=== PATIENT | female | born 1940 | race Caucasian/White ===

== ENCOUNTER → 2016-07-11 | Outpatient (REF) | payer MEDICARE, MEDICAID | LOC: M SFHCPLAZ 11:26 | PROVIDERS: ATTEND Family Medicine | DX: D75.89 Other specified diseases of blood and blood-forming organs (principal); I10 Essential (primary) hypertension; E55.9 Vitamin D deficiency, unspecified; E03.9 Hypothyroidism, unspecified ==

== ENCOUNTER → 2016-07-31 | Outpatient (REF) | payer MEDICARE, MEDICAID ==
[2016-07-31 13:19] LABS: BASO % 0.8 % (0.0-1.0); EOS # 0.1 K/mm3 (0.0-0.50); EOS % 1.8 % (0.0-3.0); LARGE UNSTAINED CELL # 0.2 K/mm3 (0.0-0.4); LARGE UNSTAINED CELL % 2.7 % (0.0-4.0); LYMPH # 1.1 K/mm3 (1.5-4.5); LYMPH % 16.5 % (24.0-44.0); MEAN CORPUSCULAR HEMOGLOBIN 30.9 pg (27.0-33.0); MEAN CORPUSCULAR HGB CONC 31.7 g/dl (32.0-36.5); MEAN CORPUSCULAR VOLUME 97.7 fl (80.0-96.0); MONO # 0.5 K/mm3 (0.0-0.8); MONO % 8.4 % (0.0-5.0); NEUTROPHILS % 69.8 % (36.0-66.0); PLATELET COUNT, AUTOMATED 294 k/mm3 (150-450); RED CELL DISTRIBUTION WIDTH 14.5 % (11.5-14.5); WHITE BLOOD COUNT 5.7 K/mm3 (4.0-10.0)
[2016-07-31 13:45] LABS: VITAMIN B12 LEVEL 208 PG/ML (247-911)
[2016-07-31 13:48] LABS: ALBUMIN 3.6 GM/DL (3.2-5.2); ALBUMIN/GLOBULIN RATIO 1.09 (1.00-1.93); ALKALINE PHOSPHATASE 95 U/L (45-117); ALT/SGPT 11 U/L (12-78); ANION GAP 6 MEQ/L (8-16); AST/SGOT 7 U/L (15-37); BILIRUBIN,TOTAL 0.6 MG/DL (0.2-1.0); BLOOD UREA NITROGEN 23 MG/DL (7-18); CALCIUM LEVEL 9.1 MG/DL (8.8-10.2); CARBON DIOXIDE LEVEL 30 MEQ/L (21-32); CHLORIDE LEVEL 105 MEQ/L (98-107); CREATININE FOR GFR 0.78 MG/DL (0.55-1.02); FERRITIN 35 NG/ML (8-252); GLOMERULAR FILTRATION RATE > 60.0 (>39); GLUCOSE, FASTING 93 MG/DL (83-110); MAGNESIUM LEVEL 2.3 MG/DL (1.8-2.4); POTASSIUM SERUM 4.7 MEQ/L (3.5-5.1); SODIUM LEVEL 141 MEQ/L (136-145); TOTAL IRON BINDING CAPACITY 378 UG/DL (250-450); TOTAL PROTEIN 6.9 GM/DL (6.4-8.2)
== END ==
LOC: M SFHCPLAZ 09:36
PROVIDERS: ATTEND Family Medicine
DX: D75.89 Other specified diseases of blood and blood-forming organs (principal); I10 Essential (primary) hypertension; E55.9 Vitamin D deficiency, unspecified; E03.9 Hypothyroidism, unspecified

== ENCOUNTER 2017-04-08 09:19 | Inpatient (IN) | payer MEDICARE, MEDICAID ==
[2017-04-08] MEDS: methylPREDNISolone INJ 125 MG/2 ML VIAL (J2930) IV (10:05)
[2017-04-08 10:13] LABS: ABG BASE EXCESS 0.3 (-2.0-2.0); ABG HCO3 33.1 MEQ/L (22.0-26.0); ABG STANDARD HCO3 24.1 MEQ/L (22.0-26.0); ABG TOTAL CO2 36.1 MEQ/L (23.0-31.0)
[2017-04-08 10:19] LABS: ABG PARTIAL PRESSURE CO2 97.2 mmHg (35.0-45.0)
[2017-04-08 10:20] LABS: ABG PARTIAL PRESSURE O2 47.7 mmHg (75.0-100.0)
[2017-04-08] MEDS: IPRATROPIUM 0.5MG/ALBUTEROL 2.5MG INH SOL UD 3ML (DUONEB)(J7620) NEB ×2 (10:23→10:36)
[2017-04-08 10:49] LABS: BASO % 0.3 % (0.0-1.0); HEMATOCRIT 54.5 % (36.0-47.0); HEMOGLOBIN 16.4 g/dl (12.0-16.0); IMMATURE GRANULOCYTE # 0.1 10^3/uL (0-0); IMMATURE GRANULOCYTE % 0.8 % (0-0); LYMPH # 0.5 10^3/uL (1.5-4.5); LYMPH % 4.5 % (24.0-44.0); MEAN CORPUSCULAR HEMOGLOBIN 30.7 pg (27.0-33.0); MEAN CORPUSCULAR HGB CONC 30.1 g/dl (32.0-36.5); MEAN CORPUSCULAR VOLUME 102.1 fl (80.0-96.0); MONO # 1.1 10^3/uL (0.0-0.8); MONO % 9.1 % (0.0-5.0); NEUTROPHILS # 10.2 10^3/uL (1.8-7.7); NEUTROPHILS % 85.3 % (36.0-66.0); PLATELET COUNT, AUTOMATED 322 10^3/uL (150-450); RED BLOOD COUNT 5.34 10^6/uL (4.00-5.40); RED CELL DISTRIBUTION WIDTH 14.3 % (11.5-14.5); WHITE BLOOD COUNT 11.9 10^3/uL (4.0-10.0)
[2017-04-08] MEDS: CEFTRIAXONE SOD 2 GM in APPROPRIATE DILUENT 1 EA IV (10:50)
[2017-04-08 10:51] LABS: SUSPECT SAMPLE POS FLAG
[2017-04-08 10:57] LABS: ABG HCO3 34.3 MEQ/L (22.0-26.0); ABG O2 SATURATION 96.8 % (95.0-99.0); ABG PARTIAL PRESSURE O2 100.1 mmHg (75.0-100.0); ABG STANDARD HCO3 25.4 MEQ/L (22.0-26.0); ABG TOTAL CO2 37.5 MEQ/L (23.0-31.0)
[2017-04-08 11:01] LABS: ABG PARTIAL PRESSURE CO2 103.1 mmHg (35.0-45.0)
[2017-04-08] MEDS: ROCURONIUM BROMIDE 50 MG/5 ML VIAL IV (11:24)
[2017-04-08] MEDS: SUCCINYLCHOLINE INJ 200 MG/10 ML VIAL (J0330) IV (11:24)
[2017-04-08] MEDS: LIDOCAINE 2% INJ 100 MG/5 ML SYRINGE IV (11:24)
[2017-04-08 11:29] LABS: ANION GAP 10 MEQ/L (8-16); BLOOD UREA NITROGEN 40 MG/DL (7-18); CALCIUM LEVEL 8.7 MG/DL (8.8-10.2); CARBON DIOXIDE LEVEL 29 MEQ/L (21-32); CHLORIDE LEVEL 96 MEQ/L (98-107); CK-MB VALUE MASS 2.2 NG/ML (0.0-3.6); CPK CREATINE PHOSPHOKINASE 42 U/L (26-192); CREATININE FOR GFR 1.63 MG/DL (0.55-1.02); GLOMERULAR FILTRATION RATE 32.4 (>39); GLUCOSE, FASTING 136 MG/DL (83-110); MB/CK RELATIVE INDEX 5.23 (< OR =4); NT-PRO BNP 15527 PG/ML (<450); SODIUM LEVEL 135 MEQ/L (136-145); TROPONIN I 0.14 NG/ML (< 0.10)
[2017-04-08 11:33] LABS: POTASSIUM SERUM 5.4 MEQ/L (3.5-5.1)
[2017-04-08] MEDS: NS 1,000 ML IV (11:35)
[2017-04-08] MEDS ORDERED: MIDAZOLAM INJ 2 MG/2 ML VIAL (J2250) As Ordered (11:51)
[2017-04-08] MEDS: MIDAZOLAM INJ 2 MG/2 ML VIAL (J2250) IV ×8 (11:55→22:31)
[2017-04-08] MEDS: HumaLOG INSULIN (NovoLOG) PER UNIT SC ×2 (12:00→18:00)
[2017-04-08] MEDS ORDERED: GLUCAGON FOR INJ 1 MG VIAL (J1610) SC (12:00)
[2017-04-08] MEDS ORDERED: GLUCOSE 4 GM CHEW TABLET PO (12:00)
[2017-04-08] MEDS ORDERED: DEXTROSE 50% 50 ML SYRINGE IV (12:00)
[2017-04-08] MEDS: PANTOPRAZOLE 40MG INJ (PROTONIX) (C9113) IV (12:25)
[2017-04-08] MEDS: AZITHROMYCIN INJ 500 MG, VIAL MATE ADAPTER 1 EACH in D5W 250 ML IV (12:37)
[2017-04-08 13:13] LABS: ABG BASE EXCESS -2.3 (-2.0-2.0); ABG HCO3 27.1 MEQ/L (22.0-26.0); ABG O2 SATURATION 75.9 % (95.0-99.0); ABG TOTAL CO2 29.1 MEQ/L (23.0-31.0)
[2017-04-08 13:16] LABS: ABG PARTIAL PRESSURE CO2 66.7 mmHg (35.0-45.0); ABG PARTIAL PRESSURE O2 44.7 mmHg (75.0-100.0); ABG pH (ARTERIAL) 7.226 UNITS (7.350-7.450)
[2017-04-08] MEDS: NOREPINEPHRINE BITARTRATE 8 MG in D5W 492 ML IV ×2 (13:18→13:21)
[2017-04-08 13:41] LABS: LACTIC ACID SEPSIS PROTOCOL 3.4 MMOL/L (0.4-2.0)
[2017-04-08] MEDS: HEPARIN SOD (PORCINE) 5000 UNITS/ML VIAL SC ×2 (14:00→22:32)
[2017-04-08 17:05] LABS: ABG BASE EXCESS -0.8 (-2.0-2.0); ABG HCO3 26.3 MEQ/L (22.0-26.0); ABG O2 SATURATION 84.5 % (95.0-99.0); ABG PARTIAL PRESSURE CO2 52.4 mmHg (35.0-45.0); ABG PARTIAL PRESSURE O2 49.2 mmHg (75.0-100.0); ABG STANDARD HCO3 23.5 MEQ/L (22.0-26.0); ABG TOTAL CO2 27.9 MEQ/L (23.0-31.0); ABG pH (ARTERIAL) 7.319 UNITS (7.350-7.450)
[2017-04-08 17:09] LABS: MIXED BASE EXCESS 0.1; MIXED HCO3 29.4 MEQ/L; MIXED O2 SATURATION 41.8 %; MIXED PARTIAL PRESSURE O2 24.4 mmHg; MIXED PH 7.254 UNITS; MIXED STANDARD HCO3 23.1 MEQ/L; MIXED TOTAL CO2 31.5 MEQ/L
[2017-04-08] MEDS: FUROSEMIDE 100 MG/10 ML VIAL (J1940) IV (18:15)
[2017-04-08 18:31] LABS: CPK CREATINE PHOSPHOKINASE 58 U/L (26-192); TROPONIN I 0.78 NG/ML (< 0.10)
[2017-04-08 18:32] LABS: CK-MB VALUE MASS 4.3 NG/ML (0.0-3.6); MB/CK RELATIVE INDEX 7.41 (< OR =4)
[2017-04-08] MEDS: CHLORHEXIDINE ORAL RINSE 0.12%/15ML 120ML BOTTLE MT (20:17)
[2017-04-08 20:42] LABS: BEDSIDE GLUCOSE 181 MG/DL (83-110)
[2017-04-09] MEDS: MIDAZOLAM INJ 2 MG/2 ML VIAL (J2250) IV ×7 (00:34→12:50)
[2017-04-09 00:40] LABS: BEDSIDE GLUCOSE 120 MG/DL (83-110)
[2017-04-09 03:04] LABS: CPK CREATINE PHOSPHOKINASE 77 U/L (26-192); TROPONIN I 1.28 NG/ML (< 0.10)
[2017-04-09 03:05] LABS: CK-MB VALUE MASS 4.8 NG/ML (0.0-3.6); MB/CK RELATIVE INDEX 6.23 (< OR =4)
[2017-04-09 05:50] LABS: BASO % 0.1 % (0.0-1.0); HEMATOCRIT 49.2 % (36.0-47.0); HEMOGLOBIN 15.7 g/dl (12.0-16.0); IMMATURE GRANULOCYTE # 0.1 10^3/uL (0-0); IMMATURE GRANULOCYTE % 0.5 % (0-0); LYMPH # 0.4 10^3/uL (1.5-4.5); LYMPH % 2.9 % (24.0-44.0); MEAN CORPUSCULAR HEMOGLOBIN 30.7 pg (27.0-33.0); MEAN CORPUSCULAR HGB CONC 31.9 g/dl (32.0-36.5); MEAN CORPUSCULAR VOLUME 96.3 fl (80.0-96.0); MONO # 1.2 10^3/uL (0.0-0.8); MONO % 8.3 % (0.0-5.0); NEUTROPHILS # 13.2 10^3/uL (1.8-7.7); NEUTROPHILS % 88.2 % (36.0-66.0); PLATELET COUNT, AUTOMATED 262 10^3/uL (150-450); RED BLOOD COUNT 5.11 10^6/uL (4.00-5.40); RED CELL DISTRIBUTION WIDTH 14.1 % (11.5-14.5); WHITE BLOOD COUNT 14.9 10^3/uL (4.0-10.0)
[2017-04-09] MEDS: HEPARIN SOD (PORCINE) 5000 UNITS/ML VIAL SC ×3 (05:51→22:02)
[2017-04-09 05:54] LABS: MIXED BASE EXCESS 1.6; MIXED HCO3 30.5 MEQ/L; MIXED PARTIAL PRESSURE CO2 65.6 mmHg; MIXED PARTIAL PRESSURE O2 50.3 mmHg; MIXED PH 7.285 UNITS; MIXED STANDARD HCO3 25.4 MEQ/L; MIXED TOTAL CO2 32.5 MEQ/L
[2017-04-09] MEDS: HumaLOG INSULIN (NovoLOG) PER UNIT SC ×5 (06:00→23:57)
[2017-04-09 06:08] LABS: ABG BASE EXCESS 0.3 (-2.0-2.0); ABG HCO3 26.8 MEQ/L (22.0-26.0); ABG O2 SATURATION 96.2 % (95.0-99.0); ABG PARTIAL PRESSURE CO2 49.8 mmHg (35.0-45.0); ABG PARTIAL PRESSURE O2 83.3 mmHg (75.0-100.0); ABG STANDARD HCO3 24.7 MEQ/L (22.0-26.0); ABG TOTAL CO2 28.3 MEQ/L (23.0-31.0); ABG pH (ARTERIAL) 7.348 UNITS (7.350-7.450)
[2017-04-09 06:20] LABS: ALBUMIN/GLOBULIN RATIO 0.91 (1.00-1.93); ALKALINE PHOSPHATASE 78 U/L (45-117); ALT/SGPT 128 U/L (12-78); ANION GAP 8 MEQ/L (8-16); AST/SGOT 122 U/L (7-37); BILIRUBIN,TOTAL 0.4 MG/DL (0.2-1.0); BLOOD UREA NITROGEN 58 MG/DL (7-18); CALCIUM LEVEL 8.4 MG/DL (8.8-10.2); CARBON DIOXIDE LEVEL 30 MEQ/L (21-32); CHLORIDE LEVEL 100 MEQ/L (98-107); CREATININE FOR GFR 2.29 MG/DL (0.55-1.02); GLOMERULAR FILTRATION RATE 21.9 (>39); GLUCOSE, FASTING 119 MG/DL (83-110); POTASSIUM SERUM 4.9 MEQ/L (3.5-5.1); SODIUM LEVEL 138 MEQ/L (136-145); TOTAL PROTEIN 6.3 GM/DL (6.4-8.2)
[2017-04-09] MEDS: CHLORHEXIDINE ORAL RINSE 0.12%/15ML 120ML BOTTLE MT ×2 (08:10→20:56)
[2017-04-09] MEDS: PANTOPRAZOLE 40MG INJ (PROTONIX) (C9113) IV (08:11)
[2017-04-09] MEDS: CEFTRIAXONE SOD 1 GM in APPROPRIATE DILUENT 1 EA IV (10:10)
[2017-04-09] MEDS: FUROSEMIDE 40 MG/4 ML VIAL (J1940) IV (10:55)
[2017-04-09 12:05] LABS: BEDSIDE GLUCOSE 108 MG/DL (83-110)
[2017-04-09] MEDS: AZITHROMYCIN INJ 500 MG, VIAL MATE ADAPTER 1 EACH in D5W 250 ML IV (12:18)
[2017-04-09] MEDS: methylPREDNISolone INJ 125 MG/2 ML VIAL (J2930) IV ×2 (12:18→20:56)
[2017-04-09] MEDS: MORPHINE 2 MG/ML 1ML SYRINGE (J2270) IV (12:19)
[2017-04-09 12:25] LABS: ABG BASE EXCESS -1.4 (-2.0-2.0); ABG HCO3 22.9 MEQ/L (22.0-26.0); ABG PARTIAL PRESSURE CO2 37.9 mmHg (35.0-45.0); ABG PARTIAL PRESSURE O2 75.2 mmHg (75.0-100.0); ABG STANDARD HCO3 23.2 MEQ/L (22.0-26.0); ABG TOTAL CO2 24.1 MEQ/L (23.0-31.0)
[2017-04-09 12:29] LABS: TROPONIN I 1.37 NG/ML (< 0.10)
[2017-04-09] MEDS: DIGOXIN INJ 0.5 MG/2 ML AMP (J1160) IV (13:46)
[2017-04-09] MEDS: CHLOROTHIAZIDE 500 MG VIAL (J1205) IV (13:48)
[2017-04-09 17:45] LABS: BEDSIDE GLUCOSE 138 MG/DL (83-110)
[2017-04-09 18:48] LABS: ALBUMIN 2.9 GM/DL (3.2-5.2); ANION GAP 9 MEQ/L (8-16); BLOOD UREA NITROGEN 70 MG/DL (7-18); CALCIUM LEVEL 8.3 MG/DL (8.8-10.2); CARBON DIOXIDE LEVEL 32 MEQ/L (21-32); CHLORIDE LEVEL 99 MEQ/L (98-107); CREATININE FOR GFR 2.17 MG/DL (0.55-1.02); GLOMERULAR FILTRATION RATE 23.3 (>39); GLUCOSE, FASTING 172 MG/DL (83-110); PHOSPHORUS LEVEL 4.1 MG/DL (2.5-4.9); POTASSIUM SERUM 4.2 MEQ/L (3.5-5.1); SODIUM LEVEL 140 MEQ/L (136-145)
[2017-04-10 00:06] LABS: BEDSIDE GLUCOSE 139 MG/DL (83-110)
[2017-04-10] MEDS: methylPREDNISolone INJ 125 MG/2 ML VIAL (J2930) IV ×3 (04:05→20:17)
[2017-04-10] MEDS: HEPARIN SOD (PORCINE) 5000 UNITS/ML VIAL SC ×3 (05:26→22:00)
[2017-04-10 05:54] LABS: BASO % 0.1 % (0.0-1.0); HEMOGLOBIN 15.1 g/dl (12.0-16.0); IMMATURE GRANULOCYTE # 0.2 10^3/uL (0-0); IMMATURE GRANULOCYTE % 1.2 % (0-0); LYMPH % 1.5 % (24.0-44.0); MEAN CORPUSCULAR HEMOGLOBIN 30.6 pg (27.0-33.0); MEAN CORPUSCULAR HGB CONC 32.1 g/dl (32.0-36.5); MEAN CORPUSCULAR VOLUME 95.1 fl (80.0-96.0); MIXED BASE EXCESS 5.6; MIXED HCO3 32.5 MEQ/L; MIXED O2 SATURATION 84.6 %; MIXED PARTIAL PRESSURE O2 50.7 mmHg; MIXED PH 7.382 UNITS; MIXED STANDARD HCO3 29.2 MEQ/L; MIXED TOTAL CO2 34.3 MEQ/L; MONO # 0.6 10^3/uL (0.0-0.8); MONO % 4.1 % (0.0-5.0); NEUTROPHILS # 13.9 10^3/uL (1.8-7.7); NEUTROPHILS % 93.1 % (36.0-66.0); PLATELET COUNT, AUTOMATED 221 10^3/uL (150-450); RED BLOOD COUNT 4.94 10^6/uL (4.00-5.40); RED CELL DISTRIBUTION WIDTH 14.1 % (11.5-14.5); WHITE BLOOD COUNT 14.9 10^3/uL (4.0-10.0)
[2017-04-10] MEDS: LEVOTHYROXINE 125MCG TABLET (0.125MG) PO (06:00)
[2017-04-10 06:04] LABS: ABG pH (ARTERIAL) 7.409 UNITS (7.350-7.450)
[2017-04-10 06:05] LABS: ABG O2 SATURATION 96.2 % (95.0-99.0); ABG PARTIAL PRESSURE CO2 50.1 mmHg (35.0-45.0); ABG STANDARD HCO3 28.9 MEQ/L (22.0-26.0); ABG TOTAL CO2 32.5 MEQ/L (23.0-31.0)
[2017-04-10 06:16] LABS: LYMPH # 0.2 10^3/uL (1.5-4.5); POSITIVE DIFF POS FLAG
[2017-04-10 06:25] LABS: ALBUMIN 2.7 GM/DL (3.2-5.2); ALBUMIN/GLOBULIN RATIO 0.82 (1.00-1.93); ALKALINE PHOSPHATASE 84 U/L (45-117); ALT/SGPT 178 U/L (12-78); ANION GAP 7 MEQ/L (8-16); AST/SGOT 123 U/L (7-37); BILIRUBIN,TOTAL 0.4 MG/DL (0.2-1.0); BLOOD UREA NITROGEN 74 MG/DL (7-18); CALCIUM LEVEL 8.4 MG/DL (8.8-10.2); CARBON DIOXIDE LEVEL 35 MEQ/L (21-32); CHLORIDE LEVEL 100 MEQ/L (98-107); CREATININE FOR GFR 1.52 MG/DL (0.55-1.02); GLOMERULAR FILTRATION RATE 35.1 (>39); GLUCOSE, FASTING 156 MG/DL (83-110); POTASSIUM SERUM 4.1 MEQ/L (3.5-5.1); SODIUM LEVEL 142 MEQ/L (136-145); TROPONIN I 0.62 NG/ML (< 0.10)
[2017-04-10] MEDS: HumaLOG INSULIN (NovoLOG) PER UNIT SC ×4 (06:51→21:00)
[2017-04-10] MEDS: PANTOPRAZOLE 40MG INJ (PROTONIX) (C9113) IV (08:55)
[2017-04-10] MEDS: CHLORHEXIDINE ORAL RINSE 0.12%/15ML 120ML BOTTLE MT (08:55)
[2017-04-10] MEDS ORDERED: INSULIN IV RATE CHANGE DOCUMENTATION ML/HR XX (09:15)
[2017-04-10] MEDS ORDERED: INSULIN HUMAN REGULAR 100 UNITS in NS 99 ML IV (10:00)
[2017-04-10] MEDS: CEFTRIAXONE SOD 1 GM in APPROPRIATE DILUENT 1 EA IV (10:19)
[2017-04-10] MEDS ORDERED: HumaLOG INSULIN (NovoLOG) PER UNIT SC (12:00)
[2017-04-10 12:29] LABS: BEDSIDE GLUCOSE 109 MG/DL (83-110)
[2017-04-10] MEDS: AZITHROMYCIN INJ 500 MG, VIAL MATE ADAPTER 1 EACH in D5W 250 ML IV (13:26)
[2017-04-10] MEDS: CHLOROTHIAZIDE 500 MG VIAL (J1205) IV (16:22)
[2017-04-10 17:10] LABS: ABG BASE EXCESS -0.2 (-2.0-2.0); ABG HCO3 31.3 MEQ/L (22.0-26.0); ABG O2 SATURATION 82.4 % (95.0-99.0); ABG PARTIAL PRESSURE O2 55.2 mmHg (75.0-100.0); ABG STANDARD HCO3 23.9 MEQ/L (22.0-26.0)
[2017-04-10 17:11] LABS: ABG pH (ARTERIAL) 7.176 UNITS (7.350-7.450)
[2017-04-10 17:12] LABS: ABG PARTIAL PRESSURE CO2 86.6 mmHg (35.0-45.0)
[2017-04-10 18:02] LABS: BEDSIDE GLUCOSE 122 MG/DL (83-110)
[2017-04-10 19:44] LABS: ABG BASE EXCESS 5.3 (-2.0-2.0); ABG HCO3 34.9 MEQ/L (22.0-26.0); ABG PARTIAL PRESSURE O2 52.8 mmHg (75.0-100.0); ABG STANDARD HCO3 28.9 MEQ/L (22.0-26.0); ABG TOTAL CO2 37.2 MEQ/L (23.0-31.0)
[2017-04-10 20:08] LABS: ABG PARTIAL PRESSURE CO2 74.3 mmHg (35.0-45.0)
[2017-04-10 21:15] LABS: BEDSIDE GLUCOSE 103 MG/DL (83-110)
[2017-04-11] MEDS: methylPREDNISolone INJ 125 MG/2 ML VIAL (J2930) IV ×2 (04:07→11:35)
[2017-04-11 05:08] LABS: MIXED BASE EXCESS 5.2; MIXED HCO3 35.4 MEQ/L; MIXED O2 SATURATION 76.8 %; MIXED PARTIAL PRESSURE CO2 79.1 mmHg; MIXED PARTIAL PRESSURE O2 45.1 mmHg; MIXED PH 7.269 UNITS; MIXED STANDARD HCO3 28.6 MEQ/L; MIXED TOTAL CO2 37.9 MEQ/L
[2017-04-11 05:21] LABS: BASO % 0.1 % (0.0-1.0); HEMATOCRIT 49.4 % (36.0-47.0); IMMATURE GRANULOCYTE # 0.1 10^3/uL (0-0); IMMATURE GRANULOCYTE % 0.6 % (0-0); LYMPH # 0.3 10^3/uL (1.5-4.5); MEAN CORPUSCULAR HEMOGLOBIN 30.5 pg (27.0-33.0); MEAN CORPUSCULAR HGB CONC 30.4 g/dl (32.0-36.5); MEAN CORPUSCULAR VOLUME 100.6 fl (80.0-96.0); MONO # 0.6 10^3/uL (0.0-0.8); NEUTROPHILS # 13.4 10^3/uL (1.8-7.7); NEUTROPHILS % 93.3 % (36.0-66.0); PLATELET COUNT, AUTOMATED 199 10^3/uL (150-450); RED BLOOD COUNT 4.91 10^6/uL (4.00-5.40); RED CELL DISTRIBUTION WIDTH 14.3 % (11.5-14.5); WHITE BLOOD COUNT 14.3 10^3/uL (4.0-10.0)
[2017-04-11] MEDS: LEVOTHYROXINE 125MCG TABLET (0.125MG) PO (05:26)
[2017-04-11 05:47] LABS: ALBUMIN 2.7 GM/DL (3.2-5.2); ALBUMIN/GLOBULIN RATIO 0.71 (1.00-1.93); ALKALINE PHOSPHATASE 71 U/L (45-117); ALT/SGPT 247 U/L (12-78); ANION GAP 4 MEQ/L (8-16); AST/SGOT 128 U/L (7-37); BILIRUBIN,TOTAL 0.4 MG/DL (0.2-1.0); BLOOD UREA NITROGEN 83 MG/DL (7-18); CALCIUM LEVEL 8.5 MG/DL (8.8-10.2); CARBON DIOXIDE LEVEL 37 MEQ/L (21-32); CHLORIDE LEVEL 102 MEQ/L (98-107); CREATININE FOR GFR 1.17 MG/DL (0.55-1.02); GLOMERULAR FILTRATION RATE 47.5 (>39); GLUCOSE, FASTING 117 MG/DL (83-110); POTASSIUM SERUM 4.4 MEQ/L (3.5-5.1); SODIUM LEVEL 143 MEQ/L (136-145); TOTAL PROTEIN 6.5 GM/DL (6.4-8.2)
[2017-04-11] MEDS: HEPARIN SOD (PORCINE) 5000 UNITS/ML VIAL SC (05:49)
[2017-04-11 06:12] LABS: POSITIVE DIFF POS FLAG
[2017-04-11] MEDS: HumaLOG INSULIN (NovoLOG) PER UNIT SC ×3 (07:30→17:51)
[2017-04-11 08:16] LABS: BEDSIDE GLUCOSE 109 MG/DL (83-110)
[2017-04-11] MEDS ORDERED: ALBUTEROL SULFATE 2.5 MG/0.5 ML INH NEB SOLN NEB (10:30)
[2017-04-11] MEDS: CEFTRIAXONE SOD 1 GM in APPROPRIATE DILUENT 1 EA IV (10:52)
[2017-04-11] MEDS: FUROSEMIDE 40 MG/4 ML VIAL (J1940) IV ×2 (11:02→17:27)
[2017-04-11] MEDS: IPRATROPIUM 0.5MG/ALBUTEROL 2.5MG INH SOL UD 3ML (DUONEB)(J7620) NEB ×4 (11:20→23:42)
[2017-04-11 12:02] LABS: BEDSIDE GLUCOSE 115 MG/DL (83-110)
[2017-04-11 13:19] LABS: PARTIAL THROMBOPLASTIN TIME 26.3 SECONDS (26.8-37.9)
[2017-04-11] MEDS: AZITHROMYCIN INJ 500 MG, VIAL MATE ADAPTER 1 EACH in D5W 250 ML IV (13:21)
[2017-04-11] MEDS: PANTOPRAZOLE 40MG INJ (PROTONIX) (C9113) IV (14:18)
[2017-04-11] MEDS: HEPARIN SOD (PORCINE) 5000 UNITS/ML VIAL IV (14:29)
[2017-04-11] MEDS: HEPARIN DRIP 25,000 UNITS in APPROPRIATE DILUENT 1 EA IV (14:43)
[2017-04-11 15:18] LABS: ABG BASE EXCESS 4.9 (-2.0-2.0); ABG HCO3 35.1 MEQ/L (22.0-26.0); ABG O2 SATURATION 92.5 % (95.0-99.0); ABG PARTIAL PRESSURE O2 71.5 mmHg (75.0-100.0); ABG STANDARD HCO3 28.7 MEQ/L (22.0-26.0); ABG TOTAL CO2 37.6 MEQ/L (23.0-31.0); ABG pH (ARTERIAL) 7.263 UNITS (7.350-7.450)
[2017-04-11 15:20] LABS: ABG PARTIAL PRESSURE CO2 79.5 mmHg (35.0-45.0)
[2017-04-11 17:55] LABS: BEDSIDE GLUCOSE 146 MG/DL (83-110)
[2017-04-11] MEDS: DIGOXIN INJ 0.5 MG/2 ML AMP (J1160) IV (18:17)
[2017-04-11] MEDS: ASPIRIN 81 MG ENTERIC TAB PO (18:17)
[2017-04-11 19:13] LABS: PARTIAL THROMBOPLASTIN TIME 119.2 SECONDS (26.8-37.9)
[2017-04-12 00:35] LABS: BEDSIDE GLUCOSE 150 MG/DL (83-110)
[2017-04-12] MEDS: HumaLOG INSULIN (NovoLOG) PER UNIT SC ×3 (00:35→12:00)
[2017-04-12 01:15] LABS: PARTIAL THROMBOPLASTIN TIME 86.5 SECONDS (26.8-37.9)
[2017-04-12] MEDS: DIGOXIN INJ 0.5 MG/2 ML AMP (J1160) IV ×2 (02:17→09:06)
[2017-04-12] MEDS: IPRATROPIUM 0.5MG/ALBUTEROL 2.5MG INH SOL UD 3ML (DUONEB)(J7620) NEB ×7 (03:32→23:01)
[2017-04-12 04:40] LABS: BASO % 0.1 % (0.0-1.0); HEMATOCRIT 50.7 % (36.0-47.0); HEMOGLOBIN 15.1 g/dl (12.0-16.0); IMMATURE GRANULOCYTE # 0.1 10^3/uL (0-0); IMMATURE GRANULOCYTE % 0.6 % (0-0); LYMPH # 0.3 10^3/uL (1.5-4.5); LYMPH % 2.1 % (24.0-44.0); MEAN CORPUSCULAR HGB CONC 29.8 g/dl (32.0-36.5); MEAN CORPUSCULAR VOLUME 100.6 fl (80.0-96.0); MONO # 1.1 10^3/uL (0.0-0.8); MONO % 7.8 % (0.0-5.0); NEUTROPHILS # 12.2 10^3/uL (1.8-7.7); NEUTROPHILS % 89.4 % (36.0-66.0); PLATELET COUNT, AUTOMATED 189 10^3/uL (150-450); RED BLOOD COUNT 5.04 10^6/uL (4.00-5.40); RED CELL DISTRIBUTION WIDTH 14.1 % (11.5-14.5); WHITE BLOOD COUNT 13.6 10^3/uL (4.0-10.0)
[2017-04-12 04:41] LABS: MIXED BASE EXCESS 7.4; MIXED HCO3 38.5 MEQ/L; MIXED O2 SATURATION 95.2 %; MIXED PARTIAL PRESSURE CO2 90.1 mmHg; MIXED PH 7.249 UNITS; MIXED STANDARD HCO3 31.1 MEQ/L; MIXED TOTAL CO2 41.3 MEQ/L
[2017-04-12 04:53] LABS: POSITIVE DIFF POS FLAG
[2017-04-12 05:14] LABS: ALBUMIN 2.8 GM/DL (3.2-5.2); ALBUMIN/GLOBULIN RATIO 0.78 (1.00-1.93); ALKALINE PHOSPHATASE 73 U/L (45-117); ALT/SGPT 401 U/L (12-78); ANION GAP 4 MEQ/L (8-16); AST/SGOT 179 U/L (7-37); BILIRUBIN,TOTAL 0.3 MG/DL (0.2-1.0); BLOOD UREA NITROGEN 86 MG/DL (7-18); CALCIUM LEVEL 8.9 MG/DL (8.8-10.2); CARBON DIOXIDE LEVEL 38 MEQ/L (21-32); CHLORIDE LEVEL 101 MEQ/L (98-107); CREATININE FOR GFR 1.15 MG/DL (0.55-1.02); GLOMERULAR FILTRATION RATE 48.5 (>39); GLUCOSE, FASTING 128 MG/DL (83-110); POTASSIUM SERUM 4.7 MEQ/L (3.5-5.1); SODIUM LEVEL 143 MEQ/L (136-145); TOTAL PROTEIN 6.4 GM/DL (6.4-8.2)
[2017-04-12 05:54] LABS: MIXED BASE EXCESS 9.3; MIXED HCO3 40.7 MEQ/L; MIXED O2 SATURATION 89.9 %; MIXED PARTIAL PRESSURE CO2 91.6 mmHg; MIXED PARTIAL PRESSURE O2 60.7 mmHg; MIXED PH 7.266 UNITS; MIXED STANDARD HCO3 32.8 MEQ/L; MIXED TOTAL CO2 43.6 MEQ/L
[2017-04-12 06:15] LABS: BEDSIDE GLUCOSE 116 MG/DL (83-110)
[2017-04-12 07:20] LABS: PARTIAL THROMBOPLASTIN TIME 76.1 SECONDS (26.8-37.9)
[2017-04-12] MEDS: PANTOPRAZOLE 40MG INJ (PROTONIX) (C9113) IV (09:05)
[2017-04-12] MEDS: FUROSEMIDE 40 MG/4 ML VIAL (J1940) IV ×2 (09:06→16:47)
[2017-04-12] MEDS: methylPREDNISolone INJ 125 MG/2 ML VIAL (J2930) IV (09:06)
[2017-04-12] MEDS: ASPIRIN 81 MG ENTERIC TAB PO (09:07)
[2017-04-12] MEDS: CEFTRIAXONE SOD 1 GM in APPROPRIATE DILUENT 1 EA IV (11:26)
[2017-04-12 12:05] LABS: BEDSIDE GLUCOSE 116 MG/DL (83-110)
[2017-04-12] MEDS: AZITHROMYCIN INJ 500 MG, VIAL MATE ADAPTER 1 EACH in D5W 250 ML IV (12:53)
[2017-04-12] MEDS: HEPARIN DRIP 25,000 UNITS in APPROPRIATE DILUENT 1 EA IV (15:51)
[2017-04-13] MEDS: IPRATROPIUM 0.5MG/ALBUTEROL 2.5MG INH SOL UD 3ML (DUONEB)(J7620) NEB ×3 (04:00→11:48)
[2017-04-13 04:25] LABS: BASO % 0.2 % (0.0-1.0); HEMATOCRIT 52.9 % (36.0-47.0); HEMOGLOBIN 15.6 g/dl (12.0-16.0); IMMATURE GRANULOCYTE # 0.1 10^3/uL (0-0); IMMATURE GRANULOCYTE % 0.6 % (0-0); LYMPH # 0.3 10^3/uL (1.5-4.5); LYMPH % 2.5 % (24.0-44.0); MEAN CORPUSCULAR HEMOGLOBIN 30.1 pg (27.0-33.0); MEAN CORPUSCULAR HGB CONC 29.5 g/dl (32.0-36.5); MEAN CORPUSCULAR VOLUME 102.1 fl (80.0-96.0); MONO # 1.1 10^3/uL (0.0-0.8); MONO % 8.8 % (0.0-5.0); NEUTROPHILS # 11.1 10^3/uL (1.8-7.7); NEUTROPHILS % 87.9 % (36.0-66.0); PLATELET COUNT, AUTOMATED 200 10^3/uL (150-450); RED BLOOD COUNT 5.18 10^6/uL (4.00-5.40); RED CELL DISTRIBUTION WIDTH 13.8 % (11.5-14.5); WHITE BLOOD COUNT 12.6 10^3/uL (4.0-10.0)
[2017-04-13 04:40] LABS: PARTIAL THROMBOPLASTIN TIME 80.5 SECONDS (26.8-37.9)
[2017-04-13 04:42] LABS: ALBUMIN 2.9 GM/DL (3.2-5.2); ALBUMIN/GLOBULIN RATIO 0.78 (1.00-1.93); ALKALINE PHOSPHATASE 72 U/L (45-117); ALT/SGPT 440 U/L (12-78); ANION GAP 1 MEQ/L (8-16); AST/SGOT 127 U/L (7-37); BILIRUBIN,TOTAL 0.4 MG/DL (0.2-1.0); BLOOD UREA NITROGEN 73 MG/DL (7-18); CARBON DIOXIDE LEVEL 44 MEQ/L (21-32); CHLORIDE LEVEL 98 MEQ/L (98-107); CREATININE FOR GFR 0.99 MG/DL (0.55-1.02); GLOMERULAR FILTRATION RATE 57.6 (>39); GLUCOSE, FASTING 131 MG/DL (83-110); POTASSIUM SERUM 4.4 MEQ/L (3.5-5.1); SODIUM LEVEL 143 MEQ/L (136-145); TOTAL PROTEIN 6.6 GM/DL (6.4-8.2)
[2017-04-13] MEDS: FUROSEMIDE 40 MG/4 ML VIAL (J1940) IV ×2 (08:42→16:56)
[2017-04-13] MEDS: PANTOPRAZOLE 40MG INJ (PROTONIX) (C9113) IV (08:42)
[2017-04-13] MEDS: DIGOXIN INJ 0.5 MG/2 ML AMP (J1160) IV (08:43)
[2017-04-13] MEDS: methylPREDNISolone INJ 40 MG/1 ML VIAL (J2920) IV (08:43)
[2017-04-13] MEDS: ASPIRIN 81 MG ENTERIC TAB PO (08:44)
[2017-04-13] MEDS: LISINOPRIL 5 MG TAB PO (09:00)
[2017-04-13] MEDS: CEFTRIAXONE SOD 1 GM in APPROPRIATE DILUENT 1 EA IV (11:00)
[2017-04-13] MEDS: AZITHROMYCIN INJ 500 MG, VIAL MATE ADAPTER 1 EACH in D5W 250 ML IV (12:24)
[2017-04-13] MEDS: HEPARIN DRIP 25,000 UNITS in APPROPRIATE DILUENT 1 EA IV (14:55)
[2017-04-13] MEDS: BUDESONIDE 0.5 MG/2 ML INHALATION SUSPENSION INH (20:28)
[2017-04-13] MEDS: FORMOTEROL FUMARATE 20 MCG/2 ML INHALATION SOLUTION (PERFOROMIST) INH (20:28)
[2017-04-14 04:05] LABS: ABG BASE EXCESS 19.6 (-2.0-2.0); ABG HCO3 50.4 MEQ/L (22.0-26.0); ABG O2 SATURATION 98.3 % (95.0-99.0); ABG PARTIAL PRESSURE O2 101.3 mmHg (75.0-100.0); ABG STANDARD HCO3 44.2 MEQ/L (22.0-26.0); ABG TOTAL CO2 53.1 MEQ/L (23.0-31.0); ABG pH (ARTERIAL) 7.384 UNITS (7.350-7.450)
[2017-04-14 04:11] LABS: ABG PARTIAL PRESSURE CO2 86.4 mmHg (35.0-45.0)
[2017-04-14 04:33] LABS: BASO % 0.1 % (0.0-1.0); HEMATOCRIT 50.8 % (36.0-47.0); HEMOGLOBIN 15.2 g/dl (12.0-16.0); IMMATURE GRANULOCYTE # 0.1 10^3/uL (0-0); IMMATURE GRANULOCYTE % 0.7 % (0-0); LYMPH # 0.4 10^3/uL (1.5-4.5); LYMPH % 2.3 % (24.0-44.0); MEAN CORPUSCULAR HEMOGLOBIN 30.5 pg (27.0-33.0); MEAN CORPUSCULAR HGB CONC 29.9 g/dl (32.0-36.5); MONO # 1.3 10^3/uL (0.0-0.8); MONO % 8.4 % (0.0-5.0); NEUTROPHILS # 14.1 10^3/uL (1.8-7.7); NEUTROPHILS % 88.5 % (36.0-66.0); PLATELET COUNT, AUTOMATED 192 10^3/uL (150-450); RED BLOOD COUNT 4.98 10^6/uL (4.00-5.40); RED CELL DISTRIBUTION WIDTH 13.5 % (11.5-14.5); WHITE BLOOD COUNT 15.9 10^3/uL (4.0-10.0)
[2017-04-14 04:46] LABS: PARTIAL THROMBOPLASTIN TIME 75.7 SECONDS (26.8-37.9)
[2017-04-14 04:56] LABS: ALBUMIN/GLOBULIN RATIO 0.91 (1.00-1.93); ALKALINE PHOSPHATASE 71 U/L (45-117); ALT/SGPT 352 U/L (12-78); AST/SGOT 68 U/L (7-37); BILIRUBIN,TOTAL 0.7 MG/DL (0.2-1.0); BLOOD UREA NITROGEN 59 MG/DL (7-18); CALCIUM LEVEL 9.2 MG/DL (8.8-10.2); CHLORIDE LEVEL 96 MEQ/L (98-107); CREATININE FOR GFR 0.78 MG/DL (0.55-1.02); GLOMERULAR FILTRATION RATE > 60.0 (>39); GLUCOSE, FASTING 123 MG/DL (83-110); POTASSIUM SERUM 4.1 MEQ/L (3.5-5.1); SODIUM LEVEL 144 MEQ/L (136-145); TOTAL PROTEIN 6.3 GM/DL (6.4-8.2)
[2017-04-14 05:12] LABS: CARBON DIOXIDE LEVEL 50 MEQ/L (21-32)
[2017-04-14] MEDS ORDERED: HALOPERIDOL 5 MG/ML VIAL (J1630) As Ordered (08:51)
[2017-04-14] MEDS: HALOPERIDOL 5 MG/ML VIAL (J1630) IV (09:00)
[2017-04-14 09:17] LABS: ABG BASE EXCESS 16.8 (-2.0-2.0); ABG HCO3 45.7 MEQ/L (22.0-26.0); ABG O2 SATURATION 89.4 % (95.0-99.0); ABG PARTIAL PRESSURE O2 56.6 mmHg (75.0-100.0); ABG STANDARD HCO3 40.7 MEQ/L (22.0-26.0); ABG TOTAL CO2 47.9 MEQ/L (23.0-31.0); ABG pH (ARTERIAL) 7.424 UNITS (7.350-7.450)
[2017-04-14] MEDS: FUROSEMIDE 40 MG/4 ML VIAL (J1940) IV ×2 (09:17→16:07)
[2017-04-14 09:21] LABS: ABG PARTIAL PRESSURE CO2 71.4 mmHg (35.0-45.0)
[2017-04-14] MEDS: DIGOXIN 0.125 MG TAB PO (09:35)
[2017-04-14] MEDS: ASPIRIN 81 MG ENTERIC TAB PO (09:37)
[2017-04-14] MEDS: PANTOPRAZOLE 40MG TAB (PROTONIX) PO (09:38)
[2017-04-14] MEDS: LISINOPRIL 5 MG TAB PO (09:39)
[2017-04-14] MEDS: NICOTINE 21MG/24HR 1 EA TRANSDERMAL TD (09:40)
[2017-04-14] MEDS: FORMOTEROL FUMARATE 20 MCG/2 ML INHALATION SOLUTION (PERFOROMIST) INH ×2 (09:41→19:46)
[2017-04-14] MEDS: BUDESONIDE 0.5 MG/2 ML INHALATION SUSPENSION INH ×2 (09:41→19:45)
[2017-04-14] MEDS: HEPARIN DRIP 25,000 UNITS in APPROPRIATE DILUENT 1 EA IV (16:09)
[2017-04-14] MEDS ORDERED: SODIUM CHLORIDE 0.9% INJ 10 ML SYR IV (17:15)
[2017-04-14] MEDS: SODIUM CHLORIDE 0.9% INJ 10 ML SYR IV (18:11)
[2017-04-15] MEDS: SODIUM CHLORIDE 0.9% INJ 10 ML SYR IV ×2 (05:50→18:51)
[2017-04-15 06:04] LABS: WHITE BLOOD COUNT 19.3 10^3/uL (4.0-10.0)
[2017-04-15 06:05] LABS: BASO % 0.2 % (0.0-1.0); HEMATOCRIT 48.6 % (36.0-47.0); HEMOGLOBIN 14.3 g/dl (12.0-16.0); LYMPH % 1.7 % (24.0-44.0); MEAN CORPUSCULAR HEMOGLOBIN 30.4 pg (27.0-33.0); MEAN CORPUSCULAR HGB CONC 29.4 g/dl (32.0-36.5); MEAN CORPUSCULAR VOLUME 103.4 fl (80.0-96.0); MONO % 6.5 % (0.0-5.0); NEUTROPHILS % 90.7 % (36.0-66.0); PLATELET COUNT, AUTOMATED 194 10^3/uL (150-450); RED CELL DISTRIBUTION WIDTH 13.6 % (11.5-14.5)
[2017-04-15 06:06] LABS: IMMATURE GRANULOCYTE # 0.2 10^3/uL (0-0); IMMATURE GRANULOCYTE % 0.9 % (0-0); LYMPH # 0.3 10^3/uL (1.5-4.5); MONO # 1.3 10^3/uL (0.0-0.8); NEUTROPHILS # 17.6 10^3/uL (1.8-7.7)
[2017-04-15 06:16] LABS: PARTIAL THROMBOPLASTIN TIME 43.1 SECONDS (26.8-37.9)
[2017-04-15 07:20] LABS: BLOOD UREA NITROGEN 61 MG/DL (7-18); CARBON DIOXIDE LEVEL 51 MEQ/L (21-32); CHLORIDE LEVEL 93 MEQ/L (98-107); CREATININE FOR GFR 0.97 MG/DL (0.55-1.02); GLUCOSE, FASTING 255 MG/DL (83-110); POTASSIUM SERUM 3.3 MEQ/L (3.5-5.1); SODIUM LEVEL 143 MEQ/L (136-145)
[2017-04-15 07:21] LABS: ALBUMIN 2.9 GM/DL (3.2-5.2); ALBUMIN/GLOBULIN RATIO 1.04 (1.00-1.93); ALKALINE PHOSPHATASE 70 U/L (45-117); ALT/SGPT 239 U/L (12-78); AST/SGOT 40 U/L (7-37); BILIRUBIN,TOTAL 0.7 MG/DL (0.2-1.0); CALCIUM LEVEL 8.8 MG/DL (8.8-10.2); TOTAL PROTEIN 5.7 GM/DL (6.4-8.2)
[2017-04-15] MEDS: BUDESONIDE 0.5 MG/2 ML INHALATION SUSPENSION INH ×2 (07:56→19:45)
[2017-04-15] MEDS: FORMOTEROL FUMARATE 20 MCG/2 ML INHALATION SOLUTION (PERFOROMIST) INH ×2 (07:56→19:45)
[2017-04-15] MEDS: ASPIRIN 81 MG ENTERIC TAB PO (08:59)
[2017-04-15] MEDS: POTASSIUM CHLORIDE 10 MEQ SR TABLET PO (08:59)
[2017-04-15] MEDS: PANTOPRAZOLE 40MG TAB (PROTONIX) PO (08:59)
[2017-04-15] MEDS: DIGOXIN 0.125 MG TAB PO (08:59)
[2017-04-15] MEDS: LISINOPRIL 5 MG TAB PO (09:00)
[2017-04-15] MEDS: NICOTINE 21MG/24HR 1 EA TRANSDERMAL TD (09:00)
[2017-04-15] MEDS ORDERED: ISOVUE-370 76% 100ML VIAL (Q9967) As Ordered (10:09)
[2017-04-15 13:41] LABS: PARTIAL THROMBOPLASTIN TIME 75.7 SECONDS (26.8-37.9)
[2017-04-15] MEDS: SODIUM CHLORIDE HYPERTONIC 3% 15ML NEB SOL INH ×3 (14:53→19:46)
[2017-04-15] MEDS: IPRATROPIUM 0.5MG/ALBUTEROL 2.5MG INH SOL UD 3ML (DUONEB)(J7620) NEB (14:53)
[2017-04-15] MEDS: HEPARIN SOD (PORCINE) 5000 UNITS/ML VIAL IV (22:14)
[2017-04-16] MEDS: NS 500 ML IV (04:34)
[2017-04-16 05:02] LABS: HEMATOCRIT 44.4 % (36.0-47.0); HEMOGLOBIN 13.3 g/dl (12.0-16.0); MEAN CORPUSCULAR HEMOGLOBIN 30.4 pg (27.0-33.0); MEAN CORPUSCULAR VOLUME 101.4 fl (80.0-96.0); PLATELET COUNT, AUTOMATED 206 10^3/uL (150-450); RED BLOOD COUNT 4.38 10^6/uL (4.00-5.40); RED CELL DISTRIBUTION WIDTH 13.8 % (11.5-14.5); WHITE BLOOD COUNT 18.2 10^3/uL (4.0-10.0)
[2017-04-16 05:19] LABS: PARTIAL THROMBOPLASTIN TIME 42.9 SECONDS (26.8-37.9)
[2017-04-16 05:29] LABS: ALBUMIN 2.6 GM/DL (3.2-5.2); BLOOD UREA NITROGEN 63 MG/DL (7-18); CALCIUM LEVEL 8.9 MG/DL (8.8-10.2); CHLORIDE LEVEL 93 MEQ/L (98-107); CREATININE FOR GFR 0.97 MG/DL (0.55-1.02); GLUCOSE, FASTING 115 MG/DL (83-110); PHOSPHORUS LEVEL 1.5 MG/DL (2.5-4.9); POTASSIUM SERUM 4.1 MEQ/L (3.5-5.1); SODIUM LEVEL 141 MEQ/L (136-145)
[2017-04-16 05:40] LABS: ANION GAP 1 MEQ/L (8-16)
[2017-04-16 05:41] LABS: CARBON DIOXIDE LEVEL 47 MEQ/L (21-32)
[2017-04-16] MEDS: HEPARIN SOD (PORCINE) 5000 UNITS/ML VIAL IV (06:28)
[2017-04-16] MEDS: SODIUM CHLORIDE 0.9% INJ 10 ML SYR IV ×2 (06:36→17:48)
[2017-04-16] MEDS: FORMOTEROL FUMARATE 20 MCG/2 ML INHALATION SOLUTION (PERFOROMIST) INH ×2 (08:56→20:33)
[2017-04-16] MEDS: SODIUM CHLORIDE HYPERTONIC 3% 15ML NEB SOL INH ×3 (08:56→20:33)
[2017-04-16] MEDS: BUDESONIDE 0.5 MG/2 ML INHALATION SUSPENSION INH ×2 (08:56→20:33)
[2017-04-16] MEDS: LISINOPRIL 5 MG TAB PO (09:00)
[2017-04-16] MEDS: PANTOPRAZOLE 40MG TAB (PROTONIX) PO (09:53)
[2017-04-16] MEDS: POTASSIUM PHOSPHATE INJ 18 MMOL in D5W 250 ML IV (09:53)
[2017-04-16] MEDS: ASPIRIN 81 MG ENTERIC TAB PO (09:53)
[2017-04-16] MEDS: LevoFLOXacin IV 750 MG in APPROPRIATE DILUENT 1 EA IV (09:53)
[2017-04-16] MEDS: NICOTINE 21MG/24HR 1 EA TRANSDERMAL TD (09:53)
[2017-04-16 13:12] LABS: PARTIAL THROMBOPLASTIN TIME 53.5 SECONDS (26.8-37.9)
[2017-04-16] MEDS: IPRATROPIUM 0.5MG/ALBUTEROL 2.5MG INH SOL UD 3ML (DUONEB)(J7620) NEB (14:49)
[2017-04-16] MEDS: HEPARIN DRIP 25,000 UNITS in APPROPRIATE DILUENT 1 EA IV (17:46)
[2017-04-16 21:33] LABS: PARTIAL THROMBOPLASTIN TIME 138.4 SECONDS (26.8-37.9)
[2017-04-17 04:52] LABS: HEMATOCRIT 41.3 % (36.0-47.0); HEMOGLOBIN 12.7 g/dl (12.0-16.0); MEAN CORPUSCULAR HEMOGLOBIN 30.5 pg (27.0-33.0); MEAN CORPUSCULAR HGB CONC 30.8 g/dl (32.0-36.5); PLATELET COUNT, AUTOMATED 221 10^3/uL (150-450); RED BLOOD COUNT 4.17 10^6/uL (4.00-5.40); RED CELL DISTRIBUTION WIDTH 14.2 % (11.5-14.5); WHITE BLOOD COUNT 17.1 10^3/uL (4.0-10.0)
[2017-04-17 05:32] LABS: PARTIAL THROMBOPLASTIN TIME 202.9 SECONDS (26.8-37.9)
[2017-04-17] MEDS: SODIUM CHLORIDE 0.9% INJ 10 ML SYR IV ×2 (05:38→18:00)
[2017-04-17] MEDS ORDERED: LEVOTHYROXINE 125MCG TABLET (0.125MG) PO (06:00)
[2017-04-17 06:15] LABS: ALBUMIN 2.5 GM/DL (3.2-5.2); ANION GAP 5 MEQ/L (8-16); BLOOD UREA NITROGEN 61 MG/DL (7-18); CALCIUM LEVEL 8.6 MG/DL (8.8-10.2); CARBON DIOXIDE LEVEL 43 MEQ/L (21-32); CHLORIDE LEVEL 93 MEQ/L (98-107); CREATININE FOR GFR 0.99 MG/DL (0.55-1.02); GLOMERULAR FILTRATION RATE 57.6 (>39); GLUCOSE, FASTING 92 MG/DL (83-110); PHOSPHORUS LEVEL 2.7 MG/DL (2.5-4.9); SODIUM LEVEL 141 MEQ/L (136-145)
[2017-04-17] MEDS: SODIUM CHLORIDE HYPERTONIC 3% 15ML NEB SOL INH ×3 (08:01→19:57)
[2017-04-17] MEDS: FORMOTEROL FUMARATE 20 MCG/2 ML INHALATION SOLUTION (PERFOROMIST) INH ×2 (08:01→19:57)
[2017-04-17] MEDS: BUDESONIDE 0.5 MG/2 ML INHALATION SUSPENSION INH ×2 (08:01→19:57)
[2017-04-17 08:21] LABS: PARTIAL THROMBOPLASTIN TIME 85.3 SECONDS (26.8-37.9)
[2017-04-17] MEDS: LISINOPRIL 5 MG TAB PO (08:50)
[2017-04-17] MEDS: NICOTINE 21MG/24HR 1 EA TRANSDERMAL TD (09:09)
[2017-04-17] MEDS: DIGOXIN 0.125 MG TAB PO (09:10)
[2017-04-17] MEDS: PANTOPRAZOLE 40MG TAB (PROTONIX) PO (09:10)
[2017-04-17] MEDS: ASPIRIN 81 MG ENTERIC TAB PO (09:10)
[2017-04-17] MEDS: NS 500 ML IV ×2 (13:15→18:15)
[2017-04-17] MEDS: HEPARIN DRIP 25,000 UNITS in APPROPRIATE DILUENT 1 EA IV (13:24)
[2017-04-17 13:44] LABS: HEMATOCRIT 39.7 % (36.0-47.0); HEMOGLOBIN 12.2 g/dl (12.0-16.0)
[2017-04-17 13:57] LABS: PARTIAL THROMBOPLASTIN TIME 88.9 SECONDS (26.8-37.9)
[2017-04-17] MEDS: D5W/0.45% SODIUM CHLORIDE 1,000 ML IV (19:04)
[2017-04-17 19:59] LABS: PARTIAL THROMBOPLASTIN TIME 173.2 SECONDS (26.8-37.9)
[2017-04-17 20:53] LABS: PARTIAL THROMBOPLASTIN TIME 129.8 SECONDS (26.8-37.9)
[2017-04-18] MEDS: D5W/0.45% SODIUM CHLORIDE 1,000 ML IV ×3 (03:59→16:28)
[2017-04-18] MEDS: SODIUM CHLORIDE 0.9% INJ 10 ML SYR IV ×2 (05:05→18:03)
[2017-04-18] MEDS: LEVOTHYROXINE 125MCG TABLET (0.125MG) PO (05:28)
[2017-04-18 05:40] LABS: HEMATOCRIT 38.3 % (36.0-47.0); HEMOGLOBIN 11.6 g/dl (12.0-16.0); MEAN CORPUSCULAR HEMOGLOBIN 30.5 pg (27.0-33.0); MEAN CORPUSCULAR HGB CONC 30.3 g/dl (32.0-36.5); MEAN CORPUSCULAR VOLUME 100.8 fl (80.0-96.0); PLATELET COUNT, AUTOMATED 226 10^3/uL (150-450); RED CELL DISTRIBUTION WIDTH 14.2 % (11.5-14.5)
[2017-04-18 06:19] LABS: ALBUMIN 2.3 GM/DL (3.2-5.2); ANION GAP 4 MEQ/L (8-16); BLOOD UREA NITROGEN 46 MG/DL (7-18); CALCIUM LEVEL 8.3 MG/DL (8.8-10.2); CARBON DIOXIDE LEVEL 41 MEQ/L (21-32); CHLORIDE LEVEL 97 MEQ/L (98-107); CREATININE FOR GFR 0.81 MG/DL (0.55-1.02); GLOMERULAR FILTRATION RATE > 60.0 (>39); GLUCOSE, FASTING 103 MG/DL (83-110); MAGNESIUM LEVEL 2.1 MG/DL (1.8-2.4); PHOSPHORUS LEVEL 2.9 MG/DL (2.5-4.9); POTASSIUM SERUM 3.7 MEQ/L (3.5-5.1); SODIUM LEVEL 142 MEQ/L (136-145)
[2017-04-18] MEDS: FORMOTEROL FUMARATE 20 MCG/2 ML INHALATION SOLUTION (PERFOROMIST) INH ×2 (07:50→19:54)
[2017-04-18] MEDS: BUDESONIDE 0.5 MG/2 ML INHALATION SUSPENSION INH ×2 (07:50→19:54)
[2017-04-18] MEDS: SODIUM CHLORIDE HYPERTONIC 3% 15ML NEB SOL INH ×3 (07:50→19:55)
[2017-04-18] MEDS: NICOTINE 21MG/24HR 1 EA TRANSDERMAL TD (08:56)
[2017-04-18] MEDS: ASPIRIN 81 MG ENTERIC TAB PO (08:56)
[2017-04-18] MEDS: PANTOPRAZOLE 40MG TAB (PROTONIX) PO (08:56)
[2017-04-18] MEDS: LISINOPRIL 5 MG TAB PO (08:57)
[2017-04-18] MEDS: LevoFLOXacin IV 750 MG in APPROPRIATE DILUENT 1 EA IV (09:07)
[2017-04-18] MEDS: guaiFENesin ER 600 MG TAB PO ×2 (10:58→21:10)
[2017-04-18 11:13] LABS: PARTIAL THROMBOPLASTIN TIME 78.6 SECONDS (26.8-37.9)
[2017-04-18] MEDS: HEPARIN DRIP 25,000 UNITS in APPROPRIATE DILUENT 1 EA IV (14:07)
[2017-04-18] MEDS: ACETAMINOPHEN TAB 650MG DOSE (2X325MG) PO ×2 (16:38→22:42)
[2017-04-18 17:30] LABS: PARTIAL THROMBOPLASTIN TIME 76.8 SECONDS (26.8-37.9)
[2017-04-19] MEDS: D5W/0.45% SODIUM CHLORIDE 1,000 ML IV ×2 (02:15→13:19)
[2017-04-19] MEDS: ACETAMINOPHEN TAB 650MG DOSE (2X325MG) PO ×2 (05:19→23:06)
[2017-04-19] MEDS: LEVOTHYROXINE 125MCG TABLET (0.125MG) PO (05:19)
[2017-04-19] MEDS: SODIUM CHLORIDE 0.9% INJ 10 ML SYR IV ×2 (06:00→17:43)
[2017-04-19 06:39] LABS: HEMATOCRIT 37.4 % (36.0-47.0); HEMOGLOBIN 11.2 g/dl (12.0-16.0); MEAN CORPUSCULAR HEMOGLOBIN 30.7 pg (27.0-33.0); MEAN CORPUSCULAR HGB CONC 29.9 g/dl (32.0-36.5); MEAN CORPUSCULAR VOLUME 102.5 fl (80.0-96.0); PLATELET COUNT, AUTOMATED 230 10^3/uL (150-450); RED BLOOD COUNT 3.65 10^6/uL (4.00-5.40); RED CELL DISTRIBUTION WIDTH 14.1 % (11.5-14.5); WHITE BLOOD COUNT 15.4 10^3/uL (4.0-10.0)
[2017-04-19 06:45] LABS: PARTIAL THROMBOPLASTIN TIME 106.1 SECONDS (26.8-37.9)
[2017-04-19 06:50] LABS: ALBUMIN 2.1 GM/DL (3.2-5.2); ANION GAP 1 MEQ/L (8-16); BLOOD UREA NITROGEN 34 MG/DL (7-18); CALCIUM LEVEL 8.2 MG/DL (8.8-10.2); CARBON DIOXIDE LEVEL 41 MEQ/L (21-32); CHLORIDE LEVEL 96 MEQ/L (98-107); GLOMERULAR FILTRATION RATE > 60.0 (>39); GLUCOSE, FASTING 99 MG/DL (83-110); PHOSPHORUS LEVEL 2.7 MG/DL (2.5-4.9); POTASSIUM SERUM 3.7 MEQ/L (3.5-5.1); SODIUM LEVEL 138 MEQ/L (136-145)
[2017-04-19] MEDS: BUDESONIDE 0.5 MG/2 ML INHALATION SUSPENSION INH ×2 (07:16→20:16)
[2017-04-19] MEDS: SODIUM CHLORIDE HYPERTONIC 3% 15ML NEB SOL INH ×3 (07:17→20:16)
[2017-04-19] MEDS: FORMOTEROL FUMARATE 20 MCG/2 ML INHALATION SOLUTION (PERFOROMIST) INH ×2 (07:17→20:16)
[2017-04-19] MEDS: PANTOPRAZOLE 40MG TAB (PROTONIX) PO (08:41)
[2017-04-19] MEDS: LISINOPRIL 5 MG TAB PO (08:42)
[2017-04-19] MEDS: DIGOXIN 0.125 MG TAB PO (08:43)
[2017-04-19] MEDS: NICOTINE 21MG/24HR 1 EA TRANSDERMAL TD (08:44)
[2017-04-19] MEDS: ASPIRIN 81 MG ENTERIC TAB PO (08:44)
[2017-04-19] MEDS: guaiFENesin ER 600 MG TAB PO ×2 (08:44→21:13)
[2017-04-19 12:00] LABS: PARTIAL THROMBOPLASTIN TIME 41.3 SECONDS (26.8-37.9)
[2017-04-19] MEDS ORDERED: LIDOCAINE 1% MDV 20ML VIAL As Ordered (12:10)
[2017-04-19] MEDS ORDERED: MIDAZOLAM INJ 2 MG/2 ML VIAL (J2250) As Ordered (12:18)
[2017-04-19] MEDS: THROMBIN SOLN 5,000 UNITS VIAL TOP (13:00)
[2017-04-19] MEDS: LIDOCAINE 1% MDV 20ML VIAL SC (13:13)
[2017-04-19] MEDS: MIDAZOLAM INJ 2 MG/2 ML VIAL (J2250) IV (13:15)
[2017-04-19] MEDS: HEPARIN DRIP 25,000 UNITS in APPROPRIATE DILUENT 1 EA IV (18:56)
[2017-04-19 20:10] LABS: PARTIAL THROMBOPLASTIN TIME 88.6 SECONDS (26.8-37.9)
[2017-04-20 03:34] LABS: PARTIAL THROMBOPLASTIN TIME 145.8 SECONDS (26.8-37.9)
[2017-04-20] MEDS: SODIUM CHLORIDE 0.9% INJ 10 ML SYR IV ×2 (05:49→17:49)
[2017-04-20] MEDS: LEVOTHYROXINE 125MCG TABLET (0.125MG) PO (06:07)
[2017-04-20 06:25] LABS: HEMATOCRIT 40.5 % (36.0-47.0); HEMOGLOBIN 11.9 g/dl (12.0-16.0); MEAN CORPUSCULAR HEMOGLOBIN 30.3 pg (27.0-33.0); MEAN CORPUSCULAR HGB CONC 29.4 g/dl (32.0-36.5); MEAN CORPUSCULAR VOLUME 103.1 fl (80.0-96.0); PLATELET COUNT, AUTOMATED 293 10^3/uL (150-450); RED BLOOD COUNT 3.93 10^6/uL (4.00-5.40); WHITE BLOOD COUNT 17.1 10^3/uL (4.0-10.0)
[2017-04-20 07:02] LABS: ALBUMIN 2.3 GM/DL (3.2-5.2); ANION GAP 2 MEQ/L (8-16); BLOOD UREA NITROGEN 35 MG/DL (7-18); CALCIUM LEVEL 8.5 MG/DL (8.8-10.2); CARBON DIOXIDE LEVEL 39 MEQ/L (21-32); CHLORIDE LEVEL 95 MEQ/L (98-107); CREATININE FOR GFR 0.95 MG/DL (0.55-1.02); GLOMERULAR FILTRATION RATE > 60.0 (>39); GLUCOSE, FASTING 97 MG/DL (83-110); POTASSIUM SERUM 4.2 MEQ/L (3.5-5.1); SODIUM LEVEL 136 MEQ/L (136-145)
[2017-04-20] MEDS: SODIUM CHLORIDE HYPERTONIC 3% 15ML NEB SOL INH ×3 (08:17→20:00)
[2017-04-20] MEDS: BUDESONIDE 0.5 MG/2 ML INHALATION SUSPENSION INH ×2 (08:17→20:00)
[2017-04-20] MEDS: FORMOTEROL FUMARATE 20 MCG/2 ML INHALATION SOLUTION (PERFOROMIST) INH ×2 (08:17→20:00)
[2017-04-20] MEDS: LISINOPRIL 5 MG TAB PO (08:28)
[2017-04-20] MEDS: PANTOPRAZOLE 40MG TAB (PROTONIX) PO (08:30)
[2017-04-20] MEDS: guaiFENesin ER 600 MG TAB PO ×2 (08:30→21:09)
[2017-04-20] MEDS: NICOTINE 21MG/24HR 1 EA TRANSDERMAL TD (08:30)
[2017-04-20] MEDS: ASPIRIN 81 MG ENTERIC TAB PO (08:30)
[2017-04-20] MEDS ORDERED: HEPARIN DRIP 25,000 UNITS in APPROPRIATE DILUENT 1 EA IV (10:14)
[2017-04-20] MEDS: LevoFLOXacin IV 750 MG in APPROPRIATE DILUENT 1 EA IV (10:17)
[2017-04-20 10:50] LABS: PARTIAL THROMBOPLASTIN TIME 87.5 SECONDS (26.8-37.9)
[2017-04-20 17:16] LABS: PARTIAL THROMBOPLASTIN TIME 63.8 SECONDS (26.8-37.9)
[2017-04-20] MEDS: HEPARIN DRIP 25,000 UNITS in APPROPRIATE DILUENT 1 EA IV ×2 (17:41→19:19)
[2017-04-20] MEDS: ACETAMINOPHEN TAB 650MG DOSE (2X325MG) PO (21:29)
[2017-04-20 23:54] LABS: PARTIAL THROMBOPLASTIN TIME 93.6 SECONDS (26.8-37.9)
[2017-04-21] MEDS: ACETAMINOPHEN TAB 650MG DOSE (2X325MG) PO ×2 (03:50→22:00)
[2017-04-21] MEDS: SODIUM CHLORIDE 0.9% INJ 10 ML SYR IV ×2 (05:53→18:02)
[2017-04-21] MEDS: LEVOTHYROXINE 125MCG TABLET (0.125MG) PO (05:53)
[2017-04-21 06:16] LABS: HEMATOCRIT 38.1 % (36.0-47.0); MEAN CORPUSCULAR HEMOGLOBIN 29.7 pg (27.0-33.0); MEAN CORPUSCULAR HGB CONC 28.9 g/dl (32.0-36.5); PLATELET COUNT, AUTOMATED 285 10^3/uL (150-450); RED CELL DISTRIBUTION WIDTH 14.1 % (11.5-14.5); WHITE BLOOD COUNT 16.3 10^3/uL (4.0-10.0)
[2017-04-21 06:32] LABS: PARTIAL THROMBOPLASTIN TIME 63.4 SECONDS (26.8-37.9)
[2017-04-21 06:34] LABS: ALBUMIN 2.1 GM/DL (3.2-5.2); ANION GAP 2 MEQ/L (8-16); BLOOD UREA NITROGEN 38 MG/DL (7-18); CARBON DIOXIDE LEVEL 39 MEQ/L (21-32); CHLORIDE LEVEL 92 MEQ/L (98-107); CREATININE FOR GFR 1.04 MG/DL (0.55-1.02); GLOMERULAR FILTRATION RATE 54.4 (>39); GLUCOSE, FASTING 92 MG/DL (83-110); PHOSPHORUS LEVEL 4.1 MG/DL (2.5-4.9); POTASSIUM SERUM 4.6 MEQ/L (3.5-5.1); SODIUM LEVEL 133 MEQ/L (136-145)
[2017-04-21] MEDS: FORMOTEROL FUMARATE 20 MCG/2 ML INHALATION SOLUTION (PERFOROMIST) INH ×2 (07:33→19:51)
[2017-04-21] MEDS: BUDESONIDE 0.5 MG/2 ML INHALATION SUSPENSION INH ×2 (07:33→19:51)
[2017-04-21] MEDS: SODIUM CHLORIDE HYPERTONIC 3% 15ML NEB SOL INH ×3 (07:33→19:51)
[2017-04-21] MEDS: PANTOPRAZOLE 40MG TAB (PROTONIX) PO (08:18)
[2017-04-21] MEDS: ASPIRIN 81 MG ENTERIC TAB PO (08:18)
[2017-04-21] MEDS: NICOTINE 21MG/24HR 1 EA TRANSDERMAL TD (08:18)
[2017-04-21] MEDS: guaiFENesin ER 600 MG TAB PO ×2 (08:18→21:46)
[2017-04-21] MEDS: DIGOXIN 0.125 MG TAB PO (08:19)
[2017-04-21] MEDS: LISINOPRIL 5 MG TAB PO (09:00)
[2017-04-21] MEDS ORDERED: FUROSEMIDE 40 MG/4 ML VIAL (J1940) As Ordered (09:14)
[2017-04-21] MEDS: FUROSEMIDE 40 MG/4 ML VIAL (J1940) IV (09:19)
[2017-04-21 12:55] LABS: PARTIAL THROMBOPLASTIN TIME 90.7 SECONDS (26.8-37.9)
[2017-04-21] MEDS: FUROSEMIDE 100 MG/10 ML VIAL (J1940) IV ×2 (14:11→21:47)
[2017-04-21] MEDS ORDERED: FUROSEMIDE 40 MG/4 ML VIAL (J1940) IV (17:00)
[2017-04-21] MEDS: HEPARIN DRIP 25,000 UNITS in APPROPRIATE DILUENT 1 EA IV (19:10)
[2017-04-21 20:06] LABS: ANION GAP 5 MEQ/L (8-16); BLOOD UREA NITROGEN 41 MG/DL (7-18); CARBON DIOXIDE LEVEL 38 MEQ/L (21-32); CHLORIDE LEVEL 92 MEQ/L (98-107); CREATININE FOR GFR 1.04 MG/DL (0.55-1.02); GLOMERULAR FILTRATION RATE 54.4 (>39); GLUCOSE, FASTING 80 MG/DL (70-100); POTASSIUM SERUM 4.7 MEQ/L (3.5-5.1); SODIUM LEVEL 135 MEQ/L (136-145)
[2017-04-21 20:33] LABS: PARTIAL THROMBOPLASTIN TIME 87.3 SECONDS (26.8-37.9)
[2017-04-22 03:31] LABS: PARTIAL THROMBOPLASTIN TIME 69.4 SECONDS (26.8-37.9)
[2017-04-22] MEDS: FUROSEMIDE 100 MG/10 ML VIAL (J1940) IV ×3 (05:28→21:32)
[2017-04-22] MEDS: LEVOTHYROXINE 125MCG TABLET (0.125MG) PO (05:28)
[2017-04-22] MEDS: SODIUM CHLORIDE 0.9% INJ 10 ML SYR IV ×2 (05:29→17:24)
[2017-04-22 06:01] LABS: HEMOGLOBIN 10.7 g/dl (12.0-16.0); MEAN CORPUSCULAR HEMOGLOBIN 30.7 pg (27.0-33.0); MEAN CORPUSCULAR HGB CONC 31.5 g/dl (32.0-36.5); MEAN CORPUSCULAR VOLUME 97.4 fl (80.0-96.0); PLATELET COUNT, AUTOMATED 327 10^3/uL (150-450); RED BLOOD COUNT 3.49 10^6/uL (4.00-5.40); WHITE BLOOD COUNT 12.4 10^3/uL (4.0-10.0)
[2017-04-22 06:31] LABS: ALBUMIN 2.1 GM/DL (3.2-5.2); ANION GAP 6 MEQ/L (8-16); BLOOD UREA NITROGEN 39 MG/DL (7-18); CALCIUM LEVEL 8.9 MG/DL (8.8-10.2); CARBON DIOXIDE LEVEL 38 MEQ/L (21-32); CHLORIDE LEVEL 92 MEQ/L (98-107); GLOMERULAR FILTRATION RATE 56.9 (>39); GLUCOSE, FASTING 84 MG/DL (70-100); PHOSPHORUS LEVEL 2.6 MG/DL (2.5-4.9); POTASSIUM SERUM 4.2 MEQ/L (3.5-5.1); SODIUM LEVEL 136 MEQ/L (136-145)
[2017-04-22] MEDS: SODIUM CHLORIDE HYPERTONIC 3% 15ML NEB SOL INH ×3 (07:49→19:55)
[2017-04-22] MEDS: FORMOTEROL FUMARATE 20 MCG/2 ML INHALATION SOLUTION (PERFOROMIST) INH ×2 (07:49→19:55)
[2017-04-22] MEDS: BUDESONIDE 0.5 MG/2 ML INHALATION SUSPENSION INH ×2 (07:49→19:54)
[2017-04-22] MEDS: LISINOPRIL 5 MG TAB PO (09:00)
[2017-04-22] MEDS: ASPIRIN 81 MG ENTERIC TAB PO (09:01)
[2017-04-22] MEDS: PANTOPRAZOLE 40MG TAB (PROTONIX) PO (09:01)
[2017-04-22] MEDS: guaiFENesin ER 600 MG TAB PO ×2 (09:01→21:30)
[2017-04-22] MEDS: NICOTINE 21MG/24HR 1 EA TRANSDERMAL TD (09:01)
[2017-04-22] MEDS: LevoFLOXacin IV 750 MG in APPROPRIATE DILUENT 1 EA IV (09:01)
[2017-04-22] MEDS ORDERED: ISOVUE-300 61% 50ML VIAL (Q9967) As Ordered (10:03)
[2017-04-22 12:46] LABS: ABG BASE EXCESS 11.1 (-2.0-2.0); ABG HCO3 38.1 MEQ/L (22.0-26.0); ABG O2 SATURATION 83.4 % (95.0-99.0); ABG STANDARD HCO3 34.6 MEQ/L (22.0-26.0); ABG pH (ARTERIAL) 7.401 UNITS (7.350-7.450)
[2017-04-22 12:48] LABS: ABG PARTIAL PRESSURE CO2 62.8 mmHg (35.0-45.0)
[2017-04-22 12:49] LABS: ABG PARTIAL PRESSURE O2 47.2 mmHg (75.0-100.0)
[2017-04-23] MEDS: LEVOTHYROXINE 125MCG TABLET (0.125MG) PO (05:30)
[2017-04-23] MEDS: FUROSEMIDE 100 MG/10 ML VIAL (J1940) IV ×2 (05:30→17:14)
[2017-04-23] MEDS: SODIUM CHLORIDE 0.9% INJ 10 ML SYR IV ×2 (05:30→17:14)
[2017-04-23 06:17] LABS: BASO % 0.2 % (0.0-1.0); EOS # 0.1 10^3/uL (0.0-0.50); EOS % 0.6 % (0.0-3.0); HEMATOCRIT 30.5 % (36.0-47.0); HEMOGLOBIN 9.6 g/dl (12.0-16.0); IMMATURE GRANULOCYTE # 0.2 10^3/uL (0-0); IMMATURE GRANULOCYTE % 1.5 % (0-0); LYMPH # 0.6 10^3/uL (1.5-4.5); LYMPH % 5.4 % (24.0-44.0); MEAN CORPUSCULAR HEMOGLOBIN 30.7 pg (27.0-33.0); MEAN CORPUSCULAR HGB CONC 31.5 g/dl (32.0-36.5); MEAN CORPUSCULAR VOLUME 97.4 fl (80.0-96.0); MONO # 1.1 10^3/uL (0.0-0.8); MONO % 10.2 % (0.0-5.0); NEUTROPHILS # 8.8 10^3/uL (1.8-7.7); NEUTROPHILS % 82.1 % (36.0-66.0); PLATELET COUNT, AUTOMATED 292 10^3/uL (150-450); RED BLOOD COUNT 3.13 10^6/uL (4.00-5.40); RED CELL DISTRIBUTION WIDTH 14.5 % (11.5-14.5); WHITE BLOOD COUNT 10.8 10^3/uL (4.0-10.0)
[2017-04-23 06:26] LABS: ALBUMIN 2.1 GM/DL (3.2-5.2); ALBUMIN/GLOBULIN RATIO 0.72 (1.00-1.93); ALKALINE PHOSPHATASE 54 U/L (45-117); ALT/SGPT 28 U/L (12-78); ANION GAP 5 MEQ/L (8-16); AST/SGOT 18 U/L (7-37); BILIRUBIN,TOTAL 0.6 MG/DL (0.2-1.0); BLOOD UREA NITROGEN 41 MG/DL (7-18); CALCIUM LEVEL 8.5 MG/DL (8.8-10.2); CARBON DIOXIDE LEVEL 41 MEQ/L (21-32); CHLORIDE LEVEL 92 MEQ/L (98-107); CHOLESTEROL LEVEL 146 MG/DL (< 200); CPK CREATINE PHOSPHOKINASE 28 U/L (26-192); GLOMERULAR FILTRATION RATE 56.9 (>39); GLUCOSE, FASTING 89 MG/DL (70-100); LDH LACTATE DEHYDROGENASE 270 U/L (84-246); PHOSPHORUS LEVEL 2.4 MG/DL (2.5-4.9); POTASSIUM SERUM 4.1 MEQ/L (3.5-5.1); SODIUM LEVEL 138 MEQ/L (136-145); TRIGLYCERIDES LEVEL 105 MG/DL (<150)
[2017-04-23] MEDS: BUDESONIDE 0.5 MG/2 ML INHALATION SUSPENSION INH ×2 (07:38→21:01)
[2017-04-23] MEDS: SODIUM CHLORIDE HYPERTONIC 3% 15ML NEB SOL INH ×3 (07:38→21:01)
[2017-04-23] MEDS: FORMOTEROL FUMARATE 20 MCG/2 ML INHALATION SOLUTION (PERFOROMIST) INH ×2 (07:38→21:01)
[2017-04-23] MEDS: NICOTINE 21MG/24HR 1 EA TRANSDERMAL TD (08:18)
[2017-04-23] MEDS: DIGOXIN 0.125 MG TAB PO (08:19)
[2017-04-23] MEDS: VITAMIN D 50,000 UNITS CAPSULE (ERGOCALCIFEROL 1.25MG) PO (08:19)
[2017-04-23] MEDS: PANTOPRAZOLE 40MG TAB (PROTONIX) PO (08:19)
[2017-04-23] MEDS: ASPIRIN 81 MG ENTERIC TAB PO (08:19)
[2017-04-23] MEDS: LISINOPRIL 5 MG TAB PO (08:20)
[2017-04-23] MEDS: guaiFENesin ER 600 MG TAB PO ×2 (09:00→21:09)
[2017-04-24] MEDS: LEVOTHYROXINE 125MCG TABLET (0.125MG) PO (05:41)
[2017-04-24] MEDS: SODIUM CHLORIDE 0.9% INJ 10 ML SYR IV ×2 (05:41→18:02)
[2017-04-24] MEDS: FUROSEMIDE 100 MG/10 ML VIAL (J1940) IV ×2 (05:42→18:01)
[2017-04-24 05:46] LABS: BASO % 0.1 % (0.0-1.0); EOS # 0.1 10^3/uL (0.0-0.50); EOS % 0.7 % (0.0-3.0); HEMATOCRIT 29.6 % (36.0-47.0); HEMOGLOBIN 9.1 g/dl (12.0-16.0); IMMATURE GRANULOCYTE # 0.1 10^3/uL (0-0); IMMATURE GRANULOCYTE % 1.3 % (0-0); LYMPH # 0.6 10^3/uL (1.5-4.5); LYMPH % 5.6 % (24.0-44.0); MEAN CORPUSCULAR HEMOGLOBIN 30.6 pg (27.0-33.0); MEAN CORPUSCULAR HGB CONC 30.7 g/dl (32.0-36.5); MEAN CORPUSCULAR VOLUME 99.7 fl (80.0-96.0); MONO % 9.3 % (0.0-5.0); NEUTROPHILS # 8.9 10^3/uL (1.8-7.7); PLATELET COUNT, AUTOMATED 289 10^3/uL (150-450); RED BLOOD COUNT 2.97 10^6/uL (4.00-5.40); RED CELL DISTRIBUTION WIDTH 14.5 % (11.5-14.5); WHITE BLOOD COUNT 10.7 10^3/uL (4.0-10.0)
[2017-04-24 06:38] LABS: ALBUMIN 2.2 GM/DL (3.2-5.2); ALBUMIN/GLOBULIN RATIO 0.81 (1.00-1.93); ALKALINE PHOSPHATASE 57 U/L (45-117); ALT/SGPT 27 U/L (12-78); ANION GAP 3 MEQ/L (8-16); AST/SGOT 19 U/L (7-37); BILIRUBIN,TOTAL 0.5 MG/DL (0.2-1.0); BLOOD UREA NITROGEN 46 MG/DL (7-18); CALCIUM LEVEL 8.4 MG/DL (8.8-10.2); CARBON DIOXIDE LEVEL 42 MEQ/L (21-32); CHLORIDE LEVEL 94 MEQ/L (98-107); CHOLESTEROL LEVEL 146 MG/DL (< 200); CPK CREATINE PHOSPHOKINASE 31 U/L (26-192); CREATININE FOR GFR 1.18 MG/DL (0.55-1.02); GLUCOSE, FASTING 85 MG/DL (70-100); LDH LACTATE DEHYDROGENASE 282 U/L (84-246); PHOSPHORUS LEVEL 3.2 MG/DL (2.5-4.9); POTASSIUM SERUM 4.2 MEQ/L (3.5-5.1); SODIUM LEVEL 139 MEQ/L (136-145); TOTAL PROTEIN 4.9 GM/DL (6.4-8.2); TRIGLYCERIDES LEVEL 113 MG/DL (<150)
[2017-04-24] MEDS: BUDESONIDE 0.5 MG/2 ML INHALATION SUSPENSION INH ×2 (07:40→20:19)
[2017-04-24] MEDS: FORMOTEROL FUMARATE 20 MCG/2 ML INHALATION SOLUTION (PERFOROMIST) INH ×2 (07:40→20:19)
[2017-04-24] MEDS: SODIUM CHLORIDE HYPERTONIC 3% 15ML NEB SOL INH ×4 (07:40→22:25)
[2017-04-24] MEDS: guaiFENesin ER 600 MG TAB PO ×2 (08:37→21:02)
[2017-04-24] MEDS: NICOTINE 21MG/24HR 1 EA TRANSDERMAL TD (08:37)
[2017-04-24] MEDS: LISINOPRIL 5 MG TAB PO (08:38)
[2017-04-24] MEDS: ASPIRIN 81 MG ENTERIC TAB PO (08:38)
[2017-04-24] MEDS: PANTOPRAZOLE 40MG TAB (PROTONIX) PO (08:38)
[2017-04-24] MEDS: LevoFLOXacin IV 750 MG in APPROPRIATE DILUENT 1 EA IV (10:31)
[2017-04-24] MEDS: ACETAMINOPHEN TAB 650MG DOSE (2X325MG) PO (21:04)
[2017-04-25 04:09] LABS: BASO % 0.1 % (0.0-1.0); EOS # 0.1 10^3/uL (0.0-0.50); EOS % 0.4 % (0.0-3.0); HEMATOCRIT 30.5 % (36.0-47.0); HEMOGLOBIN 9.3 g/dl (12.0-16.0); IMMATURE GRANULOCYTE # 0.2 10^3/uL (0-0); IMMATURE GRANULOCYTE % 1.2 % (0-0); LYMPH # 0.7 10^3/uL (1.5-4.5); LYMPH % 4.6 % (24.0-44.0); MEAN CORPUSCULAR HEMOGLOBIN 30.7 pg (27.0-33.0); MEAN CORPUSCULAR HGB CONC 30.5 g/dl (32.0-36.5); MEAN CORPUSCULAR VOLUME 100.7 fl (80.0-96.0); MONO # 1.2 10^3/uL (0.0-0.8); MONO % 8.3 % (0.0-5.0); NEUTROPHILS # 12.2 10^3/uL (1.8-7.7); NEUTROPHILS % 85.4 % (36.0-66.0); PLATELET COUNT, AUTOMATED 264 10^3/uL (150-450); RED BLOOD COUNT 3.03 10^6/uL (4.00-5.40); RED CELL DISTRIBUTION WIDTH 14.7 % (11.5-14.5); WHITE BLOOD COUNT 14.3 10^3/uL (4.0-10.0)
[2017-04-25 04:37] LABS: ALBUMIN 2.4 GM/DL (3.2-5.2); ALBUMIN/GLOBULIN RATIO 0.89 (1.00-1.93); ALKALINE PHOSPHATASE 59 U/L (45-117); ALT/SGPT 24 U/L (12-78); ANION GAP 3 MEQ/L (8-16); AST/SGOT 23 U/L (7-37); BILIRUBIN,TOTAL 0.6 MG/DL (0.2-1.0); BLOOD UREA NITROGEN 44 MG/DL (7-18); CALCIUM LEVEL 8.5 MG/DL (8.8-10.2); CARBON DIOXIDE LEVEL 43 MEQ/L (21-32); CHLORIDE LEVEL 94 MEQ/L (98-107); CHOLESTEROL LEVEL 157 MG/DL (< 200); CPK CREATINE PHOSPHOKINASE 37 U/L (26-192); CREATININE FOR GFR 1.17 MG/DL (0.55-1.02); GLOMERULAR FILTRATION RATE 47.5 (>39); GLUCOSE, FASTING 96 MG/DL (70-100); LDH LACTATE DEHYDROGENASE 303 U/L (84-246); SODIUM LEVEL 140 MEQ/L (136-145); TOTAL PROTEIN 5.1 GM/DL (6.4-8.2); TRIGLYCERIDES LEVEL 127 MG/DL (<150)
[2017-04-25] MEDS: LEVOTHYROXINE 125MCG TABLET (0.125MG) PO (06:25)
[2017-04-25] MEDS: FUROSEMIDE 100 MG/10 ML VIAL (J1940) IV ×2 (06:26→17:59)
[2017-04-25] MEDS: SODIUM CHLORIDE 0.9% INJ 10 ML SYR IV ×2 (06:26→17:59)
[2017-04-25] MEDS: BUDESONIDE 0.5 MG/2 ML INHALATION SUSPENSION INH ×2 (08:13→20:28)
[2017-04-25] MEDS: SODIUM CHLORIDE HYPERTONIC 3% 15ML NEB SOL INH ×3 (08:13→20:28)
[2017-04-25] MEDS: FORMOTEROL FUMARATE 20 MCG/2 ML INHALATION SOLUTION (PERFOROMIST) INH ×2 (08:13→20:28)
[2017-04-25] MEDS: PANTOPRAZOLE 40MG TAB (PROTONIX) PO (08:44)
[2017-04-25] MEDS: NICOTINE 21MG/24HR 1 EA TRANSDERMAL TD (08:44)
[2017-04-25] MEDS: ASPIRIN 81 MG ENTERIC TAB PO (08:44)
[2017-04-25] MEDS: guaiFENesin ER 600 MG TAB PO ×2 (08:45→20:17)
[2017-04-25] MEDS: DIGOXIN 0.125 MG TAB PO (08:45)
[2017-04-25] MEDS: LISINOPRIL 5 MG TAB PO (08:45)
[2017-04-25] MEDS: CARBAMIDE PEROXIDE 6.5% OTIC SOLN 15ML AU ×3 (09:00→20:18)
[2017-04-25 10:44] LABS: ABG BASE EXCESS 8.2 (-2.0-2.0); ABG DEVICE HIGH FLOW O2; ABG HCO3 35.8 MEQ/L (22.0-26.0); ABG O2 LITER FLOW 6L; ABG O2 SATURATION 91.1 % (95.0-99.0); ABG PARTIAL PRESSURE O2 60.5 mmHg (75.0-100.0); ABG STANDARD HCO3 31.9 MEQ/L (22.0-26.0); ABG TOTAL CO2 37.9 MEQ/L (23.0-31.0); ABG pH (ARTERIAL) 7.336 UNITS (7.350-7.450)
[2017-04-25 10:45] LABS: ABG PARTIAL PRESSURE CO2 68.5 mmHg (35.0-45.0)
[2017-04-25 11:21] LABS: DIGOXIN LEVEL 1.4 NG/ML (0.5-2.0)
[2017-04-25] MEDS: ACETAMINOPHEN TAB 650MG DOSE (2X325MG) PO (20:18)
[2017-04-26 05:31] LABS: BASO % 0.1 % (0.0-1.0); EOS # 0.1 10^3/uL (0.0-0.50); EOS % 0.4 % (0.0-3.0); HEMATOCRIT 30.4 % (36.0-47.0); HEMOGLOBIN 8.9 g/dl (12.0-16.0); IMMATURE GRANULOCYTE # 0.1 10^3/uL (0-0); IMMATURE GRANULOCYTE % 1.2 % (0-0); LYMPH # 0.6 10^3/uL (1.5-4.5); LYMPH % 4.7 % (24.0-44.0); MEAN CORPUSCULAR HEMOGLOBIN 30.2 pg (27.0-33.0); MEAN CORPUSCULAR HGB CONC 29.3 g/dl (32.0-36.5); MEAN CORPUSCULAR VOLUME 103.1 fl (80.0-96.0); MONO # 0.8 10^3/uL (0.0-0.8); MONO % 6.5 % (0.0-5.0); NEUTROPHILS # 10.4 10^3/uL (1.8-7.7); NEUTROPHILS % 87.1 % (36.0-66.0); PLATELET COUNT, AUTOMATED 249 10^3/uL (150-450); RED BLOOD COUNT 2.95 10^6/uL (4.00-5.40); RED CELL DISTRIBUTION WIDTH 14.9 % (11.5-14.5); WHITE BLOOD COUNT 11.9 10^3/uL (4.0-10.0)
[2017-04-26 05:58] LABS: ALBUMIN 2.2 GM/DL (3.2-5.2); ALBUMIN/GLOBULIN RATIO 0.65 (1.00-1.93); ALKALINE PHOSPHATASE 56 U/L (45-117); ALT/SGPT 23 U/L (12-78); ANION GAP 2 MEQ/L (8-16); AST/SGOT 21 U/L (7-37); BILIRUBIN,TOTAL 0.5 MG/DL (0.2-1.0); BLOOD UREA NITROGEN 45 MG/DL (7-18); CALCIUM LEVEL 8.6 MG/DL (8.8-10.2); CARBON DIOXIDE LEVEL 43 MEQ/L (21-32); CHLORIDE LEVEL 94 MEQ/L (98-107); CHOLESTEROL LEVEL 148 MG/DL (< 200); CPK CREATINE PHOSPHOKINASE 30 U/L (26-192); CREATININE FOR GFR 1.13 MG/DL (0.55-1.02); GLOMERULAR FILTRATION RATE 49.4 (>39); GLUCOSE, FASTING 93 MG/DL (70-100); LDH LACTATE DEHYDROGENASE 283 U/L (84-246); PHOSPHORUS LEVEL 3.5 MG/DL (2.5-4.9); POTASSIUM SERUM 4.3 MEQ/L (3.5-5.1); SODIUM LEVEL 139 MEQ/L (136-145); TOTAL PROTEIN 5.6 GM/DL (6.4-8.2); TRIGLYCERIDES LEVEL 85 MG/DL (<150)
[2017-04-26] MEDS: FUROSEMIDE 100 MG/10 ML VIAL (J1940) IV ×2 (06:36→16:48)
[2017-04-26] MEDS: LEVOTHYROXINE 125MCG TABLET (0.125MG) PO (06:37)
[2017-04-26] MEDS: SODIUM CHLORIDE 0.9% INJ 10 ML SYR IV ×2 (06:37→16:49)
[2017-04-26] MEDS: BUDESONIDE 0.5 MG/2 ML INHALATION SUSPENSION INH ×2 (07:08→20:41)
[2017-04-26] MEDS: FORMOTEROL FUMARATE 20 MCG/2 ML INHALATION SOLUTION (PERFOROMIST) INH ×2 (07:08→20:41)
[2017-04-26] MEDS: SODIUM CHLORIDE HYPERTONIC 3% 15ML NEB SOL INH ×3 (07:08→20:41)
[2017-04-26] MEDS: NICOTINE 21MG/24HR 1 EA TRANSDERMAL TD (09:22)
[2017-04-26] MEDS: LISINOPRIL 5 MG TAB PO (09:23)
[2017-04-26] MEDS: guaiFENesin ER 600 MG TAB PO ×2 (09:23→21:29)
[2017-04-26] MEDS: CARBAMIDE PEROXIDE 6.5% OTIC SOLN 15ML AU ×2 (09:23→21:30)
[2017-04-26] MEDS: ASPIRIN 81 MG ENTERIC TAB PO (09:23)
[2017-04-26] MEDS: IPRATROPIUM 0.5MG/ALBUTEROL 2.5MG INH SOL UD 3ML (DUONEB)(J7620) NEB (13:40)
[2017-04-26] MEDS: MAALOX 30 ML SUSP *UDC PO (21:29)
[2017-04-26] MEDS: ACETAMINOPHEN TAB 650MG DOSE (2X325MG) PO (22:59)
[2017-04-27] MEDS: NS 1,000 ML IV (01:23)
[2017-04-27] MEDS: NS 500 ML IV (03:10)
[2017-04-27 05:17] LABS: BASO % 0.1 % (0.0-1.0); EOS # 0.1 10^3/uL (0.0-0.50); EOS % 0.5 % (0.0-3.0); HEMATOCRIT 26.4 % (36.0-47.0); HEMOGLOBIN 7.9 g/dl (12.0-16.0); IMMATURE GRANULOCYTE # 0.1 10^3/uL (0-0); LYMPH # 0.6 10^3/uL (1.5-4.5); LYMPH % 6.4 % (24.0-44.0); MEAN CORPUSCULAR HEMOGLOBIN 30.4 pg (27.0-33.0); MEAN CORPUSCULAR HGB CONC 29.9 g/dl (32.0-36.5); MEAN CORPUSCULAR VOLUME 101.5 fl (80.0-96.0); MONO # 0.5 10^3/uL (0.0-0.8); MONO % 5.7 % (0.0-5.0); NEUTROPHILS # 8.1 10^3/uL (1.8-7.7); NEUTROPHILS % 86.3 % (36.0-66.0); PLATELET COUNT, AUTOMATED 221 10^3/uL (150-450); RED CELL DISTRIBUTION WIDTH 15.1 % (11.5-14.5); WHITE BLOOD COUNT 9.4 10^3/uL (4.0-10.0)
[2017-04-27] MEDS: LEVOTHYROXINE 125MCG TABLET (0.125MG) PO (05:41)
[2017-04-27] MEDS: SODIUM CHLORIDE 0.9% INJ 10 ML SYR IV ×2 (05:42→17:45)
[2017-04-27 05:43] LABS: ANION GAP 4 MEQ/L (8-16); BLOOD UREA NITROGEN 47 MG/DL (7-18); CALCIUM LEVEL 8.1 MG/DL (8.8-10.2); CARBON DIOXIDE LEVEL 43 MEQ/L (21-32); CHLORIDE LEVEL 96 MEQ/L (98-107); CREATININE FOR GFR 0.97 MG/DL (0.55-1.02); GLUCOSE, FASTING 81 MG/DL (70-100); POTASSIUM SERUM 4.5 MEQ/L (3.5-5.1); SODIUM LEVEL 143 MEQ/L (136-145)
[2017-04-27] MEDS: ACETAMINOPHEN TAB 650MG DOSE (2X325MG) PO (07:40)
[2017-04-27] MEDS: NICOTINE 21MG/24HR 1 EA TRANSDERMAL TD (07:40)
[2017-04-27] MEDS: ASPIRIN 81 MG ENTERIC TAB PO (07:40)
[2017-04-27] MEDS: guaiFENesin ER 600 MG TAB PO ×2 (07:40→21:00)
[2017-04-27] MEDS: CARBAMIDE PEROXIDE 6.5% OTIC SOLN 15ML AU ×2 (07:41→21:00)
[2017-04-27] MEDS: BUDESONIDE 0.5 MG/2 ML INHALATION SUSPENSION INH ×2 (07:54→20:13)
[2017-04-27] MEDS: SODIUM CHLORIDE HYPERTONIC 3% 15ML NEB SOL INH ×3 (07:54→20:13)
[2017-04-27] MEDS: FORMOTEROL FUMARATE 20 MCG/2 ML INHALATION SOLUTION (PERFOROMIST) INH ×2 (07:54→20:13)
[2017-04-27] MEDS: PANTOPRAZOLE 40MG TAB (PROTONIX) PO ×2 (09:42→21:00)
[2017-04-27] MEDS: IPRATROPIUM 0.5MG/ALBUTEROL 2.5MG INH SOL UD 3ML (DUONEB)(J7620) NEB (13:31)
[2017-04-27 13:55] LABS: IMMEDIATE SPIN CROSSMATCH 1 2
[2017-04-28] MEDS: SODIUM CHLORIDE 0.9% INJ 10 ML SYR IV ×2 (05:51→18:04)
[2017-04-28] MEDS: LEVOTHYROXINE 125MCG TABLET (0.125MG) PO (05:51)
[2017-04-28 06:06] LABS: BASO % 0.2 % (0.0-1.0); EOS % 0.4 % (0.0-3.0); HEMATOCRIT 32.2 % (36.0-47.0); IMMATURE GRANULOCYTE # 0.1 10^3/uL (0-0); IMMATURE GRANULOCYTE % 1.1 % (0-0); LYMPH # 0.7 10^3/uL (1.5-4.5); MEAN CORPUSCULAR HGB CONC 31.1 g/dl (32.0-36.5); MEAN CORPUSCULAR VOLUME 96.7 fl (80.0-96.0); MONO # 0.7 10^3/uL (0.0-0.8); NEUTROPHILS # 8.6 10^3/uL (1.8-7.7); NEUTROPHILS % 84.3 % (36.0-66.0); PLATELET COUNT, AUTOMATED 239 10^3/uL (150-450); RED BLOOD COUNT 3.33 10^6/uL (4.00-5.40); RED CELL DISTRIBUTION WIDTH 16.4 % (11.5-14.5); WHITE BLOOD COUNT 10.2 10^3/uL (4.0-10.0)
[2017-04-28 06:30] LABS: BLOOD UREA NITROGEN 48 MG/DL (7-18); CALCIUM LEVEL 8.8 MG/DL (8.8-10.2); CARBON DIOXIDE LEVEL 44 MEQ/L (21-32); CHLORIDE LEVEL 98 MEQ/L (98-107); CREATININE FOR GFR 0.84 MG/DL (0.55-1.02); GLOMERULAR FILTRATION RATE > 60.0 (>39); GLUCOSE, FASTING 84 MG/DL (70-100); POTASSIUM SERUM 4.6 MEQ/L (3.5-5.1); SODIUM LEVEL 141 MEQ/L (136-145)
[2017-04-28] MEDS: SODIUM CHLORIDE HYPERTONIC 3% 15ML NEB SOL INH ×3 (07:30→20:12)
[2017-04-28] MEDS: BUDESONIDE 0.5 MG/2 ML INHALATION SUSPENSION INH ×2 (07:30→20:12)
[2017-04-28] MEDS: FORMOTEROL FUMARATE 20 MCG/2 ML INHALATION SOLUTION (PERFOROMIST) INH ×2 (07:30→20:12)
[2017-04-28] MEDS: guaiFENesin ER 600 MG TAB PO ×2 (08:32→20:06)
[2017-04-28] MEDS: PANTOPRAZOLE 40MG TAB (PROTONIX) PO ×2 (08:32→20:06)
[2017-04-28] MEDS: NICOTINE 21MG/24HR 1 EA TRANSDERMAL TD (08:32)
[2017-04-28] MEDS: CARBAMIDE PEROXIDE 6.5% OTIC SOLN 15ML AU (08:32)
[2017-04-28 10:01] LABS: TOTAL 25(OH) VITAMIN D 41.3 NG/ML (30.0-100.0)
[2017-04-28 10:01] LABS: VITAMIN B12 LEVEL 635 PG/ML (247-911)
[2017-04-28 10:02] LABS: FOLATE 7.9 NG/ML (>5.4)
[2017-04-28] MEDS: IPRATROPIUM 0.5MG/ALBUTEROL 2.5MG INH SOL UD 3ML (DUONEB)(J7620) NEB (13:19)
[2017-04-28] MEDS: CARBAMIDE PEROXIDE 6.5% OTIC SOLN 15ML AS (20:07)
[2017-04-28] MEDS: ACETAMINOPHEN TAB 650MG DOSE (2X325MG) PO (20:54)
[2017-04-29] MEDS: ACETAMINOPHEN TAB 650MG DOSE (2X325MG) PO ×3 (05:36→21:15)
[2017-04-29] MEDS: SODIUM CHLORIDE 0.9% INJ 10 ML SYR IV ×2 (05:37→18:00)
[2017-04-29] MEDS: LEVOTHYROXINE 125MCG TABLET (0.125MG) PO (05:37)
[2017-04-29 06:33] LABS: ANION GAP 2 MEQ/L (8-16); BLOOD UREA NITROGEN 55 MG/DL (7-18); CALCIUM LEVEL 8.9 MG/DL (8.8-10.2); CARBON DIOXIDE LEVEL 41 MEQ/L (21-32); CHLORIDE LEVEL 99 MEQ/L (98-107); CREATININE FOR GFR 0.76 MG/DL (0.55-1.30); GLOMERULAR FILTRATION RATE > 60.0 (>39); GLUCOSE, FASTING 102 MG/DL (70-100); POTASSIUM SERUM 4.3 MEQ/L (3.5-5.1); SODIUM LEVEL 142 MEQ/L (136-145)
[2017-04-29 07:30] LABS: HEMOGLOBIN 8.9 g/dl (12.0-16.0); MEAN CORPUSCULAR HEMOGLOBIN 30.5 pg (27.0-33.0); MEAN CORPUSCULAR HGB CONC 30.7 g/dl (32.0-36.5); MEAN CORPUSCULAR VOLUME 99.3 fl (80.0-96.0); PLATELET COUNT, AUTOMATED 207 10^3/uL (150-450); RED BLOOD COUNT 2.92 10^6/uL (4.00-5.40); WHITE BLOOD COUNT 10.3 10^3/uL (4.0-10.0)
[2017-04-29] MEDS: BUDESONIDE 0.5 MG/2 ML INHALATION SUSPENSION INH ×2 (09:05→20:53)
[2017-04-29] MEDS: FORMOTEROL FUMARATE 20 MCG/2 ML INHALATION SOLUTION (PERFOROMIST) INH ×2 (09:05→20:53)
[2017-04-29] MEDS: SODIUM CHLORIDE HYPERTONIC 3% 15ML NEB SOL INH ×3 (09:05→20:53)
[2017-04-29] MEDS: guaiFENesin ER 600 MG TAB PO ×2 (09:41→21:11)
[2017-04-29] MEDS: CARBAMIDE PEROXIDE 6.5% OTIC SOLN 15ML AS ×2 (09:41→21:12)
[2017-04-29] MEDS: PANTOPRAZOLE 40MG TAB (PROTONIX) PO ×2 (09:41→21:11)
[2017-04-29] MEDS: FUROSEMIDE 40 MG/4 ML VIAL (J1940) IV (09:41)
[2017-04-29] MEDS: NICOTINE 21MG/24HR 1 EA TRANSDERMAL TD (09:42)
[2017-04-29] MEDS: SPIRONOLACTONE 12.5MG PER 1/2 TABLET PO (09:43)
[2017-04-29] MEDS: MAALOX 30 ML SUSP *UDC PO (16:41)
[2017-04-30] MEDS: ACETAMINOPHEN TAB 650MG DOSE (2X325MG) PO ×3 (05:20→22:23)
[2017-04-30] MEDS: LEVOTHYROXINE 125MCG TABLET (0.125MG) PO (05:21)
[2017-04-30] MEDS: SODIUM CHLORIDE 0.9% INJ 10 ML SYR IV ×2 (05:21→18:11)
[2017-04-30 05:29] LABS: HEMOGLOBIN 8.7 g/dl (12.0-16.0); MEAN CORPUSCULAR HEMOGLOBIN 30.9 pg (27.0-33.0); MEAN CORPUSCULAR HGB CONC 31.1 g/dl (32.0-36.5); MEAN CORPUSCULAR VOLUME 99.3 fl (80.0-96.0); PLATELET COUNT, AUTOMATED 198 10^3/uL (150-450); RED BLOOD COUNT 2.82 10^6/uL (4.00-5.40); RED CELL DISTRIBUTION WIDTH 15.7 % (11.5-14.5); WHITE BLOOD COUNT 10.1 10^3/uL (4.0-10.0)
[2017-04-30 05:49] LABS: ANION GAP 1 MEQ/L (8-16); BLOOD UREA NITROGEN 48 MG/DL (7-18); CALCIUM LEVEL 8.4 MG/DL (8.8-10.2); CARBON DIOXIDE LEVEL 42 MEQ/L (21-32); CHLORIDE LEVEL 98 MEQ/L (98-107); CREATININE FOR GFR 0.83 MG/DL (0.55-1.30); GLOMERULAR FILTRATION RATE > 60.0 (>39); GLUCOSE, FASTING 84 MG/DL (70-100); POTASSIUM SERUM 4.8 MEQ/L (3.5-5.1); SODIUM LEVEL 141 MEQ/L (136-145)
[2017-04-30] MEDS: BUDESONIDE 0.5 MG/2 ML INHALATION SUSPENSION INH ×2 (07:32→19:57)
[2017-04-30] MEDS: FORMOTEROL FUMARATE 20 MCG/2 ML INHALATION SOLUTION (PERFOROMIST) INH ×2 (07:32→19:57)
[2017-04-30] MEDS: SODIUM CHLORIDE HYPERTONIC 3% 15ML NEB SOL INH ×3 (07:32→19:57)
[2017-04-30] MEDS: PANTOPRAZOLE 40MG TAB (PROTONIX) PO ×2 (08:45→21:49)
[2017-04-30] MEDS: guaiFENesin ER 600 MG TAB PO ×2 (08:45→21:48)
[2017-04-30] MEDS: FUROSEMIDE 40 MG/4 ML VIAL (J1940) IV (08:46)
[2017-04-30] MEDS: SPIRONOLACTONE 12.5MG PER 1/2 TABLET PO (08:46)
[2017-04-30] MEDS: VITAMIN D 50,000 UNITS CAPSULE (ERGOCALCIFEROL 1.25MG) PO (08:46)
[2017-04-30] MEDS: CARBAMIDE PEROXIDE 6.5% OTIC SOLN 15ML AS ×2 (08:46→21:49)
[2017-04-30] MEDS: NICOTINE 21MG/24HR 1 EA TRANSDERMAL TD (08:47)
[2017-04-30] MEDS: IPRATROPIUM 0.5MG/ALBUTEROL 2.5MG INH SOL UD 3ML (DUONEB)(J7620) NEB (22:57)
[2017-05-01 00:06] LABS: FREE KAPPA LIGHT CHAINS SERUM 29.5 mg/L (3.3-19.4); FREE LAMBDA LIGHT CHAINS SERUM 27.7 mg/L (5.7-26.3); KAPPA/LAMBDA RATIO SERUM 1.06 (0.26-1.65)
[2017-05-01] MEDS: LEVOTHYROXINE 137MCG TABLET (0.137MG) PO (04:57)
[2017-05-01] MEDS: SODIUM CHLORIDE 0.9% INJ 10 ML SYR IV ×2 (04:57→18:00)
[2017-05-01] MEDS: ACETAMINOPHEN TAB 650MG DOSE (2X325MG) PO ×2 (05:22→20:55)
[2017-05-01 05:38] LABS: HEMATOCRIT 27.5 % (36.0-47.0); HEMOGLOBIN 8.3 g/dl (12.0-16.0); MEAN CORPUSCULAR HEMOGLOBIN 30.7 pg (27.0-33.0); MEAN CORPUSCULAR HGB CONC 30.2 g/dl (32.0-36.5); MEAN CORPUSCULAR VOLUME 101.9 fl (80.0-96.0); PLATELET COUNT, AUTOMATED 198 10^3/uL (150-450); RED CELL DISTRIBUTION WIDTH 15.9 % (11.5-14.5); WHITE BLOOD COUNT 8.4 10^3/uL (4.0-10.0)
[2017-05-01 05:56] LABS: BLOOD UREA NITROGEN 41 MG/DL (7-18); CALCIUM LEVEL 8.3 MG/DL (8.8-10.2); CARBON DIOXIDE LEVEL 44 MEQ/L (21-32); CHLORIDE LEVEL 98 MEQ/L (98-107); CREATININE FOR GFR 0.71 MG/DL (0.55-1.30); GLOMERULAR FILTRATION RATE > 60.0 (>39); GLUCOSE, FASTING 81 MG/DL (70-100); POTASSIUM SERUM 4.6 MEQ/L (3.5-5.1); SODIUM LEVEL 141 MEQ/L (136-145)
[2017-05-01] MEDS: FUROSEMIDE 40 MG/4 ML VIAL (J1940) IV (09:00)
[2017-05-01] MEDS: BUDESONIDE 0.5 MG/2 ML INHALATION SUSPENSION INH ×2 (09:23→20:17)
[2017-05-01] MEDS: FORMOTEROL FUMARATE 20 MCG/2 ML INHALATION SOLUTION (PERFOROMIST) INH ×2 (09:23→20:17)
[2017-05-01] MEDS: SODIUM CHLORIDE HYPERTONIC 3% 15ML NEB SOL INH ×3 (09:23→20:17)
[2017-05-01] MEDS: PANTOPRAZOLE 40MG TAB (PROTONIX) PO ×2 (09:28→20:49)
[2017-05-01] MEDS: guaiFENesin ER 600 MG TAB PO ×2 (09:28→20:49)
[2017-05-01] MEDS: SPIRONOLACTONE 12.5MG PER 1/2 TABLET PO (09:28)
[2017-05-01] MEDS: NICOTINE 21MG/24HR 1 EA TRANSDERMAL TD (09:29)
[2017-05-01] MEDS: CARBAMIDE PEROXIDE 6.5% OTIC SOLN 15ML AS ×2 (09:29→20:50)
[2017-05-02] MEDS: LEVOTHYROXINE 137MCG TABLET (0.137MG) PO (06:12)
[2017-05-02 06:27] LABS: HEMATOCRIT 29.1 % (36.0-47.0); HEMOGLOBIN 8.7 g/dl (12.0-16.0); MEAN CORPUSCULAR HEMOGLOBIN 30.5 pg (27.0-33.0); MEAN CORPUSCULAR HGB CONC 29.9 g/dl (32.0-36.5); MEAN CORPUSCULAR VOLUME 102.1 fl (80.0-96.0); PLATELET COUNT, AUTOMATED 222 10^3/uL (150-450); RED BLOOD COUNT 2.85 10^6/uL (4.00-5.40); WHITE BLOOD COUNT 7.5 10^3/uL (4.0-10.0)
[2017-05-02 06:43] LABS: ANION GAP 0 MEQ/L (8-16); BLOOD UREA NITROGEN 35 MG/DL (7-18); CALCIUM LEVEL 8.3 MG/DL (8.8-10.2); CARBON DIOXIDE LEVEL 42 MEQ/L (21-32); CHLORIDE LEVEL 97 MEQ/L (98-107); CREATININE FOR GFR 0.78 MG/DL (0.55-1.30); GLOMERULAR FILTRATION RATE > 60.0 (>39); GLUCOSE, FASTING 80 MG/DL (70-100); POTASSIUM SERUM 4.7 MEQ/L (3.5-5.1); SODIUM LEVEL 139 MEQ/L (136-145)
[2017-05-02] MEDS: BUDESONIDE 0.5 MG/2 ML INHALATION SUSPENSION INH ×2 (08:36→21:37)
[2017-05-02] MEDS: FORMOTEROL FUMARATE 20 MCG/2 ML INHALATION SOLUTION (PERFOROMIST) INH ×2 (08:36→21:37)
[2017-05-02] MEDS: PANTOPRAZOLE 40MG TAB (PROTONIX) PO ×2 (08:52→20:29)
[2017-05-02] MEDS: CARBAMIDE PEROXIDE 6.5% OTIC SOLN 15ML AS (08:53)
[2017-05-02] MEDS: NICOTINE 21MG/24HR 1 EA TRANSDERMAL TD (08:53)
[2017-05-02] MEDS: guaiFENesin ER 600 MG TAB PO ×2 (08:53→20:29)
[2017-05-02] MEDS: SPIRONOLACTONE 12.5MG PER 1/2 TABLET PO (10:31)
[2017-05-02] MEDS: SODIUM CHLORIDE HYPERTONIC 3% 15ML NEB SOL INH ×2 (13:45→21:37)
[2017-05-02] MEDS: ACETAMINOPHEN TAB 650MG DOSE (2X325MG) PO (20:30)
[2017-05-03 06:10] LABS: HEMATOCRIT 28.5 % (36.0-47.0); HEMOGLOBIN 8.5 g/dl (12.0-16.0); MEAN CORPUSCULAR HEMOGLOBIN 30.7 pg (27.0-33.0); MEAN CORPUSCULAR HGB CONC 29.8 g/dl (32.0-36.5); MEAN CORPUSCULAR VOLUME 102.9 fl (80.0-96.0); PLATELET COUNT, AUTOMATED 221 10^3/uL (150-450); RED BLOOD COUNT 2.77 10^6/uL (4.00-5.40); RED CELL DISTRIBUTION WIDTH 16.2 % (11.5-14.5); WHITE BLOOD COUNT 7.9 10^3/uL (4.0-10.0)
[2017-05-03] MEDS: LEVOTHYROXINE 137MCG TABLET (0.137MG) PO (06:12)
[2017-05-03 06:24] LABS: ANION GAP 1 MEQ/L (8-16); BLOOD UREA NITROGEN 31 MG/DL (7-18); CALCIUM LEVEL 8.6 MG/DL (8.8-10.2); CARBON DIOXIDE LEVEL 40 MEQ/L (21-32); CHLORIDE LEVEL 100 MEQ/L (98-107); CREATININE FOR GFR 0.63 MG/DL (0.55-1.30); GLOMERULAR FILTRATION RATE > 60.0 (>39); GLUCOSE, FASTING 89 MG/DL (70-100); POTASSIUM SERUM 4.6 MEQ/L (3.5-5.1); SODIUM LEVEL 141 MEQ/L (136-145)
[2017-05-03] MEDS: BUDESONIDE 0.5 MG/2 ML INHALATION SUSPENSION INH ×2 (08:36→20:20)
[2017-05-03] MEDS: FORMOTEROL FUMARATE 20 MCG/2 ML INHALATION SOLUTION (PERFOROMIST) INH ×2 (08:36→20:20)
[2017-05-03] MEDS: SODIUM CHLORIDE HYPERTONIC 3% 15ML NEB SOL INH ×3 (08:38→20:19)
[2017-05-03] MEDS: SPIRONOLACTONE 12.5MG PER 1/2 TABLET PO (09:52)
[2017-05-03] MEDS: NICOTINE 21MG/24HR 1 EA TRANSDERMAL TD (09:53)
[2017-05-03] MEDS: PANTOPRAZOLE 40MG TAB (PROTONIX) PO ×2 (09:53→20:07)
[2017-05-03] MEDS: guaiFENesin ER 600 MG TAB PO ×2 (09:53→20:07)
[2017-05-03] MEDS: IPRATROPIUM 0.5MG/ALBUTEROL 2.5MG INH SOL UD 3ML (DUONEB)(J7620) NEB (15:09)
[2017-05-04] MEDS: LEVOTHYROXINE 137MCG TABLET (0.137MG) PO (05:55)
[2017-05-04] MEDS: PANTOPRAZOLE 40MG TAB (PROTONIX) PO ×2 (08:47→20:47)
[2017-05-04] MEDS: NICOTINE 21MG/24HR 1 EA TRANSDERMAL TD (08:47)
[2017-05-04] MEDS: SPIRONOLACTONE 12.5MG PER 1/2 TABLET PO (08:47)
[2017-05-04] MEDS: guaiFENesin ER 600 MG TAB PO ×2 (08:47→20:47)
[2017-05-04] MEDS: SODIUM CHLORIDE HYPERTONIC 3% 15ML NEB SOL INH ×3 (09:00→21:14)
[2017-05-04] MEDS: FORMOTEROL FUMARATE 20 MCG/2 ML INHALATION SOLUTION (PERFOROMIST) INH ×2 (09:46→21:15)
[2017-05-04] MEDS: BUDESONIDE 0.5 MG/2 ML INHALATION SUSPENSION INH ×2 (09:46→21:15)
[2017-05-04 15:17] LABS: HEMATOCRIT 29.6 % (36.0-47.0); HEMOGLOBIN 8.8 g/dl (12.0-16.0); MEAN CORPUSCULAR HEMOGLOBIN 31.1 pg (27.0-33.0); MEAN CORPUSCULAR HGB CONC 29.7 g/dl (32.0-36.5); MEAN CORPUSCULAR VOLUME 104.6 fl (80.0-96.0); PLATELET COUNT, AUTOMATED 246 10^3/uL (150-450); RED BLOOD COUNT 2.83 10^6/uL (4.00-5.40); RED CELL DISTRIBUTION WIDTH 16.8 % (11.5-14.5)
[2017-05-04] MEDS: ACETAMINOPHEN TAB 650MG DOSE (2X325MG) PO (20:51)
[2017-05-04 21:05] LABS: HEMATOCRIT 29.3 % (36.0-47.0); HEMOGLOBIN 8.6 g/dl (12.0-16.0); MEAN CORPUSCULAR HEMOGLOBIN 30.9 pg (27.0-33.0); MEAN CORPUSCULAR HGB CONC 29.4 g/dl (32.0-36.5); MEAN CORPUSCULAR VOLUME 105.4 fl (80.0-96.0); PLATELET COUNT, AUTOMATED 246 10^3/uL (150-450); RED BLOOD COUNT 2.78 10^6/uL (4.00-5.40); RED CELL DISTRIBUTION WIDTH 16.8 % (11.5-14.5); WHITE BLOOD COUNT 7.4 10^3/uL (4.0-10.0)
[2017-05-05] MEDS: LEVOTHYROXINE 137MCG TABLET (0.137MG) PO (05:37)
[2017-05-05 05:56] LABS: HEMATOCRIT 29.3 % (36.0-47.0); HEMOGLOBIN 8.7 g/dl (12.0-16.0); MEAN CORPUSCULAR HEMOGLOBIN 31.1 pg (27.0-33.0); MEAN CORPUSCULAR HGB CONC 29.7 g/dl (32.0-36.5); MEAN CORPUSCULAR VOLUME 104.6 fl (80.0-96.0); PLATELET COUNT, AUTOMATED 251 10^3/uL (150-450); RED CELL DISTRIBUTION WIDTH 16.9 % (11.5-14.5); WHITE BLOOD COUNT 6.4 10^3/uL (4.0-10.0)
[2017-05-05 06:11] LABS: ANION GAP 2 MEQ/L (8-16); BLOOD UREA NITROGEN 26 MG/DL (7-18); CALCIUM LEVEL 8.4 MG/DL (8.8-10.2); CARBON DIOXIDE LEVEL 39 MEQ/L (21-32); CHLORIDE LEVEL 100 MEQ/L (98-107); GLOMERULAR FILTRATION RATE > 60.0 (>39); GLUCOSE, FASTING 82 MG/DL (70-100); POTASSIUM SERUM 4.4 MEQ/L (3.5-5.1); SODIUM LEVEL 141 MEQ/L (136-145)
[2017-05-05] MEDS: ACETAMINOPHEN TAB 650MG DOSE (2X325MG) PO ×2 (06:22→21:32)
[2017-05-05] MEDS: BUDESONIDE 0.5 MG/2 ML INHALATION SUSPENSION INH ×2 (07:40→21:43)
[2017-05-05] MEDS: FORMOTEROL FUMARATE 20 MCG/2 ML INHALATION SOLUTION (PERFOROMIST) INH ×2 (07:40→21:43)
[2017-05-05] MEDS: SODIUM CHLORIDE HYPERTONIC 3% 15ML NEB SOL INH ×3 (07:40→23:46)
[2017-05-05] MEDS: NICOTINE 21MG/24HR 1 EA TRANSDERMAL TD (09:53)
[2017-05-05] MEDS: SPIRONOLACTONE 12.5MG PER 1/2 TABLET PO (09:53)
[2017-05-05] MEDS: guaiFENesin ER 600 MG TAB PO ×2 (09:53→21:32)
[2017-05-05] MEDS: PANTOPRAZOLE 40MG TAB (PROTONIX) PO ×2 (09:53→21:32)
[2017-05-06] MEDS: LEVOTHYROXINE 137MCG TABLET (0.137MG) PO (05:35)
[2017-05-06 05:48] LABS: HEMATOCRIT 30.5 % (36.0-47.0); HEMOGLOBIN 8.9 g/dl (12.0-16.0); MEAN CORPUSCULAR HEMOGLOBIN 30.7 pg (27.0-33.0); MEAN CORPUSCULAR HGB CONC 29.2 g/dl (32.0-36.5); MEAN CORPUSCULAR VOLUME 105.2 fl (80.0-96.0); PLATELET COUNT, AUTOMATED 262 10^3/uL (150-450); WHITE BLOOD COUNT 6.2 10^3/uL (4.0-10.0)
[2017-05-06] MEDS: ACETAMINOPHEN TAB 650MG DOSE (2X325MG) PO ×2 (06:31→20:05)
[2017-05-06] MEDS: FORMOTEROL FUMARATE 20 MCG/2 ML INHALATION SOLUTION (PERFOROMIST) INH ×2 (08:39→21:02)
[2017-05-06] MEDS: BUDESONIDE 0.5 MG/2 ML INHALATION SUSPENSION INH ×2 (08:39→21:02)
[2017-05-06] MEDS: SODIUM CHLORIDE HYPERTONIC 3% 15ML NEB SOL INH ×3 (08:39→21:03)
[2017-05-06] MEDS: guaiFENesin ER 600 MG TAB PO ×2 (09:04→20:06)
[2017-05-06] MEDS: PANTOPRAZOLE 40MG TAB (PROTONIX) PO ×2 (09:04→20:06)
[2017-05-06] MEDS: SPIRONOLACTONE 12.5MG PER 1/2 TABLET PO (09:04)
[2017-05-06] MEDS: NICOTINE 21MG/24HR 1 EA TRANSDERMAL TD (09:05)
[2017-05-06] MEDS: SLF 3 ML SYR IV (14:18)
[2017-05-07] MEDS: LEVOTHYROXINE 137MCG TABLET (0.137MG) PO (06:15)
[2017-05-07] MEDS: SPIRONOLACTONE 12.5MG PER 1/2 TABLET PO (09:36)
[2017-05-07] MEDS: PANTOPRAZOLE 40MG TAB (PROTONIX) PO ×2 (09:36→20:38)
[2017-05-07] MEDS: NICOTINE 21MG/24HR 1 EA TRANSDERMAL TD (09:36)
[2017-05-07] MEDS: guaiFENesin ER 600 MG TAB PO ×2 (09:36→20:38)
[2017-05-07] MEDS: VITAMIN D 50,000 UNITS CAPSULE (ERGOCALCIFEROL 1.25MG) PO (09:36)
[2017-05-07] MEDS: FORMOTEROL FUMARATE 20 MCG/2 ML INHALATION SOLUTION (PERFOROMIST) INH ×2 (10:58→19:22)
[2017-05-07] MEDS: BUDESONIDE 0.5 MG/2 ML INHALATION SUSPENSION INH ×2 (10:58→19:22)
[2017-05-07] MEDS: SODIUM CHLORIDE HYPERTONIC 3% 15ML NEB SOL INH ×3 (11:01→19:22)
[2017-05-07] MEDS: IPRATROPIUM 0.5MG/ALBUTEROL 2.5MG INH SOL UD 3ML (DUONEB)(J7620) NEB (14:25)
[2017-05-07] MEDS: ACETAMINOPHEN TAB 650MG DOSE (2X325MG) PO (20:42)
[2017-05-08] MEDS: ACETAMINOPHEN TAB 650MG DOSE (2X325MG) PO (05:53)
[2017-05-08] MEDS: LEVOTHYROXINE 137MCG TABLET (0.137MG) PO (05:53)
[2017-05-08] MEDS: BUDESONIDE 0.5 MG/2 ML INHALATION SUSPENSION INH (07:07)
[2017-05-08] MEDS: FORMOTEROL FUMARATE 20 MCG/2 ML INHALATION SOLUTION (PERFOROMIST) INH (07:07)
[2017-05-08] MEDS: SODIUM CHLORIDE HYPERTONIC 3% 15ML NEB SOL INH ×2 (07:12→14:01)
[2017-05-08] MEDS: SPIRONOLACTONE 12.5MG PER 1/2 TABLET PO (07:47)
[2017-05-08] MEDS: guaiFENesin ER 600 MG TAB PO (07:47)
[2017-05-08] MEDS: PANTOPRAZOLE 40MG TAB (PROTONIX) PO (07:47)
[2017-05-08] MEDS: NICOTINE 21MG/24HR 1 EA TRANSDERMAL TD (07:48)
[2017-05-08] MEDS: IPRATROPIUM 0.5MG/ALBUTEROL 2.5MG INH SOL UD 3ML (DUONEB)(J7620) NEB (14:01)
== END 2017-05-08 17:03 | disposition home health service (06) | DRG 166 ==
LOC: M MSPAV 05-01 12:37 → M ED 09:19 → M ED INP 12:05 → M ICU 13:44
PROC: 5A1945Z Respiratory Ventilation, 24-96 Consecutive Hours (ICD-10-PCS; 2017-04-08)
PROC: 05H533Z Insertion of Infusion Device into Right Subclavian Vein, Percutaneous Approach (ICD-10-PCS; 2017-04-08)
PROC: 02H Heart and Great Vessels, Insertion (ICD-10-PCS; 2017-04-08)
PROC: 0BH17EZ Insertion of Endotracheal Airway into Trachea, Via Natural or Artificial Opening (ICD-10-PCS; 2017-04-08)
PROC: 02HV33Z Insertion of Infusion Device into Superior Vena Cava, Percutaneous Approach (ICD-10-PCS; 2017-04-14)
PROC: 0B9M8ZZ Drainage of Bilateral Lungs, Via Natural or Artificial Opening Endoscopic (ICD-10-PCS; principal; 2017-04-19)
PROC: 06H03DZ Insertion of Intraluminal Device into Inferior Vena Cava, Percutaneous Approach (ICD-10-PCS; 2017-04-22)
PROC: 30253N1 (ICD-10-PCS; 2017-04-27)
DX: J96.01 Acute respiratory failure with hypoxia (principal); R57.0 Cardiogenic shock; I21.9 Acute myocardial infarction, unspecified; E87.2 Acidosis; N17.9 Acute kidney failure, unspecified; I82.411 Acute embolism and thrombosis of right femoral vein; I50.32 Chronic diastolic (congestive) heart failure; J98.11 Atelectasis; E46 Unspecified protein-calorie malnutrition; D62 Acute posthemorrhagic anemia; K62.5 Hemorrhage of anus and rectum; Z66 Do not resuscitate; K64.9 Unspecified hemorrhoids; J44.9 Chronic obstructive pulmonary disease, unspecified; I11.0 Hypertensive heart disease with heart failure; I48.0 Paroxysmal atrial fibrillation; J96.22 Acute and chronic respiratory failure with hypercapnia; G47.33 Obstructive sleep apnea (adult) (pediatric); E03.9 Hypothyroidism, unspecified; Z79.82 Long term (current) use of aspirin; Z79.899 Other long term (current) drug therapy

== ENCOUNTER 2017-06-06 20:17 | Inpatient (IN) | payer MEDICARE, MEDICAID ==
[2017-06-06 20:36] LABS: ABG BASE EXCESS 5.4 (-2.0-2.0); ABG HCO3 31.7 MEQ/L (22.0-26.0); ABG O2 SATURATION 93.7 % (95.0-99.0); ABG PARTIAL PRESSURE O2 68.6 mmHg (75.0-100.0); ABG STANDARD HCO3 29.2 MEQ/L (22.0-26.0); ABG TOTAL CO2 33.4 MEQ/L (23.0-31.0); ABG pH (ARTERIAL) 7.379 UNITS (7.350-7.450)
[2017-06-06 20:37] LABS: BASO # 0.1 10^3/uL (0.0-0.2); BASO % 0.6 % (0.0-1.0); EOS % 0.4 % (0.0-3.0); HEMATOCRIT 35.2 % (36.0-47.0); HEMOGLOBIN 10.4 g/dl (12.0-16.0); IMMATURE GRANULOCYTE % 0.3 % (0-3.0); LYMPH # 0.6 10^3/uL (1.5-4.5); LYMPH % 7.2 % (24.0-44.0); MEAN CORPUSCULAR HEMOGLOBIN 28.4 pg (27.0-33.0); MEAN CORPUSCULAR HGB CONC 29.5 g/dl (32.0-36.5); MEAN CORPUSCULAR VOLUME 96.2 fl (80.0-96.0); MONO # 0.6 10^3/uL (0.0-0.8); MONO % 6.1 % (0.0-5.0); NEUTROPHILS # 7.6 10^3/uL (1.8-7.7); NEUTROPHILS % 85.4 % (36.0-66.0); PLATELET COUNT, AUTOMATED 265 10^3/uL (150-450); RED BLOOD COUNT 3.66 10^6/uL (4.00-5.40); RED CELL DISTRIBUTION WIDTH 15.5 % (11.5-14.5)
[2017-06-06 21:03] LABS: ANION GAP 6 MEQ/L (8-16); BLOOD UREA NITROGEN 17 MG/DL (7-18); CALCIUM LEVEL 8.9 MG/DL (8.8-10.2); CARBON DIOXIDE LEVEL 33 MEQ/L (21-32); CHLORIDE LEVEL 107 MEQ/L (98-107); CK-MB VALUE MASS 1.6 NG/ML (0.0-3.6); CPK CREATINE PHOSPHOKINASE 40 U/L (26-192); CREATININE FOR GFR 0.59 MG/DL (0.55-1.30); GLOMERULAR FILTRATION RATE > 60.0 (>39); GLUCOSE, FASTING 96 MG/DL (70-100); POTASSIUM SERUM 3.7 MEQ/L (3.5-5.1); SODIUM LEVEL 146 MEQ/L (136-145); TROPONIN I 0.03 NG/ML (< 0.10)
[2017-06-06 21:07] LABS: ALBUMIN 3.4 GM/DL (3.2-5.2); ALBUMIN/GLOBULIN RATIO 1.03 (1.00-1.93); ALKALINE PHOSPHATASE 71 U/L (45-117); ALT/SGPT 10 U/L (12-78); AST/SGOT 12 U/L (7-37); BILIRUBIN,DIRECT 0.3 MG/DL (0.0-0.2); BILIRUBIN,TOTAL 0.9 MG/DL (0.2-1.0); TOTAL PROTEIN 6.7 GM/DL (6.4-8.2)
[2017-06-06] MEDS: FUROSEMIDE 40 MG/4 ML VIAL (J1940) IV (21:29)
[2017-06-06] MEDS: NITROGLYCERIN 2% OINT 1 GM *U/D* PKT TOP (21:31)
[2017-06-06] MEDS ORDERED: IPRATROPIUM 0.5MG/ALBUTEROL 2.5MG INH SOL UD 3ML (DUONEB)(J7620) NEB (23:15)
[2017-06-06 23:25] LABS: INFLUENZA A AMPLIFICATION NEGATIVE (NEGATIVE); INFLUENZA B AMPLIFICATION NEGATIVE (NEGATIVE)
[2017-06-07] MEDS: ACETAMINOPHEN TAB 650MG DOSE (2X325MG) PO ×3 (01:08→20:00)
[2017-06-07] MEDS: IPRATROPIUM 0.5MG/ALBUTEROL 2.5MG INH SOL UD 3ML (DUONEB)(J7620) NEB ×3 (01:32→15:54)
[2017-06-07 04:37] LABS: HEMATOCRIT 34.5 % (36.0-47.0); MEAN CORPUSCULAR HEMOGLOBIN 27.4 pg (27.0-33.0); MEAN CORPUSCULAR VOLUME 94.5 fl (80.0-96.0); PLATELET COUNT, AUTOMATED 280 10^3/uL (150-450); RED BLOOD COUNT 3.65 10^6/uL (4.00-5.40); RED CELL DISTRIBUTION WIDTH 15.7 % (11.5-14.5); WHITE BLOOD COUNT 7.3 10^3/uL (4.0-10.0)
[2017-06-07 04:55] LABS: ANION GAP 5 MEQ/L (8-16); BLOOD UREA NITROGEN 16 MG/DL (7-18); CALCIUM LEVEL 9.2 MG/DL (8.8-10.2); CARBON DIOXIDE LEVEL 37 MEQ/L (21-32); CHLORIDE LEVEL 103 MEQ/L (98-107); GLOMERULAR FILTRATION RATE > 60.0 (>39); GLUCOSE, FASTING 79 MG/DL (70-100); POTASSIUM SERUM 3.3 MEQ/L (3.5-5.1); SODIUM LEVEL 145 MEQ/L (136-145)
[2017-06-07] MEDS: POTASSIUM CHLORIDE 10 MEQ SR TABLET PO ×2 (05:43→15:21)
[2017-06-07] MEDS: LEVOTHYROXINE 137MCG TABLET (0.137MG) PO (05:43)
[2017-06-07] MEDS: HEPARIN SOD (PORCINE) 5000 UNITS/ML VIAL SC ×3 (05:47→21:22)
[2017-06-07] MEDS: FUROSEMIDE 40 MG/4 ML VIAL (J1940) IV ×3 (05:51→15:20)
[2017-06-07] MEDS: BUDESONIDE 0.5 MG/2 ML INHALATION SUSPENSION INH ×2 (07:41→20:37)
[2017-06-07] MEDS: amLODIPine 5 MG TAB PO (08:44)
[2017-06-07] MEDS: LISINOPRIL 40 MG TAB PO (08:44)
[2017-06-07] MEDS: ASPIRIN 81 MG ENTERIC TAB PO (08:45)
[2017-06-07] MEDS: SIMVASTATIN 40 MG TAB PO (21:22)
[2017-06-08] MEDS: IPRATROPIUM 0.5MG/ALBUTEROL 2.5MG INH SOL UD 3ML (DUONEB)(J7620) NEB ×3 (00:54→15:21)
[2017-06-08 04:39] LABS: HEMATOCRIT 33.4 % (36.0-47.0); HEMOGLOBIN 9.8 g/dl (12.0-16.0); MEAN CORPUSCULAR HEMOGLOBIN 27.8 pg (27.0-33.0); MEAN CORPUSCULAR HGB CONC 29.3 g/dl (32.0-36.5); MEAN CORPUSCULAR VOLUME 94.6 fl (80.0-96.0); PLATELET COUNT, AUTOMATED 248 10^3/uL (150-450); RED BLOOD COUNT 3.53 10^6/uL (4.00-5.40); RED CELL DISTRIBUTION WIDTH 15.7 % (11.5-14.5); WHITE BLOOD COUNT 6.6 10^3/uL (4.0-10.0)
[2017-06-08 04:51] LABS: ANION GAP 5 MEQ/L (8-16); BLOOD UREA NITROGEN 16 MG/DL (7-18); CALCIUM LEVEL 8.5 MG/DL (8.8-10.2); CARBON DIOXIDE LEVEL 35 MEQ/L (21-32); CHLORIDE LEVEL 105 MEQ/L (98-107); CREATININE FOR GFR 0.71 MG/DL (0.55-1.30); GLOMERULAR FILTRATION RATE > 60.0 (>39); GLUCOSE, FASTING 91 MG/DL (70-100); POTASSIUM SERUM 3.4 MEQ/L (3.5-5.1); SODIUM LEVEL 145 MEQ/L (136-145)
[2017-06-08] MEDS: HEPARIN SOD (PORCINE) 5000 UNITS/ML VIAL SC ×3 (06:38→21:08)
[2017-06-08] MEDS: LEVOTHYROXINE 137MCG TABLET (0.137MG) PO (06:38)
[2017-06-08] MEDS: FUROSEMIDE 40 MG/4 ML VIAL (J1940) IV ×5 (06:38→23:58)
[2017-06-08] MEDS: BUDESONIDE 0.5 MG/2 ML INHALATION SUSPENSION INH (07:52)
[2017-06-08] MEDS: POTASSIUM CHLORIDE 10 MEQ SR TABLET PO (09:20)
[2017-06-08] MEDS: LISINOPRIL 40 MG TAB PO (09:21)
[2017-06-08] MEDS: amLODIPine 5 MG TAB PO (09:21)
[2017-06-08] MEDS: ASPIRIN 81 MG ENTERIC TAB PO (09:21)
[2017-06-08 13:21] LABS: ANION GAP 4 MEQ/L (8-16); BLOOD UREA NITROGEN 15 MG/DL (7-18); CALCIUM LEVEL 8.8 MG/DL (8.8-10.2); CARBON DIOXIDE LEVEL 38 MEQ/L (21-32); CHLORIDE LEVEL 103 MEQ/L (98-107); CREATININE FOR GFR 0.94 MG/DL (0.55-1.30); GLOMERULAR FILTRATION RATE > 60.0 (>39); GLUCOSE, FASTING 143 MG/DL (70-100); MAGNESIUM LEVEL 1.9 MG/DL (1.8-2.4); POTASSIUM SERUM 4.2 MEQ/L (3.5-5.1); SODIUM LEVEL 145 MEQ/L (136-145)
[2017-06-08] MEDS: ACETAMINOPHEN TAB 650MG DOSE (2X325MG) PO (19:28)
[2017-06-08] MEDS: SIMVASTATIN 40 MG TAB PO (21:08)
[2017-06-09] MEDS: BUDESONIDE 0.5 MG/2 ML INHALATION SUSPENSION INH ×3 (00:11→20:00)
[2017-06-09] MEDS: IPRATROPIUM 0.5MG/ALBUTEROL 2.5MG INH SOL UD 3ML (DUONEB)(J7620) NEB ×4 (00:11→23:08)
[2017-06-09] MEDS: ACETAMINOPHEN TAB 650MG DOSE (2X325MG) PO ×2 (03:36→21:21)
[2017-06-09 04:27] LABS: HEMATOCRIT 33.3 % (36.0-47.0); HEMOGLOBIN 9.8 g/dl (12.0-16.0); MEAN CORPUSCULAR HEMOGLOBIN 27.9 pg (27.0-33.0); MEAN CORPUSCULAR HGB CONC 29.4 g/dl (32.0-36.5); MEAN CORPUSCULAR VOLUME 94.9 fl (80.0-96.0); PLATELET COUNT, AUTOMATED 245 10^3/uL (150-450); RED BLOOD COUNT 3.51 10^6/uL (4.00-5.40); RED CELL DISTRIBUTION WIDTH 15.8 % (11.5-14.5)
[2017-06-09 04:42] LABS: ANION GAP 3 MEQ/L (8-16); BLOOD UREA NITROGEN 16 MG/DL (7-18); CALCIUM LEVEL 8.7 MG/DL (8.8-10.2); CARBON DIOXIDE LEVEL 39 MEQ/L (21-32); CHLORIDE LEVEL 102 MEQ/L (98-107); CREATININE FOR GFR 0.99 MG/DL (0.55-1.30); GLOMERULAR FILTRATION RATE 57.6 (>39); GLUCOSE, FASTING 93 MG/DL (70-100); POTASSIUM SERUM 3.5 MEQ/L (3.5-5.1); SODIUM LEVEL 144 MEQ/L (136-145)
[2017-06-09] MEDS: HEPARIN SOD (PORCINE) 5000 UNITS/ML VIAL SC ×3 (05:47→21:13)
[2017-06-09] MEDS: LEVOTHYROXINE 137MCG TABLET (0.137MG) PO (05:47)
[2017-06-09] MEDS: FUROSEMIDE 40 MG/4 ML VIAL (J1940) IV ×3 (05:48→17:57)
[2017-06-09] MEDS: ASPIRIN 81 MG ENTERIC TAB PO (08:27)
[2017-06-09] MEDS: LISINOPRIL 40 MG TAB PO (08:28)
[2017-06-09] MEDS: amLODIPine 5 MG TAB PO (08:28)
[2017-06-09] MEDS: POTASSIUM CHLORIDE 10 MEQ SR TABLET PO (10:08)
[2017-06-09] MEDS: SIMVASTATIN 40 MG TAB PO (21:12)
[2017-06-10] MEDS: FUROSEMIDE 40 MG/4 ML VIAL (J1940) IV ×3 (00:39→11:58)
[2017-06-10 03:15] LABS: KETONE, URINE AUTO RFX NEGATIVE (NEGATIVE); MUCUS, URINE RFX SMALL (NEGATIVE); NITRITE, URINE AUTO RFX NEGATIVE (NEGATIVE); RBC, URINE AUTO RFX TNTC /HPF (0-3); SPECIFIC GRAVITY UR AUTO RFX 1.023 (1.002-1.035); SQUAM EPITHELIAL CELL UR AURFX 0 /HPF (0-6)
[2017-06-10 03:30] LABS: LEUKOCYTE ESTERASE UR AUTO RFX 1+ (NEGATIVE); WBC, URINE AUTO RFX 24 /HPF (0-3)
[2017-06-10 05:38] LABS: HEMATOCRIT 32.8 % (36.0-47.0); HEMOGLOBIN 9.7 g/dl (12.0-16.0); MEAN CORPUSCULAR HEMOGLOBIN 27.7 pg (27.0-33.0); MEAN CORPUSCULAR HGB CONC 29.6 g/dl (32.0-36.5); MEAN CORPUSCULAR VOLUME 93.7 fl (80.0-96.0); PLATELET COUNT, AUTOMATED 232 10^3/uL (150-450); RED CELL DISTRIBUTION WIDTH 15.9 % (11.5-14.5); RETIC HEMOGLOBIN EQUIVALENT 27.9 pg (24-36); RETICULOCYTE # 44.8 10^9/L (17-77); RETICULOCYTE % 1.3 % (0.5-1.5); WHITE BLOOD COUNT 6.3 10^3/uL (4.0-10.0)
[2017-06-10 05:40] LABS: POSITIVE MORPH POS FLAG
[2017-06-10] MEDS: LEVOTHYROXINE 137MCG TABLET (0.137MG) PO (05:54)
[2017-06-10 06:11] LABS: ANION GAP 4 MEQ/L (8-16); BLOOD UREA NITROGEN 18 MG/DL (7-18); CARBON DIOXIDE LEVEL 39 MEQ/L (21-32); CHLORIDE LEVEL 101 MEQ/L (98-107); CREATININE FOR GFR 0.83 MG/DL (0.55-1.30); FREE THYROXINE INDEX 4.5 % (1.3-4.8); GLOMERULAR FILTRATION RATE > 60.0 (>39); GLUCOSE, FASTING 86 MG/DL (70-100); MAGNESIUM LEVEL 2.1 MG/DL (1.8-2.4); POTASSIUM SERUM 3.4 MEQ/L (3.5-5.1); SODIUM LEVEL 144 MEQ/L (136-145); T UPTAKE 40 % (30-39); THYROXINE (T4) 11.2 UG/DL (4.5-12.0); TROPONIN I 0.02 NG/ML (< 0.10)
[2017-06-10] MEDS: BUDESONIDE 0.5 MG/2 ML INHALATION SUSPENSION INH ×2 (07:28→23:21)
[2017-06-10] MEDS: IPRATROPIUM 0.5MG/ALBUTEROL 2.5MG INH SOL UD 3ML (DUONEB)(J7620) NEB ×3 (07:28→23:21)
[2017-06-10] MEDS: LISINOPRIL 40 MG TAB PO (09:55)
[2017-06-10] MEDS: SPIRONOLACTONE 25 MG TAB PO ×2 (09:55→17:05)
[2017-06-10] MEDS: ASPIRIN 81 MG ENTERIC TAB PO (09:55)
[2017-06-10] MEDS: HEPARIN SOD (PORCINE) 5000 UNITS/ML VIAL SQ (09:56)
[2017-06-10] MEDS: POTASSIUM CHLORIDE 10 MEQ SR TABLET PO (17:51)
[2017-06-10] MEDS: SIMVASTATIN 40 MG TAB PO (21:49)
[2017-06-10] MEDS: ACETAMINOPHEN TAB 650MG DOSE (2X325MG) PO (22:25)
[2017-06-11 06:35] LABS: HEMOGLOBIN 9.9 g/dl (12.0-16.0); MEAN CORPUSCULAR HEMOGLOBIN 27.5 pg (27.0-33.0); MEAN CORPUSCULAR HGB CONC 29.1 g/dl (32.0-36.5); MEAN CORPUSCULAR VOLUME 94.4 fl (80.0-96.0); PLATELET COUNT, AUTOMATED 247 10^3/uL (150-450); RED CELL DISTRIBUTION WIDTH 15.9 % (11.5-14.5); RETIC HEMOGLOBIN EQUIVALENT 26.9 pg (24-36); RETICULOCYTE # 50.8 10^9/L (17-77); RETICULOCYTE % 1.4 % (0.5-1.5); WHITE BLOOD COUNT 5.6 10^3/uL (4.0-10.0)
[2017-06-11 06:36] LABS: POSITIVE MORPH POS FLAG
[2017-06-11] MEDS: LEVOTHYROXINE 137MCG TABLET (0.137MG) PO (06:37)
[2017-06-11 06:53] LABS: ANION GAP 2 MEQ/L (8-16); BLOOD UREA NITROGEN 25 MG/DL (7-18); CARBON DIOXIDE LEVEL 40 MEQ/L (21-32); CHLORIDE LEVEL 100 MEQ/L (98-107); CREATININE FOR GFR 0.97 MG/DL (0.55-1.30); GLUCOSE, FASTING 87 MG/DL (70-100); MAGNESIUM LEVEL 1.9 MG/DL (1.8-2.4); POTASSIUM SERUM 3.4 MEQ/L (3.5-5.1); SODIUM LEVEL 142 MEQ/L (136-145)
[2017-06-11] MEDS: BUDESONIDE 0.5 MG/2 ML INHALATION SUSPENSION INH (07:13)
[2017-06-11] MEDS: IPRATROPIUM 0.5MG/ALBUTEROL 2.5MG INH SOL UD 3ML (DUONEB)(J7620) NEB (07:14)
[2017-06-11] MEDS: SPIRONOLACTONE 25 MG TAB PO (08:39)
[2017-06-11] MEDS: LISINOPRIL 40 MG TAB PO (08:39)
[2017-06-11] MEDS: ASPIRIN 81 MG ENTERIC TAB PO (08:39)
[2017-06-11] MEDS: FUROSEMIDE 40 MG TAB PO (08:39)
[2017-06-11] MEDS: POTASSIUM CHLORIDE 10 MEQ SR TABLET PO (08:39)
== END 2017-06-11 13:21 | disposition home health service (06) | DRG 291 ==
LOC: M ICU 06-07 00:30 → M MSPAV 06-09 10:59 → M ED 20:17 → M ED INP 23:11
DX: I11.0 Hypertensive heart disease with heart failure (principal); J96.21 Acute and chronic respiratory failure with hypoxia; Z66 Do not resuscitate; I50.23 Acute on chronic systolic (congestive) heart failure; E87.6 Hypokalemia; I48.91 Unspecified atrial fibrillation; F17.200 Nicotine dependence, unspecified, uncomplicated; E78.5 Hyperlipidemia, unspecified; E03.9 Hypothyroidism, unspecified; J44.9 Chronic obstructive pulmonary disease, unspecified; Z90.710 Acquired absence of both cervix and uterus; Z99.89 Dependence on other enabling machines and devices; Z86.718 Personal history of other venous thrombosis and embolism; Z79.82 Long term (current) use of aspirin

== ENCOUNTER → 2017-06-27 | Outpatient (CLI) | payer MEDICARE, MEDICAID ==
[~2017-06-27] MED LIST: ISOVUE-370 76% 100ML VIAL (Q9967) As Ordered
== END ==
LOC: M RAD 12:37
DX: R91.8 Other nonspecific abnormal finding of lung field (principal)
CPT/HCPCS: Q9967

== ENCOUNTER → 2017-07-04 | Outpatient (REF) | payer MEDICARE, MEDICAID ==
[2017-07-04 16:09] LABS: BASO # 0.1 10^3/uL (0.0-0.2); BASO % 0.5 % (0.0-1.0); EOS # 0.2 10^3/uL (0.0-0.50); EOS % 1.9 % (0.0-3.0); HEMATOCRIT 38.8 % (36.0-47.0); HEMOGLOBIN 11.6 g/dl (12.0-15.5); IMMATURE GRANULOCYTE % 0.2 % (0-3.0); LYMPH % 11.1 % (24.0-44.0); MEAN CORPUSCULAR HEMOGLOBIN 26.8 pg (27.0-33.0); MEAN CORPUSCULAR HGB CONC 29.9 g/dl (32.0-36.5); MEAN CORPUSCULAR VOLUME 89.6 fl (80.0-96.0); MONO # 0.6 10^3/uL (0.0-0.8); MONO % 6.6 % (0.0-5.0); NEUTROPHILS # 7.4 10^3/uL (1.8-7.7); NEUTROPHILS % 79.7 % (36.0-66.0); PLATELET COUNT, AUTOMATED 327 10^3/uL (150-450); RED BLOOD COUNT 4.33 10^6/uL (4.00-5.40); RED CELL DISTRIBUTION WIDTH 15.2 % (11.5-14.5); RETIC HEMOGLOBIN EQUIVALENT 31.7 pg (24-36); RETICULOCYTE # 32.5 10^9/L (17-77); RETICULOCYTE % 0.8 % (0.5-1.5); WHITE BLOOD COUNT 9.3 10^3/uL (4.0-10.0)
[2017-07-04 16:11] LABS: HEMATOCRIT 38.8 % (36.0-47.0)
[2017-07-04 16:43] LABS: CARCINOEMBRYONIC ANTIGEN 3.6 NG/ML (<2.5)
[2017-07-04 16:44] LABS: ALBUMIN/GLOBULIN RATIO 1.14 (1.00-1.93); ALKALINE PHOSPHATASE 85 U/L (45-117); ALT/SGPT 13 U/L (12-78); ANION GAP 9 MEQ/L (8-16); AST/SGOT 11 U/L (7-37); BILIRUBIN,TOTAL 0.4 MG/DL (0.2-1.0); BLOOD UREA NITROGEN 47 MG/DL (7-18); CALCIUM LEVEL 9.7 MG/DL (8.8-10.2); CARBON DIOXIDE LEVEL 28 MEQ/L (21-32); CHLORIDE LEVEL 105 MEQ/L (98-107); CREATININE FOR GFR 1.25 MG/DL (0.55-1.30); FREE T4 1.57 NG/DL (0.76-1.46); GLUCOSE, FASTING 82 MG/DL (70-100); MAGNESIUM LEVEL 2.7 MG/DL (1.8-2.4); POTASSIUM SERUM 5.1 MEQ/L (3.5-5.1); SODIUM LEVEL 142 MEQ/L (136-145); THYROID STIMULATING HORMONE 0.192 uIU/ML (0.358-3.740); TOTAL PROTEIN 7.5 GM/DL (6.4-8.2); VITAMIN B12 LEVEL 381 PG/ML (247-911)
[2017-07-04 17:11] LABS: CA 125 22.9 U/ML (<30.2)
[2017-07-04 17:12] LABS: CA19-9 TUMOR MARKER,CARBOHYDRA 12.3 U/ML (<35.0)
[2017-07-04 17:22] LABS: CA15-3 ANTIGEN 12.6 U/ML (<32.4)
[2017-07-07 14:28] LABS: ALBUMIN % 56.8 % (55.8-66.1); ALPHA-1-GLOBULIN % 5.2 % (2.9-4.9); ALPHA-2-GLOBULINS % 9.7 % (7.1-11.8); BETA-1-GLOBULINS % 7.2 % (4.7-7.2); BETA-2-GLOBULINS % 5.2 % (3.2-6.5); GAMMA GLOBULIN % 15.9 % (11.1-18.8)
[2017-07-07 14:29] LABS: ALBUMIN 4.26 GM/DL (3.29-5.55); ALPHA-1-GLOBULINS 0.39 GM/DL (0.17-0.41); ALPHA-2-GLOBULINS 0.73 GM/DL (0.42-0.99); BETA-1-GLOBULINS 0.54 GM/DL (0.28-0.60); BETA-2-GLOBULINS 0.39 GM/DL (0.19-0.55); GAMMA GLOBULINS 1.19 GM/DL (0.65-1.58)
[2017-07-08 10:56] LABS: PRETREATED FOLATE FOR RBCFOL 9.6 NG/ML; RBC FOLATE 519.6 NG/ML (280-791)
== END ==
LOC: M SFHCPLAZ 12:18
DX: R91.8 Other nonspecific abnormal finding of lung field (principal); D53.9 Nutritional anemia, unspecified; I11.0 Hypertensive heart disease with heart failure; I48.0 Paroxysmal atrial fibrillation; I50.32 Chronic diastolic (congestive) heart failure; J44.9 Chronic obstructive pulmonary disease, unspecified; I82.411 Acute embolism and thrombosis of right femoral vein; G47.33 Obstructive sleep apnea (adult) (pediatric); D75.89 Other specified diseases of blood and blood-forming organs; E78.5 Hyperlipidemia, unspecified; E55.9 Vitamin D deficiency, unspecified; E03.9 Hypothyroidism, unspecified; M81.0 Age-related osteoporosis without current pathological fracture; Z12.11 Encounter for screening for malignant neoplasm of colon
CPT/HCPCS: 82378

== ENCOUNTER → 2017-07-11 | Outpatient (REF) | payer MEDICARE, MEDICAID ==
[2017-07-11 11:12] LABS: ALBUMIN 3.9 GM/DL (3.2-5.2); ANION GAP 8 MEQ/L (8-16); BLOOD UREA NITROGEN 60 MG/DL (7-18); CALCIUM LEVEL 9.6 MG/DL (8.8-10.2); CARBON DIOXIDE LEVEL 28 MEQ/L (21-32); CHLORIDE LEVEL 106 MEQ/L (98-107); CREATININE FOR GFR 1.45 MG/DL (0.55-1.30); GLOMERULAR FILTRATION RATE 37.1 (>39); GLUCOSE, FASTING 88 MG/DL (70-100); MAGNESIUM LEVEL 3.1 MG/DL (1.8-2.4); PHOSPHORUS LEVEL 5.3 MG/DL (2.5-4.9); POTASSIUM SERUM 4.8 MEQ/L (3.5-5.1); SODIUM LEVEL 142 MEQ/L (136-145)
== END ==
LOC: M SFHCPLAZ 09:10
DX: I10 Essential (primary) hypertension (principal)
CPT/HCPCS: 83735

== ENCOUNTER → 2017-07-11 | Outpatient (CLI) | payer MEDICARE, MEDICAID ==
[~2017-07-11] MED LIST changes: +GASTROGRAFIN SOLUTION 30ML (Q9963) As Ordered
== END ==
LOC: M RAD 13:20
DX: R91.8 Other nonspecific abnormal finding of lung field (principal); J38.7 Other diseases of larynx
CPT/HCPCS: Q9963

== ENCOUNTER → 2017-08-11 | Outpatient (REF) | payer MEDICARE, MEDICAID ==
[2017-08-11 13:29] LABS: ANION GAP 6 MEQ/L (8-16); BLOOD UREA NITROGEN 77 MG/DL (7-18); CALCIUM LEVEL 9.8 MG/DL (8.8-10.2); CARBON DIOXIDE LEVEL 24 MEQ/L (21-32); CHLORIDE LEVEL 112 MEQ/L (98-107); CREATININE FOR GFR 1.89 MG/DL (0.55-1.30); GLOMERULAR FILTRATION RATE 27.3 (>39); GLUCOSE, FASTING 93 MG/DL (70-100); NT-PRO BNP 5715 PG/ML (<450); SODIUM LEVEL 142 MEQ/L (136-145)
[2017-08-11 13:42] LABS: POTASSIUM SERUM 5.7 MEQ/L (3.5-5.1)
== END ==
LOC: M LABDRWAD 12:13
DX: N28.9 Disorder of kidney and ureter, unspecified (principal); I50.32 Chronic diastolic (congestive) heart failure; J44.9 Chronic obstructive pulmonary disease, unspecified
CPT/HCPCS: 80048

== ENCOUNTER 2017-08-12 10:51 | Emergency (ER) | payer MEDICARE, MEDICAID ==
[2017-08-12 11:23] LABS: BASO % 0.4 % (0.0-1.0); EOS # 0.2 10^3/uL (0.0-0.50); EOS % 2.3 % (0.0-3.0); HEMATOCRIT 41.1 % (36.0-47.0); HEMOGLOBIN 12.6 g/dl (12.0-15.5); IMMATURE GRANULOCYTE % 0.8 % (0-3.0); LYMPH # 1.3 10^3/uL (1.5-4.5); LYMPH % 14.5 % (24.0-44.0); MEAN CORPUSCULAR HEMOGLOBIN 26.8 pg (27.0-33.0); MEAN CORPUSCULAR HGB CONC 30.7 g/dl (32.0-36.5); MEAN CORPUSCULAR VOLUME 87.3 fl (80.0-96.0); MONO # 0.5 10^3/uL (0.0-0.8); MONO % 4.9 % (0.0-5.0); NEUTROPHILS % 77.1 % (36.0-66.0); PLATELET COUNT, AUTOMATED 348 10^3/uL (150-450); RED BLOOD COUNT 4.71 10^6/uL (4.00-5.40); RED CELL DISTRIBUTION WIDTH 15.5 % (11.5-14.5); WHITE BLOOD COUNT 9.1 10^3/uL (4.0-10.0)
[2017-08-12 11:32] LABS: INR 0.94; PROTHROMBIN TIME 12.7 SECONDS (12.4-14.5)
[2017-08-12 11:33] LABS: PARTIAL THROMBOPLASTIN TIME 24.6 SECONDS (26.8-37.9)
[2017-08-12 11:44] LABS: ANION GAP 7 MEQ/L (8-16); BLOOD UREA NITROGEN 87 MG/DL (7-18); CALCIUM LEVEL 9.7 MG/DL (8.8-10.2); CARBON DIOXIDE LEVEL 24 MEQ/L (21-32); CHLORIDE LEVEL 109 MEQ/L (98-107); CK-MB VALUE MASS 2.3 NG/ML (<3.6); CPK CREATINE PHOSPHOKINASE 58 U/L (26-192); CREATININE FOR GFR 1.94 MG/DL (0.55-1.30); GLOMERULAR FILTRATION RATE 26.5 (>39); GLUCOSE, FASTING 109 MG/DL (70-100); MB/CK RELATIVE INDEX 3.96 (< OR =4); POTASSIUM SERUM 5.8 MEQ/L (3.5-5.1); SODIUM LEVEL 140 MEQ/L (136-145); TROPONIN I < 0.02 NG/ML (< 0.10)
[2017-08-12] MEDS: ONDANSETRON 4MG/2ML VIAL (J2405) IV ×2 (12:04→12:55)
[2017-08-12] MEDS: NS 1,000 ML IV (12:04)
[2017-08-12] MEDS: ceFAZolin SOD 1 GM in D5W MINI-BAG PLUS 50 ML IV (12:04)
[2017-08-12] MEDS: ALBUTEROL SULFATE 2.5 MG/0.5 ML INH NEB SOLN INH (12:09)
[2017-08-12] MEDS: IPRATROPIUM 0.5MG/ALBUTEROL 2.5MG INH SOL UD 3ML (DUONEB)(J7620) NEB (12:09)
[2017-08-12 12:15] LABS: ABG BASE EXCESS -6.1 (-2.0-2.0); ABG HCO3 16.6 MEQ/L (22.0-26.0); ABG O2 SATURATION 98.8 % (95.0-99.0); ABG PARTIAL PRESSURE CO2 25.5 mmHg (35.0-45.0); ABG PARTIAL PRESSURE O2 110.6 mmHg (75.0-100.0); ABG STANDARD HCO3 19.5 MEQ/L (22.0-26.0); ABG TOTAL CO2 17.4 MEQ/L (23.0-31.0); ABG pH (ARTERIAL) 7.431 UNITS (7.350-7.450)
[2017-08-12] MEDS: TETANUS/DIPHTHERIA TOX ADSORB ADULT 0.5ML SYR/VIAL (90714) IM (12:15)
[2017-08-12] MEDS: MORPHINE 2 MG/ML 1ML SYRINGE (J2270) IV (13:51)
== END 2017-08-12 13:57 | disposition short-term general hospital (02) ==
LOC: M ED 10:51
DX: S52.571B Other intraarticular fracture of lower end of right radius, initial encounter for open fracture type I or II (principal); S72.141A Displaced intertrochanteric fracture of right femur, initial encounter for closed fracture; S63.094A Other dislocation of right wrist and hand, initial encounter; W01.0XXA Fall on same level from slipping, tripping and stumbling without subsequent striking against object, initial encounter; Y92.009 Unspecified place in unspecified non-institutional (private) residence as the place of occurrence of the external cause; I50.9 Heart failure, unspecified; J44.9 Chronic obstructive pulmonary disease, unspecified; I11.0 Hypertensive heart disease with heart failure; E03.9 Hypothyroidism, unspecified; Z79.82 Long term (current) use of aspirin; Z79.890 Hormone replacement therapy; Z79.899 Other long term (current) drug therapy; Z86.718 Personal history of other venous thrombosis and embolism
CPT/HCPCS: J0690

== ENCOUNTER → 2017-09-09 | Outpatient (REF) | payer MEDICARE, MEDICAID ==
[2017-09-09 19:22] LABS: ALBUMIN 3.6 GM/DL (3.2-5.2); ANION GAP 10 MEQ/L (8-16); BLOOD UREA NITROGEN 35 MG/DL (7-18); CALCIUM LEVEL 9.7 MG/DL (8.8-10.2); CARBON DIOXIDE LEVEL 30 MEQ/L (21-32); CHLORIDE LEVEL 104 MEQ/L (98-107); CREATININE FOR GFR 1.19 MG/DL (0.55-1.30); FREE T4 0.96 NG/DL (0.76-1.46); GLOMERULAR FILTRATION RATE 46.6 (>39); GLUCOSE, FASTING 93 MG/DL (70-100); MAGNESIUM LEVEL 2.4 MG/DL (1.8-2.4); NT-PRO BNP 5748 PG/ML (<450); POTASSIUM SERUM 3.9 MEQ/L (3.5-5.1); SODIUM LEVEL 144 MEQ/L (136-145)
[2017-09-09 19:28] LABS: BASO # 0.1 10^3/uL (0.0-0.2); BASO % 0.6 % (0.0-1.0); EOS # 0.1 10^3/uL (0.0-0.50); EOS % 1.4 % (0.0-3.0); HEMATOCRIT 34.6 % (36.0-47.0); HEMOGLOBIN 10.2 g/dl (12.0-15.5); IMMATURE GRANULOCYTE % 0.5 % (0-3.0); LYMPH % 13.1 % (24.0-44.0); MEAN CORPUSCULAR HEMOGLOBIN 27.1 pg (27.0-33.0); MEAN CORPUSCULAR HGB CONC 29.5 g/dl (32.0-36.5); MEAN CORPUSCULAR VOLUME 91.8 fl (80.0-96.0); MONO # 0.6 10^3/uL (0.0-0.8); MONO % 8.1 % (0.0-5.0); NEUTROPHILS # 5.9 10^3/uL (1.8-7.7); NEUTROPHILS % 76.3 % (36.0-66.0); PLATELET COUNT, AUTOMATED 347 10^3/uL (150-450); RED BLOOD COUNT 3.77 10^6/uL (4.00-5.40); RED CELL DISTRIBUTION WIDTH 18.3 % (11.5-14.5); RETIC HEMOGLOBIN EQUIVALENT 31.3 pg (24-36); RETICULOCYTE # 64.1 10^9/L (17-77); RETICULOCYTE % 1.7 % (0.5-1.5); WHITE BLOOD COUNT 7.7 10^3/uL (4.0-10.0)
== END ==
LOC: M SFHCPLAZ 15:12
DX: I11.0 Hypertensive heart disease with heart failure (principal); E03.9 Hypothyroidism, unspecified; D64.9 Anemia, unspecified; I50.32 Chronic diastolic (congestive) heart failure
CPT/HCPCS: 83735

== ENCOUNTER → 2017-10-15 | Outpatient (REF) | payer MEDICARE, MEDICAID ==
[2017-10-15 19:29] LABS: BASO % 0.4 % (0.0-1.0); EOS # 0.2 10^3/uL (0.0-0.50); EOS % 2.3 % (0.0-3.0); HEMATOCRIT 39.7 % (36.0-47.0); HEMOGLOBIN 12.3 g/dl (12.0-15.5); IMMATURE GRANULOCYTE % 0.6 % (0-3.0); LYMPH % 12.2 % (24.0-44.0); MEAN CORPUSCULAR HEMOGLOBIN 27.8 pg (27.0-33.0); MEAN CORPUSCULAR VOLUME 89.8 fl (80.0-96.0); MONO # 0.7 10^3/uL (0.0-0.8); MONO % 8.7 % (0.0-5.0); NEUTROPHILS % 75.8 % (36.0-66.0); PLATELET COUNT, AUTOMATED 291 10^3/uL (150-450); RED BLOOD COUNT 4.42 10^6/uL (4.00-5.40); RED CELL DISTRIBUTION WIDTH 15.9 % (11.5-14.5); RETIC HEMOGLOBIN EQUIVALENT 30.6 pg (24-36); RETICULOCYTE # 60.1 10^9/L (17-77); RETICULOCYTE % 1.4 % (0.5-1.5); WHITE BLOOD COUNT 7.9 10^3/uL (4.0-10.0)
[2017-10-15 19:43] LABS: PROTHROMBIN TIME 15.4 SECONDS (12.1-14.4)
[2017-10-15 19:55] LABS: ALBUMIN 3.4 GM/DL (3.2-5.2); ALBUMIN/GLOBULIN RATIO 0.83 (1.00-1.93); ALKALINE PHOSPHATASE 148 U/L (45-117); ALT/SGPT 12 U/L (12-78); ANION GAP 8 MEQ/L (8-16); AST/SGOT 12 U/L (7-37); BILIRUBIN,TOTAL 0.4 MG/DL (0.2-1.0); BLOOD UREA NITROGEN 58 MG/DL (7-18); CALCIUM LEVEL 9.8 MG/DL (8.8-10.2); CARBON DIOXIDE LEVEL 32 MEQ/L (21-32); CHLORIDE LEVEL 100 MEQ/L (98-107); CREATININE FOR GFR 1.34 MG/DL (0.55-1.30); FREE T4 1.18 NG/DL (0.76-1.46); GLOMERULAR FILTRATION RATE 40.6 (>39); GLUCOSE, FASTING 78 MG/DL (70-100); MAGNESIUM LEVEL 2.6 MG/DL (1.8-2.4); NT-PRO BNP 5174 PG/ML (<450); POTASSIUM SERUM 3.9 MEQ/L (3.5-5.1); SODIUM LEVEL 140 MEQ/L (136-145); TOTAL PROTEIN 7.5 GM/DL (6.4-8.2)
== END ==
LOC: M SFHCPLAZ 15:57
DX: I50.32 Chronic diastolic (congestive) heart failure (principal); I11.0 Hypertensive heart disease with heart failure; E03.9 Hypothyroidism, unspecified; D64.9 Anemia, unspecified; I48.2 Chronic atrial fibrillation
CPT/HCPCS: 83735

== ENCOUNTER 2017-10-21 22:41 | Emergency (ER) | payer MEDICARE, MEDICAID | END 2017-10-22 00:40 | disposition home or self-care (01) | LOC: M ED 22:41 | DX: L76.22 Postprocedural hemorrhage of skin and subcutaneous tissue following other procedure (principal); I48.91 Unspecified atrial fibrillation; J44.9 Chronic obstructive pulmonary disease, unspecified; I10 Essential (primary) hypertension; E78.5 Hyperlipidemia, unspecified; Z87.891 Personal history of nicotine dependence; Z79.899 Other long term (current) drug therapy | CPT/HCPCS: 99283 ==

== ENCOUNTER → 2017-12-03 | Outpatient (REF) | payer MEDICARE, MEDICAID ==
[2017-12-03 13:05] LABS: BASO % 0.5 % (0.0-1.0); EOS # 0.2 10^3/uL (0.0-0.50); EOS % 1.8 % (0.0-3.0); HEMATOCRIT 40.7 % (36.0-47.0); IMMATURE GRANULOCYTE % 0.5 % (0-3.0); LYMPH # 1.1 10^3/uL (1.5-4.5); LYMPH % 13.8 % (24.0-44.0); MEAN CORPUSCULAR HEMOGLOBIN 27.8 pg (27.0-33.0); MEAN CORPUSCULAR HGB CONC 31.9 g/dl (32.0-36.5); MONO # 0.6 10^3/uL (0.0-0.8); MONO % 7.6 % (0.0-5.0); NEUTROPHILS # 6.2 10^3/uL (1.8-7.7); NEUTROPHILS % 75.8 % (36.0-66.0); PLATELET COUNT, AUTOMATED 374 10^3/uL (150-450); RED BLOOD COUNT 4.68 10^6/uL (4.00-5.40); RED CELL DISTRIBUTION WIDTH 14.6 % (11.5-14.5); WHITE BLOOD COUNT 8.2 10^3/uL (4.0-10.0)
[2017-12-03 13:48] LABS: PTH INTACT 106.6 PG/ML (18.5-88.0); TOTAL 25(OH) VITAMIN D 116.5 NG/ML (30.0-100.0)
[2017-12-03 14:08] LABS: ALBUMIN 3.9 GM/DL (3.2-5.2); ALBUMIN/GLOBULIN RATIO 0.91 (1.00-1.93); ALKALINE PHOSPHATASE 124 U/L (45-117); ALT/SGPT 13 U/L (12-78); ANION GAP 12 MEQ/L (8-16); AST/SGOT 9 U/L (7-37); BILIRUBIN,TOTAL 0.4 MG/DL (0.2-1.0); BLOOD UREA NITROGEN 61 MG/DL (7-18); CALCIUM LEVEL 9.7 MG/DL (8.8-10.2); CARBON DIOXIDE LEVEL 31 MEQ/L (21-32); CHLORIDE LEVEL 94 MEQ/L (98-107); CHOLESTEROL LEVEL 212 MG/DL (<200); CHOLESTEROL RISK RATIO 2.585 (<5); CREATININE FOR GFR 1.66 MG/DL (0.55-1.30); GLOMERULAR FILTRATION RATE 31.7 (>39); GLUCOSE, FASTING 85 MG/DL (70-100); HDL CHOLESTEROL 82 MG/DL (>40); LDL CHOLESTEROL 110.6 MG/DL (<100); MAGNESIUM LEVEL 3.1 MG/DL (1.8-2.4); NON-HDL-C 130 MG/DL; NT-PRO BNP 4161 PG/ML (<450); POTASSIUM SERUM 3.5 MEQ/L (3.5-5.1); SODIUM LEVEL 137 MEQ/L (136-145); TOTAL PROTEIN 8.2 GM/DL (6.4-8.2); TRIGLYCERIDES LEVEL 97 MG/DL (<150)
[2017-12-05 14:15] LABS: VITAMIN D 1,25 DIHYDROXY 45.2 pg/mL (19.9-79.3)
== END ==
LOC: M SFHCPLAZ 11:49
DX: I50.32 Chronic diastolic (congestive) heart failure (principal); I11.0 Hypertensive heart disease with heart failure; E78.5 Hyperlipidemia, unspecified; E55.9 Vitamin D deficiency, unspecified; Z68.31 Body mass index [BMI] 31.0-31.9, adult
CPT/HCPCS: 83735

== ENCOUNTER → 2017-12-11 | Outpatient (CLI) | payer MEDICARE, MEDICAID | LOC: M RAD 09:20 | DX: N18.3 Chronic kidney disease, stage 3 (moderate) (principal); N28.1 Cyst of kidney, acquired | CPT/HCPCS: 76775 ==

== ENCOUNTER → 2017-12-22 | Outpatient (REF) | payer MEDICARE, MEDICAID ==
[2017-12-22 13:26] LABS: APPEARANCE, URINE CLEAR (CLEAR); BACTERIA, URINE AUTO NEGATIVE (NEGATIVE); BILIRUBIN, URINE AUTO NEGATIVE (NEGATIVE); BLOOD, URINE BLOOD NEGATIVE (NEGATIVE); COLOR, URINE YELLOW (YELLOW); GLUCOSE, URINE (UA) AUTO NEGATIVE (NEGATIVE); KETONE, URINE AUTO NEGATIVE (NEGATIVE); LEUKOCYTE ESTERASE, URINE AUTO NEGATIVE (NEGATIVE); NITRITE, URINE AUTO NEGATIVE (NEGATIVE); PROTEIN, URINE AUTO NEGATIVE (NEGATIVE); RBC, URINE AUTO 0 /HPF (0-3); SPECIFIC GRAVITY URINE AUTO 1.014 (1.002-1.035); SQUAMOUS EPITHELIAL CELL UR AU 1 /HPF (0-6); UROBILINOGEN, URINE AUTO 0.2 mg/dL (0.0-2.0); WBC, URINE AUTO 0 /HPF (0-3)
[2017-12-22 13:53] LABS: ALBUMIN 3.6 GM/DL (3.2-5.2); ANION GAP 12 MEQ/L (8-16); BLOOD UREA NITROGEN 32 MG/DL (7-18); CALCIUM LEVEL 9.5 MG/DL (8.8-10.2); CARBON DIOXIDE LEVEL 27 MEQ/L (21-32); CHLORIDE LEVEL 105 MEQ/L (98-107); CREATININE FOR GFR 0.98 MG/DL (0.55-1.30); GLOMERULAR FILTRATION RATE 58.3 (>39); GLUCOSE, FASTING 76 MG/DL (70-100); PHOSPHORUS LEVEL 3.1 MG/DL (2.5-4.9); SODIUM LEVEL 144 MEQ/L (136-145)
== END ==
LOC: M SFHCPLAZ 09:51
DX: N18.3 Chronic kidney disease, stage 3 (moderate) (principal)
CPT/HCPCS: 80069

== ENCOUNTER → 2018-02-13 | Outpatient (REF) | payer MEDICARE, MEDICAID | LOC: M SFHCPLAZ 12:55 | DX: D64.9 Anemia, unspecified (principal); I10 Essential (primary) hypertension; E55.9 Vitamin D deficiency, unspecified; E03.9 Hypothyroidism, unspecified; Z53.8 Procedure and treatment not carried out for other reasons ==

== ENCOUNTER → 2018-02-23 | Outpatient (REF) | payer MEDICARE, MEDICAID ==
[2018-02-23 12:26] LABS: BASO % 0.4 % (0.0-1.0); EOS # 0.2 10^3/uL (0.0-0.50); EOS % 2.9 % (0.0-3.0); HEMATOCRIT 39.6 % (36.0-47.0); HEMOGLOBIN 12.3 g/dl (12.0-15.5); IMMATURE GRANULOCYTE % 0.8 % (0-3.0); LYMPH # 0.9 10^3/uL (1.5-4.5); LYMPH % 10.7 % (24.0-44.0); MEAN CORPUSCULAR HEMOGLOBIN 28.1 pg (27.0-33.0); MEAN CORPUSCULAR HGB CONC 31.1 g/dl (32.0-36.5); MEAN CORPUSCULAR VOLUME 90.6 fl (80.0-96.0); MONO # 0.6 10^3/uL (0.0-0.8); MONO % 7.6 % (0.0-5.0); NEUTROPHILS # 6.5 10^3/uL (1.8-7.7); NEUTROPHILS % 77.6 % (36.0-66.0); PLATELET COUNT, AUTOMATED 271 10^3/uL (150-450); RED BLOOD COUNT 4.37 10^6/uL (4.00-5.40); RED CELL DISTRIBUTION WIDTH 16.9 % (11.5-14.5); RETIC HEMOGLOBIN EQUIVALENT 33.1 pg (24-36); RETICULOCYTE # 76.5 10^9/L (17-77); RETICULOCYTE % 1.8 % (0.5-1.5); WHITE BLOOD COUNT 8.4 10^3/uL (4.0-10.0)
[2018-02-23 13:21] LABS: ALBUMIN 3.5 GM/DL (3.2-5.2); ALBUMIN/GLOBULIN RATIO 0.95 (1.00-1.93); ALKALINE PHOSPHATASE 119 U/L (45-117); ALT/SGPT 17 U/L (12-78); ANION GAP 10 MEQ/L (8-16); AST/SGOT 10 U/L (7-37); BILIRUBIN,TOTAL 0.5 MG/DL (0.2-1.0); BLOOD UREA NITROGEN 32 MG/DL (7-18); CALCIUM LEVEL 9.1 MG/DL (8.8-10.2); CARBON DIOXIDE LEVEL 29 MEQ/L (21-32); CHLORIDE LEVEL 105 MEQ/L (98-107); CREATININE FOR GFR 1.04 MG/DL (0.55-1.30); FREE T4 1.31 NG/DL (0.76-1.46); GLOMERULAR FILTRATION RATE 54.4 (>39); GLUCOSE, FASTING 79 MG/DL (70-100); MAGNESIUM LEVEL 2.5 MG/DL (1.8-2.4); NT-PRO BNP 3375 PG/ML (<450); POTASSIUM SERUM 4.3 MEQ/L (3.5-5.1); PTH INTACT 103.5 PG/ML (18.5-88.0); SODIUM LEVEL 144 MEQ/L (136-145); TOTAL 25(OH) VITAMIN D 75.6 NG/ML (30.0-100.0); TOTAL PROTEIN 7.2 GM/DL (6.4-8.2); VITAMIN B12 LEVEL 278 PG/ML (247-911)
== END ==
LOC: M SFHCPLAZ 09:44
DX: D64.9 Anemia, unspecified (principal); I10 Essential (primary) hypertension; E55.9 Vitamin D deficiency, unspecified; E03.9 Hypothyroidism, unspecified
CPT/HCPCS: 83735

== ENCOUNTER → 2018-04-16 | Outpatient (CLI) | payer MEDICARE, MEDICAID ==
[~2018-04-16] MED LIST changes: +ALDA25TA2 PO; +AMLO5TAB6; +AMLO5TAB6 PO; +ASPI1TAB PO; +BUDE0.5S6 INH; +CALC1TAB9; +CHLO125TA PO; +DILT30TA PO; +DILT360C16; +DRIS50003 PO; +ELIQ5TAB PO; +FURO40TA2 PO; -GASTROGRAFIN SOLUTION 30ML (Q9963) As Ordered; +IPRA0.00 IN; +IPRA0.00 NEB; -ISOVUE-370 76% 100ML VIAL (Q9967) As Ordered; +ISOVUE-370 76% 100ML VIAL (Q9967) As Ordered ONE; +KLOR10TA76 PO; +LASI40TA9 PO; +LEVO137T2 PO; +LISI40TA PO; +MUCI600T37 PO; +OXYC-517; +PERF20NE2 INH; +POLY1POW38; +POTA10PO PO; +POTA20TA6; +PULM0.5S INH; +SIMV10TA2; +SIMV40TA2 PO; +SODI3NEB INH; +SPIR-10 PO; +SPIR50TA4 PO; +SYNT112T2 PO; +SYNT125T PO; +SYNT137T7 PO; +TORS20TA2 PO; +TRIA37.5 PO; +VERA240C PO; +VITA50005 PO
--- NOTE | 2018-04-16 16:34 | REP ---
CT chest with IV contrast: History: Lung mass. Comparison chest CT study is from June 27, 2017. CT contrast dose: 75 mL of intravenous Isovue [address] findings: Preliminary digital security shift manager radiograph demonstrates moderate cardiac enlargement. Vascular calcifications again noted in the thoracic aorta which is somewhat tortuous. The right common carotid artery is tortuous as well extending up into the thoracic inlet and neck. There is no evidence of mediastinal adenopathy. No hilar adenopathy is seen. There is a small pericardial effusion again noted essentially unchanged from the June 27, 2017 study. There is no evidence of pulmonary embolus, aortic aneurysm or aortic dissection. There are discoid atelectatic or fibrotic changes in the bases bilaterally. Multiple pulmonary nodules are again seen. The posterior segment right upper lobe nodule seen on the previous study is not seen today although there is slight motion artifact at this level. The largest nodule is the 9 mm nodule in the right lower lobe. This and the other two nodules in the left lower lobe and right middle lobe are unchanged in the interval since the June 27, 2017 prior study. No bony destructive lesion is seen. No adrenal abnormality is seen. Multiple renal cysts are again noted. Impression: Cardiomegaly with a small pericardial effusion. Several noncalcified lung nodules are again noted unchanged from the June 27, 2017 prior study. The largest of these measures 9 mm. 6-month follow-up CT study recommended. Electronically Signed by Cristobal Rowell MD 04/16/2018 06:18 P
== END ==
LOC: M RAD 12:35
PROVIDERS: ATTEND Family Medicine
DX: R91.8 Other nonspecific abnormal finding of lung field (principal); I51.7 Cardiomegaly; I31.3 Pericardial effusion (noninflammatory)
CPT/HCPCS: 71260; Q9967

== ENCOUNTER 2019-06-29 19:47 | Emergency (ER) | payer MEDICARE, MEDICAID ==
[~2019-06-29] VITALS: Ht 165.1 cm; Wt 106.4 kg
[~2019-06-29 19:47] MED LIST changes: -ASPI1TAB PO; +ASPI81TA26 PO; +DILT1CAP9; -DILT360C16; -ISOVUE-370 76% 100ML VIAL (Q9967) As Ordered ONE; -SIMV10TA2; +SIMV10TA21; -SIMV40TA2 PO; +SIMV40TA20 PO
[2019-06-29] MEDS ORDERED: CHLO25TA PO (22:00)
[2019-06-29] MEDS ORDERED: SIMV10TA21 PO (22:00)
[2019-06-29] MEDS ORDERED: PERF20NE2 INH (22:00)
[2019-06-29] MEDS ORDERED: DILT1CAP9 PO (22:00)
[2019-06-29] MEDS ORDERED: PROAAER10 INH (22:00)
[2019-06-29] MEDS ORDERED: BUDE0.5S6 INH (22:00)
[2019-06-29] MEDS ORDERED: ACET-897 PO (22:00)
[2019-06-29] MEDS ORDERED: VITA50005 PO (22:00)
[2019-06-29] MEDS ORDERED: DOXA1TAB85 PO (22:00)
[2019-06-29 22:15] VITALS: BP 139/68
[2019-06-29] MEDS ORDERED: K-TA1TAB PO (22:15)
[2019-06-29] MEDS ORDERED: FURO40TA2 PO (22:15)
== END 2019-06-29 22:27 | disposition home or self-care (01) ==
LOC: EDBD 19:47 → M ED 19:47
DX: R60.9 Edema, unspecified (principal); E87.6 Hypokalemia; E78.5 Hyperlipidemia, unspecified; I10 Essential (primary) hypertension; J44.9 Chronic obstructive pulmonary disease, unspecified; G47.33 Obstructive sleep apnea (adult) (pediatric); N18.3 Chronic kidney disease, stage 3 (moderate); Z87.891 Personal history of nicotine dependence; Z79.01 Long term (current) use of anticoagulants; Z79.899 Other long term (current) drug therapy

== ENCOUNTER → 2019-07-05 | Outpatient (REF) | payer MEDICARE, MEDICAID ==
[~2019-07-05] MED LIST changes: +ACET-897 PO; +CHLO25TA PO; +DILT1CAP9 PO; +DOXA1TAB85 PO; +K-TA1TAB PO; +PROAAER10 INH; +SIMV10TA21 PO
[2019-07-05 13:56] LABS: BASO % 0.3 % (0.0-1.0); EOS # 0.1 10^3/uL (0.0-0.5); EOS % 1.2 % (0.0-3.0); HEMATOCRIT 37.1 % (36.0-47.0); HEMOGLOBIN 10.6 g/dl (12.0-15.5); LYMPH # 0.6 10^3/uL (1.5-5.0); LYMPH % 6.8 % (24.0-44.0); MEAN CORPUSCULAR HEMOGLOBIN 25.7 pg (27.0-33.0); MEAN CORPUSCULAR HGB CONC 28.6 g/dl (32.0-36.5); MONO # 0.5 10^3/uL (0.0-0.8); NEUTROPHILS # 7.4 10^3/uL (1.5-8.5); NEUTROPHILS % 85.1 % (36.0-66.0); PLATELET COUNT, AUTOMATED 381 10^3/uL (150-450); RED BLOOD COUNT 4.12 10^6/uL (4.00-5.40); WHITE BLOOD COUNT 8.7 10^3/uL (4.0-10.0)
[2019-07-05 14:13] LABS: ALBUMIN 3.7 GM/DL (3.2-5.2); BILIRUBIN,TOTAL 0.5 MG/DL (0.2-1.0); CALCIUM LEVEL 9.7 MG/DL (8.8-10.2); CREATININE FOR GFR 1.39 MG/DL (0.55-1.30); FREE T4 1.32 NG/DL (0.76-1.46); GLOMERULAR FILTRATION RATE 38.7 (>32); MAGNESIUM LEVEL 2.8 MG/DL (1.8-2.4); POTASSIUM SERUM 3.5 MEQ/L (3.5-5.1); THYROID STIMULATING HORMONE 7.35 uIU/ML (0.358-3.740); TOTAL PROTEIN 7.5 GM/DL (6.4-8.2)
== END ==
LOC: M SFHCPLAZ 10:29
PROVIDERS: ATTEND Family Medicine
DX: E03.9 Hypothyroidism, unspecified (principal); I11.0 Hypertensive heart disease with heart failure; I50.32 Chronic diastolic (congestive) heart failure
CPT/HCPCS: 36415; 80053; 83735; 83880; 84439; 84443; 85025; G0463

== ENCOUNTER 2019-11-12 09:47 | Emergency (ER) | payer MEDICARE, MEDICAID ==
[~2019-11-12 09:47] MED LIST changes: +AMLO1TAB24; +AMLO1TAB24 PO; -AMLO5TAB6; -AMLO5TAB6 PO
[2019-11-12] MEDS ORDERED: BACTRIM 160MG/800MG DS TAB ONE (13:42)
[2019-11-12] MEDS ORDERED: BACTRIM 160MG/800MG DS TAB As Ordered ONE (13:42)
[2019-12-27 11:42] LABS: BASO # 0.1 10^3/uL (0.0-0.2); BASO % 0.5 % (0.0-1.0); EOS # 0.1 10^3/uL (0.0-0.5); EOS % 0.9 % (0.0-3.0); HEMATOCRIT 34.8 % (36.0-47.0); HEMOGLOBIN 9.4 g/dl (12.0-15.5); LYMPH # 0.7 10^3/uL (1.5-5.0); LYMPH % 6.1 % (24.0-44.0); MEAN CORPUSCULAR HEMOGLOBIN 20.3 pg (27.0-33.0); MEAN CORPUSCULAR VOLUME 75.2 fl (80.0-96.0); MONO # 0.6 10^3/uL (0.0-0.8); MONO % 5.3 % (0.0-5.0); NEUTROPHILS # 9.4 10^3/uL (1.5-8.5); NEUTROPHILS % 86.6 % (36.0-66.0); PLATELET COUNT, AUTOMATED 429 10^3/uL (150-450); RED BLOOD COUNT 4.63 10^6/uL (4.00-5.40); WHITE BLOOD COUNT 10.8 10^3/uL (4.0-10.0)
== END 2019-11-12 13:45 | disposition home or self-care (01) ==
LOC: M ED 09:47
DX: L03.116 Cellulitis of left lower limb (principal); S80.822A Blister (nonthermal), left lower leg, initial encounter; R60.0 Localized edema; N28.9 Disorder of kidney and ureter, unspecified; I11.9 Hypertensive heart disease without heart failure; E78.9 Disorder of lipoprotein metabolism, unspecified; H44.9 Unspecified disorder of globe; Z99.81 Dependence on supplemental oxygen; Z79.899 Other long term (current) drug therapy; Z79.01 Long term (current) use of anticoagulants

== ENCOUNTER 2020-04-17 12:39 | Outpatient (CLI) | payer OTHER, MEDICAID ==
[~2020-04-17] VITALS: Ht 165.1 cm; Wt 104.8 kg
[~2020-04-17 12:39] MED LIST changes: +ALBUTEROL SULFATE 2.5 MG/0.5 ML INH NEB SOLN INH PRN; +EPINEPHrine INJ 1 MG/ML 1ML AMP IM PRN; -LISI40TA PO; +LISI40TA4 PO; +diphenhydrAMINE 50MG/ML VIAL (J1200) IV PRN; +methylPREDNISolone 125MG 2ML VIAL IV PRN
[2020-04-17 12:45] VITALS: BP 147/80
[2020-04-17] MEDS ORDERED: NS 1,000 ML IV SCH (13:00)
[2020-04-17] MEDS ORDERED: FERRIC CARBOXYMALTOSE INJ 750 MG, VIAL MATE ADAPTER 1 EACH in NS 250 ML IV ONE ×2 (13:00→13:30)
[2020-04-17 14:00] VITALS: BP 167/76
[2020-04-17 15:00] VITALS: BP 147/72
[2020-04-17] MEDS ORDERED: TORSEMIDE 20 MG TAB PO ONE (15:00)
[2020-04-17 15:30] VITALS: BP 138/74
[2020-04-17] MEDS: ALPRAZolam 0.25 MG TAB PO PRN (15:42)
== END 2020-04-17 15:30 | disposition home or self-care (01) ==
LOC: M INFU 12:39
PROVIDERS: ATTEND Student in an Organized Health Care Education/Training Program
DX: D50.9 Iron deficiency anemia, unspecified (principal)
CPT/HCPCS: 96365; J1439

== ENCOUNTER 2020-04-20 08:22 | Inpatient (IN) | payer OTHER, MEDICAID ==
[~2020-04-20] VITALS: Ht 165.1 cm; Wt 101.2 kg
[2020-04-20] MEDS: LEVOTHYROXINE 112MCG TABLET (0.112MG) PO SCH (06:00)
[2020-04-20] MEDS: FORMOTEROL FUMARATE 20 MCG/2 ML INHALATION SOLUTION (PERFOROMIST) INH SCH ×2 (08:00→20:29)
[2020-04-20] MEDS: BUDESONIDE 0.5 MG/2 ML INHALATION SUSPENSION INH SCH ×2 (08:00→20:29)
[~2020-04-20 08:22] MED LIST changes: -ALBUTEROL SULFATE 2.5 MG/0.5 ML INH NEB SOLN INH PRN; -EPINEPHrine INJ 1 MG/ML 1ML AMP IM PRN; +LISI40TA PO; -LISI40TA4 PO; -diphenhydrAMINE 50MG/ML VIAL (J1200) IV PRN; -methylPREDNISolone 125MG 2ML VIAL IV PRN
--- NOTE | 2020-04-20 08:49 | REP ---
INDICATION: DYSPNEA/COUGH COMPARISON: 11/12/2019 TECHNIQUE: Portable AP view of the chest FINDINGS: The mediastinum and cardiac silhouette are stable with cardiomegaly again noted.. The lung griggs are clear without acute consolidation, effusion, or pneumothorax. Skeletal structures are intact. IMPRESSION: Chronic stable cardiomegaly. No focal consolidation or effusion. <Electronically signed by Abram Rubin > 04/20/20 0821
--- OUTSIDE RECORDS SUMMARY | 2020-04-20 09:03 | CCD ---
Author Author [facility] Organization [facility] Address Unknown Phone Unavailable Care Team Providers Care Emergency Planning And Response Manager Name Role Phone Oscar Borjas Unavailable PROBLEMS Type Condition ICD9-CM Code [id number] Code Onset Dates Condition S tatus SNOMED Code Notes Problem Hyperlipidemia E78.5 Active 60508061 Problem Osteoporosis M81.0 Active 32482665 Problem Colon cancer screening Z12.11 Active 749532765 Problem Hypothyroid E03.9 Active 77501322 Problem Osteoarthritis of both knees, unspecified osteoarthritis t ype M17.0 Active 072378628 Problem JACQUES (obstructive sleep apnea) G47.33 Active 78 424546 Problem Ataxia R27.0 Active 78246248 Problem 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 Active 955610890 Problem Lung mass R91.8 Active 798215421 Problem Chronic diastolic congestive heart failure I50.32 Active 695676238 Problem Deep vein thrombosis (DVT) o f femoral vein of right lower extremity, unspecified chronicity I82.411 Active 9110112966760 06 Problem Chronic kidney disease, stage 3 N18.3 Active 967525364 Problem Chronic atrial fibrillation I48.2 Active 4267 47637 Problem Hypertension I10 Active 50411871 Problem Anemia, iron deficiency D50.9 Active 21974267 Problem Macrocytic anemia D53.9 Active 16336011 Problem Breast cancer screening Z12.39 Active 64363693 6 Problem Vitamin D deficiency E55.9 Active 66491212 Problem Anemia, unspecified type D64.9 Active 2812848 00 Problem 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 Active 29549880 Problem Elevated CEA R97.0 Active 471454841 Problem Closed fracture of right hip with routin e healing, subsequent encounter S72.001D Active 245962554 ALLERGIES No Known Allergies ENCOUNTERS from 1940 to 2020-04-14 Encounter Location Date Provider Diagnosis [facility] Jolene [address] [place] [id number] Mar, Oscar Borjas IMMUNIZATIONS Vaccine Route Administration Date Status Influenza (6mo & up) Fluzone IM Intramuscular Dec 25, 2009 Ad ministered SOCIAL HISTORY Tobacco Use: Social History Observation Description Date Details (start date - stop date) Former Smoker Sex Assigned At : Social History Observation Description Sex Assigned At Unknown Education: Question Answer Notes Level of Education: Not finished High School 12th grade didn t graduate Audit Question Answer Notes Total Score: 0 Interpretation: Alcohol Education Language: Question Answer Notes Languages spoken: Zambian Christian: Question Answer Notes Christian [employer] Sexual Hx: Question Answer Notes Had sex in the last 12 months (vaginal, oral, or anal)? No Have you ever had an STD? No Drug and Alcohol Question Answer Notes Total Score: 0 Interpretation: No problems reported Alcohol Screening: Question Answer Notes Did you have a drink containing alcohol in the past year? Ye s Points 1 Interpretation Negative How often did you have six or more drinks on one occas ion in the past year? Never (0 points) How many drinks did you have on a typica l day when you were drinking in the past year? 1 or 2 (0 points) How often did you have a drink containing alcohol in t he past year? Monthly or less (1 point) BMI Care Goal Follow-Up Question Answer Notes Above Normal BMI Follow-Up Giving encouragement to exercise Tobacco Use: Question Answer Notes Are you a: former smoker How long has it been since you last smoked? 6-12 months REASON FOR REFERRAL No Information VITAL SIGNS No information MEDICATIONS Medication SIG (Take, Route, Frequency, Duration) Notes Start Da te End Date Status Ergocalciferol 50404 UNIT 1 capsule Orally every 14 days for 90 day(s ) Active Walker - as directed _ M17.0, daily for 99 months May Active Perforomist 20 MCG/2ML USE TWO TIMES A DAY Inhalation Twice a day for 30 Active Formoterol Fumarate 20 MCG/2ML 2 ml Inhalation Twice a day Active Senokot 8.6 MG 2 tablets at bedtime as needed Orally Once a day for 30 day(s) Active Potassium Chloride 20 MEQ 1 packet with food Orally bid Jun, Active Levothyroxine Sodium 112 MCG 1 tablet on an empty stom ach in the morning Orally Once a day for 30 Active Diltiazem HCl ER Coated Beads 360 MG 1 capsule Orally Once a day Active Budesonide 0.5 MG/2ML 2 ml Inhalation twice a day Active Injectafer 750 MG/15ML as directed Intravenous QD x 2 8 days apa rt 14 Mar, 2020 Active Diltiazem HCl ER Coated Beads 360 MG 1 capsule Orally Once a day for 30 days Active Torsemide 20 MG 2 tabs Orally bid for 90 day(s) Mar, Active Levothyroxine Sodium 112 MCG 1 tablet on an empty stom ach in the morning Orally Once a day for 30 day(s) Active Albuterol Sulfate 1.25 MG/3ML 3 ml as needed Inhalation ever y 6 hrs prn dyspnea Active May Have - 4 wheeled walker with seat a nd brakes REPAIR/REPLACE Daily for 30 day(s) May, Active Simvastatin 10 MG 1 tablet every evening Orally Once a day Active Iron 325 (65 Fe) MG 1 tablet Orally tid Active Oxygen with tubing and portability, Dx hypoxia nasal ca nnula Daily, 3LPM, [place] Active Mapap 325 MG 1 tablet as needed Orally every 4 hrs prn pain for 30 da y(s) Active PROCEDURES No Information RESULTS No Results REASON FOR VISIT No Information MEDICAL (GENERAL) HISTORY Type Description Date Medical History hypothyroidism Medical History hoarseness chronic-patient defers laryng oscopy Medical History facial AK's Medical History hyperlipidemia 2B Medical History hypertension c white coat component-07/19 11 [id number] Medical History osteoporosis Medical History bilateral hand osteoarthritis Medical History impaired fasting glucose Medical History history of nicotine addiction-1PPD x 40 years, quit in 2008- Medical History COPD, stage IV FEV1 910 (48% ), FVC 1.5 (ratio 61%)-12/2017 PFT-[facility] Medical History ho RLE DVT sp IVC filter 05/2017 Medical History CHF, chronic 2 diastolic dys function-mild LVH, AF, moderate PHTN by 05/2017 TTE-[facility] Medical History small gb neck calculus by 06/2017 CT AP Medical History chronic AF Medical History CKD stage III-11/2017 B simpl ,e cysts-largest L upper 66, R 23 s BOB by 11/2017 [place] Surgical History appendectomy age 16 Surgical History cyst removal from kidney age 11 Surgical History hysterectomy, total with BSO Hospitalization History acute diastolic CHF 06/06- Hospitalization History COPD exacerbation requiring MV, acute blood loss anemia- tx 2u PRBCs, RLE DVT sp IVC filter, brochoscopy c mucus plugging and oozing blood at ET inflation site, home BIPAP started 04/08-05/08/2017 Hospitalization History sp mechanical fall on oxygen cord c R femur comminuted fx sp IM elvie and R open radial fx sp external fixation 08/12-09/04/17 Goals Section No Information Health Concerns No Information MEDICAL EQUIPMENT No Information MENTAL STATUS No Information FUNCTIONAL STATUS No Information ASSESSMENTS No Information PLAN OF TREATMENT Medication Medication Name Sig Start Date Stop Date Injectafer 750 MG/15ML as directed Intravenous QD x 2 8 days apa rt 14 Mar, 2020 Iron 325 (65 Fe) MG 1 tablet Orally tid Budesonide 0.5 MG/2ML 2 ml Inhalation twice a day Albuterol Sulfate 1.25 MG/3ML 3 ml as needed Inhalation ever y 6 hrs prn dyspnea Diltiazem HCl ER Coated Beads 360 MG 1 capsule Orally Once a day Ergocalciferol 82403 UNIT 1 capsule Orally every 14 days for 90 day(s) Simvastatin 10 MG 1 tablet every evening Orally Once a day Torsemide 20 MG 2 tabs Orally bid for 90 day(s) Mar, Levothyroxine Sodium 112 MCG 1 tablet on an empty stom ach in the morning Orally Once a day for 30 day(s) Potassium Chloride 20 MEQ 1 packet with food Orally bid Jun, Formoterol Fumarate 20 MCG/2ML 2 ml Inhalation Twice a day Oxygen with tubing and portability, Dx hypoxia nasal ca nnula Daily, 3LPM, [place] Next Appt Details Provider Name:Marilyn Lee, - 08:15:00 AM, [address] [place], [address], Insurance Providers Payer Name Payer Address Payer Phone Insured Name Patient Relati onship to Insured Coverage Start Date Coverage End Date MEDICAID [employer] [address] [facility] [address] [place] MEDICARE Part A and B [address] [facility] [address] [phone] [place]
--- OUTSIDE RECORDS SUMMARY | 2020-04-20 09:04 | CCD ---
Author Author [facility] Organization [facility] Address Unknown Phone Unavailable Care Team Providers Care Cutting Department Supervisor Name Role Phone Oscar Borjas Unavailable PROBLEMS Type Condition ICD9-CM Code [id number] Code Onset Dates Condition S tatus SNOMED Code Notes Problem Hyperlipidemia E78.5 Active 00061959 Problem Osteoporosis M81.0 Active 95375300 Problem Colon cancer screening Z12.11 Active 297681678 Problem Hypothyroid E03.9 Active 97070222 Problem Osteoarthritis of both knees, unspecified osteoarthritis t ype M17.0 Active 189583093 Problem JACQUES (obstructive sleep apnea) G47.33 Active 78 655730 Problem Ataxia R27.0 Active 38208500 Problem 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 Active 220408257 Problem Lung mass R91.8 Active 633673691 Problem Chronic diastolic congestive heart failure I50.32 Active 323322396 Problem Deep vein thrombosis (DVT) o f femoral vein of right lower extremity, unspecified chronicity I82.411 Active 6210641826859 06 Problem Chronic kidney disease, stage 3 N18.3 Active 942816751 Problem Chronic atrial fibrillation I48.2 Active 4267 54014 Problem Hypertension I10 Active 30959909 Problem Anemia, iron deficiency D50.9 Active 27893286 Problem Macrocytic anemia D53.9 Active 55283909 Problem Breast cancer screening Z12.39 Active 04590119 6 Problem Vitamin D deficiency E55.9 Active 07147262 Problem Anemia, unspecified type D64.9 Active 5695357 00 Problem 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 Active 46121257 Problem Elevated CEA R97.0 Active 089644366 Problem Closed fracture of right hip with routin e healing, subsequent encounter S72.001D Active 084784000 ALLERGIES No Known Allergies ENCOUNTERS from 1940 to 2020-04-13 Encounter Location Date Provider Diagnosis [facility] Jolene [address] [place] [id number] Mar, Oscar Borjas IMMUNIZATIONS Vaccine Route Administration [...] Education Language: Question Answer Notes Languages spoken: Kuwaiti Restorationism: Question Answer Notes Restorationism 21 [employer] Sexual Hx: Question Answer Notes Had sex [...] Start Da te End Date Status Ergocalciferol 40673 UNIT 1 capsule Orally every 14 days [...] Information RESULTS No Results REASON FOR VISIT covid vaccine MEDICAL (GENERAL) HISTORY Type Description Date Medical History hypothyroidism Medical History hoarseness chronic-patient defers laryng oscopy Medical History facial AK's Medical History hyperlipidemia 2B Medical History hypertension c white coat component-07/19 11 [id number] Medical History osteoporosis Medical History bilateral hand [...] 1 capsule Orally Once a day Ergocalciferol 80702 UNIT 1 capsule Orally every 14 days [...] portability, Dx hypoxia nasal ca nnula Daily, 3LP, [place] Insurance Providers Payer Name Payer Address Payer Phone Insured Name Patient Relati onship to Insured Coverage Start Date Coverage End Date MEDICARE Part A and B [address] [facility] [id number] [place] MEDICAID [employer] [address] [facility] [address] [phone] [place]
--- OUTSIDE RECORDS SUMMARY | 2020-04-20 09:04 | CCD ---
Author Author [facility] Organization [facility] Address Unknown Phone Unavailable Care Team Providers Care Extract Mixer Name Role Phone Oscar Borjas Unavailable PROBLEMS Type Condition ICD9-CM Code [id number] Code Onset Dates Condition S tatus SNOMED Code Notes Problem Hyperlipidemia E78.5 Active 11054535 Problem Osteoporosis M81.0 Active 88602033 Problem Colon cancer screening Z12.11 Active 739815988 Problem Hypothyroid E03.9 Active 70479155 Problem Osteoarthritis of both knees, unspecified osteoarthritis t ype M17.0 Active 193989710 Problem JACQUES (obstructive sleep apnea) G47.33 Active 78 612285 Problem Ataxia R27.0 Active 60758511 Problem 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 Active 073384561 Problem Lung mass R91.8 Active 471977221 Problem Chronic diastolic congestive heart failure I50.32 Active 506917079 Problem Deep vein thrombosis (DVT) o f femoral vein of right lower extremity, unspecified chronicity I82.411 Active 0077065923365 06 Problem Chronic kidney disease, stage 3 N18.3 Active 099194076 Problem Chronic atrial fibrillation I48.2 Active 4267 31335 Problem Hypertension I10 Active 41641844 Problem Anemia, iron deficiency D50.9 Active 14318070 Problem Macrocytic anemia D53.9 Active 31327722 Problem Breast cancer screening Z12.39 Active 68015422 6 Problem Vitamin D deficiency E55.9 Active 93385833 Problem Anemia, unspecified type D64.9 Active 9344873 00 Problem 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 Active 83876206 Problem Elevated CEA R97.0 Active 746464995 Problem Closed fracture of right hip with routin e healing, subsequent encounter S72.001D Active 093160586 ALLERGIES No Known Allergies ENCOUNTERS from 1940 to 2020-04-13 Encounter Location Date Provider Diagnosis [facility] Jolene [address] [place] [phone] Mar, 021 Oscar Borjas IMMUNIZATIONS Vaccine Route Administration Date [...] Education Language: Question Answer Notes Languages spoken: Cape Verdean Islam: Question Answer Notes Islam 21 Rastafari Sexual Hx: Question Answer Notes Had sex [...] Start Da te End Date Status Ergocalciferol 60211 UNIT 1 capsule Orally every 14 days [...] Information RESULTS No Results REASON FOR VISIT error MEDICAL (GENERAL) HISTORY Type Description Date Medical History hypothyroidism Medical History hoarseness chronic-patient defers laryng oscopy Medical History facial AK's Medical History hyperlipidemia 2B Medical History hypertension c white coat component-07/19 11 [id number] Medical History osteoporosis Medical History bilateral hand osteoarthritis Medical History impaired fasting glucose Medical History history of nicotine addiction-1PPD x 40 years, quit in 2008- Medical History COPD, stage IV FEV1 910 (48% ), FVC 1.5 (ratio 61%)-12/2017 [facility] Medical History ho RLE DVT sp IVC filter 05/2017 Medical History CHF, chronic 2 diastolic dys function-mild LVH, AF, moderate PHTN by 05/[address] [facility] Medical History small gb neck calculus by [...] 1 capsule Orally Once a day Ergocalciferol 37466 UNIT 1 capsule Orally every 14 days [...] hypoxia nasal ca nnula Daily, 3LPM, [place] Insurance Providers Payer Name Payer Address Payer Phone Insured Name Patient Relati onship to Insured Coverage Start Date Coverage End Date MEDICARE Part A and B [address] [facility] [address] [place] MEDICAID [id number] [address] [facility] [address] [phone] [place]
--- OUTSIDE RECORDS SUMMARY | 2020-04-20 09:04 | CCD ---
Author Author [facility] Organization [facility] Address Unknown Phone Unavailable Care Team Providers Care Housemaid Name Role Phone Oscar Borjas Unavailable PROBLEMS Type Condition ICD9-CM Code [id number] Code Onset Dates Condition S tatus SNOMED Code Notes Problem Osteoporosis M81.0 Active 67108946 Problem Vitamin D deficiency E55.9 Active 17775844 Problem Hypothyroid E03.9 Active 53382540 Problem Hyperlipidemia E78.5 Active 43405111 Problem JACQUES (obstructive sleep apnea) G47.33 Active 78 704751 Problem Colon cancer screening Z12.11 Active 006809986 Problem 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 Active 664437628 Problem Osteoarthritis of both knees, unspecified osteoarthritis t ype M17.0 Active 727018012 Problem Lung mass R91.8 Active 112759879 Problem Chronic diastolic congestive heart failure I50.32 Active 520197959 Problem Macrocytic anemia D53.9 Active 06482827 Problem Closed fracture of right hip with routin e healing, subsequent encounter S72.001D Active 515671555 Problem Chronic atrial fibrillation I48.2 Active 4267 71291 Problem Breast cancer screening Z12.39 Active 31694742 6 Problem Chronic kidney disease, stage 3 N18.3 Active 947871635 Problem Ataxia R27.0 Active 19547369 Problem Hypertension I10 Active 89171190 Problem Deep vein thrombosis (DVT) o f femoral vein of right lower extremity, unspecified chronicity I82.411 Active 9245956375643 06 Problem Anemia, unspecified type D64.9 Active 5721588 00 Problem Elevated CEA R97.0 Active 111005811 Problem 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 No Have you ever had an STD? No Drug and Alcohol Question Answer Notes Interpretation: No problems reported Total Score: 0 Alcohol Screening: Question Answer Notes Did you [...] Start Da te End Date Status Ergocalciferol 41260 UNIT 1 capsule Orally every 14 days for 30 day(s ) Active Potassium Chloride 20 MEQ 1 packet with food Orally bid for 30 d ay(s) Jun, Active Levothyroxine Sodium 112 MCG 1 tablet on an empty stom ach in the morning Orally Once a day for 30 day(s) Active Apixaban 5 MG 1 tab Orally bid for 30 Days Active Chlorthalidone 25 MG 1/2 tablet in the morning with food Orally Onc e a day Active Budesonide 0.5 MG/2ML 2 ml Inhalation twice a day Active Furosemide 40 MG 1 1/2 tab Orally BID for 30 Days Active Formoterol Fumarate 20 MCG/2ML 2 ml Inhalation Twice a day Active Perforomist 20 MCG/2ML USE TWO TIMES A DAY Inhalation Twice a day for 30 Active Senokot 8.6 MG 2 tablets at bedtime as needed Orally Once a day for 30 day(s) Active Levothyroxine Sodium 112 MCG 1 tablet on an empty stom ach in the morning Orally Once a day for 30 Active Diltiazem HCl ER Coated Beads 360 MG 1 capsule Orally Once a day for 30 days Active Mapap 325 MG 1 tablet as needed Orally every 4 hrs prn pain for 30 da y(s) Active Oxygen with tubing and portability, Dx hypoxia nasal ca nnula Daily, 3LPM, [place] Active Walker - as directed _ M17.0, daily for 99 months May Active Albuterol Sulfate 1.25 MG/3ML 3 ml as needed Inhalation ever y 6 hrs prn dyspnea Active Diltiazem HCl ER Coated Beads 360 MG 1 capsule Orally Once a day for 30 Days Active Simvastatin 10 MG 1 tablet every evening Orally Once a day for 30 Day s Active May Have - 4 wheeled walker with seat a nd brakes REPAIR/REPLACE Daily for 30 day(s) May, Active PROCEDURES No Information RESULTS No Results REASON FOR VISIT water blister MEDICAL (GENERAL) HISTORY Type Description Date Medical History hypothyroidism Medical History hoarseness chronic-patient defers laryng oscopy Medical History facial AK's Medical History hyperlipidemia 2B Medical History hypertension c white coat component-07/18 12 [id number] Medical History osteoporosis Medical History bilateral hand osteoarthritis Medical History impaired fasting glucose Medical History history of nicotine addiction-1PPD x 40 years, quit in 2008- Medical History COPD, stage IV FEV1 910 (48% ), FVC 1.5 (ratio 61%)-12/2017 [facility] Medical History ho RLE DVT sp IVC filter 05/2017 Medical History CHF, chronic 2 diastolic dys function-mild LVH, AF, moderate PHTN by 05/2017 [facility] Medical History small gb neck calculus by [...] Medication Name Sig Start Date Stop Date Formoterol Fumarate 20 MCG/2ML 2 ml Inhalation Twice a day Diltiazem HCl ER Coated Beads 360 MG 1 capsule Orally Once a day for 30 Days Simvastatin 10 MG 1 tablet every evening Orally Once a day for 3 0 Days Levothyroxine Sodium 112 MCG 1 tablet on an empty stom ach in the morning Orally Once a day for 30 day(s) Budesonide 0.5 MG/2ML 2 ml Inhalation twice a day Furosemide 40 MG 1 1/2 tab Orally BID for 30 Days Chlorthalidone 25 MG 1/2 tablet in the morning with food Orally Once a day Ergocalciferol 87159 UNIT 1 capsule Orally every 14 days for 30 day(s) Albuterol Sulfate 1.25 MG/3ML 3 ml as needed Inhalation ever y 6 hrs prn dyspnea Apixaban 5 MG 1 tab Orally bid for 30 Days Potassium Chloride 20 MEQ 1 packet with food Orally bid for 30 day(s) Jun, Oxygen with tubing and portability, Dx hypoxia nasal ca nnula Daily, 3LPM, [place] Next Appt Details Provider Name:Oscar Borjas, 2020-04-11 0 8:15:00 AM, [address] [place], [address], Insurance Providers Payer Name Payer Address Payer Phone Insured Name Patient Relati onship to Insured Coverage Start Date Coverage End Date MEDICARE Part A and B [address] [facility] [phone] [place] MEDICAID [employer] [address] [facility] [id number] [place]
--- OUTSIDE RECORDS SUMMARY | 2020-04-20 09:04 | CCD ---
Author Author [facility] Organization [facility] Address Unknown Phone Unavailable Care Team Providers Care Babcock Tester Name Role Phone Oscar Borjas Unavailable PROBLEMS Type Condition ICD9-CM Code PYE82-OV Code Onset Dates Condition S tatus SNOMED Code Notes Problem Hyperlipidemia E78.5 Active 56899588 Problem Osteoporosis M81.0 Active 69553087 Problem Colon cancer screening Z12.11 Active 936454485 Problem Hypothyroid E03.9 Active 99728305 Problem Osteoarthritis of both knees, unspecified osteoarthritis t ype M17.0 Active 705388146 Problem JACQUES (obstructive sleep apnea) G47.33 Active 78 732611 Problem Ataxia R27.0 Active 60227801 Problem 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 Active 534466160 Problem Lung mass R91.8 Active 982534536 Problem Chronic diastolic congestive heart failure I50.32 Active 210815826 Problem Deep vein thrombosis (DVT) o f femoral vein of right lower extremity, unspecified chronicity I82.411 Active 9758129442916 06 Problem Chronic kidney disease, stage 3 N18.3 Active 916848812 Problem Chronic atrial fibrillation I48.2 Active 4267 93674 Problem Hypertension I10 Active 99399141 Problem Anemia, iron deficiency D50.9 Active 70467440 Problem Macrocytic anemia D53.9 Active 07366962 Problem Breast cancer screening Z12.39 Active 94323204 6 Problem Vitamin D deficiency E55.9 Active 03208317 Problem Anemia, unspecified type D64.9 Active 4753480 00 Problem 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 Active 17190158 Problem Elevated CEA R97.0 Active 065393073 Problem Closed fracture of right hip with routin e healing, subsequent encounter S72.001D Active 354737081 ALLERGIES No Known Allergies ENCOUNTERS from 1938 to 2020-04-14 Encounter Location Date Provider Diagnosis [facility] [place] [address] Mar, 021 Oscar Borjas Chronic diastolic congestive heart failure I50.32 ; Anemia, iron deficiency D50.9 ; Hypertension I10 ; Lung mass R91.8 ; Annual physical exam Z00.00 ; Vitamin D deficiency E55.9 ; Closed fracture of right hip with routine healing, subsequent encounter S72.001D ; 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 ; Deep vein thrombosis (DVT) of femoral vein of right lower extremity, unspecified chronicity I82.411 ; JACQUES (obstructive sleep apnea) G47.33 ; Hyperlipidemia E78.5 ; Hypothyroid E03.9 ; Breast cancer screening Z12.39 ; Colon cancer screening Z12.11 ; Osteoporosis M81.0 ; Chronic kidney disease, stage 3 N18.3 and Chronic atrial fibrillation I48.2 IMMUNIZATIONS Vaccine Route Administration Date Status Influenza [...] Education Language: Question Answer Notes Languages spoken: Sammarinese Caodaism: Question Answer Notes Caodaism 21 Rastafari Sexual Hx: Question Answer Notes [...] REASON FOR REFERRAL No Information VITAL SIGNS Weight 231 lbs Mar, Height 65 in Mar, BMI 38.44 kg/m2 Mar, Heart Rate 113 /min Mar, Respiratory Rate 20 /min Mar, Temperature 97.7 degrees Fahrenheit Mar, Oximetry 92 Mar, Blood pressure systolic 138 mm Hg Mar, Blood pressure diastolic 70 mm Hg Mar, MEDICATIONS Medication SIG (Take, Route, Frequency, Duration) Notes Start Da te End Date Status Ergocalciferol 01879 UNIT 1 capsule Orally every 14 days [...] QD x 2 8 days apa rt Mar, Active Diltiazem HCl ER Coated Beads 360 [...] Information RESULTS No Results REASON FOR VISIT follow-up MEDICAL (GENERAL) HISTORY Type Description Date Medical History hypothyroidism Medical History hoarseness chronic-patient defers laryng oscopy Medical History facial AK's Medical History hyperlipidemia 2B Medical History hypertension c white coat component-07/18 12 [id number] Medical History osteoporosis Medical History bilateral hand osteoarthritis Medical History impaired fasting glucose Medical History history of nicotine addiction-1PPD x 40 years, quit in 2008- Medical History COPD, stage IV FEV1 910 (48% ), FVC 1.5 (ratio 61%)-12/2017 PFT-[facility] Medical History ho RLE DVT sp IVC filter 05/2017 Medical History CHF, chronic 2 diastolic dys function-mild LVH, AF, moderate PHTN by 05/2017 TTE-[facility] Medical History small gb neck calculus by [...] No Information FUNCTIONAL STATUS No Information ASSESSMENTS Encounter Date Diagnosis Assessment Notes Treatment Notes Treatm ent Clinical Notes Mar, Chronic diastolic congestive heart failure (ICD- 10 - I50.32) rx as per HTN Mar, Anemia, iron deficiency (ICD-10 - D50.9) 2 ACD and GI blood loss Patient continues to refuse endoscopy and Cologuard 04/12/20 8.6, 65, 4%, 11; therefore, HO x 3 and Injectafer 750 IV x 2 8D apart an strongly recommended endoscopy again 11/12/19 9.4, 75 ([facility]-no repeat/garcia done), -LLE DVT US, CXR NAD; therefore, apix held and + 65 TID 07/2018 12.2, 92, r30/1.6 11/2017 13.0, 87 07/2017 asa 81 changed to apixiban 5 BID by [facility] as AF 06/11/17 9.9, 94 hgb stable at 15.2, 102 Mar, Hypertension (ICD-10 - I10) on dilt ER 360, torse 40 BID continues ANAHI diet, 1500 FR 04/12/20 37/1.4, 4.4, BNP 4476; therefore, fur 80 BID to torse 40 BID, held CTD 12.5, cb AM dry wt, BID BPs in 5D 11/12/19 3388, fur 60 BID to 80 BID 07/05/19 39/1.4, 3.5, 2492; therefore, held doxa 1 and K 20 QD to 20 BID and cb AM home dry wts and BID HBPs[facility]HR[facility], but 32/1.6, 3.4; therefore, fur 40 BID to 60 BID 07/2018 4.0, 2.7, 1.3 on K 10 BID, BNP 2660 12/03/17 BNP down to 4161 (09/09/17 BNP 5748), cr to 1.7; therefore, decreased CTD 25 to 12.5 and check renal US as per 09/09/17 given subacute mild decompensation: fur 40 qAM to 60/40 c cb AM dry wts in 3D (has PHN to draw BW) 06/2017 5.1, Mg 2.7 c BUN/cr 47/1.3 (baseline cr 0.9); therefore, dc vikki 50, decreased lis 40 BID to 40 QD and decreased K 20 BID to 20 QD c recheck BW in 2D Mar, Lung mass (ICD-10 - R91.8) Patient defers repeat imaging 03/2018 CT c stable multiple NC n cw 05/2017 CT chest, 6M fu recommended 07/04/17 case dw patient and son who agree with plan; therefore, 07/11/17 CT NAP c ? glottic/supraglottic nodule (referred to [facility] c normal laryngoscopy) otherwise NAD and Cologuard ordered (given patient refuses endoscopy) 07/02/[address] chest dw Dr. Forbes who agrees with garcia for possible primiar other than lung and to repeat CT chest in 4-6W given all nodules are too small to biopsy or PET 06/27/17 CT chest c small pericardial effusion, multiple small bilateral pulmonary nodules-largest in RLL is 9 mm s abnormal lymphadenopathy 04/19/17 therapeutic bronscoscopy c aspiration of bilateral secretions-no obvious lesion seen-Dr. Stafford 04/15/17 CTA chest no PE, total atelectasis of LLL ? endobrochial lesion Mar, Annual physical exam (ICD-10 - Z00.00) Mar, Vitamin D deficiency (ICD-10 - E55.9) favor hyperCa 2 1HPT and CTD 03/2019 ; off D2 50K q14D since ~12/2018 (px stopped on her own) 07/2018 36, 9.7, 188; therefore D2 50K q7 to q14D 11/2017 117, 9.7, 107; therefore, dc Ca 600 QD 06/2015 vitamin D 77, 9.6, PTH 56 on Drisdol q7D Mar, Closed fracture of right hip with routine healing, subsequent encounter (ICD-10 - S72.001D) Stable pain on current regimen follows with [facility] Mar, End stage COPD (ICD-10 - J44.9) Stable on bud 0.5/form 20 BID c rare 02 3L (has in house) follows with Dr. Forbes-LV 02/09/18 Mar, Deep vein thrombosis (DVT) o f femoral vein of right lower extremity, unspecified chronicity (ICD-10 - I82.411) No recurrent symptoms 11/2019 apix held new onset ОЛЕГ 04/15/17 CTA chest no PE, total atelectasis of LLL ? endobrochial lesion 04/11/17 BLE DVT US + for NO R femoral DVT; therefore, IVC filter placed-no anticoagulation given +HO stools and new onset anemia Mar, JACQUES (obstructive sleep apnea) (ICD-10 - G47.33) Continue BIPAP which she was dced c at 05/2017 hospitalization 05/2017 referred to [facility] again follows with Dr. Forbes 01/2016 HST c GIO 26 c SaO2 to 75%; therefore, referred for NPSG Mar, Hyperlipidemia (ICD-10 - E78.5) 01/2019 decreased to simva 10 (given on dilt) 07/2018 117/66/166 on simva 40 11/2017 111/82/97 12/2015 103/83/130, 0.4 on simva 40 07/2018 normal LFTs TSH as per hypo Mar, Hypothyroid (ICD-10 - E03.9) 07/05/19 7.4, 1.3 07/2018 2.7, 1.3 on 112 09/2017 3.2, 1.2 06/2017 0.19, 1.6 on 137; therefore, decreased to 112 12/2015 1.5, FT4 1.3 on LT4 137 10/2014 0.7 on LT4 137 Mar, Breast cancer screening (ICD-10 - Z12.39) Patient defers repeat mammogram 01/2016 normal B mammogram Mar, Colon cancer screening (ICD-10 - Z12.11) Patient defers screening colonoscopy and Cologuard Mar, Osteoporosis (ICD-10 - M81.0) Recheck BMD 06/2016 BMD -1.1/-0.7/-2.5 c -4.0/2.2/1.9% change c/w 11/2011, therefore CCR 11/2011 BMD T scores -0.8/-0.9/-2.7 c -1.0/1.6/-6.1% change c/w 2005 therefore continued Fosamax 70 Mar, Chronic kidney disease, stage 3 (ICD-10 - N18.3) as per HTN Mar, Chronic atrial fibrillation (ICD-10 - I48.2) 11/02/19 apix held 2 new-onset Fe def anemia rate control c diltiazem as per HTN follows with Dr. Bates PLAN OF TREATMENT Medication Medication Name Sig Start Date Stop Date Injectafer 750 MG/15ML as directed Intravenous QD x 2 8 days apa rt Mar, Iron 325 (65 Fe) MG 1 tablet Orally tid Budesonide 0.5 MG/2ML 2 ml Inhalation twice a day Albuterol Sulfate 1.25 MG/3ML 3 ml as needed Inhalation ever y 6 hrs prn dyspnea Diltiazem HCl ER Coated Beads 360 MG 1 capsule Orally Once a day Ergocalciferol 72582 UNIT 1 capsule Orally every 14 days [...] hypoxia nasal ca nnula Daily, 3LPM, NC Treatment Notes Assessment Notes Clinical Notes Osteoporosis Recheck BMD 2014 BMD -1.1/-0.7/-2.5 c -4.0/2.2/1.9% change c/w 11/2011, therefore CCR11/2011 BMD T scores -0.8/-0.9/-2.7 c -1.0/1.6/-6.1% change c/w 2005 therefore continued Fosamax 70 Chronic diastolic congestive heart failure rx as per HTN Colon cancer screening Patient defers sc reening colonoscopy and Cologuard Anemia, iron deficiency 2 ACD and GI blo od lossPatient continues to refuse endoscopy and Cologuard04/12/20 8.6, 65, 4%, 11; therefore, HO x 3 and Injectafer 750 IV x 2 8D apart an strongly recommended endoscopy again11/12/19 9.4, 75 ([facility]-no repeat/garcia done), -LLE DVT US, CXR NAD; therefore, apix held and + 65 TID07/2018 12.2, 92, r30/1. 13.0, 875/2017 asa 81 changed to apixiban 5 BID by [facility] as AF06/11/17 9.9, 941/04/04/17 hgb stable at 15.2, 102 Chronic atrial fibrillation 11/02/19 apix held 2 new-onset Fe def anemiarate control c diltiazem as per HTNfollows with Dr. Bates Hypertension on dilt ER 360, tors e 40 BIDcontinues ANAHI diet, 1500 FR04/12/20 37/1.4, 4.4, BNP 4476; therefore, fur 80 BID to torse 40 BID, held CTD 12.5, cb AM dry wt, BID BPs in 5D8 3388, fur 60 BID to 80 BID07/05/19 39/1.4, 3.5, 2492; therefore, held doxa 1 and K 20 QD to 20 BID and cb AM home dry wts and BID HBPs/HRs06/29/19 [facility] mild decomp, but 32/1.6, 3.4; therefore, fur 40 BID to 60 BID07/2018 4.0, 2.7, 1.3 on K 10 BID, BNP 12027/08/15 BNP down to 4161 (09/09/17 BNP 5748), cr to 1.7; therefore, decreased CTD 25 to 12.5 and check renal US as per 09/09/17 given subacute mild decompensation: fur 40 qAM to 60/40 c cb AM dry wts in 3D (has PHN to draw BW)06/2017 5.1, Mg 2.7 c BUN/cr 47/1.3 (baseline cr 0.9); therefore, dc vikki 50, decreased lis 40 BID to 40 QD and decreased K 20 BID to 20 QD c recheck BW in 2D Chronic kidney disease, stage 3 as per H TN Lung mass Patient defers repea t imaging03/2018 CT c stable multiple NC n cw 05/2017 CT chest, 6M fu recommended07/04/17 case dw patient and son who agree with plan; therefore, 07/11/17 CT NAP c ? glottic/supraglottic nodule (referred to [facility] c normal laryngoscopy) otherwise NAD and Cologuard ordered (given patient refuses endoscopy)07/02/[address] chest dw Dr. Forbes who agrees with garcia for possible primiar other than lung and to repeat CT chest in 4-6W given all nodules are too small to biopsy or PET06/27/17 CT chest c small pericardial effusion, multiple small bilateral pulmonary nodules-largest in RLL is 9 mm s abnormal lymphadenopathy04/19/17 therapeutic bronscoscopy c aspiration of bilateral secretions-no obvious lesion seen-Dr. Stafford04/15/17 CTA chest no PE, total atelectasis of LLL ? endobrochial lesion Vitamin D deficiency favor hyperCa 2 1HP T and CTD03/2019 ; off D2 50K q14D since ~12/2018 (px stopped on her own)07/2018 36, 9.7, 188; therefore D2 50K q7 to q14D11/2017 117, 9.7, 107; therefore, dc Ca 600 QD06/2015 vitamin D 77, 9.6, PTH 56 on Drisdol q7D Closed fracture of right hip with routine healing, subsequen t encounter Stable [facility] on [facility] End stage COPD Stable on bud 0.5/fo rm 20 BID c rare 02 3L (has in house)follows with Dr. Forbes-LV 02/09/18 Breast cancer screening Patient defers r epeat [id number]/2016 normal B mammogram Hypothyroid 07/05/19 7.4, 1.35/201 9 2.7, 1.3 on 11209/2017 3.2, 1. 0.19, 1.6 on 137; therefore, decreased to 1.5, FT4 1.3 on LT4 1378/2015 0.7 on LT4 137 Deep vein thrombosis (DVT) of femoral ve in of right lower extremity, unspecified chronicity No recurrent symptoms11/2019 apix held new onset IDA04/15/17 CTA chest no PE, total atelectasis of LLL ? endobrochial lesion04/11/17 BLE DVT US + for NO R femoral DVT; therefore, IVC filter placed-no anticoagulation given +HO stools and new onset anemia JACQUES (obstructive sleep apnea) Continue B IPAP which she was dced c at 05/2017 hospitalization05/2017 referred to [facility] againfoosman with Dr. Forbes01/2016 HST c GIO 26 c SaO2 to 75%; therefore, referred for NPSG Hyperlipidemia 01/2019 decreased to simva 10 (given on dilt)07/2018 117/66/166 on simva 111//2015 103/83/130, 0.4 on simva normal LFTsTSH as per hypo Treatment Notes Test Name Order Date PTH INTACT 2020-04-14 VITAMIN D 25-HYDROXY 2020-04-14 Comprehensive Metabolic Profile (CMP) 2020-04-14 CBC with Differential 2020-04-14 FREE T4 & TSH PANEL 2020-04-14 MAGNESIUM LEVEL 2020-04-14 FERRITIN 2020-04-14 NT-PRO BNP 2020-04-14 VITAMIN B12 LEVEL 2020-04-14 TOTAL IRON BINDING CAPACIT 2020-04-14 Occult Blood, Stool, Guaiac 2020-04-14 Next Appt Details 30 3-4M fu, BW NOW Reason: Provider Name:Marilyn Spencebry, 04-18 08:15:00 AM, [address] [place], [address], Insurance Providers Payer Name Payer Address Payer Phone Insured Name Patient Relati onship to Insured Coverage Start Date Coverage End Date MEDICAID Per Vices [address] [facility] [id number] ALICE VIDALES MEDICARE Part A and B [address] [facility] [address] [phone] ALICE VIDALES V self
--- OUTSIDE RECORDS SUMMARY | 2020-04-20 09:04 | CCD ---
Author Author [facility] Organization [facility] Address Unknown Phone Unavailable Care Team Providers Care Cargo Station Worker Name Role Phone Oscar Borjas Unavailable PROBLEMS Type Condition ICD9-CM Code EBL28-RL Code Onset Dates Condition S tatus SNOMED Code Notes Problem Osteoporosis M81.0 Active 67663664 Problem Vitamin D deficiency E55.9 Active 89971535 Problem Hypothyroid E03.9 Active 86017382 Problem Hyperlipidemia E78.5 Active 36548439 Problem JACQUES (obstructive sleep apnea) G47.33 Active 78 592798 Problem Colon cancer screening Z12.11 Active 205951143 Problem 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 Active 917935798 Problem Osteoarthritis of both knees, unspecified osteoarthritis t ype M17.0 Active 851731364 Problem Lung mass R91.8 Active 474823511 Problem Chronic diastolic congestive heart failure I50.32 Active 989251130 Problem Macrocytic anemia D53.9 Active 21172489 Problem Closed fracture of right hip with routin e healing, subsequent encounter S72.001D Active 120417607 Problem Chronic atrial fibrillation I48.2 Active 4267 08579 Problem Breast cancer screening Z12.39 Active 36417571 6 Problem Chronic kidney disease, stage 3 N18.3 Active 391081160 Problem Ataxia R27.0 Active 35203983 Problem Hypertension I10 Active 06121263 Problem Deep vein thrombosis (DVT) o f femoral vein of right lower extremity, unspecified chronicity I82.411 Active 7367068777171 06 Problem Anemia, unspecified type D64.9 Active 1084267 00 Problem Elevated CEA R97.0 Active 312160185 Problem 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 Active 87610149 ALLERGIES No Known Allergies ENCOUNTERS from 1940 to 2020-03-29 Encounter [facility] Date [facility] [address] [place] [id number] Feb, 2 020 Oscar Borjas Hypertension I10 IMMUNIZATIONS Vaccine Route Administration Date Status Influenza [...] Education Language: Question Answer Notes Languages spoken: Ethiopian Restoration: Question Answer Notes Restoration 21 Episcopal Sexual Hx: Question Answer Notes Had sex [...] Notes Start Da te End Date Status Chlorthalidone 25 MG 1/2 tablet in the morning with food Orally Onc e a day Active Ergocalciferol 04564 UNIT 1 capsule Orally every 14 days for 30 day(s ) Active Levothyroxine Sodium 112 MCG 1 tablet on an empty stom ach in the morning Orally Once a day for 30 day(s) Active Diltiazem HCl ER Coated Beads 360 MG 1 capsule Orally Once a day for 30 days Active Diltiazem HCl ER Coated Beads 360 MG 1 capsule Orally Once a day for 30 Days Active Mapap 325 MG 1 tablet as needed Orally every 4 hrs prn pain for 30 da y(s) Active Furosemide 40 MG 1 1/2 tab Orally BID for 30 Days Active Perforomist 20 MCG/2ML USE TWO TIMES A DAY Inhalation Twice a day for 30 Active Budesonide 0.5 MG/2ML 2 ml Inhalation twice a day Active Formoterol Fumarate 20 MCG/2ML 2 ml Inhalation Twice a day Active Albuterol Sulfate 1.25 MG/3ML 3 ml as needed Inhalation ever y 6 hrs prn dyspnea Active Levothyroxine Sodium 112 MCG 1 tablet on an empty stom ach in the morning Orally Once a day for 30 Active Simvastatin 10 MG 1 tablet every evening Orally Once a day for 30 Day s Active May Have - 4 wheeled walker with seat a nd brakes REPAIR/REPLACE Daily for 30 day(s) May, Active Apixaban 5 MG 1 tab Orally bid for 30 Days Active Oxygen with tubing and portability, Dx hypoxia nasal ca nnula Daily, 3LPM, NC Active Senokot 8.6 MG 2 tablets at bedtime as needed Orally Once a day for 30 day(s) Active Walker - as directed _ M17.0, daily for 99 months May Active Potassium Chloride 20 MEQ 1 packet with food Orally bid for 30 d ay(s) Jun, Active PROCEDURES No Information RESULTS No Results REASON FOR VISIT Diltiazem HCl ER Coated MEDICAL (GENERAL) HISTORY Type Description Date Medical History hypothyroidism Medical History hoarseness chronic-patient defers laryng oscopy Medical History facial AK's Medical History hyperlipidemia 2B Medical History hypertension c white coat component-07/18 12 [id number] Medical History osteoporosis Medical History bilateral hand osteoarthritis Medical History impaired fasting glucose Medical History history of nicotine addiction-1PPD x 40 years, quit in 2008- Medical History COPD, stage IV FEV1 910 (48% ), FVC 1.5 (ratio 61%)-12/2017 P[facility] Medical History ho RLE DVT sp IVC filter 05/2017 Medical History CHF, chronic 2 diastolic dys function-mild LVH, AF, moderate PHTN by 05/2017 [facility]TE-[facility] Medical History small gb neck calculus by [...] Notes Treatment Notes Treatm ent Clinical Notes Feb, Hypertension (ICD-10 - I10) PLAN OF TREATMENT Medication Medication Name Sig Start Date Stop Date Budesonide 0.5 MG/2ML 2 ml Inhalation twice a day Formoterol Fumarate 20 MCG/2ML 2 ml Inhalation Twice a day Apixaban 5 MG 1 tab Orally bid for 30 Days Levothyroxine Sodium 112 MCG 1 tablet on an empty stom ach in the morning Orally Once a day for 30 day(s) Simvastatin 10 MG 1 tablet every evening Orally Once a day for 3 0 Days Furosemide 40 MG 1 1/2 tab Orally BID for 30 Days Diltiazem HCl ER Coated Beads 360 MG 1 capsule Orally Once a day for 30 Days Chlorthalidone 25 MG 1/2 tablet in the morning with food Orally Once a day Oxygen with tubing and portability, Dx hypoxia nasal ca nnula Daily, 3LPM, NC Albuterol Sulfate 1.25 MG/3ML 3 ml as needed Inhalation ever y 6 hrs prn dyspnea Ergocalciferol 38778 UNIT 1 capsule Orally every 14 days for 30 day(s) Potassium Chloride 20 MEQ 1 packet with food Orally bid for 30 day(s) Jun, Next Appt Details Provider Name:Oscar Borjas, 2020-04-11 0 8:15:00 AM, [address] [place], [address], Insurance Providers Payer Name Payer Address Payer Phone Insured Name Patient Relati onship to Insured Coverage Start Date Coverage End Date MEDICARE Part A and B [address] [facility] [phone] ALICE WHITTINGTON V [facility] MEDICAID [employer] [address] [place] [id number] ALICE WHITTINGTON V self
--- OUTSIDE RECORDS SUMMARY | 2020-04-20 09:04 | CCD ---
Author Author [facility] Organization [facility] Address Unknown Phone Unavailable Care Team Providers Care Lead Clinical Research Coordinator Name Role Phone Oscar Borjas Unavailable PROBLEMS Type Condition ICD9-CM Code [id number] Code Onset Dates Condition S tatus SNOMED Code Notes Problem Osteoporosis M81.0 Active 08470110 Problem Vitamin D deficiency E55.9 Active 21127920 Problem Hypothyroid E03.9 Active 52713101 Problem Hyperlipidemia E78.5 Active 11133389 Problem JACQUES (obstructive sleep apnea) G47.33 Active 78 179893 Problem Colon cancer screening Z12.11 Active 690953077 Problem 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 Active 306509682 Problem Osteoarthritis of both knees, unspecified osteoarthritis t ype M17.0 Active 933095427 Problem Lung mass R91.8 Active 290769392 Problem Chronic diastolic congestive heart failure I50.32 Active 320489213 Problem Macrocytic anemia D53.9 Active 10179748 Problem Closed fracture of right hip with routin e healing, subsequent encounter S72.001D Active 895070969 Problem Chronic atrial fibrillation I48.2 Active 4267 18896 Problem Breast cancer screening Z12.39 Active 78197660 6 Problem Chronic kidney disease, stage 3 N18.3 Active 539863625 Problem Ataxia R27.0 Active 07370961 Problem Hypertension I10 Active 00911801 Problem Deep vein thrombosis (DVT) o f femoral vein of right lower extremity, unspecified chronicity I82.411 Active 4118757975988 06 Problem Anemia, unspecified type D64.9 Active 4987881 00 Problem Elevated CEA R97.0 Active 867794087 Problem 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 Active 69928575 ALLERGIES No Known Allergies ENCOUNTERS from 1940 to 2020-01-25 Encounter Location Date Provider Diagnosis [facility] Jolene [address] [place] [id number] Dec, 020 Oscar Borjas Hypertension I10 IMMUNIZATIONS Vaccine [...] Education Language: Question Answer Notes Languages spoken: Hungarian Pentecostalism: Question Answer Notes Pentecostalism 21 Confucianism Sexual Hx: Question Answer Notes Had sex [...] MEDICATIONS Medication SIG (Take, Route, Frequency, Duration) Start Date En d Date Status Ergocalciferol 84674 UNIT 1 capsule Orally every 14 days for 30 day (s) Active Potassium Chloride 20 MEQ 1 packet with food Orally bid for 30 day(s) Jun, Active Levothyroxine Sodium 112 MCG 1 [...] TIMES A DAY Inhalation Twice a day f or 30 Active Senokot 8.6 MG 2 tablets [...] every 4 hrs prn pain for 30 day(s) Active Oxygen with tubing and portability, Dx hypoxia nasal ca nnula Daily, 3LPM, NC Active Walker - as directed _ M17.0, daily for 99 months May, Active Albuterol Sulfate 1.25 MG/3ML 3 ml as needed Inhalation ever y 6 hrs prn dyspnea Active Diltiazem HCl ER Coated Beads 360 MG 1 capsule Orally Once a day for 30 Days Active Simvastatin 10 MG 1 tablet every evening Orally Once a day for 30 D ays Active May Have - 4 wheeled walker with seat a nd brakes REPAIR/REPLACE Daily for 30 day(s) May, Active PROCEDURES No Information RESULTS No Results REASON FOR VISIT refill-lasix MEDICAL (GENERAL) HISTORY Type Description Date Medical History hypothyroidism Medical History hoarseness chronic-patient defers laryng oscopy Medical History facial AK's Medical History hyperlipidemia 2B Medical History hypertension c white coat component-07/18 12 [id number] Medical History osteoporosis Medical History bilateral hand osteoarthritis Medical History impaired fasting glucose Medical History history of nicotine addiction-1PPD x 40 years, quit in 2008- Medical History COPD, stage IV FEV1 910 (48% ), FVC 1.5 (ratio 61%)-12/2017 PFT-[facility] Medical History ho RLE DVT sp IVC filter 05/2017 Medical History CHF, chronic 2 diastolic dys function-mild LVH, AF, moderate PHTN by 05/2017 [facility] [place] Medical History small gb neck calculus by [...] STATUS No Information ASSESSMENTS Encounter Date Diagnosis Notes Dec, Hypertension (ICD-10 - I10) PLAN OF TREATMENT [...] with food Orally Once a day Ergocalciferol 06564 UNIT 1 capsule Orally every 14 days [...] 3LPM, NC Next Appt Details Provider Name:Oscar Hernandes [place], 2020-04-11 0 8:15:00 AM, [address] [place], [address], Insurance Providers Payer Name Payer Address Payer Phone Insured Name Patient Relati onship to Insured Coverage Start Date Coverage End Date MEDICARE Part A and B [address] [facility] [address] [place] MEDICAID [employer] [address] [place] [address] ALICE WHITTINGTON
--- OUTSIDE RECORDS SUMMARY | 2020-04-20 09:04 | CCD ---
Author Author [facility] Organization [facility] Address Unknown Phone Unavailable Care Team Providers Care Cell Phone Repair Technician Name Role Phone Oscar Borjas Unavailable PROBLEMS Type Condition ICD9-CM Code [id number] Code Onset Dates Condition S tatus SNOMED Code Notes Problem Osteoporosis M81.0 Active 06602589 Problem Vitamin D deficiency E55.9 Active 80467568 Problem Hypothyroid E03.9 Active 96871317 Problem Hyperlipidemia E78.5 Active 97616992 Problem JACQUES (obstructive sleep apnea) G47.33 Active 78 893722 Problem Colon cancer screening Z12.11 Active 493845457 Problem 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 Active 907753539 Problem Osteoarthritis of both knees, unspecified osteoarthritis t ype M17.0 Active 725506147 Problem Lung mass R91.8 Active 950179626 Problem Chronic diastolic congestive heart failure I50.32 Active 468792434 Problem Macrocytic anemia D53.9 Active 96349034 Problem Closed fracture of right hip with routin e healing, subsequent encounter S72.001D Active 817670134 Problem Chronic atrial fibrillation I48.2 Active 4267 48694 Problem Breast cancer screening Z12.39 Active 49675555 6 Problem Chronic kidney disease, stage 3 N18.3 Active 833622778 Problem Ataxia R27.0 Active 15277362 Problem Hypertension I10 Active 81877724 Problem Deep vein thrombosis (DVT) o f femoral vein of right lower extremity, unspecified chronicity I82.411 Active 1602501920365 06 Problem Anemia, unspecified type D64.9 Active 6785343 00 Problem Elevated CEA R97.0 Active 051053832 Problem 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 Active 47226528 ALLERGIES No Known Allergies ENCOUNTERS from 1940 to 2020-03-20 Encounter Location Date Provider Diagnosis [facility] Jolene [facility] [place] [address] Feb, 020 Oscar Borjas Hypertension I10 IMMUNIZATIONS Vaccine [...] Education Language: Question Answer Notes Languages spoken: Cook Islander Holiness: Question Answer Notes Holiness 21 Latter-Day Sexual Hx: Question Answer Notes Had sex [...] Notes Start Da te End Date Status Diltiazem HCl ER Coated Beads 360 MG 1 capsule Orally Once a day for 30 Days Active Ergocalciferol 54062 UNIT 1 capsule Orally every 14 days for 30 day(s ) Active Levothyroxine Sodium 112 MCG 1 tablet on an empty stom ach in the morning Orally Once a day for 30 day(s) Active Diltiazem HCl ER Coated Beads 360 MG 1 capsule Orally Once a day for 30 days Active Chlorthalidone 25 MG 1/2 tablet in the morning with food Orally Onc e a day Active Mapap 325 MG 1 tablet as [...] Information RESULTS No Results REASON FOR VISIT diltiazem MEDICAL (GENERAL) HISTORY Type Description Date Medical History hypothyroidism Medical History hoarseness chronic-patient defers laryng oscopy Medical History facial AK's Medical History hyperlipidemia 2B Medical History hypertension c white coat component-07/18 12 [id number]-Omorclb Medical History osteoporosis Medical History bilateral hand osteoarthritis Medical History impaired fasting glucose Medical History history of nicotine addiction-1PPD x 40 years, quit in 2008- Medical History COPD, stage IV FEV1 910 (48% ), FVC 1.5 (ratio 61%)-12/2017 [facility] Medical History ho RLE DVT sp IVC filter 05/2017 Medical History CHF, chronic 2 diastolic dys function-mild LVH, AF, moderate PHTN by 05/2017 [facility] [place] Medical History small gb neck calculus by [...] morning with food Orally Once a day Diltiazem HCl ER Coated Beads 360 MG 1 capsule Orally Once a day for 30 Days Oxygen with tubing and portability, Dx hypoxia nasal ca nnula Daily, 3LPM, NC Albuterol Sulfate 1.25 MG/3ML 3 ml as needed Inhalation ever y 6 hrs prn dyspnea Ergocalciferol 73459 UNIT 1 capsule Orally every 14 days for 30 day(s) Potassium Chloride 20 MEQ 1 packet with food Orally bid for 30 day(s) Jun, Next Appt Details Provider Name:Oscar Borjas, 2020-04-11 0 8:15:00 AM, [address] [place], [address], Insurance Providers Payer Name Payer Address Payer Phone Insured Name Patient Relati onship to Insured Coverage Start Date Coverage End Date MEDICAID [employer] [address] [facility] [id number] AL[employer] [place] V self MEDICARE Part A and B [address] [facility] [address] [phone] ALICE WHITTINGTON V self
--- OUTSIDE RECORDS SUMMARY | 2020-04-20 09:04 | CCD ---
Author Author [facility] Organization [facility] Address Unknown Phone Unavailable Care Team Providers Care Transfer Agent Name Role Phone Oscar Borjas Unavailable PROBLEMS Type Condition ICD9-CM Code HMI78-PY Code Onset Dates Condition S tatus SNOMED Code Notes Problem Hyperlipidemia E78.5 Active 64496107 Problem Osteoporosis M81.0 Active 56914313 Problem Colon cancer screening Z12.11 Active 180437393 Problem Hypothyroid E03.9 Active 97314000 Problem Osteoarthritis of both knees, unspecified osteoarthritis t ype M17.0 Active 754500094 Problem JACQUES (obstructive sleep apnea) G47.33 Active 78 076762 Problem Ataxia R27.0 Active 76921593 Problem 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 Active 972043368 Problem Lung mass R91.8 Active 800081289 Problem Chronic diastolic congestive heart failure I50.32 Active 621192056 Problem Deep vein thrombosis (DVT) o f femoral vein of right lower extremity, unspecified chronicity I82.411 Active 0297054612055 06 Problem Chronic kidney disease, stage 3 N18.3 Active 196049889 Problem Chronic atrial fibrillation I48.2 Active 4267 85227 Problem Hypertension I10 Active 94337580 Problem Anemia, iron deficiency D50.9 Active 75238256 Problem Macrocytic anemia D53.9 Active 71844975 Problem Breast cancer screening Z12.39 Active 59844352 6 Problem Vitamin D deficiency E55.9 Active 97731331 Problem Anemia, unspecified type D64.9 Active 5847168 00 Problem 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 Active 90522889 Problem Elevated CEA R97.0 Active 782244148 Problem Closed fracture of right hip with routin e healing, subsequent encounter S72.001D Active 867441626 ALLERGIES No Known Allergies ENCOUNTERS from 1940 to 2020-04-12 Encounter Location Date Provider Diagnosis [facility] Jolene [address] [place] [id number] Mar, 021 Oscar Borjas IMMUNIZATIONS Vaccine Route [...] Education Language: Question Answer Notes Languages spoken: Anguillan Yarsani: Question Answer Notes Yarsani 21 Presybeterian Sexual Hx: Question Answer Notes Had sex [...] Notes Start Da te End Date Status Senokot 8.6 MG 2 tablets at bedtime as needed Orally Once a day for 30 day(s) Active Ergocalciferol 35100 UNIT 1 capsule Orally every 14 days for 90 day(s ) Active Levothyroxine Sodium 112 MCG 1 tablet on an empty stom ach in the morning Orally Once a day for 30 Active Torsemide 20 MG 2 tabs Orally bid for 90 day(s) Mar, Active Perforomist 20 MCG/2ML USE TWO TIMES A DAY Inhalation Twice a day for 30 Active Oxygen with tubing and portability, Dx hypoxia nasal ca nnula Daily, 3LPM, NC Active Potassium Chloride 20 MEQ 1 packet with food Orally bid Jun, Active Levothyroxine Sodium 112 MCG 1 tablet on an empty stom ach in the morning Orally Once a day for 30 day(s) Active Budesonide 0.5 MG/2ML 2 ml Inhalation twice a day Active Simvastatin 10 MG 1 tablet every evening Orally Once a day Active Diltiazem HCl ER Coated Beads 360 MG 1 capsule Orally Once a day for 30 days Active May Have - 4 wheeled walker with seat a nd brakes REPAIR/REPLACE Daily for 30 day(s) May, Active Mapap 325 MG 1 tablet as needed Orally every 4 hrs prn pain for 30 da y(s) Active Iron 325 (65 Fe) MG 1 tablet Orally tid Active Albuterol Sulfate 1.25 MG/3ML 3 ml as needed Inhalation ever y 6 hrs prn dyspnea Active Diltiazem HCl ER Coated Beads 360 MG 1 capsule Orally Once a day Active Formoterol Fumarate 20 MCG/2ML 2 ml Inhalation Twice a day Active Walker - as directed _ M17.0, daily for 99 months May Active PROCEDURES No Information RESULTS No Results REASON FOR VISIT No Information MEDICAL (GENERAL) HISTORY Type Description Date Medical History hypothyroidism Medical History hoarseness chronic-patient defers laryng oscopy Medical History facial AK's Medical History hyperlipidemia 2B Medical History hypertension c white coat component-07/18 12 [id number]-[id number] Medical History osteoporosis Medical History bilateral hand osteoarthritis Medical History impaired fasting glucose Medical History history of nicotine addiction-1PPD x 40 years, quit in 2008- Medical History COPD, stage IV FEV1 910 (48% ), FVC 1.5 (ratio 61%)-12/2017 [facility] Medical History ho RLE DVT sp IVC filter 05/2017 Medical History CHF, chronic 2 diastolic dys function-mild LVH, AF, moderate PHTN by 05/2017 [facility] [place] Medical History small gb neck calculus by [...] MG/2ML 2 ml Inhalation twice a day Diltiazem HCl ER Coated Beads 360 MG 1 capsule Orally Once a day Levothyroxine Sodium 112 MCG 1 tablet on an empty stom ach in the morning Orally Once a day for 30 day(s) Ergocalciferol 29125 UNIT 1 capsule Orally every 14 days for 90 day(s) Potassium Chloride 20 MEQ 1 packet with food Orally bid Jun, Albuterol Sulfate 1.25 MG/3ML 3 ml as needed Inhalation ever y 6 hrs prn dyspnea Simvastatin 10 MG 1 tablet every evening Orally Once a day Formoterol Fumarate 20 MCG/2ML 2 ml Inhalation Twice a day Oxygen with tubing and portability, Dx hypoxia nasal ca nnula Daily, 3LPM, NC Torsemide 20 MG 2 tabs Orally bid for 90 day(s) Mar, Iron 325 (65 Fe) MG 1 tablet Orally tid Insurance Providers Payer Name Payer Address Payer Phone Insured Name Patient Relati onship to Insured Coverage Start Date Coverage End Date MEDICARE Part A and B [address] [facility] [phone] ALICE [place] MEDICAID [employer] [address] [facility] [id number] ALICE [place]
--- OUTSIDE RECORDS SUMMARY | 2020-04-20 09:05 | CCD ---
Author Author [facility] Organization [facility] Address Unknown Phone Unavailable Care Team Providers Care Marketing And Promotions Manager Name Role Phone Gricel Bates MD Unavailable Unavailable Gricel Bates MD Unavailable Unavailable Gricel Bates MD Unavailable Unavailable Gricel Bates MD Unavailable Unavailable Gricel Bates MD Unavailable Unavailable Gricel Bates MD Unavailable Unavailable Grciel Bates MD Unavailable Unavailable Gricel Bates MD Unavailable Unavailable Gricel Bates MD Unavailable Unavailable Gricel Bates MD Unavailable Unavailable Gricel Bates MD Unavailable Unavailable Gricel Bates MD Unavailable Unavailable Gricel Bates MD Unavailable Unavailable Gricel Bates MD Unavailable Unavailable Gricel Bates MD Unavailable Unavailable Gricel Bates MD Unavailable Unavailable Gricel Bates MD Unavailable Unavailable Gricel Bates MD Unavailable Unavailable Gricel Bates MD Unavailable Unavailable Gricel Bates MD Unavailable Unavailable Gricel Bates MD Unavailable Unavailable Gricel Bates MD Unavailable Unavailable Gricel Bates MD Unavailable Unavailable Gricel Bates MD Unavailable Unavailable Gricel Bates MD Unavailable Unavailable Gricel Bates MD Unavailable Unavailable Gricel Bates MD Unavailable Unavailable Gricel Bates MD Unavailable Unavailable Gricel Bates MD Unavailable Unavailable Gricel Bates MD Unavailable Unavailable Gricel Bates MD Unavailable Unavailable Gricel Bates MD Unavailable Unavailable Gricel Bates MD Unavailable Unavailable Gricel Bates MD Unavailable Unavailable Gricel Bates MD Unavailable Unavailable Gricel Bates MD Unavailable Unavailable Gricel Bates MD Unavailable Unavailable Gricel Bates MD Unavailable Unavailable Gricel Bates MD Unavailable Unavailable Gricel Bates MD Unavailable Unavailable Gricel Bates MD Unavailable Unavailable Gricel Bates MD Unavailable Unavailable Gricel Bates MD Unavailable Unavailable Gricel Bates MD Unavailable Unavailable Gricel Bates MD Unavailable Unavailable Gricel Bates MD Unavailable Unavailable Gricel Bates MD Unavailable Unavailable Gricel Bates MD Unavailable Unavailable Gricel Bates MD Unavailable Unavailable Gricel Bates MD Unavailable Unavailable Gricel Bates MD Unavailable Unavailable Gricel Bates MD Unavailable Unavailable Gricel Bates MD Unavailable Unavailable Gricel Bates MD Unavailable Unavailable Gricel Bates MD Unavailable Unavailable Gricel Bates MD Unavailable Unavailable Gricel Bates MD Unavailable Unavailable Fons, M Shanique SUPERVIS[employer] Unavailable Unavailable Fons, M Shanique SUPERVISOR [employer] Unavailable Unavailable Fons, M Shanique SUPERVISOR [employer] Unavailable Unavailable Fons, M Shanique SUPERVISOR [employer] Unavailable Unavailable Fons, M Shanique SUPERVISOR [employer] Unavailable Unavailable Fons, M Shanique SUPERVISOR [employer] Unavailable Unavailable Fons, M Shanique SUPERVISOR [employer] Unavailable Unavailable Fons, M Shanique SUPERVISOR [employer] Unavailable Unavailable Fons, M Shanique SUPERVISOR [employer] Unavailable Unavailable Fons, M Shanique SUPERVISOR [employer] Unavailable Unavailable Fons, M Shanique SUPERVISOR [employer] Unavailable Unavailable Fons, M Shanique SUPERVISOR [employer] Unavailable Unavailable Fons, M Shanique SUPERVISOR [employer] Unavailable Unavailable Fons, M Shanique SUPERVISOR [employer] Unavailable Unavailable Fons, M Shanique SUPER[employer]OR [employer] Unavailable Unavailable Fons, M Shanique SUPER[employer]OR [employer] Unavailable Unavailable Fons, M Shanique SUPERVISOR [employer] Unavailable Unavailable Fons, M Shanique SUPERVISOR [employer] Unavailable Unavailable Fons, M Shanique SUPERVISOR [employer] Unavailable Unavailable Fons, M Shanique SUPERVISOR [employer] Unavailable Unavailable Fons, M Shanique SUPER[employer]OR [employer] Unavailable Unavailable Fons, M Shanique SUPERVISOR [employer] Unavailable Unavailable Fons, M Shanique SUPERVISOR [employer] Unavailable Unavailable Fons, M Shanique SUPERVISOR [employer] Unavailable Unavailable Fons, M Shanique SUPERVISOR [employer] Unavailable Unavailable Fons, M Shanique SUPERVISOR [employer] Unavailable Unavailable Fons, M Shanique SUPERVISOR [employer] Unavailable Unavailable Fons, M Shanique SUPERVISOR [employer] Unavailable Unavailable Fons, M Shanique SUPER[employer]OR [employer] Unavailable Unavailable Fons, M Shanique SUPERVISOR [employer] Unavailable Unavailable Fons, M Shanique SUPERVISOR [employer] Unavailable Unavailable Fons, M Shanique SUPERVISOR [employer] Unavailable Unavailable Fons, M Shanique SUPERVISOR [employer] Unavailable Unavailable Fons, M Shanique SUPERVISOR [employer] Unavailable Unavailable Fons, M Shanique SUPERVISOR [employer] Unavailable Unavailable Fons, M Shanique SUPERVISOR [employer] Unavailable Unavailable Fons, M Shanique SUPERVISOR [employer] Unavailable Unavailable Fons, M Shanique SUPERVISOR [employer] Unavailable Unavailable Fons, M Shanique SUPERVISOR [employer] Unavailable Unavailable Fons, M Shanique SUPERVISOR [employer] Unavailable Unavailable Fons, M Shanique SUPERVISOR [employer] Unavailable Unavailable Fons, M Shanique SUPERVISOR [employer] Unavailable Unavailable Fons, M Shanique SUPERVISOR [employer] Unavailable Unavailable Fons, M Shanique SUPERVISOR [employer] Unavailable Unavailable Fons, M Shanique SUPERVISOR [employer] Unavailable Unavailable Fons, M Shanique SUPERVISOR [employer] Unavailable Unavailable Fons, M Shanique SUPERVISOR [employer] Unavailable Unavailable Fons, M Shanique SUPERVISOR [employer] Unavailable Unavailable Fons, M Shanique SUPERVISOR [employer] Unavailable Unavailable Fons, M Shanique SUPERVISOR [employer] Unavailable Unavailable Fons, M Shanique SUPERVISOR [employer] Unavailable Unavailable Fons, M Shanique SUPERVISOR [employer] Unavailable Unavailable Fons, M Shanique SUPERVISOR [employer] Unavailable Unavailable Fons, M Shanique SUPERVISOR [employer] Unavailable Unavailable Aliyah Padgett Unavailable Unavailable Aliyah Padgett Unavailable Unavailable Padgett, L Yvette PA Unavailable Unavailable Padgett, L Yvette PA Unavailable Unavailable Padgett, L Yvette PA Unavailable Unavailable Padgett, L Yvette PA Unavailable Unavailable Padgett, L Yvette PA Unavailable Unavailable Padgett, L Yvette PA Unavailable Unavailable Padgett, L Yvette PA Unavailable Unavailable Padgett, L Yvette PA Unavailable Unavailable Padgett, L Yvette PA Unavailable Unavailable Padgett, L Yvette PA Unavailable Unavailable Padgett, L Yvetet PA Unavailable Unavailable Padgett, L Yvette PA Unavailable Unavailable Padgett, L Yvette PA Unavailable Unavailable Padgett, L Yvette PA Unavailable Unavailable Padgett, L Yvette PA Unavailable Unavailable Padgett, L Yvette PA Unavailable Unavailable Padgett, L Yvette PA Unavailable Unavailable Padgett, L Yvette PA Unavailable Unavailable Padgett, L Yvette PA Unavailable Unavailable Padgett, L Yvette PA Unavailable Unavailable Padgett, L Yvette PA Unavailable Unavailable Padgett, L Yvette PA Unavailable Unavailable Padgett, L Yvette PA Unavailable Unavailable Padgett, L Yvette PA Unavailable Unavailable Padgett, L Yvette PA Unavailable Unavailable Padgett, L Yvette PA Unavailable Unavailable Padgett, L Yvette PA Unavailable Unavailable Padgett, L Yvette PA Unavailable Unavailable Padgett, L Yvette PA Unavailable Unavailable Padgett, L Yvette PA Unavailable Unavailable Padgett, L Yvette PA Unavailable Unavailable Padgett, L Yvette PA Unavailable Unavailable Padgett, L Yvette PA Unavailable Unavailable Padgett, L Yvette PA Unavailable Unavailable Rechlin, P Yasir DO Unavailable Unavailable Rechlin, P Yasir DO Unavailable Unavailable Rechlin, P Yasir DO Unavailable Unavailable Rechlin, P Yasir DO Unavailable Unavailable Rechlin, P Yasir DO Unavailable Unavailable Rechlin, P Yasir DO Unavailable Unavailable Rechlin, P Yasir DO Unavailable Unavailable Rechlin, P Yasir DO Unavailable Unavailable Rechlin, P Yasir DO Unavailable Unavailable Rechlin, P Yasir DO Unavailable Unavailable Rechlin, P Yasir DO Unavailable Unavailable Rechlin, P Yasir DO Unavailable Unavailable Rechlin, P Yasir DO Unavailable Unavailable Rechlin, P Yasir DO Unavailable Unavailable Rechlin, P Yasir DO Unavailable Unavailable Rechlin, P Yasir DO Unavailable Unavailable Rechlin, P Yasir DO Unavailable Unavailable Rechlin, P Yasir DO Unavailable Unavailable Rechlin, P Yasir DO Unavailable Unavailable Rechlin, P Yasir DO Unavailable Unavailable Rechlin, P Yasir DO Unavailable Unavailable Rechlin, P Yasir DO Unavailable Unavailable Rechlin, P Yasir DO Unavailable Unavailable Rechlin, P Yasir DO Unavailable Unavailable Rechlin, P Ysair DO Unavailable Unavailable Rechlin, P Yasir DO Unavailable Unavailable Rechlin, P Yasir DO Unavailable Unavailable Rechlin, P Yasir DO Unavailable Unavailable Rechlin, P Yasir DO Unavailable Unavailable Rechlin, P Yasir DO Unavailable Unavailable Rechlin, P Yasir DO Unavailable Unavailable Rechlin, P Yasir DO Unavailable Unavailable Rechlin, P Yasir DO Unavailable Unavailable Rechlin, P Yasir DO Unavailable Unavailable Rechlin, P Yasir DO Unavailable Unavailable Rechlin, P Yasir DO Unavailable Unavailable Rechlin, P Yasir DO Unavailable Unavailable Rechlin, P Yasir DO Unavailable Unavailable Rechlin, P Yasir DO Unavailable Unavailable Rechlin, P Yasir DO Unavailable Unavailable Rechlin, P Yasir DO Unavailable Unavailable Rechlin, P Yasir DO Unavailable Unavailable Rechlin, P Yasir DO Unavailable Unavailable Rechlin, P Yasir DO Unavailable Unavailable Rechlin, P Yasir DO Unavailable Unavailable Rechlin, P Yasir DO Unavailable Unavailable Rechlin, P Yasir DO Unavailable Unavailable [place], V TRISHA PA-C Unavailable Unavailable [place], V TRISHA PA-C Unavailable Unavailable Jenna, V TRISHA PA-C Unavailable Unavailable Jenna, V TRISHA PA-C Unavailable Unavailable Jenna, V TRISHA PA-C Unavailable Unavailable [place], V TRISHA PA-C Unavailable Unavailable [place], V TRISHA PA-C Unavailable Unavailable Re-disclosure Warning The records that you are about to access may contain information from federally-assisted alcohol or drug abuse programs. If such information is present, then the following federally mandated warning applies: This information has been disclosed to you from records protected by federal confidentiality rules (42 CFR part 2). The federal rules prohibit you from making any further disclosure of this information unless further disclosure is expressly permitted by the written consent of the person to whom it pertains or as otherwise permitted by 42 CFR part 2. A general authorization for the release of medical or other information is NOT sufficient for this purpose. The Federal rules restrict any use of the information to criminally investigate or prosecute any alcohol or drug abuse patient.The records that you are about to access may contain highly sensitive health information, the redisclosure of which is protected by Article 27-F of the [facility] Public Health law. If you continue you may have access to information: Regarding HIV / AIDS; Provided by facilities licensed or operated by the [facility] Office of Mental Health; or Provided by the [facility] Office for People With Developmental Disabilities. If such information is present, then the following [facility] mandated warning applies: This information has been disclosed to you from confidential records which are protected by state law. State law prohibits you from making any further disclosure of this information without the specific written consent of the person to whom it pertains, or as otherwise permitted by law. Any unauthorized further disclosure in violation of state law may result in a fine or assisted sentence or both. A general authorization for the release of medical or other information is NOT sufficient authorization for further disc losure. Family History Family Member Name Family Member Gender Family Member Status Date o f Status Description Data Source(s) Unknown Male Problem MEDENT ([facility] () Unknown Unknown Problem MEDENT ([facility] ) Encounters Encounter Providers Location Date Indications Data Source(s ) Unknown [address] [facility] [address] 04/13/2020 12:00:00 AM EST eCW1 ([facility]) Unknown [address] [facility] [address] 04/13/2020 12:00:00 AM EST eCW1 ([facility]) Outpatient Attender: TRISHA OG-SJP.[email or web address] 12:00:00 AM EST - 04/12/2020 09:53:52 AM EST [facility] Outpatient Referrer: TRISHA OG-SJP.[email or web address] 12:00:00 AM EST [facility] Unknown [address] [facility] [address] 04/12/2020 12:00:00 AM EST eCW1 ([facility]) Outpatient [address] [facility] [address] 04/11/2020 12:00:00 AM EST eCW1 ([facility]) Unknown [address] [facility] [address] 04/11/2020 12:00:00 AM EST eCW1 ([facility]) Outpatient Attender: TRISHA GO-SJPColleenYASMEEN 08/2020 12:00:00 AM EST - 04/05/2020 09:35:24 AM EST [facility] [place] [address] [facility] [address] 03/29/2020 12:00:00 AM EST eCW1 ([facility]) [place] [address] [facility] [address] 03/20/2020 12:00:00 AM EST eCW1 ([facility]) Outpatient Attender: Shanique OG-[email or web address].[email or web address] 0 12:00:00 AM EST - 03/16/2020 08:47:34 AM EST [facility] Outpatient Referrer: Shanique PUTNAMSJGunnerYASMEEN 03/09/2020 12:00:00 AM EST [facility] Unknown [address] [facility] [address] 02/21/2020 12:00:00 AM EST eCW1 ([facility]) Outpatient Attender: Shanique Fangender: Yvette PUTNAMSJGunnerYASMEEN 02/18/2020 12:00:00 AM EST - 02/18/2020 11:15:12 AM EST [facility] Outpatient Referrer: Yvette DURONCTGILBERT 12:11:03 PM EST [facility] Outpatient Attender: Yvette OG-SJAnkit 09:00:16 AM EDT - 01/27/2020 03:54:24 PM EDT [facility] [place] [address] [facility] [address] 01/24/2020 12:00:00 AM EDT eCW1 ([facility]) [place] [address] [facility] [address] 01/17/2020 12:00:00 AM EDT eCW1 ([facility]) [place] [address] [facility] [address] 01/07/2020 12:00:00 AM EDT eCW1 ([facility]) [place] [address] [facility] [place] [address] 12/30/2019 12:00:00 AM EDT eCW1 ([facility]) [place] [facility] [address] [facility] [address] 11/22/2019 12:00:00 AM EDT eCW1 ([facility]) [place] [address] [facility] [address] 10/20/2019 12:00:00 AM EDT eCW1 ([facility]) [place] [address] [facility] [place] [address] 09/16/2019 12:00:00 AM EDT eCW1 ([facility]) [place] [facility] [address] [facility] [place] [address] 08/16/2019 12:00:00 AM EDT eCW1 ([facility]) [place] [facility] [address] [facility] [address] 08/13/2019 12:00:00 AM EDT eCW1 ([facility]) [place] [facility] [address] [facility] [place] [address] 08/10/2019 12:00:00 AM EDT eCW1 ([facility]) [place] [facility] [address] [facility] [address] 08/05/2019 12:00:00 AM EDT eCW1 ([facility]) [place] [facility] [address] [facility] [place] [address] 08/02/2019 12:00:00 AM EDT eCW1 ([facility]) [place] [facility] [address] [facility] [place] [address] 07/19/2019 12:00:00 AM EDT eCW1 ([facility]) [place]patient [address] [facility] [address] 07/05/2019 12:00:00 AM EDT eCW1 ([facility]) [facility] [address] [facility] [address] 07/05/2019 12:00:00 AM EDT eCW1 ([facility]) [place] [facility] [address] [facility] [address] 07/01/2019 12:00:00 AM EDT eCW1 ([facility]) [place] [facility] [address] [place] [address], [place] [address] 07/01/2019 12:00:00 AM EDT eCW1 ([facility]) [place] [facility] [address] [place] [address], [place] [address] 06/30/2019 12:00:00 AM EDT eCW1 ([facility]) [place] [facility] [address] [facility] [place] [address] 06/30/2019 12:00:00 AM EDT eCW1 ([facility]) [place] [facility] [address] [place] [address], [place] [address] 06/29/2019 12:00:00 AM EDT eCW1 ([facility]) [place] [facility] [address] [place] [address], [place] [address] 06/28/2019 12:00:00 AM EDT eCW1 ([facility]) [place] [facility] [address] [place] [address], [place] [address] 06/21/2019 12:00:00 AM EDT eCW1 ([facility]) [place] [facility] [address] [place] [address], [place] [address] 06/16/2019 12:00:00 AM EDT eCW1 ([facility]) [place] [facility] [address] [place] [address], [place] [address] 06/15/2019 12:00:00 AM EDT eCW1 ([facility]) [place] [facility] [address] [place] [address], [place] [address] 06/01/2019 12:00:00 AM EST eCW1 ([facility]) Outpatient Attender: Gricel Bates MD [email or web address]-[email or web address] 05/01 12:00:00 AM EST [address] [address] 04/26/2019 12:00:00 AM EST eCW1 ([facility]) Outpatient Attender: Yasir Forbes DO Main Office 04/22/2019 09:30:00 AM EST [facility] ([facility] [address] [address] 04/20/2019 12:00:00 AM EST eCW1 ([facility]) [address] [address] 04/15/2019 12:00:00 AM EST eCW1 ([facility]) [address] [address] 04/05/2019 12:00:00 AM EST eCW1 ([facility]) [address] [address] 03/25/2019 12:00:00 AM EST eCW1 ([facility]) Medications Medication Brand Name Start Date Product Form Dose Route Admi nistrative Instructions Pharmacy Instructions Status Indications Reaction Description Data Source(s) ferric carboxymaltose 50 MG/ML Injectabl e Solution [Injectafer] Injectafer 750 MG/15ML Injectafer 750 MG/15ML 04/13/2020 12:00:00 AM EST active Injectafer 750 MG/15ML eCW1 ([facility]) ferric carboxymaltose 50 MG/ML Injectabl e Solution [Injectafer] Injectafer 750 MG/15ML Injectafer 750 MG/15ML 04/13/2020 12:00:00 AM EST active Injectafer 750 MG/15ML eCW1 ([facility]) ferric carboxymaltose 50 MG/ML Injectabl e Solution [Injectafer] Injectafer 750 MG/15ML Injectafer 750 MG/15ML 04/13/2020 12:00:00 AM EST active Injectafer 750 MG/15ML eCW1 ([facility]) ferric carboxymaltose 50 MG/ML Injectabl e Solution [Injectafer] Injectafer 750 MG/15ML Injectafer 750 MG/15ML 04/13/2020 12:00:00 AM EST active Injectafer 750 MG/15ML eCW1 ([facility]) 20 mg 04/11/2020 12:00:00 AM EST tablet 360 TAKE TWO TABLETS BY MOUTH TWICE A DAY TAKE TWO TABLETS BY MOUTH TWICE A DAY SOLD: 04/13/2020 [facility] torsemide 20 MG Oral Tablet Torsemide 20 MG Torsemide 20 MG 04/11/2020 12:00:00 AM EST active Torsemide 20 MG e CW1 ([facility]) torsemide 20 MG Oral Tablet Torsemide 20 MG Torsemide 20 MG 04/11/2020 12:00:00 AM EST active Torsemide 20 MG e CW1 ([facility]) torsemide 20 MG Oral Tablet Torsemide 20 MG Torsemide 20 MG 04/11/2020 12:00:00 AM EST active Torsemide 20 MG e CW1 ([facility]) 1,250 mcg (50,000 unit) 04/11/2020 12:00:00 AM EST capsule 6 TAKE 1 CAPSULES BY MOUTH EVERY 14 DAYS TAKE 1 CAPSULES BY MOUTH EVERY 14 DAYS SOLD: 04/13/2020 [facility] torsemide 20 MG Oral Tablet Torsemide 20 MG Torsemide 20 MG 04/11/2020 12:00:00 AM EST active Torsemide 20 MG e CW1 ([facility]) torsemide 20 MG Oral Tablet Torsemide 20 MG Torsemide 20 MG 04/11/2020 12:00:00 AM EST active Torsemide 20 MG e CW1 ([facility]) 325 mg (65 mg iron) 04/05/2020 12:00:00 AM EST tablet, delayed release (DR/EC) 90 TAKE ONE TABLET BY MOUTH THREE TIMES A D AY WITH MEALS TAKE ONE TABLET BY MOUTH THREE TIMES A DAY WITH MEALS SOLD: 04/06/2020 [facility] 40 mg 04/05/2020 12:00:00 AM EST tablet 120 TAKE TWO TABLETS BY MOUTH TWICE A DAY TAKE TWO TABLETS BY MOUTH TWICE A DAY SOLD: 04/06/2020 [facility] ferrous sulfate 325 MG Delayed Release O ral Tablet ferrous sulfate 325 (65 FE) MG EC tablet ferrous sulfate 325 (65 FE) MG EC tablet 04/05/2020 12 :00:00 AM EST active TAKE ONE TABLET B Y MOUTH THREE TIMES A DAY WITH MEALS [facility] ferrous sulfate 325 MG Delayed Release O ral Tablet ferrous sulfate 325 (65 FE) MG EC tablet ferrous sulfate 325 (65 FE) MG EC tablet 04/05/2020 12 :00:00 AM EST 325 mg Oral active Take 1 t ablet (325 mg total) by mouth 3 (three) times a day with meals [facility] 24 HR Diltiazem Hydrochloride 360 MG Extended Release Oral Capsule DILTIAZEM HCL 04/05/2020 12:00:00 AM EST capsule,extended release 24hr 30 TAKE ONE CAPSULE BY MOUTH EVERY DAY TAKE ONE CAPSULE BY MOUTH EVERY DAY SOLD: 04/06/2020 [facility] 90 mcg/actuation 03/27/2020 12:00:00 AM EST HFA aerosol inha ler 54 INHALE TWO PUFFS BY MOUTH FOUR TIMES A DAY NEEDED INHALE TWO PUFFS BY MOUTH FOUR TIMES A DAY NEEDED SOLD: 03/27/2020 [facility] Furosemide 40 MG Oral Tablet furosemide (LASIX) 40 MG tablet furosemide (LASIX) 40 MG tablet 03/16/2020 12:00:00 AM EST activ e Two tabs twice daily [facility] apixaban 2.5 MG Oral Tablet Apixaban (ELIQUIS) 2.5 MG TABS tablet Apixaban (ELIQUIS) 2.5 MG TABS tablet 03/16/2020 12:00:00 AM EST 5 mg Oral active Take 2 tablets (5 mg total) by mouth 2 ( two) times a day [facility] 325 mg (65 mg iron) 03/11/2020 12:00:00 AM EST tablet, delayed release (DR/EC) 30 TAKE ONE TABLET BY MOUTH THREE TIMES A D AY WITH MEALS TAKE ONE TABLET BY MOUTH THREE TIMES A DAY WITH MEALS SOLD: 03/30/2020 [facility] 325 mg (65 mg iron) 03/11/2020 12:00:00 AM EST tablet, delayed release (DR/EC) 30 TAKE ONE TABLET BY MOUTH THREE TIMES A D AY WITH MEALS TAKE ONE TABLET BY MOUTH THREE TIMES A DAY WITH MEALS SOLD: 03/11/2020 [facility] 325 mg (65 mg iron) 03/11/2020 12:00:00 AM EST tablet, delayed release (DR/EC) 30 TAKE ONE TABLET BY MOUTH THREE TIMES A D AY WITH MEALS TAKE ONE TABLET BY MOUTH THREE TIMES A DAY WITH MEALS SOLD: 03/21/2020 [facility] ferrous sulfate 325 MG Delayed Release O ral Tablet ferrous sulfate 325 (65 FE) MG EC tablet ferrous sulfate 325 (65 FE) MG EC tablet 03/10/2020 12 :00:00 AM EST 325 mg Oral aborted Take 1 t ablet (325 mg total) by mouth 3 (three) times a day with meals [facility] 20 mcg/2 mL 2020 12:00:00 AM EST solution for nebuliza tion 120 INHALE ONE VIAL VIA NEBULIZER TWO TIMES A DAY INHALE ONE VIAL VIA NEBULIZER TWO TIMES A DAY SOLD: 02/29/2020 [facility] 20 mcg/2 mL 2020 12:00:00 AM EST solution for nebuliza tion 120 INHALE ONE VIAL VIA NEBULIZER TWO TIMES A DAY INHALE ONE VIAL VIA NEBULIZER TWO TIMES A DAY SOLD: 03/30/2020 [facility] 5 mg 02/15/2020 12:00:00 AM EST tablet 60 TAKE ONE TABLET BY MOUTH TWICE A DAY TAKE ONE TABLET BY MOUTH TWICE A DAY SOLD: 03/16/2020 [facility] 5 mg 02/15/2020 12:00:00 AM EST tablet 60 TAKE ONE TABLET BY MOUTH TWICE A DAY TAKE ONE TABLET BY MOUTH TWICE A DAY SOLD: 02/17/2020 [facility] 40 mg 01/25/2020 12:00:00 AM EDT tablet 90 TAKE ONE AND ONE-HALF TABLETS BY MOUTH TWICE A DAY TAKE ONE AND ONE-HALF TABLETS BY MOUTH TWICE A DAY LUZ [facility] 40 mg 01/25/2020 12:00:00 AM EDT tablet 90 TAKE ONE AND ONE-HALF TABLETS BY MOUTH TWICE A DAY TAKE ONE AND ONE-HALF TABLETS BY MOUTH TWICE A DAY LUZ [facility] 112 mcg 01/05/2020 12:00:00 AM EDT tablet 30 TAKE ONE TABLET BY MOUTH EVERY MORNING ON AN EMPTY STOMACH TAKE ONE TABLET BY MOUTH EVERY MORNING O N AN EMPTY STOMACH SOLD: 04/13/2020 [facility] 112 mcg 01/05/2020 12:00:00 AM EDT tablet 30 TAKE ONE TABLET BY MOUTH EVERY MORNING ON AN EMPTY STOMACH TAKE ONE TABLET BY MOUTH EVERY MORNING O N AN EMPTY STOMACH SOLD: 02/17/2020 [facility] 112 mcg 01/05/2020 12:00:00 AM EDT tablet 30 TAKE ONE TABLET BY MOUTH EVERY MORNING ON AN EMPTY STOMACH TAKE ONE TABLET BY MOUTH EVERY MORNING O N AN EMPTY STOMACH SOLD: 03/16/2020 [facility] 112 mcg 01/05/2020 12:00:00 AM EDT tablet 30 TAKE ONE TABLET BY MOUTH EVERY MORNING ON AN EMPTY STOMACH TAKE ONE TABLET BY MOUTH EVERY MORNING O N AN EMPTY STOMACH SOLD: 01/06/2020 [facility] 5 mg 12/15/2019 12:00:00 AM EDT tablet 60 TAKE ONE TABLET BY MOUTH TWICE A DAY TAKE ONE TABLET BY MOUTH TWICE A DAY SOLD: 01/18/2020 [facility] 5 mg 12/15/2019 12:00:00 AM EDT tablet 60 TAKE ONE TABLET BY MOUTH TWICE A DAY TAKE ONE TABLET BY MOUTH TWICE A DAY SOLD: 12/16/2019 [facility] 24 HR Diltiazem Hydrochloride 360 MG Extended Release Oral Capsule DILTIAZEM HCL 11/24/2019 12:00:00 AM EDT capsule,extended release 24hr 90 TAKE ONE CAPSULE BY MOUTH EVERY MORNING TAKE ONE CAPSULE BY MOUTH EVERY MORNING SOLD: 02/22/2020 [facility] 10 mg 11/24/2019 12:00:00 AM EDT tablet 90 TAKE ONE TABLET BY MOUTH AT BEDTIME TAKE ONE TABLET BY MOUTH AT BEDTIME SOLD: 03/21/2020 [facility] Simvastatin 10 MG Oral Tablet simvastatin (ZOCOR) 10 M G tablet simvastatin (ZOCOR) 10 MG tablet 11/24/2019 12:00:00 AM EDT 10 mg Oral active Take 10 mg by mouth daily [facility] 10 mg 11/24/2019 12:00:00 AM EDT tablet 90 TAKE ONE TABLET BY MOUTH AT BEDTIME TAKE ONE TABLET BY MOUTH AT BEDTIME SOLD: 11/25/2019 [facility] 24 HR Diltiazem Hydrochloride 360 MG Extended Release Oral Capsule DILTIAZEM HCL 11/24/2019 12:00:00 AM EDT capsule,extended release 24hr 90 TAKE ONE CAPSULE BY MOUTH EVERY MORNING TAKE ONE CAPSULE BY MOUTH EVERY MORNING SOLD: 11/25/2019 [facility] 90 mcg/actuation 11/23/2019 12:00:00 AM EDT HFA aerosol inha ler 54 INHALE TWO PUFFS BY MOUTH FOUR TIMES A DAY NEEDED INHALE TWO PUFFS BY MOUTH FOUR TIMES A DAY NEEDED SOLD: 01/18/2020 [facility] 90 mcg/actuation 11/23/2019 12:00:00 AM EDT HFA aerosol inha ler 54 INHALE TWO PUFFS BY MOUTH FOUR TIMES A DAY NEEDED INHALE TWO PUFFS BY MOUTH FOUR TIMES A DAY NEEDED SOLD: 11/23/2019 [facility] potassium chloride (KLOR-CON) 20 MEQ packet [id number] 11/12/2019 12:00:00 AM EDT 20 meq Oral active Take 20 mEq by mo ut 2 (two) times a day [facility] 0.5 mg/2 mL 11/10/2019 12:00:00 AM EDT suspension for nebuli zation 120 INHALE THE CONTENTS OF ONE VIAL VIA NEBULIZER TWICE A DAY INHALE THE CONTENTS OF ONE VIAL VIA NEBULIZER TWICE A DAY SOLD: 01/20/2020 [facility] 0.5 mg/2 mL 11/10/2019 12:00:00 AM EDT suspension for nebuli zation 120 INHALE THE CONTENTS OF ONE VIAL VIA NEBULIZER TWICE A DAY INHALE THE CONTENTS OF ONE VIAL VIA NEBULIZER TWICE A DAY SOLD: 02/22/2020 [facility] 0.5 mg/2 mL 11/10/2019 12:00:00 AM EDT suspension for nebuli zation 120 INHALE THE CONTENTS OF ONE VIAL VIA NEBULIZER TWICE A DAY INHALE THE CONTENTS OF ONE VIAL VIA NEBULIZER TWICE A DAY SOLD: 03/23/2020 [facility] 0.5 mg/2 mL 11/10/2019 12:00:00 AM EDT suspension for nebuli zation 120 INHALE THE CONTENTS OF ONE VIAL VIA NEBULIZER TWICE A DAY INHALE THE CONTENTS OF ONE VIAL VIA NEBULIZER TWICE A DAY SOLD: 11/11/2019 [facility] 0.5 mg/2 mL 11/10/2019 12:00:00 AM EDT suspension for nebuli zation 120 INHALE THE CONTENTS OF ONE VIAL VIA NEBULIZER TWICE A DAY INHALE THE CONTENTS OF ONE VIAL VIA NEBULIZER TWICE A DAY SOLD: 12/23/2019 [facility] 25 mg 11/03/2019 12:00:00 AM EDT tablet 15 TAKE 1/2 TABLET BY MOUTH EVERY MORNING TAKE 1/2 TABLET BY MOUTH EVERY MORNING SOLD: 02/01/2020 [facility] 25 mg 11/03/2019 12:00:00 AM EDT tablet 15 TAKE 1/2 TABLET BY MOUTH EVERY MORNING TAKE 1/2 TABLET BY MOUTH EVERY MORNING SOLD: 12/02/2019 [facility] 25 mg 11/03/2019 12:00:00 AM EDT tablet 15 TAKE 1/2 TABLET BY MOUTH EVERY MORNING TAKE 1/2 TABLET BY MOUTH EVERY MORNING SOLD: 03/30/2020 [facility] 25 mg 11/03/2019 12:00:00 AM EDT tablet 15 TAKE 1/2 TABLET BY MOUTH EVERY MORNING TAKE 1/2 TABLET BY MOUTH EVERY MORNING SOLD: 01/06/2020 [facility] 25 mg 11/03/2019 12:00:00 AM EDT tablet 15 TAKE 1/2 TABLET BY MOUTH EVERY MORNING TAKE 1/2 TABLET BY MOUTH EVERY MORNING SOLD: 03/02/2020 [facility] 25 mg 11/03/2019 12:00:00 AM EDT tablet 15 TAKE 1/2 TABLET BY MOUTH EVERY MORNING TAKE 1/2 TABLET BY MOUTH EVERY MORNING SOLD: 11/04/2019 [facility] 40 mg 10/27/2019 12:00:00 AM EDT tablet 60 TAKE 1 AND 1/2 TABLET BY MOUTH TWO TIMES A DAY TAKE 1 AND 1/2 TABLET BY MOUTH TWO TIMES A DAY SOLD: 020 [facility] 40 mg 10/27/2019 12:00:00 AM EDT tablet 60 TAKE 1 AND 1/2 TABLET BY MOUTH TWO TIMES A DAY TAKE 1 AND 1/2 TABLET BY MOUTH TWO TIMES A DAY SOLD: 020 [facility] 40 mg 10/27/2019 12:00:00 AM EDT tablet 60 TAKE 1 AND 1/2 TABLET BY MOUTH TWO TIMES A DAY TAKE 1 AND 1/2 TABLET BY MOUTH TWO TIMES A DAY SOLD: 020 [facility] Doxazosin 1 MG Oral Tablet doxazosin (CARDURA) 1 MG ta blet doxazosin (CARDURA) 1 MG tablet 09/28/2019 12:00:00 AM EDT 1 mg Oral active Take 1 tablet (1 mg total) by mouth daily [facility] 20 mcg/2 mL 08/26/2019 12:00:00 AM EDT solution for nebuliza tion 120 USE 1 VIAL VIA NEBULIZER TWO TIMES A DAY USE 1 VIAL VIA NEBULIZER TWO TIMES A DAY SOLD: 02/01/2020 [facility] 20 mcg/2 mL 08/26/2019 12:00:00 AM EDT solution for nebuliza tion 120 USE 1 VIAL VIA NEBULIZER TWO TIMES A DAY USE 1 VIAL VIA NEBULIZER TWO TIMES A DAY SOLD: 12/30/2019 [facility] 20 mcg/2 mL 08/26/2019 12:00:00 AM EDT solution for nebuliza tion 120 USE 1 VIAL VIA NEBULIZER TWO TIMES A DAY USE 1 VIAL VIA NEBULIZER TWO TIMES A DAY SOLD: 10/28/2019 [facility] 20 mcg/2 mL 08/26/2019 12:00:00 AM EDT solution for nebuliza tion 120 USE 1 VIAL VIA NEBULIZER TWO TIMES A DAY USE 1 VIAL VIA NEBULIZER TWO TIMES A DAY SOLD: 08/26/2019 [facility] 20 mcg/2 mL 08/26/2019 12:00:00 AM EDT solution for nebuliza tion 120 USE 1 VIAL VIA NEBULIZER TWO TIMES A DAY USE 1 VIAL VIA NEBULIZER TWO TIMES A DAY SOLD: 12/02/2019 [facility] 20 mcg/2 mL 08/26/2019 12:00:00 AM EDT solution for nebuliza tion 60 USE 1 VIAL VIA NEBULIZER TWO TIMES A DAY USE 1 VIAL VIA NEBULIZER TWO TIMES A DAY SOLD: 10/02/2019 [facility] 5 mg 08/16/2019 12:00:00 AM EDT tablet 60 TAKE ONE TABLET BY MOUTH TWICE A DAY TAKE ONE TABLET BY MOUTH TWICE A DAY SOLD: 10/14/2019 [facility] 40 mg 08/16/2019 12:00:00 AM EDT tablet 60 TAKE ONE AND ONE-HALF TABLETS BY MOUTH TWICE A DAY TAKE ONE AND ONE-HALF TABLETS BY MOUTH TWICE A DAY LUZ [facility] 112 mcg 08/16/2019 12:00:00 AM EDT tablet 30 TAKE ONE TABLET BY MOUTH EVERY MORNING ON AN EMPTY STOMACH TAKE ONE TABLET BY MOUTH EVERY MORNING O N AN EMPTY STOMACH SOLD: 08/17/2019 [facility] 112 mcg 08/16/2019 12:00:00 AM EDT tablet 30 TAKE ONE TABLET BY MOUTH EVERY MORNING ON AN EMPTY STOMACH TAKE ONE TABLET BY MOUTH EVERY MORNING O N AN EMPTY STOMACH SOLD: 09/16/2019 [facility] 112 mcg 08/16/2019 12:00:00 AM EDT tablet 30 TAKE ONE TABLET BY MOUTH EVERY MORNING ON AN EMPTY STOMACH TAKE ONE TABLET BY MOUTH EVERY MORNING O N AN EMPTY STOMACH SOLD: 11/16/2019 [facility] 5 mg 08/16/2019 12:00:00 AM EDT tablet 60 TAKE ONE TABLET BY MOUTH TWICE A DAY TAKE ONE TABLET BY MOUTH TWICE A DAY SOLD: 08/17/2019 [facility] 112 mcg 08/16/2019 12:00:00 AM EDT tablet 30 TAKE ONE TABLET BY MOUTH EVERY MORNING ON AN EMPTY STOMACH TAKE ONE TABLET BY MOUTH EVERY MORNING O N AN EMPTY STOMACH SOLD: 10/14/2019 [facility] 5 mg 08/16/2019 12:00:00 AM EDT tablet 60 TAKE ONE TABLET BY MOUTH TWICE A DAY TAKE ONE TABLET BY MOUTH TWICE A DAY SOLD: 11/16/2019 [facility] 112 mcg 08/16/2019 12:00:00 AM EDT tablet 30 TAKE ONE TABLET BY MOUTH EVERY MORNING ON AN EMPTY STOMACH TAKE ONE TABLET BY MOUTH EVERY MORNING O N AN EMPTY STOMACH SOLD: 12/14/2019 [facility] 40 mg 08/16/2019 12:00:00 AM EDT tablet 60 TAKE ONE AND ONE-HALF TABLETS BY MOUTH TWICE A DAY TAKE ONE AND ONE-HALF TABLETS BY MOUTH TWICE A DAY LUZ [facility] 40 mg 08/16/2019 12:00:00 AM EDT tablet 60 TAKE ONE AND ONE-HALF TABLETS BY MOUTH TWICE A DAY TAKE ONE AND ONE-HALF TABLETS BY MOUTH TWICE A DAY LUZ [facility] 5 mg 08/16/2019 12:00:00 AM EDT tablet 60 TAKE ONE TABLET BY MOUTH TWICE A DAY TAKE ONE TABLET BY MOUTH TWICE A DAY SOLD: 09/16/2019 [facility] 90 mcg/actuation 08/09/2019 12:00:00 AM EDT HFA aerosol inha ler 54 INHALE 2 PUFFS BY MOUTH FOUR TIMES A DAY NEEDED INHALE 2 PUFFS BY MOUTH FOUR TIMES A DAY NEEDED SOLD: 08/10/2019 [facility] 90 mcg/actuation 08/09/2019 12:00:00 AM EDT HFA aerosol inha ler 54 INHALE 2 PUFFS BY MOUTH FOUR TIMES A DAY NEEDED INHALE 2 PUFFS BY MOUTH FOUR TIMES A DAY NEEDED SOLD: 10/02/2019 [facility] 1,250 mcg (50,000 unit) 08/05/2019 12:00:00 AM EDT capsule 2 TAKE 1 CAPSULE BY MOUTH EVERY 14 DAYS TAKE 1 CAPSULE BY MOUTH EVERY 14 DAYS SOLD: 08/10/2019 [facility] 1,250 mcg (50,000 unit) 08/05/2019 12:00:00 AM EDT capsule 2 TAKE 1 CAPSULE BY MOUTH EVERY 14 DAYS TAKE 1 CAPSULE BY MOUTH EVERY 14 DAYS SOLD: 01/11/2020 [facility] 1,250 mcg (50,000 unit) 08/05/2019 12:00:00 AM EDT capsule 2 TAKE 1 CAPSULE BY MOUTH EVERY 14 DAYS TAKE 1 CAPSULE BY MOUTH EVERY 14 DAYS SOLD: 09/16/2019 [facility] 24 HR Diltiazem Hydrochloride 360 MG Extended Release Oral Capsule DILTIAZEM HCL 07/20/2019 12:00:00 AM EDT capsule,extended release 24hr 30 TAKE ONE CAPSULE BY MOUTH EVERY DAY TAKE ONE CAPSULE BY MOUTH EVERY DAY SOLD: 09/23/2019 [facility] 360 mg 07/20/2019 12:00:00 AM EDT capsule,extended releas e 24hr 30 TAKE ONE CAPSULE BY MOUTH EVERY DAY TAKE ONE CAPSULE BY MOUTH EVERY DAY SOLD: 07/27/2019 [facility] 24 HR Diltiazem Hydrochloride 360 MG Extended Release Oral Capsule DILTIAZEM HCL 07/20/2019 12:00:00 AM EDT capsule,extended release 24hr 30 TAKE ONE CAPSULE BY MOUTH EVERY DAY TAKE ONE CAPSULE BY MOUTH EVERY DAY SOLD: 10/26/2019 [facility] 24 HR Diltiazem Hydrochloride 360 MG Extended Release Oral Capsule DILTIAZEM HCL 07/20/2019 12:00:00 AM EDT capsule,extended release 24hr 30 TAKE ONE CAPSULE BY MOUTH EVERY DAY TAKE ONE CAPSULE BY MOUTH EVERY DAY SOLD: 08/26/2019 [facility] 20 mEq 07/06/2019 12:00:00 AM EDT packet 60 TAKE ONE PACKET BY MOUTH TWICE A DAY WITH FOOD TAKE ONE PACKET BY MOUTH TWICE A DAY WITH FOOD SOLD: 020 [facility] 20 mEq 07/06/2019 12:00:00 AM EDT packet 60 TAKE ONE PACKET BY MOUTH TWICE A DAY WITH FOOD TAKE ONE PACKET BY MOUTH TWICE A DAY WITH FOOD SOLD: 020 [facility] 20 mEq 07/06/2019 12:00:00 AM EDT packet 60 TAKE ONE PACKET BY MOUTH TWICE A DAY WITH FOOD TAKE ONE PACKET BY MOUTH TWICE A DAY WITH FOOD SOLD: 020 [facility] Potassium Chloride 20 MEQ Potassium Chloride 20 MEQ 07/05/2019 1 2:00:00 AM EDT 1.0 {packet_with_food} active P otassium Chloride 20 MEQ eCW1 ([facility]) Potassium Chloride 20 MEQ Potassium Chloride 20 MEQ 07/05/2019 1 2:00:00 AM EDT 1.0 {packet_with_food} active P otassium Chloride 20 MEQ eCW1 ([facility]) Potassium Chloride 20 MEQ Potassium Chloride 20 MEQ 07/05/2019 1 2:00:00 AM EDT 1.0 {packet_with_food} active P otassium Chloride 20 MEQ eCW1 ([facility]) Potassium Chloride 20 MEQ Potassium Chloride 20 MEQ 07/05/2019 1 2:00:00 AM EDT 1.0 {packet_with_food} active P otassium Chloride 20 MEQ eCW1 ([facility]) Potassium Chloride 20 MEQ Potassium Chloride 20 MEQ 07/05/2019 1 2:00:00 AM EDT 1.0 {packet_with_food} active P otassium Chloride 20 MEQ eCW1 ([facility]) Potassium Chloride 20 MEQ Potassium Chloride 20 MEQ 07/05/2019 1 2:00:00 AM EDT 1.0 {packet_with_food} active P otassium Chloride 20 MEQ eCW1 ([facility]) Potassium Chloride 20 MEQ Potassium Chloride 20 MEQ 07/05/2019 1 2:00:00 AM EDT 1.0 {packet_with_food} active P otassium Chloride 20 MEQ eCW1 ([facility]) Potassium Chloride 20 MEQ Potassium Chloride 20 MEQ 07/05/2019 1 2:00:00 AM EDT 1.0 {packet_with_food} active P otassium Chloride 20 MEQ eCW1 ([facility]) Potassium Chloride 20 MEQ Potassium Chloride 20 MEQ 07/05/2019 1 2:00:00 AM EDT 1.0 {packet_with_food} active P otassium Chloride 20 MEQ eCW1 ([facility]) Potassium Chloride 20 MEQ Potassium Chloride 20 MEQ 07/05/2019 1 2:00:00 AM EDT 1.0 {packet_with_food} active P otassium Chloride 20 MEQ eCW1 ([facility]) Potassium Chloride 20 MEQ Potassium Chloride 20 MEQ 07/05/2019 1 2:00:00 AM EDT 1.0 {packet_with_food} active P otassium Chloride 20 MEQ eCW1 ([facility]) Potassium Chloride 20 MEQ Potassium Chloride 20 MEQ 07/05/2019 1 2:00:00 AM EDT 1.0 {packet_with_food} active P otassium Chloride 20 MEQ eCW1 ([facility]) Potassium Chloride 20 MEQ Potassium Chloride 20 MEQ 07/05/2019 1 2:00:00 AM EDT 1.0 {packet_with_food} active P otassium Chloride 20 MEQ eCW1 ([facility]) Potassium Chloride 20 MEQ Potassium Chloride 20 MEQ 07/05/2019 1 2:00:00 AM EDT 1.0 {packet_with_food} active P otassium Chloride 20 MEQ eCW1 ([facility]) Potassium Chloride 20 MEQ Potassium Chloride 20 MEQ 07/05/2019 1 2:00:00 AM EDT 1.0 {packet_with_food} active P otassium Chloride 20 MEQ eCW1 ([facility]) 25 mg 07/01/2019 12:00:00 AM EDT tablet 15 TAKE 1/2 TABLET BY MOUTH IN THE MORNING WITH FOOD TAKE 1/2 TABLET BY MOUTH IN THE MORNING WITH FOOD SOLD : 09/30/2019 [facility] 25 mg 07/01/2019 12:00:00 AM EDT tablet 15 TAKE 1/2 TABLET BY MOUTH IN THE MORNING WITH FOOD TAKE 1/2 TABLET BY MOUTH IN THE MORNING WITH FOOD SOLD : 08/03/2019 [facility] 25 mg 07/01/2019 12:00:00 AM EDT tablet 15 TAKE 1/2 TABLET BY MOUTH IN THE MORNING WITH FOOD TAKE 1/2 TABLET BY MOUTH IN THE MORNING WITH FOOD SOLD : 07/06/2019 [facility] 25 mg 07/01/2019 12:00:00 AM EDT tablet 15 TAKE 1/2 TABLET BY MOUTH IN THE MORNING WITH FOOD TAKE 1/2 TABLET BY MOUTH IN THE MORNING WITH FOOD SOLD : 08/26/2019 [facility] 20 mEq 06/30/2019 12:00:00 AM EDT tablet extended release 30 TAKE ONE TABLET BY MOUTH EVERY DAY TAKE ONE TABLET BY MOUTH EVERY DAY SOLD: 07/01/2019 [facility] 40 mg 06/30/2019 12:00:00 AM EDT tablet 90 TAKE 1 AND 1/2 TABLETS BY MOUTH TWO TIMES A DAY TAKE 1 AND 1/2 TABLETS BY MOUTH TWO TIMES A DAY SOLD: 07/01/2019 [facility] 0.5 mg/2 mL 06/28/2019 12:00:00 AM EDT suspension for nebuli zation 120 USE ONE VIAL VIA NEBULIZER TWICE A DAY USE ONE VIAL VIA NEBULIZER TWICE A DAY SOLD: 09/23/2019 [facility] 0.5 mg/2 mL 06/28/2019 12:00:00 AM EDT suspension for nebuli zation 120 USE ONE VIAL VIA NEBULIZER TWICE A DAY USE ONE VIAL VIA NEBULIZER TWICE A DAY SOLD: 10/21/2019 [facility] 0.5 mg/2 mL 06/28/2019 12:00:00 AM EDT suspension for nebuli zation 120 USE ONE VIAL VIA NEBULIZER TWICE A DAY USE ONE VIAL VIA NEBULIZER TWICE A DAY SOLD: 08/26/2019 [facility] 0.5 mg/2 mL 06/28/2019 12:00:00 AM EDT suspension for nebuli zation 120 USE ONE VIAL VIA NEBULIZER TWICE A DAY USE ONE VIAL VIA NEBULIZER TWICE A DAY SOLD: 07/27/2019 [facility] 0.5 mg/2 mL 06/28/2019 12:00:00 AM EDT suspension for nebuli zation 120 USE ONE VIAL VIA NEBULIZER TWICE A DAY USE ONE VIAL VIA NEBULIZER TWICE A DAY SOLD: 06/29/2019 [facility] 10 mg 06/21/2019 12:00:00 AM EDT tablet 90 TAKE ONE TABLET BY MOUTH EVERY EVENING TAKE ONE TABLET BY MOUTH EVERY EVENING SOLD: 09/16/2019 [facility] 10 mg 06/21/2019 12:00:00 AM EDT tablet 90 TAKE ONE TABLET BY MOUTH EVERY EVENING TAKE ONE TABLET BY MOUTH EVERY EVENING SOLD: 06/24/2019 [facility] Doxazosin 1 MG Oral Tablet DOXAZOSIN MESYLATE 06/01/2019 12:00:00 A M EST tablet 90 TAKE ONE TABLET BY MOUTH ONCE DAILY TAKE ONE TAB LET BY MOUTH ONCE DAILY SOLD: 06/03/2019 [facility] 40 mg 04/27/2019 12:00:00 AM EST tablet 60 TAKE ONE TABLET BY MOUTH TWICE A DAY TAKE ONE IN THE MORNING AND ONE IN THE MIDDAY TAKE ONE TABLET BY MOUTH TWICE A DAY TAKE ONE IN THE MORNING AND ONE IN THE MIDDAY SOLD: 06/17/2019 [facility] 40 mg 04/27/2019 12:00:00 AM EST tablet 60 TAKE ONE TABLET BY MOUTH TWICE A DAY TAKE ONE IN THE MORNING AND ONE IN THE MIDDAY TAKE ONE TABLET BY MOUTH TWICE A DAY TAKE ONE IN THE MORNING AND ONE IN THE MIDDAY SOLD: 05/04/2019 [facility] 112 mcg 04/21/2019 12:00:00 AM EST tablet 30 TAKE ONE TABLET BY MOUTH EVERY MORNING ON EMPTY STOMACH TAKE ONE TABLET BY MOUTH EVERY MORNING O N EMPTY STOMACH SOLD: 07/20/2019 [facility] 112 mcg 04/21/2019 12:00:00 AM EST tablet 30 TAKE ONE TABLET BY MOUTH EVERY MORNING ON EMPTY STOMACH TAKE ONE TABLET BY MOUTH EVERY MORNING O N EMPTY STOMACH SOLD: 04/22/2019 [facility] 112 mcg 04/21/2019 12:00:00 AM EST tablet 30 TAKE ONE TABLET BY MOUTH EVERY MORNING ON EMPTY STOMACH TAKE ONE TABLET BY MOUTH EVERY MORNING O N EMPTY STOMACH SOLD: 05/20/2019 [facility] 112 mcg 04/21/2019 12:00:00 AM EST tablet 30 TAKE ONE TABLET BY MOUTH EVERY MORNING ON EMPTY STOMACH TAKE ONE TABLET BY MOUTH EVERY MORNING O N EMPTY STOMACH SOLD: 06/24/2019 [facility] 5 mg 04/15/2019 12:00:00 AM EST tablet 60 TAKE ONE TABLET BY MOUTH TWICE A DAY TAKE ONE TABLET BY MOUTH TWICE A DAY SOLD: 07/20/2019 [facility] 5 mg 04/15/2019 12:00:00 AM EST tablet 60 TAKE ONE TABLET BY MOUTH TWICE A DAY TAKE ONE TABLET BY MOUTH TWICE A DAY SOLD: 06/17/2019 [facility] 5 mg 04/15/2019 12:00:00 AM EST tablet 60 TAKE ONE TABLET BY MOUTH TWICE A DAY TAKE ONE TABLET BY MOUTH TWICE A DAY SOLD: 04/20/2019 [facility] 5 mg 04/15/2019 12:00:00 AM EST tablet 60 TAKE ONE TABLET BY MOUTH TWICE A DAY TAKE ONE TABLET BY MOUTH TWICE A DAY SOLD: 05/20/2019 [facility] 360 mg 03/26/2019 12:00:00 AM EST capsule,extended releas e 24hr 30 TAKE ONE CAPSULE BY MOUTH EVERY DAY TAKE ONE CAPSULE BY MOUTH EVERY DAY SOLD: 05/30/2019 [facility] 360 mg 03/26/2019 12:00:00 AM EST capsule,extended releas e 24hr 30 TAKE ONE CAPSULE BY MOUTH EVERY DAY TAKE ONE CAPSULE BY MOUTH EVERY DAY SOLD: 03/30/2019 [facility] 360 mg 03/26/2019 12:00:00 AM EST capsule,extended releas e 24hr 30 TAKE ONE CAPSULE BY MOUTH EVERY DAY TAKE ONE CAPSULE BY MOUTH EVERY DAY SOLD: 06/29/2019 [facility] 360 mg 03/26/2019 12:00:00 AM EST capsule,extended releas e 24hr 30 TAKE ONE CAPSULE BY MOUTH EVERY DAY TAKE ONE CAPSULE BY MOUTH EVERY DAY SOLD: 04/27/2019 [facility] 20 mcg/2 mL 02/24/2019 12:00:00 AM EST solution for nebuliza tion 120 INHALE 1 VIAL VIA NEBULIZER TWO TIMES A DAY INHALE 1 VIAL VIA NEBULIZER TWO TIMES A DAY SOLD: 03/30/2019 [facility] 20 mcg/2 mL 02/24/2019 12:00:00 AM EST solution for nebuliza tion 120 INHALE 1 VIAL VIA NEBULIZER TWO TIMES A DAY INHALE 1 VIAL VIA NEBULIZER TWO TIMES A DAY SOLD: 05/30/2019 [facility] 20 mcg/2 mL 02/24/2019 12:00:00 AM EST solution for nebuliza tion 120 INHALE 1 VIAL VIA NEBULIZER TWO TIMES A DAY INHALE 1 VIAL VIA NEBULIZER TWO TIMES A DAY SOLD: 06/24/2019 [facility] 20 mcg/2 mL 02/24/2019 12:00:00 AM EST solution for nebuliza tion 120 INHALE 1 VIAL VIA NEBULIZER TWO TIMES A DAY INHALE 1 VIAL VIA NEBULIZER TWO TIMES A DAY SOLD: 07/27/2019 [facility] 20 mcg/2 mL 02/24/2019 12:00:00 AM EST solution for nebuliza tion 120 INHALE 1 VIAL VIA NEBULIZER TWO TIMES A DAY INHALE 1 VIAL VIA NEBULIZER TWO TIMES A DAY SOLD: 03/02/2019 [facility] 20 mcg/2 mL 02/24/2019 12:00:00 AM EST solution for nebuliza tion 120 INHALE 1 VIAL VIA NEBULIZER TWO TIMES A DAY INHALE 1 VIAL VIA NEBULIZER TWO TIMES A DAY SOLD: 05/04/2019 [facility] 112 mcg 02/20/2019 12:00:00 AM EST tablet 30 TAKE ONE TABLET BY MOUTH EVERY MORNING ON EMPTY STOMACH TAKE ONE TABLET BY MOUTH EVERY MORNING O N EMPTY STOMACH SOLD: 03/23/2019 [facility] 112 mcg 02/20/2019 12:00:00 AM EST tablet 30 TAKE ONE TABLET BY MOUTH EVERY MORNING ON EMPTY STOMACH TAKE ONE TABLET BY MOUTH EVERY MORNING O N EMPTY STOMACH SOLD: 02/23/2019 [facility] 10 mg 02/11/2019 12:00:00 AM EST tablet 30 TAKE ONE TABLET BY MOUTH EVERY EVENING TAKE ONE TABLET BY MOUTH EVERY EVENING SOLD: 03/23/2019 [facility] 10 mg 02/11/2019 12:00:00 AM EST tablet 30 TAKE ONE TABLET BY MOUTH EVERY EVENING TAKE ONE TABLET BY MOUTH EVERY EVENING SOLD: 05/20/2019 [facility] 10 mg 02/11/2019 12:00:00 AM EST tablet 30 TAKE ONE TABLET BY MOUTH EVERY EVENING TAKE ONE TABLET BY MOUTH EVERY EVENING SOLD: 04/27/2019 [facility] 40 mg 01/05/2019 12:00:00 AM EDT tablet 60 TAKE 1 TABLET BY MOUTH IN THE MORNING AND 1 AT MIDDAY TAKE 1 TABLET BY MOUTH IN THE MORNING AND 1 AT MIDDAY SOLD: 03/02/2019 [facility] Furosemide 40 MG Oral Tablet furosemide (LASIX) 40 MG tablet furosemide (LASIX) 40 MG tablet 01/05/2019 12:00:00 AM EDT 40 mg Oral abort ed Take 40 mg by mouth 2 (two) times a day 1.5 tabs BID [facility] apixaban 5 MG Oral Tablet [Eliquis] ELIQUIS 5 MG TABS tablet ELIQUIS 5 MG TABS tablet 01/05/2019 12:00:00 AM EDT 5 mg Oral aborted Take 5 mg by mouth 2 (two) times a day [facility] 5 mg 01/05/2019 12:00:00 AM EDT tablet 60 TAKE ONE TABLET BY MOUTH TWICE A DAY TAKE ONE TABLET BY MOUTH TWICE A DAY SOLD: 02/23/2019 [facility] 0.5 mg/2 mL 12/23/2018 12:00:00 AM EDT suspension for nebuli zation 120 USE 1 VIAL VIA NEBULIZER TWO TIMES A DAY USE 1 VIAL VIA NEBULIZER TWO TIMES A DAY SOLD: 04/22/2019 [facility] 0.5 mg/2 mL 12/23/2018 12:00:00 AM EDT suspension for nebuli zation 120 USE 1 VIAL VIA NEBULIZER TWO TIMES A DAY USE 1 VIAL VIA NEBULIZER TWO TIMES A DAY SOLD: 05/30/2019 [facility] 0.5 mg/2 mL 12/23/2018 12:00:00 AM EDT suspension for nebuli zation 120 USE 1 VIAL VIA NEBULIZER TWO TIMES A DAY USE 1 VIAL VIA NEBULIZER TWO TIMES A DAY SOLD: 03/25/2019 [facility] 0.5 mg/2 mL 12/23/2018 12:00:00 AM EDT suspension for nebuli zation 120 USE 1 VIAL VIA NEBULIZER TWO TIMES A DAY USE 1 VIAL VIA NEBULIZER TWO TIMES A DAY SOLD: 02/23/2019 [facility] 1,250 mcg (50,000 unit) 12/03/2018 12:00:00 AM EDT capsule 2 TAKE ONE CAPSULE BY MOUTH EVERY 14 DAYS TAKE ONE CAPSULE BY MOUTH EVERY 14 DAYS SOLD: 06/24/2019 [facility] 1,250 mcg (50,000 unit) 12/03/2018 12:00:00 AM EDT capsule 2 TAKE ONE CAPSULE BY MOUTH EVERY 14 DAYS TAKE ONE CAPSULE BY MOUTH EVERY 14 DAYS SOLD: 07/20/2019 [facility] 360 mg 11/26/2018 12:00:00 AM EDT capsule,extended releas e 24hr 30 TAKE ONE CAPSULE BY MOUTH EVERY DAY TAKE ONE CAPSULE BY MOUTH EVERY DAY SOLD: 03/02/2019 [facility] 25 mg 10/21/2018 12:00:00 AM EDT tablet 15 TAKE 1/2 TABLET BY MOUTH IN THE MORNING WITH FOOD TAKE 1/2 TABLET BY MOUTH IN THE MORNING WITH FOOD SOLD : 03/23/2019 [facility] 90 mcg/actuation 08/31/2018 12:00:00 AM EDT HFA aerosol inha ler 54 INHALE TWO PUFFS BY MOUTH FOUR TIMES A DAY NEEDED INHALE TWO PUFFS BY MOUTH FOUR TIMES A DAY NEEDED SOLD: 03/02/2019 [facility] 90 mcg/actuation 08/31/2018 12:00:00 AM EDT HFA aerosol inha ler 54 INHALE TWO PUFFS BY MOUTH FOUR TIMES A DAY NEEDED INHALE TWO PUFFS BY MOUTH FOUR TIMES A DAY NEEDED SOLD: 04/27/2019 [facility] 90 mcg/actuation 08/31/2018 12:00:00 AM EDT HFA aerosol inha ler 54 INHALE TWO PUFFS BY MOUTH FOUR TIMES A DAY NEEDED INHALE TWO PUFFS BY MOUTH FOUR TIMES A DAY NEEDED SOLD: 06/17/2019 [facility] Simvastatin 40 MG Oral Tablet simvastatin (ZOCOR) 40 M G tablet simvastatin (ZOCOR) 40 MG tablet 40 mg Oral aborted Nelson e 40 mg by mouth daily [facility] Insurance Providers Payer name Policy type / Coverage type Policy ID Covered green party ID Covered green party's relationship to [place] Policy [place] Plan Information [employer] GOLD [id number] SP [id number] [employer] MEDICARE [id number] MEDICAID [id number] [employer] GOLD [id number] SP [id number] MEDICARE [id number] SP [id number] F29 HUMANA MEDICARE [id number] [place] [id number] MEDICAID [id number] [place] [id number] MEDICARE [id number] [place] [id number] F29 MEDICARE [id number] [place] [id number] F29 MEDICARE [id number] MEDICARE C [id number] S [id number] F29 MEDICAID M [id number] MEDICAID [id number] SP [id number] WELLCARE [id number] SP [id number] MEDICARE [id number] SP [id number] A MEDICARE [id number] SP [id number] A ANSI-Medicaid [id number] ANSI-Medicare Part B [id number] ANSI-Medicare Part B [id number] ANSI-Medicaid [id number] Medicaid [facility] Part B [id number] Self [id number] Medicare - [place] Medicare Primary [id number] Self [id number] ANSI-Medicaid [id number] ANSI-Medicare Part B [id number] ANSI-Medicaid [id number] ANSI-Medicare Part B [id number] ANSI-Medicaid [id number] ANSI-Medicare Part B [id number] ANSI-Medicare Part B [id number] ANSI-Medicaid [id number] Medicaid [facility] Part B [id number] Self [id number] Medicare - [place] Medicare Primary [id number] Self [id number] MEDICAID M [id number] Self [id number] MEDICARE A [id number] Self [id number] A ANSI-Medicare Part B [id number] ANSI-Medicaid [id number] MEDICAID [id number] SP [id number] ANSI-Medicare Part B [id number] ANSI-Medicaid [id number] Medicaid [facility] Part B [id number] Self [id number] Medicare - [place] Medicare Primary [id number] Self [id number] ANSI-Medicaid [id number] ANSI-Medicare Part B [id number] ANSI-Medicare Part B [id number] [facility]-Medicaid [id number] ANSI-Medicaid [id number] ANS-Medicare Part B [id number] ANSI-Medicare Part B [id number] ANS-Medicaid [id number] ANS-Medicaid [id number] ANSI-Medicare Part B [id number] Medicaid [facility] Part B [id number] Self [id number] Medicare [facility] Medicare Primary [id number] Self [id number] MEDICARE C [id number] S [id number] A MEDICAID [id number] SP [id number] MEDICAID [id number] SP [id number] A [id number] Problems, Conditions, and Diagnoses Code Display Name Description Problem Type Effective Dates Data Source(s) D50.9 Iron deficiency anemia Anemia, iron deficiency Problem 04/11/2020 12:00:00 AM EST eCW1 ([facility]) D50.9 Iron deficiency anemia Iron deficiency anemia [id number] 03/16/2020 12:00:00 AM EST [facility] E78.2 Mixed hyperlipidemia Mixed hyperlipidemia [id number] 01/27/2020 12:00:00 AM EDT [facility] N17.9 KALYAN (acute kidney injury) KALYAN (acute kidney injury) [id number] 05/10/2019 12:00:00 AM EST [facility] I48.21 Permanent atrial fibrillation Permanent atrial fibrill ation Diagnosis 04/12/2020 09:01:57 AM EST [facility] D50.9 Iron deficiency anemia, unspecified Iron deficie ncy anemia, unspecified Diagnosis 04/12/2020 09:01:57 AM [facility] J44.9 Chronic obstructive pulmonary disease, u nspecified Chronic obstructive pulmonary disease, u Diagnosis 04/05/2020 08:20:57 AM EST [facility] I50.32 Chronic diastolic (congestive) heart vielka lure Chronic diastolic (congestive) heart vielka Diagnosis 04/05/2020 08:20:57 AM EST [facility] D64.9 Anemia, unspecified Anemia, unspecified Diagnosis 1 05/17/2019 07:55:13 AM [facility] E78.2 Mixed hyperlipidemia Mixed hyperlipidemia Diagnosis 03/09/2020 09:03:48 AM [facility] I10 Essential (primary) hypertension Essential (primary) h ypertension Diagnosis 02/18/2020 08:12:14 AM [facility] G47.33 Obstructive sleep apnea (adult) (pediatr ic) Obstructive sleep apnea (adult) (pediatr Diagnosis 02/18/2020 08:12:14 AM EST [facility] I48.0 Paroxysmal atrial fibrillation Paroxysmal atrial fibri llation Diagnosis 05/12/2019 11:01:18 AM [facility] Surgeries/Procedures Procedure Description Date Indications Data Source(s) ECG ROUTINE ECG W/LEAST 12 LDS W/I&R POCT AMB EKG Routine 04/05/2020 9:19 AM EST Permanent atrial fibrillation 04/05/2020 02:19:00 PM EST Per manent atrial fibrillation [facility] Permanent atrial fibrillation ECG ROUTINE ECG W/LEAST 12 LDS W/I&R POCT AMB EKG Routine 03/16/2020 9:08 AM EST Permanent atrial fibrillation 03/16/2020 02:08:00 PM EST Per manent atrial fibrillation [facility] Permanent atrial fibrillation ECG ROUTINE ECG W/LEAST 12 LDS W/I&R POCT AMB EKG Routine 01/27/2020 9:42 AM EDT Permanent atrial fibrillation 01/27/2020 01:42:00 PM EDT Per manent atrial fibrillation [facility] Permanent atrial fibrillation BLOOD COUNT COMPLETE AUTO&AUTO DIFRNTL WBC COUNT CBC AND DIFFER ENTIAL Routine 11/15/2019 11/15/2019 12:00:[address] [facility] HEPATIC FUNCTION PANEL HEPATIC FUNCTION PANEL Routine 07/05/2019 07/05/2019 12:00:00 AM EDT [facility] BASIC METABOLIC PANEL CALCIUM TOTAL BASIC METABOLIC PANEL Routine 07/05/2019 07/05/2019 12:00:00 AM EDT [facility] Annual wellness visit, includes a person alized prevention plan of service (pps), subsequent visit 04/05/2019 12:00:00 AM EST eCW 1 ([facility]) Office Visit, Est Pt., Level 4 PC 04/05/2019 12:00:00 AM EST eCW1 ([facility]) Office Visit, Est Pt., Level 2 FC 04/05/2019 12:00:00 AM EST eCW1 ([facility]) Results ID Date Data Source [id number] 04/13/2020 04:13:57 PM EST [facility] Name Value Range Interpretation Code Description Data Colleen rce(s) Supporting Document(s) 25 HYDROXY VIT D @ 27 ng/mL (31-100) L [facility] A REVIEW OF THE LITERATURE SUGGESTS THEF OLLOWING RANGES FOR THE CLASSIFICATIONOF 25-OH VITAMIN D STATUS: VITAMIN D STATUS 25-OH VITAMIN D DEFICIENCY <20 NG/MLINSUFFICIENCY 20-30 NG/MLSUFFICIENCY 31 - 100 NG/MLTOXICITY > 100 NG/ML A PEDIATRIC REFERENCE RANGE HAS NOT BEENESTABLISHED USING THIS METHOD. ID Date Data Source [id number] 04/13/2020 04:09:20 PM EST [facility]ady Name Value Range Interpretation Code Description Data Colleen rce(s) Supporting Document(s) VITAMIN B12 @ 306 pg/mL (193-986) [facility] [place] ID Date Data Source [id number] 02/20/2020 08:48:12 PM EST [facility] Name Value Range Interpretation Code Description Data Colleen rce(s) Supporting Document(s) &PDF [facility] FGOQOr2pYoLGUiDc81/WHPonJCPuj5NrACfnDMb0VRffXPHoX6TqsRmkBHpGBsZMDwrJXNdiPzRkMQGc FcG xxLSS4u4VliTUxY83avB7hXFWrs08sIEthHE0+DQplbmRvYmoNCjQgMCBvYmoNCiAgPDwvRmlsdGVyIC 1KuHO0CJQiA33gZGZoHGGwE4NfUVM6FNy+Xh1BMRNssDDzLR3BWobF1AgUscvANT3o8E7eIQ+iBtA207 3XZmQQ3eHmzLsNndXN7eXK0pSCPh4zXQL/aibG3RBQ hnsazYCvVmg1WavK+B4A8d4mdFT/d9UL9HwzLdGe+WsQadEZiR9/EKtpRi+wwA7hz6H/P9rbK6njypxW 1uHStO7pMwF2QY8m9pFc7wFPIrY//dWor/yrx1UrSRpnwOfon8V9VMeRapAQYXW3+6j1i2h/EMpmXFKy BQDPFgRUYY5B2Q/FoJIF+iBpw0RAsZmX0kLWHxJjAM V4v90l5xLAFjZH/mCIlgnXOF9MdTq5babf6QpXL8MCrXhC9UGNRNWa2xMxbGV9AGH/james+lVMpZJwqEh [file] ICAgICAgICAgICAgICAgICAgICAgICAgICAgICAgICAgICAgICAgICAgICAgICAgICAgICAgICAgICAg ICAgICAgICAgICAgICAgICAgICAgICAgICAgICAgIC FbFZ7GMRFvIOYiRFAaFORxBXJrPKCxEGWvNEToNXSbBAHdGXEoZACpOFYnBRXhTEOpPOXaIOExXFBdWL JjTYOkBHFqFNEkWGUeEKKkSXNtHJOwDJUdVWIiOMYyWSGgEQXuFDMhAOXvPU9KPSGrZCQtPHFuKUSoGQ AgICAgICAgICAgICAgICAgICAgICAgICAgICAgICAg LWRnSBVzAEPsZITxNCYwIJCfYKGhBIMbJFDsECXkETWjWFXuXIJvSNOgRDEoZWGaNPBnCYVoRQ8PGHVh ICAgICAgICAgICAgICAgICAgICAgICAgICAgICAgICAgICAgICAgICAgICAgICAgICAgICAgICAgICAg ICAgICAgICAgICAgICAgICAgICAgICAgICAgICAgIC FsWIVsMM3XTGHzLZFiKXRuKWAoTUJyIQJmQYQcDPYkYURkWEVyIQErVDPgGAFsCNLbUTCgIVKnGFPlAS YlBFRkYARgFXXxYLUoFNLjSMVpDFDxZOZhJCMvGCBtWDCrSIWpWDAxLQBiVIEwED9ZAFWrGQWyPXTjVC AgICAgICAgICAgICAgICAgICAgICAgICAgICAgICAg NIUtJHYjGRImWPJzCDZtCWKqKMBuTCZkJYUyXZPhQKWgRQPsNOSxRWVpMHOvMCVcRFMiFFNcEXLeIC2X ICAgICAgICAgICAgICAgICAgICAgICAgICAgICAgICAgICAgICAgICAgICAgICAgICAgICAgICAgICAg ICAgICAgICAgICAgICAgICAgICAgICAgICAgICAgIC XiKPCxEWHpDI8FMALdXBWzICWgVGYoUNZbOKQmVQNaQXEkUUUgKESgIXNiGONhNASzMKOaKZGbDUFuXZ BoBFGhLJUeIFAgPJCeKUBtYLYdOEVbDUNiSJWlZNJzWDIiIPNwGQFtBSXtFISzSWPxKG8WAKOvXFXdNA AgICAgICAgICAgICAgICAgICAgICAgICAgICAgICAg ICAgICAgICAgICAgICAgICAgICAgICAgICAgICAgICAgICAgICAgICAgICAgICAgICAgICAgICAgICAg PV1MRIWbGFDuTOPgXQClIVJnXWTjYOQcEVNpDIBfNBVwUQOoZHMhJWKaQRTkANIzLRFjDPVmPNKpJCFu ICAgICAgICAgICAgICAgICAgICAgICAgICAgICAgIC LiLWGbZTTwOHTaAE9PHP01pTIdy3R5WDAwYA4shyt/Yu6AEZnoquWdeRBvPM5LScMzMX1pjo4AJoWoHR 5ugw5FNLgRXfJiS5C4rGLbNEZrWBAQIjQdW21tJCpyXi63AHukFRXyCuFaAZh6If5LBsLwC2cuSTQlTz P5GMHcLrXrNIogTI9No5HndZFlXEq+Sf9ZUS8im1Hl XNnqFBMjPI3ptf8ZKWvDGzZbZ5B2dUWgK3L9XVczKy3PNFCxTIQsAPmvUYNWMBupHY2JYD7sngM5GF6G cXEcNHJyDREzhXRiRHd4O80ttNStMJeyON2GJIQ+Leilani+Qe5KDGYoGKCzIPYfQvUvDOBVFiWyM23fyNSd TFYeMZJ3SSZwNj4EEYHfL0MuebTysOqhcpZpEACpGQ YDOT3DIOpisoItmEWffOzdFJ59oIbzZS9ZFi7OBjVlCS5cjp6VsFMfMg3WNANxMJ7GWRFsLTAwYTLvOT V1YTNeKkQjACvfICOtQYXsNCB4VHUkBXEoYN8ZFwWwDIDnYQY3RdZeIZAeKDVlbv7NAHDxDFEnMfW2RT RnHJFbSSLvUEpgYDEqFKVqKGfhCTWcDSHlPV4HApSt IJDaDZI5KovkYNCeVZVgdt1QVBUqNTVcEzq4LoNcRXAxWMZdYGofVBImQUKyHMErSTZiSXIfGX3TXcKl VEUjVLBuJekaMMBcDMYwet2TYVXaTRPyXGTsIdKwYPLhKHXmCKhdINPwLKK0FkD3OKHqRIAyEP8NItSl LEIkJBG8DvvpYJQyNLHodq0UJIUoKTYsJTG2UTNoRQ FfASYaWXakRAEtDTZ3HhHcLPXaOEWwUE8LAlBpDJJpVBX2BUBrRDAfCTQuaw4KNSPrMRRiDev1CWChJT LmRWLeSNexECSoYKAaKylvFZPaIXNuFJ2CLgJkXGXyLSM9JEreRBLzIUXgbr9PVPIpTUQgCrDuUEBaJF OgQTHgFPthXKIyNVZ9LFs7BUYfWIIiDX6MKdArFIvn ABSQJab0LWtbP7p5QDXpZH4CY2Tsh4PuQGavHXSEOCerMK2yqzXzHHWiVa6FC4lMFrn1Ouo3QTE6NaTb XARhI5S0KzMqIiMzNgIiCTTvIdD2Am1rKZJhATp4RKuxI1GeIODrLaXlP6A5AQJqFPDiHYW9SHh9TpSf AC7IMe1YHxI1JRC8sIXyTo0TBAk2ZiXSObWyMX6IDZs= ID Date Data Source Comprehensive Metabolic Profile (CMP) 07/05/2019 04:23:07 AM EDT eCW1 ([facility]) Name Value Range Interpretation Code Description Data Colleen rce(s) Supporting Document(s) 1.39 eCW1 ([facility]) 38.7 eCW1 ([facility]) 39 eCW1 ([facility]) 100 eCW1 ([facility]) 140 eCW1 ([facility]) 36 eCW1 ([facility]) 102 eCW1 ([facility]) 3.5 eCW1 ([facility]) 8 eCW1 ([facility]) 11 eCW1 ([facility]) 9.7 eCW1 ([facility]) 7.5 eCW1 ([facility]) 102 eCW1 ([facility]) 3.7 eCW1 ([facility]) 0.5 eCW1 ([facility]) 0.97 eCW1 ([facility]) ID Date Data Source NT-PRO BNP 07/05/2019 03:38:32 AM EDT eCW1 ([facility]) Name Value Range Interpretation Code Description Data Colleen rce(s) Supporting Document(s) 2492 NT-PRO BNP eCW1 ([facility]) ID Date Data Source MAGNESIUM LEVEL 07/05/2019 03:38:27 AM EDT eCW1 ([facility]) Name Value Range Interpretation Code Description Data Colleen rce(s) Supporting Document(s) 2.8 MAGNESIUM LEVEL eCW1 ([facility]) ID Date Data Source FREE T4 & TSH PANEL 07/05/2019 03:38:24 AM EDT eCW1 ([facility]) Name Value Range Interpretation Code Description Data Colleen rce(s) Supporting Document(s) 7.350 eCW1 ([facility]) 1.32 eCW1 ([facility]) ID Date Data Source CBC with Differential 07/05/2019 03:38:17 AM EDT eCW1 ([facility]) Name Value Range Interpretation Code Description Data Colleen rce(s) Supporting Document(s) 8.7 WHITE BLOOD COUNT eCW1 ([facility]) 4.12 RED BLOOD COUNT eCW1 ([facility]) 37.1 HEMATOCRIT eCW1 ([facility]) 10.6 HEMOGLOBIN eCW1 ([facility]) 25.7 MEAN CORPUSCULAR HEMOGLOBIN eC W1 ([facility]) 90.0 MEAN CORPUSCULAR VOLUME eCW1 ( [facility]) 16.4 RED CELL DISTRIBUTION WIDTH eC W1 ([facility]) 381 PLATELET COUNT, AUTOMATED eCW1 ([facility]) 85.1 NEUTROPHILS % eCW1 ([facility]) 28.6 MEAN CORPUSCULAR HGB CONC eCW1 ([facility]) 1.2 EOS % eCW1 ([facility]) 6.0 MONO % eCW1 ([facility]) 7.4 NEUTROPHILS # eCW1 ([facility]) 0.3 BASO % eCW1 ([facility]) 6.8 LYMPH % eCW1 ([facility]) 0.5 MONO # eCW1 ([facility]) 0.6 LYMPH # eCW1 ([facility]) 0.1 EOS # eCW1 ([facility]) 0.0 BASO # eCW1 ([facility]) Procedure Social History Code Duration Value Status Description Data Source(s ) Alcohol intake 04/12/2020 12:00:00 AM EST Yes completed [facility] Cigarette pack-years 04/12/2020 12:00:00 AM EST UNK completed [facility] Cigarettes smoked current (pack per day) - Reported 04/12/19 12:00:00 AM EST UNK completed [facility] Smoking 04/12/2020 12:00:00 AM EST Former smoker completed Former smoker [facility] Smoking 04/11/2020 12:00:00 AM EST Former Smoker completed Former Smoker eCW1 ([facility]) Smoking 04/11/2020 12:00:00 AM EST Former Smoker completed Former Smoker eCW1 ([facility]) Smoking 04/11/2020 12:00:00 AM EST Former Smoker completed Former Smoker eCW1 ([facility]) Smoking 04/11/2020 12:00:00 AM EST Former Smoker completed Former Smoker eCW1 ([facility]) Smoking 04/11/2020 12:00:00 AM EST Former Smoker completed Former Smoker eCW1 ([facility]) Alcohol intake 02/23/2020 12:00:00 AM EST Yes completed [facility] Cigarette pack-years 02/23/2020 12:00:00 AM EST UNK completed [facility] Cigarettes smoked current (pack per day) - Reported 02/23/20 12:00:00 AM EST UNK completed [facility] Smoking 02/23/2020 12:00:00 AM EST Former smoker completed Former smoker [facility] Alcohol intake 02/18/2020 12:00:00 AM EST Yes completed [facility] Cigarette pack-years 02/18/2020 12:00:00 AM EST UNK completed [facility] Cigarettes smoked current (pack per day) - Reported 02/18/20 12:00:00 AM EST UNK completed [facility] Smoking 02/18/2020 12:00:00 AM EST Former smoker completed Former smoker [facility] Smoking 07/05/2019 12:00:00 AM EDT Former Smoker completed Former Smoker eCW1 ([facility]) Smoking 07/05/2019 12:00:00 AM EDT Former Smoker completed Former Smoker eCW1 ([facility]) Smoking 07/05/2019 12:00:00 AM EDT Former Smoker completed Former Smoker eCW1 ([facility]) Smoking 07/05/2019 12:00:00 AM EDT Former Smoker completed Former Smoker eCW1 ([facility]) Smoking 07/05/2019 12:00:00 AM EDT Former Smoker completed Former Smoker eCW1 ([facility]) Smoking 07/05/2019 12:00:00 AM EDT Former Smoker completed Former Smoker eCW1 ([facility]) Smoking 07/05/2019 12:00:00 AM EDT Former Smoker completed Former Smoker eCW1 ([facility]) Smoking 07/05/2019 12:00:00 AM EDT Former Smoker completed Former Smoker eCW1 ([facility]) Smoking 07/05/2019 12:00:00 AM EDT Former Smoker completed Former Smoker eCW1 ([facility]) Alcohol intake 05/12/2019 12:00:00 AM EST Yes completed [facility] Cigarette pack-years 05/12/2019 12:00:00 AM EST UNK completed [facility] Cigarettes smoked current (pack per day) - Reported 05/12/19 20 12:00:00 AM EST UNK completed [facility] Smoking 05/12/2019 12:00:00 AM EST Former smoker completed Former smoker [facility] Vital Signs ID Date Data Source UNK Name Value Range Interpretation Code Description Data Source(s) Oxygen saturation in Arterial blood by Pulse oximetry 93 % 93 % [facility] Body mass index (BMI) [Ratio] 40.17 kg/m2 40.17 kg/m2 [facility] Body weight 106.142 kg 106.142 kg [facility] Body height 162.6 cm 162.6 cm [facility] Heart rate 92 /min 92 /min [facility] Diastolic blood pressure 62 mm[Hg] 62 mm[Hg] [facility] Systolic blood pressure 124 mm[Hg] 124 mm[Hg] [facility] Diastolic blood pressure 70 mm[Hg] 70 mm[Hg] eCW1 ([facility]) Systolic blood pressure 138 mm[Hg] 138 mm[Hg] e CW1 ([facility]) Body temperature 97.7 [degF] 97.7 [degF] eCW1 ( [facility]) Respiratory rate 20 /min 20 /min eCW1 ([facility]) Heart rate 113 /min 113 /min eCW1 ([facility]) Body mass index (BMI) [Ratio] 38.44 kg/m2 38.44 kg/m2 eCW1 ([facility]) Body height 65 [in_i] 65 [in_i] eCW1 ([facility]) Body weight 231 [lb_av] 231 [lb_av] eCW1 ([facility]) Oxygen saturation in Arterial blood by Pulse oximetry 90 % 90 % [facility] Body mass index (BMI) [Ratio] 39.17 kg/m2 39.17 kg/m2 [facility] Body weight 103.511 kg 103.511 kg [facility] Body height 162.6 cm 162.6 cm [facility] Heart rate 96 /min 96 /min [facility] Diastolic blood pressure 58 mm[Hg] 58 mm[Hg] [facility] Systolic blood pressure 132 mm[Hg] 132 mm[Hg] [facility] Oxygen saturation in Arterial blood by Pulse oximetry 93 % 93 % [facility] Body mass index (BMI) [Ratio] 39.65 kg/m2 39.65 kg/m2 [facility] Body weight 104.781 kg 104.781 kg [facility] Body height 162.6 cm 162.6 cm [facility] Heart rate 93 /min 93 /min [facility] Diastolic blood pressure 68 mm[Hg] 68 mm[Hg] [facility] Systolic blood pressure 138 mm[Hg] 138 mm[Hg] [facility] Body mass index (BMI) [Ratio] 37.08 kg/m2 37.08 kg/m2 [facility] Body weight 97.977 kg 97.977 kg [facility] Body height 162.6 cm 162.6 cm [facility] Diastolic blood pressure 76 mm[Hg] 76 mm[Hg] [facility] Systolic blood pressure 119 mm[Hg] 119 mm[Hg] [facility] Oxygen saturation in Arterial blood by Pulse oximetry 88 % 88 % [facility] Body mass index (BMI) [Ratio] 39.01 kg/m2 39.01 kg/m2 [facility] Body weight 106.323 kg 106.323 kg [facility] Body height 165.1 cm 165.1 cm [facility] Heart rate 113 /min 113 /min [facility] Diastolic blood pressure 60 mm[Hg] 60 mm[Hg] [facility] Systolic blood pressure 138 mm[Hg] 138 mm[Hg] [facility] Diastolic blood pressure 72 mm[Hg] 72 mm[Hg] W1 ([facility]) Systolic blood pressure 130 mm[Hg] 130 mm[Hg] e CW1 ([facility]) Body temperature 98.7 [degF] 98.7 [degF] eCW1 ( [facility]) Respiratory rate 18 /min 18 /min eCW1 ([facility]) Heart rate 103 /min 103 /min eCW1 ([facility]) Body mass index (BMI) [Ratio] 38.77 kg/m2 38.77 kg/m2 [facility] ([facility]) Body height 65 [in_i] 65 [in_i] eCW1 ([facility]) Body weight 233 [lb_av] 233 [lb_av] eCW1 ([facility]) Body mass index (BMI) [Ratio] 41.5 kg/m2 41.5 k g/m2 MEDENT ([facility] Body weight 238.00 [lb_av] 238.00 [lb_av] MEDEN T ([facility] Body height 63.5 [in_i] 63.5 [in_i] [facility] ([facility] 5'3.50" Oxygen saturation in Arterial blood by Pulse oximetry 951 % 951 % [facility] ([facility] Heart rate 89 /min 89 /min [facility] ([facility] Diastolic blood pressure 80 mm[Hg] 80 mm[Hg] MEDENT ([facility] Systolic blood pressure 140 mm[Hg] 140 mm[Hg] M EDENT ([facility] Diastolic blood pressure 90 mm[Hg] 90 mm[Hg] eCW1 ([facility]) Systolic blood pressure 140 mm[Hg] 140 mm[Hg] e CW1 ([facility]) Body temperature 97.3 [degF] 97.3 [degF] eCW1 ( [facility]) Respiratory rate 18 /min 18 /min eCW1 ([facility]) Heart rate 102 /min 102 /min eCW1 ([facility] Body mass index (BMI) [Ratio] 38.94 kg/m2 38.94 kg/m2 eCW1 ([facility]) Body height 65 [in_us] 65 [in_us] eCW1 ([facility]) Body weight Measured 234 [lb_av] 234 [lb_av] eC W1 ([facility]) Patient Treatment Plan of Care Planned Activity Planned Date Details Description Data Source (s) ferric carboxymaltose 50 MG/ML Injectable Solution [In jectafer] 04/13/2020 12:00:00 AM EST eCW1 ([facility]) ferric carboxymaltose 50 MG/ML Injectable Solution [In jectafer] 04/13/2020 12:00:00 AM EST eCW1 ([facility]) ferric carboxymaltose 50 MG/ML Injectable Solution [In jectafer] 04/13/2020 12:00:00 AM EST eCW1 ([facility]) ferric carboxymaltose 50 MG/ML Injectable Solution [In jectafer] 04/13/2020 12:00:00 AM EST eCW1 ([facility]) torsemide 20 MG Oral Tablet 04/11/2020 12:00:00 AM EST eCW1 ([facility]) torsemide 20 MG Oral Tablet 04/11/2020 12:00:00 AM EST eCW1 ([facility]) torsemide 20 MG Oral Tablet 04/11/2020 12:00:00 AM EST eCW1 ([facility]) torsemide 20 MG Oral Tablet 04/11/2020 12:00:00 AM EST eCW1 ([facility]) torsemide 20 MG Oral Tablet 04/11/2020 12:00:00 AM EST eCW1 ([facility]) ferrous sulfate 325 MG Delayed Release Oral Tablet 04/05/2020 12 :00:00 AM EST [facility] ferrous sulfate 325 MG Delayed Release Oral Tablet 04/05/2020 12 :00:00 AM EST [facility] apixaban 2.5 MG Oral Tablet 03/16/2020 12:00:00 AM EST [facility] Furosemide 40 MG Oral Tablet 03/16/2020 12:00:00 AM EST [facility] ferrous sulfate 325 MG Delayed Release Oral Tablet 03/10/2020 12 :00:00 AM EST [facility] Simvastatin 10 MG Oral Tablet 11/24/2019 12:00:00 AM EDT [facility] potassium chloride (KLOR-CON) 20 MEQ packet 11/12/2019 12:00:00 AM EDT [facility] Doxazosin 1 MG Oral Tablet 09/28/2019 12:00:00 AM EDT [facility] Potassium Chloride 20 MEQ 07/05/2019 12:00:00 AM EDT eCW1 ([facility]) Potassium Chloride 20 MEQ 07/05/2019 12:00:00 AM EDT eCW1 ([facility]) Potassium Chloride 20 MEQ 07/05/2019 12:00:00 AM EDT eCW1 ([facility]) Potassium Chloride 20 MEQ 07/05/2019 12:00:00 AM EDT eCW1 ([facility]) Potassium Chloride 20 MEQ 07/05/2019 12:00:00 AM EDT eCW1 ([facility]) Potassium Chloride 20 MEQ 07/05/2019 12:00:00 AM EDT eCW1 ([facility]) Potassium Chloride 20 MEQ 07/05/2019 12:00:00 AM EDT eCW1 ([facility]) Potassium Chloride 20 MEQ 07/05/2019 12:00:00 AM EDT eCW1 ([facility]) Potassium Chloride 20 MEQ 07/05/2019 12:00:00 AM EDT eCW1 ([facility]) Potassium Chloride 20 MEQ 07/05/2019 12:00:00 AM EDT eCW1 ([facility]) Potassium Chloride 20 MEQ 07/05/2019 12:00:00 AM EDT eCW1 ([facility]) Potassium Chloride 20 MEQ 07/05/2019 12:00:00 AM EDT eCW1 ([facility]) Potassium Chloride 20 MEQ 07/05/2019 12:00:00 AM EDT eCW1 ([facility]) Potassium Chloride 20 MEQ 07/05/2019 12:00:00 AM EDT eCW1 ([facility]) Potassium Chloride 20 MEQ 07/05/2019 12:00:00 AM EDT eCW1 ([facility]) apixaban 5 MG Oral Tablet [Eliquis] 01/05/2019 12:00:00 AM EDT [facility] Furosemide 40 MG Oral Tablet 01/05/2019 12:00:00 AM EDT [facility] Simvastatin 40 MG Oral Tablet [facility]
[2020-04-20 09:13] LABS: BASO % 0.4 % (0.0-1.0); EOS # 0.1 10^3/uL (0.0-0.5); HEMOGLOBIN 8.3 g/dl (12.0-15.5); LYMPH # 0.5 10^3/uL (1.5-5.0); LYMPH % 5.3 % (24.0-44.0); MEAN CORPUSCULAR HEMOGLOBIN 16.6 pg (27.0-33.0); MEAN CORPUSCULAR HGB CONC 23.1 g/dl (32.0-36.5); MEAN CORPUSCULAR VOLUME 72.1 fl (80.0-96.0); MONO # 0.6 10^3/uL (0.0-0.8); MONO % 5.7 % (0.0-5.0); NEUTROPHILS # 8.5 10^3/uL (1.5-8.5); NEUTROPHILS % 86.8 % (36.0-66.0); PLATELET COUNT, AUTOMATED 280 10^3/uL (150-450); RED BLOOD COUNT 4.99 10^6/uL (4.00-5.40); WHITE BLOOD COUNT 9.8 10^3/uL (4.0-10.0)
[2020-04-20] MEDS ORDERED: COMBIVENT RESPIMAT 100-20MCG INHALER 4GM INH PRN (09:15)
[2020-04-20 09:44] LABS: ALBUMIN 3.6 GM/DL (3.2-5.2); BILIRUBIN,DIRECT 0.2 MG/DL (0.0-0.2); BILIRUBIN,TOTAL 0.4 MG/DL (0.2-1.0); CALCIUM LEVEL 9.5 MG/DL (8.8-10.2); CREATININE FOR GFR 1.49 MG/DL (0.55-1.30); GLOMERULAR FILTRATION RATE 35.7 (>32); POTASSIUM SERUM 3.8 MEQ/L (3.5-5.1); TOTAL PROTEIN 6.8 GM/DL (6.4-8.2)
[2020-04-20] MEDS ORDERED: TORS20TA2 PO (10:38)
[2020-04-20] MEDS ORDERED: BUDE0.5S6 INH (10:38)
[2020-04-20] MEDS ORDERED: FERR1TAB8 PO (10:38)
[2020-04-20] MEDS ORDERED: POTA10PO PO (10:38)
[2020-04-20] MEDS ORDERED: ALBUTEROL 90 MCG/ACT 8GM HFA INHALER INH PRN (11:00)
[2020-04-20] MEDS: diltiaZEM **CD** 180 MG CAP PO SCH (11:48)
[2020-04-20] MEDS: FERROUS SULFATE 325MG TAB PO SCH ×3 (11:48→20:56)
[2020-04-20] MEDS: POTASSIUM CHL PWD 20 MEQ PACKET PO SCH ×2 (11:49→20:57)
[2020-04-20] MEDS: ACETAMINOPHEN 500 MG TAB PO PRN ×2 (11:52→20:57)
--- NOTE | 2020-04-20 13:12 | HPEPDOC ---
[facility] Medical History & Physical Date of Admission Apr 20, 2020 Date of Service: Apr 20, 2020 History and Physical CHIEF COMPLAINT: SOB HISTORY OF PRESENT ILLNESS: 80 year old female presents for several day history of worsening shortness of breath with dyspnea on exertion. She states she was recently diagnosed with iron deficiency anemia, and has been receiving outpatient IV iron infusions. She noted worsening lower extremity edema, and feels that her urine output has been declining despite diuretic therapy. She den ies chest pain, orthopnea, abdominal pain, headaches, N/V/D. She denies any black stools or BRBPR. PAST MEDICAL HISTORY: #hypothyroidism #chronic afib - not on a/c due to gi bleed #DLP #HTN #COPD #RLE DVT/IVC filter 2018 #HFpEF #CKD #JACQUES/CPAP ALLERGIES: Please see below. REVIEW OF SYSTEMS: Negative except as per HPI. HOME MEDICATIONS: Please see below. PHYSICAL EXAMINATION: VITAL SIGNS: See below General: NAD, lying comfortably in bed, hirsute HEENT: NC/AT, EOMI Lungs: CTA B/L Heart: +S1S2, irregular Abd: soft, NT, +BS, obese Ext: peripheral edema, chronic venous stasis changes LABORATORY DATA: See below. MICROBIOLOGY: Please see below. A/P: 80 yo female with extensive PMHx admitted for several day history of worsening SOB/HERNANDEZ, multifactorial including decompensated heart failure. #SOB - multifactorial etiology - supplemental O2 as needed 88-92% - IS, acapella, sputum cx/gram stain #HFpEF - acute/chronic - IV lasix, echocardiogram pending - I/O's, daily weight #symptomatic anemia - serial H/H - typed and screened/consented in ED #COPD #JACQUES/CPAP - family to bring machine in - likely further complicated with OHS #hypothyroidism #chronic afib - not on a/c due to gi bleed #DLP #HTN #RLE DVT/IVC filter 2018 #CKD #DVT prophylaxis - mechanical Vital Signs Vital Signs Date Time Temp Pulse Resp B/P (MAP) Pulse Ox O2 Delivery O2 Flow Rate FiO2 04/20/20 11:48 90 182/77 04/20/20 10:59 96.0 32 97 Nasal Cannula 1.5 04/20/20 09:10 98 Laboratory Data Labs 24H Laboratory Tests 2 04/20/20 08:58: Immature Granulocyte % (Auto) 0.8, Neutrophils (%) (Auto) 86.8H, Lymphocytes (%) (Auto) 5.3L, Monocytes (%) (Auto) 5.7H, Eosinophils (%) (Auto) 1.0, Basophils (%) (Auto) 0.4, Neutrophils # (Auto) 8.5, Lymphocytes # (Auto) 0.5L, Monocytes # (Auto) 0.6, Eosinophils # (Auto) 0.1, Basophils # (Auto) 0.0, Nucleated Red Blood Cells % (auto) 0.0, Anion Gap 8, Glomerular Filtration Rate 35.7, Calcium Level 9.5, Total Bilirubin 0.4, Direct Bilirubin 0.2, Aspartate Amino Transf (AST/SGOT) 4L, Alanine Aminotransferase (ALT/SGPT) 11L, Alkaline Phosphatase 88, MT-Hha-K-Type Natriuretic Peptide 4347H, Total Protein 6.8, Albumin 3.6, Albumin/Globulin Ratio 1.1L 04/20/20 09:03: POC Troponin I (Misc) 0.02 CBC/BMP Laboratory Tests 04/20/20 08:58 Microbiology Microbiology 04/20/20 Respiratory Virus Panel (PCR) ([facility]) - Final, Complete Home Medications Scheduled Budesonide (Budesonide) 0.5 Mg/2 Ml Ampul.neb, 0.5 MG INH BID Diltiazem Hcl (Diltiazem 24Hr ER) 360 Mg Cap.sa.24h, 360 MG PO DAILY Ergocalciferol (Vitamin D2) (Vitamin D2) 50,000 Units Cap, 50,000 UNITS PO Q2WK EVERY OTHER FRIDAY Ferrous Sulfate (Ferrous Sulfate) 325 Mg Tablet, 325 MG PO TID TAKES WITH MEALS Formoterol Fumarate (Perforomist) 20 Mcg/2 Ml Vial.neb, 20 MCG INH BID Levothyroxine Sodium (Synthroid) 112 Mcg Tab, 112 MCG PO DAILY Potassium Chloride (Potassium Chloride Powder) 20 Meq Packet, 20 MEQ PO BID Simvastatin (Simvastatin) 10 Mg Tablet, 10 MG PO QHS Torsemide (Torsemide) 20 Mg Tablet, 40 MG PO BID TAKES AM/AFTERNOON Scheduled PRN Acetaminophen (Tylenol Extra Strength) 500 Mg Tablet, 1,000 MG PO Q6H PRN for PAIN / FEVER Albuterol Sulfate (Proair Hfa) 8.5 Gm Hfa.aer.ad, 2 PUFF INH QID PRN for SHORTNESS OF BREATH Allergies Coded Allergies: No Known Allergies (Verified Allergy, Unknown, 06/29/19) A-FIB/CHADSVASC A-FIB History Current/History of A-Fib/PAF?: Yes Current PO Anticoag Therapy: No CHERIE LANGE MD Apr 20, 2020 13:12
--- OUTSIDE RECORDS SUMMARY | 2020-04-20 13:22 | CCD ---
Author Author [facility] Organization [facility] Address Unknown Phone Unavailable Care Team Providers Care Vasc Tech Name Role Phone Gricel Bates MD Unavailable [...] Bates MD Unavailable Unavailable Fons, M Shanique RETIREMENT ASSISTANT Unavailable Unavailable Fons, M Shanique RETIREMENT ASSISTANT Unavailable Unavailable Fons, M Shanique RETIREMENT ASSISTANT Unavailable Unavailable Fons, M Shanique RETIREMENT ASSISTANT Unavailable Unavailable Fons, M Shanique RETIREMENT ASSISTANT Unavailable Unavailable Fons, M Shanique RETIREMENT ASSISTANT Unavailable Unavailable Fons, M Shanique RETIREMENT ASSISTANT Unavailable Unavailable Fons, M Shanique RETIREMENT ASSISTANT Unavailable Unavailable Fons, M Shanique RETIREMENT ASSISTANT Unavailable Unavailable Fons, M Shanique RETIREMENT ASSISTANT Unavailable Unavailable Fons, M Shanique RETIREMENT ASSISTANT Unavailable Unavailable Fons, M Shanique RETIREMENT ASSISTANT Unavailable Unavailable Fons, M Shanique RETIREMENT ASSISTANT Unavailable Unavailable Fons, M Shanique RETIREMENT ASSISTANT Unavailable Unavailable Fons, M Shanique RETIREMENT ASSISTANT Unavailable Unavailable Fons, M Shanique RETIREMENT ASSISTANT Unavailable Unavailable Fons, M Shanique RETIREMENT ASSISTANT Unavailable Unavailable Fons, M Shanique RETIREMENT ASSISTANT Unavailable Unavailable Fons, M Shanique RETIREMENT ASSISTANT Unavailable Unavailable Fons, M Shanique RETIREMENT ASSISTANT Unavailable Unavailable Fons, M Shanique RETIREMENT ASSISTANT Unavailable Unavailable Fons, M Shanique RETIREMENT ASSISTANT Unavailable Unavailable Fons, M Shanique RETIREMENT ASSISTANT Unavailable Unavailable Fons, M Shanique RETIREMENT ASSISTANT Unavailable Unavailable Fons, M Shanique RETIREMENT ASSISTANT Unavailable Unavailable Fons, M Shanique RETIREMENT ASSISTANT Unavailable Unavailable Fons, M Shanique RETIREMENT ASSISTANT Unavailable Unavailable Fons, M Shanique RETIREMENT ASSISTANT Unavailable Unavailable Fons, M Shanique RETIREMENT ASSISTANT Unavailable Unavailable Fons, M Shanique RETIREMENT ASSISTANT Unavailable Unavailable Fons, M Shanique RETIREMENT ASSISTANT Unavailable Unavailable Fons, M Shanique RETIREMENT ASSISTANT Unavailable Unavailable Fons, M Shanique RETIREMENT ASSISTANT Unavailable Unavailable Fons, M Shanique RETIREMENT ASSISTANT Unavailable Unavailable Fons, M Shanique RETIREMENT ASSISTANT Unavailable Unavailable Fons, M Shanique RETIREMENT ASSISTANT Unavailable Unavailable Fons, M Shanique RETIREMENT ASSISTANT Unavailable Unavailable Fons, M Shanique RETIREMENT ASSISTANT Unavailable Unavailable Fons, M Shanique RETIREMENT ASSISTANT Unavailable Unavailable Fons, M Shanique RETIREMENT ASSISTANT Unavailable Unavailable Fons, M Shanique RETIREMENT ASSISTANT Unavailable Unavailable Fons, M Shanique RETIREMENT ASSISTANT Unavailable Unavailable Fons, M Shanique RETIREMENT ASSISTANT Unavailable Unavailable Fons, M Shanique RETIREMENT ASSISTANT Unavailable Unavailable Fons, M Shanique RETIREMENT ASSISTANT Unavailable Unavailable Fons, M Shanique RETIREMENT ASSISTANT Unavailable Unavailable Fons, M Shanique RETIREMENT ASSISTANT Unavailable Unavailable Fons, M Shanique RETIREMENT ASSISTANT Unavailable Unavailable Fons, M Shanique RETIREMENT ASSISTANT Unavailable Unavailable Fons, M Shanique RETIREMENT ASSISTANT Unavailable Unavailable Fons, M Shanique RETIREMENT ASSISTANT Unavailable Unavailable Fons, M Shanique RETIREMENT ASSISTANT Unavailable Unavailable Fons, M Shanique RETIREMENT ASSISTANT Unavailable Unavailable Fons, M Shanique RETIREMENT ASSISTANT Unavailable Unavailable Aliyah Padgett Unavailable Unavailable Aliyah Padgett Unavailable Unavailable Padgett, L Yvette PA Unavailable Unavailable Padgett, L Yvette PA Unavailable Unavailable Padgett, L Yvette PA Unavailable Unavailable Padegtt, L Yvette PA Unavailable Unavailable Padgett, L [...] Unavailable Rechlin, P Yasir DO Unavailable Unavailable Rosser, V TRISHA PA-C Unavailable Unavailable Rosser, V TRISHA PA-C Unavailable Unavailable Jenna, V TRISHA PA-C Unavailable Unavailable Jenna, V TRISHA PA-C Unavailable Unavailable Jenna, V TRISHA PA-C Unavailable Unavailable Rosser, V TRISHA PA-C Unavailable Unavailable Rosser, V TRISHA PA-C Unavailable Unavailable Re-disclosure Warning [...] is protected by Article 27-F of the [facility] Public Health law. If you continue you may have access to information: Regarding HIV / AIDS; Provided by facilities licensed or operated by the [facility] Office of Mental Health; or Provided by the [facility] Office for People With Developmental Disabilities. If such information is present, then the following [facility] mandated warning applies: This information has been [...] law may result in a fine or fpc sentence or both. A general authorization for the release of medical or other information is NOT sufficient authorization for further disc losure. Family History Family Member Name Family Member Gender Family Member Status Date o f Status Description Data Source(s) Unknown Male Problem MEDENT ([facility] () Unknown Unknown Problem MEDENT ([facility], ) Encounters Encounter Providers Location Date Indications Data Source(s ) Unknown [address] [facility] [address] 04/13/2020 12:00:00 AM EST eCW1 ([facility]) Unknown [address] [facility] [address] 04/13/2020 12:00:00 AM EST eCW1 ([facility]) Outpatient Attender: TRISHA OG-SJP.YASMEEN 12:00:00 AM EST - 04/12/2020 09:53:52 AM EST [facility] Outpatient Referrer: TRISHA OG-SJP.YASMEEN 12:00:00 AM EST [facility] Unknown [address] [facility] [address] 04/12/2020 12:00:00 AM EST eCW1 ([facility]) Outpatient [address] [facility] [address] 04/11/2020 12:00:00 AM EST eCW1 ([facility]) Unknown [address] [facility] [address] 04/11/2020 12:00:00 AM EST eCW1 ([facility]) Outpatient Attender: TRISHA OG-SJPColleenYASMEEN 08/2020 12:00:00 AM EST - 04/05/2020 09:35:24 AM EST [facility] Unknown [address] [facility] [address] 03/29/2020 12:00:00 AM EST eCW1 ([facility]) Unknown [address] [facility] [address] 03/20/2020 12:00:00 AM EST eCW1 ([facility]) Outpatient Attender: Shanique OG-MARGOT.YASMEEN 0 12:00:00 AM EST - 03/16/2020 08:47:34 AM EST [facility] Outpatient Referrer: Shanique PUTNAMSJGunnerYASMEEN 03/09/2020 12:00:00 AM EST [facility] Unknown [address] [facility] [address] 02/21/2020 12:00:00 AM EST eCW1 ([facility]) Outpatient Attender: Shanique Fangender: Yvette PUTNAMSJGunnerYASMEEN 02/18/2020 12:00:00 AM EST - 02/18/2020 11:15:12 AM EST [facility] Outpatient Referrer: Yvette DURONCTGILBERT 12:11:03 PM EST [facility] Outpatient Attender: Yvette OG-SJAnkit 09:00:16 AM EDT - 01/27/2020 03:54:24 PM EDT [facility] Unknown [address] [facility] [address] 01/24/2020 12:00:00 AM EDT eCW1 ([facility]) Unknown [address] [facility] [address] 01/17/2020 12:00:00 AM EDT eCW1 ([facility]) Unknown [address] [facility] [address] 01/07/2020 12:00:00 AM EDT eCW1 ([facility]) Unknown [address] [facility] [address] 12/30/2019 12:00:00 AM EDT eCW1 ([facility]) [facility] [address] [facility] [address] 11/22/2019 12:00:00 AM EDT eCW1 ([facility]) Unknown [address] [facility] [address] 10/20/2019 12:00:00 AM EDT eCW1 ([facility]) Unknown [address] [facility] [address] 09/16/2019 12:00:00 AM EDT eCW1 ([facility]) [facility] [address] [facility] [address] 08/16/2019 12:00:00 AM EDT eCW1 ([facility]) [facility] [address] [facility] [address] 08/13/2019 12:00:00 AM EDT eCW1 ([facility]) [facility] [address] [facility] [address] 08/10/2019 12:00:00 AM EDT eCW1 ([facility]) [facility] [address] [facility] [address] 08/05/2019 12:00:00 AM EDT eCW1 ([facility]) [facility] [address] [facility] [address] 08/02/2019 12:00:00 AM EDT eCW1 ([facility]) [facility] [address] [facility] [address] 07/19/2019 12:00:00 AM EDT eCW1 ([facility]) Outpatient [address] [facility] [address] 07/05/2019 12:00:00 AM EDT eCW1 ([facility]) [facility] [address] [facility] [address] 07/05/2019 12:00:00 AM EDT eCW1 ([facility]) [facility] [address] [facility] [address] 07/01/2019 12:00:00 AM EDT eCW1 ([facility]) [facility] [address] [place] [address], [place] [address] 07/01/2019 12:00:00 AM EDT eCW1 ([facility]) [facility] [address] [place] [address] [address] 06/30/2019 12:00:00 AM EDT eCW1 ([facility]) [facility] [address] [facility] [address] 06/30/2019 12:00:00 AM EDT eCW1 ([facility]) [facility] [address] [place] [address], [place] [address] 06/29/2019 12:00:00 AM EDT eCW1 ([facility]) [facility] [address] [place] [address], [place] [address] 06/28/2019 12:00:00 AM EDT eCW1 ([facility]) [facility] [address] [place] [address], [place] [address] 06/21/2019 12:00:00 AM EDT eCW1 ([facility]) [facility] [address] [place] [address], [place] [address] 06/16/2019 12:00:00 AM EDT eCW1 ([facility]) [facility] [address] [place] [address], [place] [address] 06/15/2019 12:00:00 AM EDT eCW1 ([facility]) [facility] [address] [place] [address], [place] [address] 06/01/2019 12:00:00 AM EST eCW1 ([facility]) Outpatient Attender: Gricel Bates MD SJAnkit.YASMEEN-SJP.YASMEEN 05/01 12:00:00 AM EST [address] [address] 04/26/2019 12:00:00 AM EST eCW1 ([facility]) Outpatient Attender: Yasir Forbes DO Main Office 04/22/2019 09:30:00 AM EST MEDENT ([facility] [address] [address] 04/20/2019 12:00:00 AM EST eCW1 ([facility]) [address] [address] 04/15/2019 12:00:00 AM EST eCW1 ([facility]) [address] [address] 04/05/2019 12:00:00 AM EST eCW1 ([facility]) [address] [address] 03/25/2019 12:00:00 AM EST eCW1 ([facility]) Medications Medication Brand Name Start Date Product Form Dose Route Admi nistrative Instructions Pharmacy Instructions Status Indications Reaction Description Data Source(s) ferric carboxymaltose 50 MG/ML Injectabl e Solution [Injectafer] Injectafer 750 MG/15ML Injectafer 750 MG/15ML 04/13/2020 12:00:00 AM EST active Injectafer 750 MG/15ML eCW1 ([facility]) ferric carboxymaltose 50 MG/ML Injectabl e Solution [Injectafer] Injectafer 750 MG/15ML Injectafer 750 MG/15ML 04/13/2020 12:00:00 AM EST active Injectafer 750 MG/15ML eCW1 ([facility]) ferric carboxymaltose 50 MG/ML Injectabl e Solution [Injectafer] Injectafer 750 MG/15ML Injectafer 750 MG/15ML 04/13/2020 12:00:00 AM EST active Injectafer 750 MG/15ML eCW1 ([facility]) ferric carboxymaltose 50 MG/ML Injectabl e Solution [Injectafer] Injectafer 750 MG/15ML Injectafer 750 MG/15ML 04/13/2020 12:00:00 AM EST active Injectafer 750 MG/15ML eCW1 ([facility]) 20 mg 04/11/2020 12:00:00 AM EST tablet 360 TAKE TWO TABLETS BY MOUTH TWICE A DAY TAKE TWO TABLETS BY MOUTH TWICE A DAY SOLD: 04/13/2020 [facility] torsemide 20 MG Oral Tablet Torsemide 20 MG Torsemide 20 MG 04/11/2020 12:00:00 AM EST active Torsemide 20 MG e CW1 ([facility]) torsemide 20 MG Oral Tablet Torsemide 20 MG Torsemide 20 MG 04/11/2020 12:00:00 AM EST active Torsemide 20 MG e CW1 ([facility]) torsemide 20 MG Oral Tablet Torsemide 20 MG Torsemide 20 MG 04/11/2020 12:00:00 AM EST active Torsemide 20 MG e CW1 ([facility]) 1,250 mcg (50,000 unit) 04/11/2020 12:00:00 AM EST capsule 6 TAKE 1 CAPSULES BY MOUTH EVERY 14 DAYS TAKE 1 CAPSULES BY MOUTH EVERY 14 DAYS SOLD: 04/13/2020 [facility] torsemide 20 MG Oral Tablet Torsemide 20 MG Torsemide 20 MG 04/11/2020 12:00:00 AM EST active Torsemide 20 MG e CW1 ([facility]) torsemide 20 MG Oral Tablet Torsemide 20 MG Torsemide 20 MG 04/11/2020 12:00:00 AM EST active Torsemide 20 MG e CW1 ([facility]) 325 mg (65 mg iron) 04/05/2020 12:00:00 [...] MOUTH THREE TIMES A DAY WITH MEALS [facility] ferrous sulfate 325 MG Delayed Release O ral Tablet ferrous sulfate 325 (65 FE) MG EC tablet ferrous sulfate 325 (65 FE) MG EC tablet 04/05/2020 12 :00:00 AM EST 325 mg Oral active Take 1 t ablet (325 mg total) by mouth 3 (three) times a day with meals [facility] 24 HR Diltiazem Hydrochloride 360 MG Extended Release Oral Capsule DILTIAZEM HCL 04/05/2020 12:00:00 AM EST capsule,extended release 24hr 30 TAKE ONE CAPSULE BY MOUTH EVERY DAY TAKE ONE CAPSULE BY MOUTH EVERY DAY SOLD: 04/06/2020 [facility] 90 mcg/actuation 03/27/2020 12:00:00 AM EST HFA aerosol inha ler 54 INHALE TWO PUFFS BY MOUTH FOUR TIMES A DAY NEEDED INHALE TWO PUFFS BY MOUTH FOUR TIMES A DAY NEEDED SOLD: 03/27/2020 [facility] Furosemide 40 MG Oral Tablet furosemide (LASIX) 40 MG tablet furosemide (LASIX) 40 MG tablet 03/16/2020 12:00:00 AM EST activ e Two tabs twice daily [facility] apixaban 2.5 MG Oral Tablet Apixaban (ELIQUIS) 2.5 MG TABS tablet Apixaban (ELIQUIS) 2.5 MG TABS tablet 03/16/2020 12:00:00 AM EST 5 mg Oral active Take 2 tablets (5 mg total) by mouth 2 ( two) times a day [facility] 325 mg (65 mg iron) 03/11/2020 12:00:00 [...] 3 (three) times a day with meals [facility] 20 mcg/2 mL 2020 12:00:00 AM EST [...] BY MOUTH TWICE A DAY SOLD: 12/16/2019 [facility] 24 HR Diltiazem Hydrochloride 360 MG [...] active Take 10 mg by mouth daily [facility] 10 mg 11/24/2019 12:00:00 AM EDT tablet 90 TAKE ONE TABLET BY MOUTH AT BEDTIME TAKE ONE TABLET BY MOUTH AT BEDTIME SOLD: 11/25/2019 [facility] 24 HR Diltiazem Hydrochloride 360 MG Extended [...] Drugs potassium chloride (KLOR-CON) 20 MEQ packet [id number] 11/12/2019 12:00:00 AM EDT 20 meq Oral active Take 20 mEq by mo ut 2 (two) times a day [facility] 0.5 mg/2 mL 11/10/2019 12:00:00 AM EDT [...] tablet (1 mg total) by mouth daily [facility] 20 mcg/2 mL 08/26/2019 12:00:00 AM EDT [...] ONE-HALF TABLETS BY MOUTH TWICE A DAY ULZ [facility] 40 mg 08/16/2019 12:00:00 AM [...] active P otassium Chloride 20 MEQ eCW1 ([facility]) Potassium Chloride 20 MEQ Potassium Chloride 20 MEQ 07/05/2019 1 2:00:00 AM EDT 1.0 {packet_with_food} active P otassium Chloride 20 MEQ eCW1 ([facility]) Potassium Chloride 20 MEQ Potassium Chloride 20 MEQ 07/05/2019 1 2:00:00 AM EDT 1.0 {packet_with_food} active P otassium Chloride 20 MEQ eCW1 ([facility]) Potassium Chloride 20 MEQ Potassium Chloride 20 MEQ 07/05/2019 1 2:00:00 AM EDT 1.0 {packet_with_food} active P otassium Chloride 20 MEQ eCW1 ([facility]) Potassium Chloride 20 MEQ Potassium Chloride 20 MEQ 07/05/2019 1 2:00:00 AM EDT 1.0 {packet_with_food} active P otassium Chloride 20 MEQ eCW1 ([facility]) Potassium Chloride 20 MEQ Potassium Chloride 20 MEQ 07/05/2019 1 2:00:00 AM EDT 1.0 {packet_with_food} active P otassium Chloride 20 MEQ eCW1 ([facility]) Potassium Chloride 20 MEQ Potassium Chloride 20 MEQ 07/05/2019 1 2:00:00 AM EDT 1.0 {packet_with_food} active P otassium Chloride 20 MEQ eCW1 ([facility]) Potassium Chloride 20 MEQ Potassium Chloride 20 MEQ 07/05/2019 1 2:00:00 AM EDT 1.0 {packet_with_food} active P otassium Chloride 20 MEQ eCW1 ([facility]) Potassium Chloride 20 MEQ Potassium Chloride 20 MEQ 07/05/2019 1 2:00:00 AM EDT 1.0 {packet_with_food} active P otassium Chloride 20 MEQ eCW1 ([facility]) Potassium Chloride 20 MEQ Potassium Chloride 20 MEQ 07/05/2019 1 2:00:00 AM EDT 1.0 {packet_with_food} active P otassium Chloride 20 MEQ eCW1 ([facility]) Potassium Chloride 20 MEQ Potassium Chloride 20 MEQ 07/05/2019 1 2:00:00 AM EDT 1.0 {packet_with_food} active P otassium Chloride 20 MEQ eCW1 ([facility]) Potassium Chloride 20 MEQ Potassium Chloride 20 MEQ 07/05/2019 1 2:00:00 AM EDT 1.0 {packet_with_food} active P otassium Chloride 20 MEQ eCW1 ([facility]) Potassium Chloride 20 MEQ Potassium Chloride 20 MEQ 07/05/2019 1 2:00:00 AM EDT 1.0 {packet_with_food} active P otassium Chloride 20 MEQ eCW1 ([facility]) Potassium Chloride 20 MEQ Potassium Chloride 20 MEQ 07/05/2019 1 2:00:00 AM EDT 1.0 {packet_with_food} active P otassium Chloride 20 MEQ eCW1 ([facility]) Potassium Chloride 20 MEQ Potassium Chloride 20 MEQ 07/05/2019 1 2:00:00 AM EDT 1.0 {packet_with_food} active P otassium Chloride 20 MEQ eCW1 ([facility]) 25 mg 07/01/2019 12:00:00 AM EDT tablet [...] MORNING O N EMPTY STOMACH SOLD: 02/23/2019 [facility] 10 mg 02/11/2019 12:00:00 AM [...] (two) times a day 1.5 tabs BID [facility] apixaban 5 MG Oral Tablet [Eliquis] ELIQUIS 5 MG TABS tablet ELIQUIS 5 MG TABS tablet 01/05/2019 12:00:00 AM EDT 5 mg Oral aborted Take 5 mg by mouth 2 (two) times a day [facility] 5 mg 01/05/2019 12:00:00 AM EDT tablet [...] Nelson e 40 mg by mouth daily [facility] Insurance Providers Payer name Policy type / Coverage type Policy ID Covered libertarian ID Covered libertarian's relationship to cornejo Policy Cornejo Plan Information HUMANA GOLD [id number] SP [id number] EMEDNY [id number] SP [id number] HUMANA MEDICARE [id number] MEDICAID [id number] HUMANA GOLD [id number] SP [id number] MEDICARE [id number] SP [id number] HUMANA MEDICARE [id number] Kassie [id number] MEDICAID [id number] Kassie [id number] MEDICARE [id number] Kassie [id number] [id number] MEDICARE [id number] Kassie [id number] [id number] MEDICARE [id number] MEDICARE C [id number] S [id number] MEDICAID M [id number] MEDICAID [id number] SP [id number] WELLCARE [id number] SP [id number] MEDICARE [id number] SP [id number] A MEDICARE [id number] SP [id number] ANSI-Medicaid [id number] ANSI-Medicare Part B [id number] ANSI-Medicare Part B [id number] ANSI-Medicaid [id number] [place] [facility] Part B [id number] Self [id number] Medicare - [place] Medicare Primary [id number] Self [id number] ANSI-Medicaid [id number] ANSI-Medicare Part B [id number] ANSI-Medicaid [id number] ANSI-Medicare Part B [id number] ANSI-Medicaid [id number] ANSI-Medicare Part B [id number] ANSI-Medicare Part B [id number] ANSI-Medicaid [id number] Medicaid [facility] Part B [id number] Self [id number] Medicare - [place] Medicare Primary [id number] Self [id number] MEDICAID M [id number] Self [id number] MEDICARE A [id number] Self [id number] A ANSI-Medicare Part B [id number] ANSI-Medicaid [id number] MEDICAID [id number] SP [id number] ANSI-Medicare Part B [id number] ANSI-Medicaid [id number] Medicaid [facility] Part B [id number] Self [id number] Medicare - [place] Medicare Primary [id number] Self [id number] ANSI-Medicaid [id number] ANSI-Medicare Part B [id number] ANSI-Medicare Part B [id number] [facility]-Medicaid [id number] ANSI-Medicaid [id number] ANS-Medicare Part B [id number] ANSI-Medicare Part B [id number] ANS-Medicaid [id number] ANS-Medicaid [id number] ANSI-Medicare Part B [id number] Medicaid [facility] Part B [id number] Self [id number] Medicare [facility] Medicare Primary [id number] Self [id number] MEDICARE C [id number] S [id number] A MEDICAID [id number] SP [id number] MEDICAID [id number] SP [id number] A [id number] Problems, Conditions, and Diagnoses Code Display Name Description Problem Type Effective Dates Data Source(s) D50.9 Iron deficiency anemia Anemia, iron deficiency Problem 04/11/2020 12:00:00 AM EST eCW1 ([facility]) D50.9 Iron deficiency anemia Iron deficiency anemia [id number] 03/16/2020 12:00:00 AM EST [facility] E78.2 Mixed hyperlipidemia Mixed hyperlipidemia [id number] 01/27/2020 12:00:00 AM EDT [facility] N17.9 KALYAN (acute kidney injury) KALYAN (acute kidney injury) [id number] 05/10/2019 12:00:00 AM EST [facility] I48.21 Permanent atrial fibrillation Permanent atrial fibrill ation Diagnosis 04/12/2020 09:01:57 AM EST [facility] D50.9 Iron deficiency anemia, unspecified Iron deficie ncy anemia, unspecified Diagnosis 04/12/2020 09:01:57 AM [facility] J44.9 Chronic obstructive pulmonary disease, u nspecified Chronic obstructive pulmonary disease, u Diagnosis 04/05/2020 08:20:57 AM EST [facility] I50.32 Chronic diastolic (congestive) heart [place] lure Chronic diastolic (congestive) heart vielka Diagnosis 04/05/2020 08:20:57 AM EST [facility] D64.9 Anemia, unspecified Anemia, unspecified Diagnosis 1 05/17/2019 07:55:13 AM [facility] E78.2 Mixed hyperlipidemia Mixed hyperlipidemia Diagnosis 03/09/2020 09:03:48 AM [facility] I10 Essential (primary) hypertension Essential (primary) h ypertension Diagnosis 02/18/2020 08:12:14 AM [facility] G47.33 Obstructive sleep apnea (adult) (pediatr ic) Obstructive sleep apnea (adult) (pediatr Diagnosis 02/18/2020 08:12:14 AM EST [facility] I48.0 Paroxysmal atrial fibrillation Paroxysmal atrial fibri llation Diagnosis 05/12/2019 11:01:18 AM [facility] Surgeries/Procedures Procedure Description Date Indications Data Source(s) ECG ROUTINE ECG W/LEAST 12 LDS W/I&R POCT AMB EKG Routine 04/05/2020 9:19 AM EST Permanent atrial fibrillation 04/05/2020 02:19:00 PM EST Per manent atrial fibrillation [facility] Permanent atrial fibrillation ECG ROUTINE ECG W/LEAST 12 LDS W/I&R POCT AMB EKG Routine 03/16/2020 9:08 AM EST Permanent atrial fibrillation 03/16/2020 02:08:00 PM EST Per manent atrial fibrillation [facility] Permanent atrial fibrillation ECG ROUTINE ECG W/LEAST 12 LDS W/I&R POCT AMB EKG Routine 01/27/2020 9:42 AM EDT Permanent atrial fibrillation 01/27/2020 01:42:00 PM EDT Per manent atrial fibrillation [facility] Permanent atrial fibrillation BLOOD COUNT COMPLETE AUTO&AUTO DIFRNTL WBC COUNT CBC AND DIFFER ENTIAL Routine 11/15/2019 11/15/2019 12:00:00 AM EDT [facility] HEPATIC FUNCTION PANEL HEPATIC FUNCTION PANEL Routine 07/05/2019 07/05/2019 12:00:00 AM EDT [facility] BASIC METABOLIC PANEL CALCIUM TOTAL BASIC METABOLIC PANEL Routine 07/05/2019 07/05/2019 12:00:00 AM EDT [facility] Annual wellness visit, includes a person alized prevention plan of service (pps), subsequent visit 04/05/2019 12:00:00 AM EST eCW 1 (Formerly [facility]) Office Visit, Est Pt., Level 4 PC 04/05/2019 12:00:00 AM EST eCW1 (Formerly [facility]) Office Visit, Est Pt., Level 2 FC 04/05/2019 12:00:00 AM EST eCW1 (Formerly [facility]) Results ID Date Data Source [id number] 04/13/2020 04:13:57 PM EST [facility] Name Value Range Interpretation Code Description Data Colleen rce(s) Supporting Document(s) 25 HYDROXY VIT D @ 27 ng/mL (31-100) L Lab [facility] A REVIEW OF THE LITERATURE SUGGESTS THEF OLLOWING RANGES FOR THE CLASSIFICATIONOF 25-OH VITAMIN D STATUS: VITAMIN D STATUS 25-OH VITAMIN D DEFICIENCY <20 NG/MLINSUFFICIENCY 20-30 NG/MLSUFFICIENCY 31 - 100 NG/MLTOXICITY > 100 NG/ML A PEDIATRIC REFERENCE RANGE HAS NOT BEENESTABLISHED USING THIS METHOD. ID Date Data Source [id number] 04/13/2020 04:09:20 PM EST [facility] Name Value Range Interpretation Code Description Data Colleen rce(s) Supporting Document(s) VITAMIN B12 @ 306 pg/mL (193-986) [facility] [place] ID Date Data Source [id number] 02/20/2020 08:48:12 PM EST [facility] Name Value Range Interpretation Code Description Data Colleen rce(s) Supporting Document(s) &PDF [facility] IGHZGl8mLxZSLhYv70/PNCtqNEZmb1OfGVmwRNx9SNsfWTLzF2PxkFrkLNvPRsHPWfkBBGtxAsJbVIMe FcG spNBO2b9NlwSXxT17dnD1vSXCgy14yLJfoAR8+DQplbmRvYmoNCjQgMCBvYmoNCiAgPDwvRmlsdGVyIC 3DjZM0ZXQiL53sWIQvZNVaU1EoFID8GAh+Ui9LQXEdlXQgVG7LZpqH6PyMzmuLXG0c0W9uDR+mDtT272 5OEoIQ8nKbiAfSlbYG9xVF0cLJIm4cLNS/zydG2XZV kjitiAOwDhh5UebR+Z9T0r1wcDG/w1SW3LxjHrKo+WsQadEZiR9/EKtpRi+uhD8yi3S/L5ttK1hkzjrH 9iKCvG8pZvK3ZP9y9jUm9uRVJoS//dWor/tep3CbFThlnQfzc7A9PVvQweQXKPA9+6j1i2h/EMpmXFKy IJMWJfUEFY0Z9I/FoJIF+gSjb4XEaVtN5gXPAgUtKE S4p42o4bICLbME/lNKdobTXI3GoTh8mfol5RfPJ0TUsNjV3IQWTQEh9nZqqJS0DBZ/james+lVMpZJwqEh [file] ICAgICAgICAgICAgICAgICAgICAgICAgICAgICAgICAgICAgICAgICAgICAgICAgICAgICAgICAgICAg ICAgICAgICAgICAgICAgICAgICAgICAgICAgICAgIC IyFH8AVFTrAVTaSFPbVITaRJWzSQAsSUXoEWFxADDqAGHdIQWkZAHnKOXdWWLsRNDvUGKjPVAcYLEuKS QqYAYfSSUeRLFwROJgNRJkTUYbPBRgIWEkJHCeOOLrCOCdBJLkCDBfGBEmOM7ZYHMbLMYtCZLrPDSsCX AgICAgICAgICAgICAgICAgICAgICAgICAgICAgICAg VVSoMLZoHIYgBFOdJFExVORqKMQmETDgJPYjYUAaUKVtUYEqUXUsLGPnSOLdEIDfALPaDXSoLD5QKPPi ICAgICAgICAgICAgICAgICAgICAgICAgICAgICAgICAgICAgICAgICAgICAgICAgICAgICAgICAgICAg ICAgICAgICAgICAgICAgICAgICAgICAgICAgICAgIC YiHWLmGE6LJLDqFEWzNHYdDXQmEYLbGVJsGQMwQZRxEHYwNEMaWTDnGQDfSZGrJBGkCQTkOINmTIHjEU CkJQCpUAZkMKEdNVUoHMXgQCEgQTHhRXLmCSSlBDYwBPImJGNfJEEbGDJyWFNsXC5PKOSlTOTjRIPsJU AgICAgICAgICAgICAgICAgICAgICAgICAgICAgICAg JYHoXNRsEXHgKUDcWNLrIVYdPEDjTSBdBIIdMPGnOUYqNUMkUFKyOZLzOJIeMEJqNXBeQXNfDLFxQJ0P ICAgICAgICAgICAgICAgICAgICAgICAgICAgICAgICAgICAgICAgICAgICAgICAgICAgICAgICAgICAg ICAgICAgICAgICAgICAgICAgICAgICAgICAgICAgIC JvEVVsJYGzDQ1YXWUkXMSkGLGlTUZhPEBdMWAbGCJyHNGaSAEvROQuJOUdUZLzZUUaGBPuJMSbCQChOS NlIOSrOSYcHFSzPBUgJLTkLWLtOGWxGZWaAZQlDUYtIWSdAROtYDKaZMYcTVBfKUKjQJ3YMLUcKUTmLA AgICAgICAgICAgICAgICAgICAgICAgICAgICAgICAg ICAgICAgICAgICAgICAgICAgICAgICAgICAgICAgICAgICAgICAgICAgICAgICAgICAgICAgICAgICAg NR2BUHIvUEWnUICrJKXgHABpESExILXnDAByRMPmFYNpKAPwGSVjQNImFTIkVKPhKESqKBLkAPUwRMFd ICAgICAgICAgICAgICAgICAgICAgICAgICAgICAgIC UgFUPlMDEjCGWbTZ5AHH76eTZri1O8GJVqUN3uiqp/Nd9PGJfusrIqkTUdKX3BPgAbXZ8wpn8KLyDpLD 5cfr1MNTbNQqEnZ0F9zPJlBFTwJWITDuLzC21kBBajCx64ZSdmNWNiKgFeYOm2Uy7PLqKuH3whLDFnHe S9QAFdHhNcTFxbJF1Jq1WsbXLhBYr+Em1VYO0cw9Vu WQlpEMBtGB5fgd9UKUxIEdHbN5G1pJBjV5V6DFbaVv3UFBYsZUVdUXwoLHLFIHmmGX6PKI2vpaT3LB0Y vAOyRDSfKLTrdYFgKYf7T00umEDuCEuwUQ1YZAZ+Leilani+Ux5KSWZeDZXgEELdIjZrTDLUHtFsR92pcBPq DYPoWGM2DZZcOs6BXEWmL0VyzpPngIlcswXgBGPxOP CFYS6JTJzrtzAuqJKcoZpxXA91yYmqKP6ZVi3KLsJwXY6bbs9CzZAoPg8BGZPkIV5QPIRtIJCoBFIzLB A9CMWhTuDgSPadVQJrFRWrZWI7RDKgGZSyWW0NDnJfCWSgYWO6PqUnWWCaRHVeig8BFYHgJNEmIdM1TR BtNSHfRRPcPMdqWMHhVQAhDBcoICJsUYSjIQ8EWgKy LRUxRXN6BzjpSCTlBZEgvn2QHXWlYUJbWax6TtWmBVKbSHQhYRuyMPCuTBJnENQwCKGaBCDsAK0JUgCc KJSxFCNpLlouCDPoFDWrqs9DKAUeMHZjAMMsVxAvJTLpBQThCNicVQDtAWP2AlL9STPvCJFkUB8BGsJo SLRjPFX3AyeiRINyOSTlvm0ZBEPhSVApUVN4RFXbRH MeVVXrJKwjRQImKGE2IsXpYDJwUBJfWT6UJcRdVUEeKPT7VZUfIPMkUHBfgo7XBZUyZYCiRdg2KHCnHY FuLGHsACxfZAOhKZAdYsnaIMFyTZCiUM2UDrLpHVZzPNT8QBauVERgJVNfzk2XEZJpLBFiOvAoQIUyYT UlIMEkPNkiBSWfRIV5MGa8GXTmJMFyJH1AEuCjDIqw RXXSWnn2JHdlT3h4TAOiHN9HH7Ryg6QaIVarRLGJYVqmXD0hwzOyOEHiFf1RL7aZWpi0Nax3ZRC3IyQs DGAxT2U7MvEoIuXlYbMtHXZiSpV1Eg2xOAVjXEi0WLixR0EdVVGlWhEyY7Z8TVDaUHEsODI0EBo4WvAt YC5HQe4LImC0GSC8fXNdIs8CPFi6VjFOSpHlEO9TRJb= ID Date Data Source Comprehensive Metabolic Profile (CMP) 07/05/2019 04:23:07 AM EDT eCW1 (Formerly [facility]) Name Value Range Interpretation Code Description Data Colleen rce(s) Supporting Document(s) 1.39 eCW1 ([facility]) 38.7 eCW1 ([facility] hospital) 39 eCW1 (Critical [facility] hospital) 100 eCW1 (Critical [facility] hospital) 140 eCW1 (Critical access hospital) 36 eCW1 ([facility]) 102 eCW1 (Critical access hospital) 3.5 eCW1 ([facility]) 8 eCW1 ([facility]) 11 eCW1 (Critical access hospital) 9.7 eCW1 ([facility]) 7.5 eCW1 ([facility]) 102 eCW1 ([facility]) 3.7 eCW1 ([facility]) 0.5 eCW1 ([facility]) 0.97 eCW1 (Critical access hospital) ID Date Data Source NT-PRO BNP 07/05/2019 03:38:32 AM EDT eCW1 (Formerly [facility]) Name Value Range Interpretation Code Description Data Colleen rce(s) Supporting Document(s) 2492 NT-PRO BNP eCW1 ([facility]) ID Date Data Source MAGNESIUM LEVEL 07/05/2019 03:38:27 AM EDT eCW1 (Formerly [facility]) Name Value Range Interpretation Code Description Data Colleen rce(s) Supporting Document(s) 2.8 MAGNESIUM LEVEL eCW1 ([facility]) ID Date Data Source FREE T4 & TSH PANEL 07/05/2019 03:38:24 AM EDT eCW1 ([facility]ly [facility]) Name Value Range Interpretation Code Description Data Colleen rce(s) Supporting Document(s) 7.350 eCW1 (Critical access hospital) 1.32 eCW1 (Critical access hospital) ID Date Data Source CBC with Differential 07/05/2019 03:38:17 AM EDT eCW1 ([facility]) Name Value Range Interpretation Code Description Data Colleen rce(s) Supporting Document(s) 8.7 WHITE BLOOD COUNT eCW1 ([facility]) 4.12 RED BLOOD COUNT eCW1 ([facility]) 37.1 HEMATOCRIT eCW1 ([facility]) 10.6 HEMOGLOBIN eCW1 ([facility]) 25.7 MEAN CORPUSCULAR HEMOGLOBIN eC W1 (Formerly [facility]) 90.0 MEAN CORPUSCULAR VOLUME eCW1 ( Formerly [facility]) 16.4 RED CELL DISTRIBUTION WIDTH eC W1 (Formerly [facility]) 381 PLATELET COUNT, AUTOMATED eCW1 (Formerly [facility]) 85.1 NEUTROPHILS % eCW1 (Formerly [facility]) 28.6 MEAN CORPUSCULAR HGB CONC eCW1 (Formerly [facility]) 1.2 EOS % eCW1 ([facility] hospital) 6.0 MONO % eCW1 ([facility] hospital) 7.4 NEUTROPHILS # eCW1 (Formerly [facility]) 0.3 BASO % eCW1 (Critical access hospital) 6.8 LYMPH % eCW1 ([facility] hospital) 0.5 MONO # eCW1 (Critical access hospital) 0.6 LYMPH # eCW1 (Critical [facility] hospital) 0.1 EOS # eCW1 (Critical access hospital) 0.0 BASO # eCW1 (Critical [facility] hospital) Procedure Social History Code Duration Value Status Description Data Source(s ) Alcohol intake 04/12/2020 12:00:00 AM EST Yes completed [facility] Cigarette pack-years 04/12/2020 12:00:00 AM EST UNK completed [facility] Cigarettes smoked current (pack per day) - Reported 04/12/19 12:00:00 AM EST UNK completed [facility] Smoking 04/12/2020 12:00:00 AM EST Former smoker completed Former smoker [facility] Smoking 04/11/2020 12:00:00 AM EST Former Smoker completed Former Smoker eCW1 (Formerly [facility]) Smoking 04/11/2020 12:00:00 AM EST Former Smoker completed Former Smoker eCW1 (Formerly [facility]) Smoking 04/11/2020 12:00:00 AM EST Former Smoker completed Former Smoker eCW1 (Formerly [facility]) Smoking 04/11/2020 12:00:00 AM EST Former Smoker completed Former Smoker eCW1 (Formerly [facility]) Smoking 04/11/2020 12:00:00 AM EST Former Smoker completed Former Smoker eCW1 (Formerly [facility]) Alcohol intake 02/23/2020 12:00:00 AM EST Yes completed [facility] Cigarette pack-years 02/23/2020 12:00:00 AM EST UNK completed [facility] Cigarettes smoked current (pack per day) - Reported 02/23/20 12:00:00 AM EST UNK completed [facility] Smoking 02/23/2020 12:00:00 AM EST Former smoker completed Former smoker [facility] Alcohol intake 02/18/2020 12:00:00 AM EST Yes completed [facility] Cigarette pack-years 02/18/2020 12:00:00 AM EST UNK completed [facility] Cigarettes smoked current (pack per day) - Reported 02/18/20 12:00:00 AM EST UNK completed [facility] Smoking 02/18/2020 12:00:00 AM EST Former smoker completed Former smoker [facility] Smoking 07/05/2019 12:00:00 AM EDT Former Smoker completed Former Smoker eCW1 (Formerly [facility]) Smoking 07/05/2019 12:00:00 AM EDT Former Smoker completed Former Smoker eCW1 (Formerly [facility]) Smoking 07/05/2019 12:00:00 AM EDT Former Smoker completed Former Smoker eCW1 (Formerly [facility]) Smoking 07/05/2019 12:00:00 AM EDT Former Smoker completed Former Smoker eCW1 (Formerly [facility]) Smoking 07/05/2019 12:00:00 AM EDT Former Smoker completed Former Smoker eCW1 (Formerly [facility]) Smoking 07/05/2019 12:00:00 AM EDT Former Smoker completed Former Smoker eCW1 (Formerly [facility]) Smoking 07/05/2019 12:00:00 AM EDT Former Smoker completed Former Smoker eCW1 (Formerly [facility]) Smoking 07/05/2019 12:00:00 AM EDT Former Smoker completed Former Smoker eCW1 (Formerly [facility]) Smoking 07/05/2019 12:00:00 AM EDT Former Smoker completed Former Smoker eCW1 (Formerly [facility]) Alcohol intake 05/12/2019 12:00:00 AM EST Yes completed [facility] Cigarette pack-years 05/12/2019 12:00:00 AM EST UNK completed [facility] Cigarettes smoked current (pack per day) - Reported 05/12/19 20 12:00:00 AM EST UNK completed [facility] Smoking 05/12/2019 12:00:00 AM EST Former smoker completed Former smoker [facility] Vital Signs ID Date Data Source UNK Name Value Range Interpretation Code Description Data Source(s) Oxygen saturation in Arterial blood by Pulse oximetry 93 % 93 % [facility] Body mass index (BMI) [Ratio] 40.17 kg/m2 40.17 kg/m2 [facility] Body weight 106.142 kg 106.142 kg [facility] Body height 162.6 cm 162.6 cm [facility] Heart rate 92 /min 92 /min [facility] Diastolic blood pressure 62 mm[Hg] 62 mm[Hg] [facility] Systolic blood pressure 124 mm[Hg] 124 mm[Hg] [facility] Diastolic blood pressure 70 mm[Hg] 70 mm[Hg] eCW1 (Formerly [facility]) Systolic blood pressure 138 mm[Hg] 138 mm[Hg] e CW1 (Formerly [facility]) Body temperature 97.7 [degF] 97.7 [degF] eCW1 ( Formerly [facility]) Respiratory rate 20 /min 20 /min eCW1 (Formerly [facility]) Heart rate 113 /min 113 /min eCW1 ([facility]) Body mass index (BMI) [Ratio] 38.44 kg/m2 38.44 kg/m2 eCW1 (Formerly [facility]) Body height 65 [in_i] 65 [in_i] eCW1 (Formerly [facility]) Body weight 231 [lb_av] 231 [lb_av] eCW1 ([facility]) Oxygen saturation in Arterial blood by Pulse oximetry 90 % 90 % [facility] Body mass index (BMI) [Ratio] 39.17 kg/m2 39.17 kg/m2 [facility] Body weight 103.511 kg 103.511 kg [facility] Body height 162.6 cm 162.6 cm [facility] Heart rate 96 /min 96 /min [facility] Diastolic blood pressure 58 mm[Hg] 58 mm[Hg] [facility] Systolic blood pressure 132 mm[Hg] 132 mm[Hg] [facility] Oxygen saturation in Arterial blood by Pulse oximetry 93 % 93 % [facility] Body mass index (BMI) [Ratio] 39.65 kg/m2 39.65 kg/m2 [facility] Body weight 104.781 kg 104.781 kg [facility] Body height 162.6 cm 162.6 cm [facility] Heart rate 93 /min 93 /min [facility] Diastolic blood pressure 68 mm[Hg] 68 mm[Hg] [facility] Systolic blood pressure 138 mm[Hg] 138 mm[Hg] [facility] Body mass index (BMI) [Ratio] 37.08 kg/m2 37.08 kg/m2 [facility] Body weight 97.977 kg 97.977 kg [facility] Body height 162.6 cm 162.6 cm [facility] Diastolic blood pressure 76 mm[Hg] 76 mm[Hg] [facility] Systolic blood pressure 119 mm[Hg] 119 mm[Hg] [facility] Oxygen saturation in Arterial blood by Pulse oximetry 88 % 88 % [facility] Body mass index (BMI) [Ratio] 39.01 kg/m2 39.01 kg/m2 [facility] Body weight 106.323 kg 106.323 kg [facility] Body height 165.1 cm 165.1 cm [facility] Heart rate 113 /min 113 /min [facility] Diastolic blood pressure 60 mm[Hg] 60 mm[Hg] [facility] Systolic blood pressure 138 mm[Hg] 138 mm[Hg] [facility] Diastolic blood pressure 72 mm[Hg] 72 mm[Hg] W1 (Formerly [facility]) Systolic blood pressure 130 mm[Hg] 130 mm[Hg] e CW1 (Formerly [facility]) Body temperature 98.7 [degF] 98.7 [degF] eCW1 ( Formerly [facility]) Respiratory rate 18 /min 18 /min eCW1 (Formerly [facility]) Heart rate 103 /min 103 /min eCW1 ([facility]) Body mass index (BMI) [Ratio] 38.77 kg/m2 38.77 kg/m2 [facility] (Formerly [facility]) Body height 65 [in_i] 65 [in_i] eCW1 (Formerly [facility]) Body weight 233 [lb_av] 233 [lb_av] eCW1 ([facility]) Body mass index (BMI) [Ratio] 41.5 kg/m2 [...] blood pressure 90 mm[Hg] 90 mm[Hg] eCW1 (Formerly [facility]) Systolic blood pressure 140 mm[Hg] 140 mm[Hg] e CW1 (Formerly [facility]) Body temperature 97.3 [degF] 97.3 [degF] eCW1 ( Formerly [facility]) Respiratory rate 18 /min 18 /min eCW1 ([facility]ly [facility]) Heart rate 102 /min 102 /min eCW1 ([facility]) Body mass index (BMI) [Ratio] 38.94 kg/m2 38.94 kg/m2 eCW1 (Formerly [facility]) Body height 65 [in_us] 65 [in_us] eCW1 (Formerly [facility]) Body weight Measured 234 [lb_av] 234 [lb_av] eC W1 (Formerly [facility]) Patient Treatment Plan of Care Planned Activity Planned Date Details Description Data Source (s) ferric carboxymaltose 50 MG/ML Injectable Solution [In jectafer] 04/13/2020 12:00:00 AM EST eCW1 (Critical access hospital) ferric carboxymaltose 50 MG/ML Injectable Solution [In jectafer] 04/13/2020 12:00:00 AM EST eCW1 (Critical access hospital) ferric carboxymaltose 50 MG/ML Injectable Solution [In jectafer] 04/13/2020 12:00:00 AM EST eCW1 (Critical access hospital) ferric carboxymaltose 50 MG/ML Injectable Solution [In jectafer] 04/13/2020 12:00:00 AM EST eCW1 (Critical access hospital) torsemide 20 MG Oral Tablet 04/11/2020 12:00:00 AM EST eCW1 (Formerly [facility]) torsemide 20 MG Oral Tablet 04/11/2020 12:00:00 AM EST eCW1 (Formerly [facility]) torsemide 20 MG Oral Tablet 04/11/2020 12:00:00 AM EST eCW1 (Formerly [facility]) torsemide 20 MG Oral Tablet 04/11/2020 12:00:00 AM EST eCW1 (Formerly [facility]) torsemide 20 MG Oral Tablet 04/11/2020 12:00:00 AM EST eCW1 (Formerly [facility]) ferrous sulfate 325 MG Delayed Release Oral Tablet 04/05/2020 12 :00:00 AM EST [facility] ferrous sulfate 325 MG Delayed Release Oral Tablet 04/05/2020 12 :00:00 AM EST [facility] apixaban 2.5 MG Oral Tablet 03/16/2020 12:00:00 AM EST [facility] Furosemide 40 MG Oral Tablet 03/16/2020 12:00:00 AM EST [facility] ferrous sulfate 325 MG Delayed Release Oral Tablet 03/10/2020 12 :00:00 AM EST [facility] Simvastatin 10 MG Oral Tablet 11/24/2019 12:00:00 AM EDT [facility] potassium chloride (KLOR-CON) 20 MEQ packet 11/12/2019 12:00:00 AM EDT [facility] Doxazosin 1 MG Oral Tablet 09/28/2019 12:00:00 AM EDT [facility] Potassium Chloride 20 MEQ 07/05/2019 12:00:00 AM EDT eCW1 (Formerly [facility]) Potassium Chloride 20 MEQ 07/05/2019 12:00:00 AM EDT eCW1 (Formerly [facility]) Potassium Chloride 20 MEQ 07/05/2019 12:00:00 AM EDT eCW1 (Formerly [facility]) Potassium Chloride 20 MEQ 07/05/2019 12:00:00 AM EDT eCW1 (Formerly [facility]) Potassium Chloride 20 MEQ 07/05/2019 12:00:00 AM EDT eCW1 (Formerly [facility]) Potassium Chloride 20 MEQ 07/05/2019 12:00:00 AM EDT eCW1 (Formerly [facility]) Potassium Chloride 20 MEQ 07/05/2019 12:00:00 AM EDT eCW1 (Formerly [facility]) Potassium Chloride 20 MEQ 07/05/2019 12:00:00 AM EDT eCW1 (Formerly [facility]) Potassium Chloride 20 MEQ 07/05/2019 12:00:00 AM EDT eCW1 (Formerly [facility]) Potassium Chloride 20 MEQ 07/05/2019 12:00:00 AM EDT eCW1 (Formerly [facility]) Potassium Chloride 20 MEQ 07/05/2019 12:00:00 AM EDT eCW1 (Formerly [facility]) Potassium Chloride 20 MEQ 07/05/2019 12:00:00 AM EDT eCW1 (Formerly [facility]) Potassium Chloride 20 MEQ 07/05/2019 12:00:00 AM EDT eCW1 (Formerly [facility]) Potassium Chloride 20 MEQ 07/05/2019 12:00:00 AM EDT eCW1 (Formerly [facility]) Potassium Chloride 20 MEQ 07/05/2019 12:00:00 AM EDT eCW1 (Formerly [facility]) apixaban 5 MG Oral Tablet [Eliquis] 01/05/2019 12:00:00 AM EDT [facility] Furosemide 40 MG Oral Tablet 01/05/2019 12:00:00 AM EDT [facility] Simvastatin 40 MG Oral Tablet [facility]
--- NOTE | 2020-04-20 14:12 | ECGEPIP ---
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
[2020-04-20 15:50] LABS: CK-MB VALUE MASS 1.5 NG/ML (<3.6); CPK CREATINE PHOSPHOKINASE 35 U/L (26-192); MB/CK RELATIVE INDEX 4.29 (< OR =4); TROPONIN I < 0.02 NG/ML (< 0.10)
[2020-04-20] MEDS ORDERED: FUROSEMIDE 40MG/4ML VIAL (J1940) IV SCH (17:00)
[2020-04-20] MEDS ORDERED: FUROSEMIDE 20 MG TAB PO SCH (17:30)
[2020-04-20 18:30] VITALS: BP 146/70
[2020-04-20 19:06] LABS: HEMATOCRIT 37.4 % (36.0-47.0); HEMOGLOBIN 8.4 g/dl (12.0-15.5)
[2020-04-20 20:00] VITALS: BP 118/71
[2020-04-20] MEDS: SIMVASTATIN 10 MG TAB PO SCH (20:56)
[2020-04-20 22:02] LABS: CK-MB VALUE MASS 1.6 NG/ML (<3.6); MB/CK RELATIVE INDEX 3.14 (< OR =4); TROPONIN I 0.03 NG/ML (< 0.10)
[2020-04-21] VITALS: BP 134/60
[2020-04-21] MEDS: ACETAMINOPHEN 500 MG TAB PO PRN ×3 (03:25→20:20)
[2020-04-21 04:00] VITALS: BP 137/78
[2020-04-21 05:29] LABS: HEMATOCRIT 36.3 % (36.0-47.0); HEMOGLOBIN 8.1 g/dl (12.0-15.5); MEAN CORPUSCULAR HEMOGLOBIN 16.5 pg (27.0-33.0); MEAN CORPUSCULAR HGB CONC 22.3 g/dl (32.0-36.5); MEAN CORPUSCULAR VOLUME 73.9 fl (80.0-96.0); PLATELET COUNT, AUTOMATED 256 10^3/uL (150-450); RED BLOOD COUNT 4.91 10^6/uL (4.00-5.40); WHITE BLOOD COUNT 9.8 10^3/uL (4.0-10.0)
[2020-04-21 05:53] LABS: CALCIUM LEVEL 9.2 MG/DL (8.8-10.2); CREATININE FOR GFR 1.36 MG/DL (0.55-1.30); GLOMERULAR FILTRATION RATE 39.6 (>32); POTASSIUM SERUM 4.1 MEQ/L (3.5-5.1)
[2020-04-21] MEDS: LEVOTHYROXINE 112MCG TABLET (0.112MG) PO SCH (06:34)
[2020-04-21] MEDS: FUROSEMIDE 40MG/4ML VIAL (J1940) IV SCH ×3 (06:34→16:44)
[2020-04-21] MEDS: BUDESONIDE 0.5 MG/2 ML INHALATION SUSPENSION INH SCH ×2 (07:54→22:00)
[2020-04-21] MEDS: FORMOTEROL FUMARATE 20 MCG/2 ML INHALATION SOLUTION (PERFOROMIST) INH SCH ×2 (07:54→22:00)
[2020-04-21 08:00] VITALS: BP 168/82
[2020-04-21] MEDS: diltiaZEM **CD** 180 MG CAP PO SCH (08:56)
[2020-04-21] MEDS: POTASSIUM CHL PWD 20 MEQ PACKET PO SCH ×2 (08:56→20:20)
[2020-04-21] MEDS: FERROUS SULFATE 325MG TAB PO SCH ×3 (08:56→20:19)
[2020-04-21 09:31] LABS: CK-MB VALUE MASS 1.6 NG/ML (<3.6); MB/CK RELATIVE INDEX 4.71 (< OR =4); TROPONIN I 0.03 NG/ML (< 0.10)
--- NOTE | 2020-04-21 10:22 | IPNPDOC ---
Text Note Date of Service The patient was seen on 04/21/20. NOTE Subjective: Patient seen and examined at bedside. No acute overnight events reported. No new medical complaints this morning. States her breathing has improved. Notes a productive cough, with clear/yellow expectorate. Objective: VITAL SIGNS: See below General: NAD, sitting comfortably in chair, hirsute HEENT: NC/AT, EOMI, poor dentition Lungs: CTA B/L Heart: +S1S2, RRR Abd: soft, NT, +BS, obese Ext: peripheral edema, chronic venous stasis changes LABORATORY DATA: See below. MICROBIOLOGY: Please see below. A/P: 80 yo female with extensive PMHx admitted for several day history of worsening SOB/HERNANDEZ, multifactorial etiology including decompensated heart failure, JACQUES/OHS. #SOB - supplemental O2 as needed 88-92% - IS, acapella, sputum cx/gram stain #HFpEF - acute/chronic - IV lasix, echocardiogram - I/O's, daily weight #symptomatic anemia - serial H/H - typed and screened/consented in ED - has been transfused in the past - around 2018 as per patient #JACQUES - uses CPAP at home - states her son will bring it in #hypothyroidism #chronic afib - not on a/c due to gi bleed #DLP #HTN #COPD #RLE DVT/IVC filter 2018 #CKD #DVT prophylaxis - mechanical VS,Fishbone, I+O VS, Fishbone, I+O Laboratory Tests 04/20/20 18:55 04/21/20 05:07 Vital Signs Date Time Temp Pulse Resp B/P (MAP) Pulse Ox O2 Delivery O2 Flow Rate FiO2 04/21/20 08:56 110 168/82 04/21/20 08:00 97.8 21 94 Nasal Cannula 2.0 04/20/20 09:10 98 I&O- Last 24 Hours up to 6 AM 04/21/20 05:59 Intake Total 0 ml Output Total 300 ml Balance -300 ml CHERIE LANGE MD Apr 21, 2020 10:21
[2020-04-21] MEDS ORDERED: guaiFENesin SYRUP 200 MG/10 ML UDC PO PRN (10:30)
[2020-04-21 12:00] VITALS: BP 122/64
[2020-04-21 16:00] VITALS: BP 121/56
[2020-04-21 20:00] VITALS: BP 134/77
[2020-04-21] MEDS: SIMVASTATIN 10 MG TAB PO SCH (20:19)
[2020-04-22] VITALS (27 sets, daily range): BP systolic 104–178; BP diastolic 53–90; O2SAT 91
[2020-04-22] MEDS: ACETAMINOPHEN 500 MG TAB PO PRN ×3 (04:01→18:52)
[2020-04-22 06:17] LABS: HEMATOCRIT 37.9 % (36.0-47.0); HEMOGLOBIN 8.5 g/dl (12.0-15.5); MEAN CORPUSCULAR HGB CONC 22.4 g/dl (32.0-36.5); PLATELET COUNT, AUTOMATED 266 10^3/uL (150-450); RED BLOOD COUNT 4.99 10^6/uL (4.00-5.40); WHITE BLOOD COUNT 11.6 10^3/uL (4.0-10.0)
[2020-04-22 06:28] LABS: CALCIUM LEVEL 8.9 MG/DL (8.8-10.2); CREATININE FOR GFR 1.56 MG/DL (0.55-1.30); GLOMERULAR FILTRATION RATE 33.8 (>32); POTASSIUM SERUM 4.2 MEQ/L (3.5-5.1)
[2020-04-22] MEDS: LEVOTHYROXINE 112MCG TABLET (0.112MG) PO SCH ×2 (06:46→07:00)
[2020-04-22 07:15] LABS: ABG HCO3 29.9 MEQ/L (22.0-26.0); ABG O2 SATURATION 97.9 % (95.0-99.0); ABG PARTIAL PRESSURE CO2 74.1 mmHg (35.0-45.0); ABG PARTIAL PRESSURE O2 103.3 mmHg (75.0-100.0); ABG STANDARD HCO3 25.4 MEQ/L (22.0-26.0); ABG TOTAL CO2 32.1 MEQ/L (23.0-31.0); ABG pH (ARTERIAL) 7.223 UNITS (7.350-7.450)
[2020-04-22] MEDS: FORMOTEROL FUMARATE 20 MCG/2 ML INHALATION SOLUTION (PERFOROMIST) INH SCH ×2 (07:45→22:16)
[2020-04-22] MEDS ORDERED: FUROSEMIDE 40MG/4ML VIAL (J1940) IV ONE (07:45)
[2020-04-22] MEDS: BUDESONIDE 0.5 MG/2 ML INHALATION SUSPENSION INH SCH ×2 (07:45→22:16)
[2020-04-22 08:24] LABS: TROPONIN I 0.03 NG/ML (< 0.10)
[2020-04-22] MEDS ORDERED: FUROSEMIDE 100MG/10ML VIAL (J1940) IV ONE (10:00)
--- NOTE | 2020-04-22 10:22 | ECGEPIP ---
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1940 Requested By: NORRIS ELY Order Number: [id number] Reading MD: Mikki Aguirre Measurements Intervals [place] Rate: 117 P: [place]: 0 QRS: 156 QRSD: 136 T: 184 QT: 301 QTc: 421 Interpretive Statements ATRIAL FIBRILLATION WITH RAPID VENTRICULAR RESPONSE PVCS ABSENT INDETERMINATE AXIS NEW/ OLD SEPTAL INFARCT RIGHT BUNDLE BRANCH BLOCK LATERAL MYOCARDIAL INFARCTION, PROBABLY RECENT ST ELEV IN HIGH LATERAL LEADS WITH Q W Q WAVES OR LEAD SWITCH ACUTE OK POSSIBLE RECHECK LEAD PLACEMENT ST DEPRESSION LATERAL PRECORDIAL LEADS CHANGES Atrial-Sensed Ventricular-Paced Complexes NOTED FROM 04/20/20 Electronically Signed on 04-22-2020 10:22:18 EST by Mikki Aguirre
[2020-04-22] MEDS: POTASSIUM CHL PWD 20 MEQ PACKET PO SCH ×2 (10:30→20:48)
[2020-04-22] MEDS: FERROUS SULFATE 325MG TAB PO SCH ×3 (10:36→20:48)
[2020-04-22 11:19] LABS: ABG HCO3 32.8 MEQ/L (22.0-26.0); ABG O2 SATURATION 83.5 % (95.0-99.0); ABG PARTIAL PRESSURE O2 52.3 mmHg (75.0-100.0); ABG STANDARD HCO3 27.8 MEQ/L (22.0-26.0); ABG TOTAL CO2 35.2 MEQ/L (23.0-31.0)
[2020-04-22 11:20] LABS: ABG PARTIAL PRESSURE CO2 77.1 mmHg (35.0-45.0); ABG pH (ARTERIAL) 7.247 UNITS (7.350-7.450)
--- NOTE | 2020-04-22 11:56 | ECGEPIP ---
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
--- NOTE | 2020-04-22 13:10 | CR ---
PULMONARY/CRITICAL CARE CONSULTATION DATE: 04/22/2020 CHIEF COMPLAINT: Shortness of breath. HISTORY OF PRESENT ILLNESS: Miss Vidales is an 80-year-old female with a past medical history of COPD, hypertension, hyperlipidemia, atrial fibrillation, hypothyroidism, prior history of DVT, status post IVC filter, CHF, CKD, JACQUES on CPAP who presented to the hospital with complaints of worsening shortness of breath and increasing lower extremity edema. The patient reports for the past few days that she has noticed worsening of her chronic lower extremity edema as well as increased abdominal distention. She does take a diuretic routinely which she states she has been compliant with but feels she has not been urinating as much as she was previously. She also has noticed worsening shortness of breath particularly with exertion. She denied any significant chest pains. She does have some occasional cough and mucus production as well as occasional wheeze although she states the wheeze improves after she coughs and expectorates her mucus. She otherwise has been compliant with her usual home inhalers as well. She does state she has been compliant with CPAP at night with O2 bleed. She previously was on BIPAP. The patient denies any stomach pain, nausea or vomiting. She has not had any fevers or chills. Initially on admission, she was given Lasix for decompensated heart failure. She is somewhat incontinent but did appear to have a good response initially to the Lasix. The patient was also hypoxic and required nasal cannula oxygen supplementation although she is not on oxygen chronically. She was not on her CPAP overnight as her family member did not bring her machine with her when she presented to the hospital. This morning, she was noted to be more lethargic and sleepy. An ABG showed [id number] hypercarbic respiratory failure. PAST MEDICAL/SURGICAL HISTORY: 1. COPD. 2. History of chronic hypercarbic respiratory failure and a previous episode of intubation and mechanical ventilation in March,. 3. DVT, status post IVC filter. 4. Atrial fibrillation, not on anticoagulation due to GI bleed. 5. JACQUES on CPAP (previously on BIPAP, unclear settings at home) 6. Hypertension. 7. CHF. 8. CKD. 9. Hypothyroidism, 10. Status post appendectomy. 11. Status post hysterectomy with BSO. SOCIAL HISTORY: Former smoker, was one pack a day for approximately 65 years. Quit in 2018. HOME MEDICATIONS: 1. Budesonide. 2. Diltiazem. 3. Vitamin D. 4. Ferrous Sulfate. 5. Perforomist. 6. Synthroid. 7. Simvastatin. 8. Torsemide 40 mg b.i.d. 9. Potassium chloride. 10. Albuterol p.r.n. ALLERGIES: No known drug allergies. PHYSICAL EXAMINATION: Vitals: Temperature 97.1, pulse 140, respirations 32, blood pressure 104/56. O2 sat 94% on four liters nasal cannula. She is increased from the previous 2 liters. In 160, out 950 mL General: The patient is a morbidly obese female, is lying in bed. She is sleepy but arousable to voice and answering questions appropriately. She is able to speak in short, complete sentences. HEENT: Normocephalic, atraumatic. Dry mucous membranes on BiPAP. Pupils are reactive to light bilaterally. Neck: Supple. Trachea is midline. Unable to evaluate JVD due to neck habitus. Cardiac: Tachycardic, irregularly irregular. Normal S-1, S-2. Difficult to auscultate murmur with distant heart sounds. Respiratory: Diminished breath sounds bilaterally with crackles at the bases. No wheezes or rhonchi noted. Abdomen: Obese, soft, nontender, nondistended. Extremities: There is +3 pitting bilateral lower extremity edema with erythema and chronic venous stasis skin changes. There is also scabbed ulcers and some weeping wound. LABORATORY DATA: WBC 11.6, hemoglobin 8.5, platelets 266. Chemistries: Sodium is 145. Potassium is 4.2. Chloride is 105. Bicarb is 24, BUN 30, creatinine 1.56. Glucose is 117. Troponin was 0.03. Repeat troponin 0.03. BNP 6199, increasing to 9924. Procalcitonin was 0.17. ABG: pH 7.223, pCO2 of 74.1, pO2 of 103.3. Chest x-ray shows cardiomegaly and pulmonary vascular congestion. There is left atrial enlargement with splayed nallely. There are no focal opacities. ASSESSMENT AND PLAN: Miss Vidales is an 80-year-old female with a past medical history of hypertension, hyperlipidemia, atrial fibrillation, hypothyroidism, COPD, JACQUES on BiPAP and CHF, who presented with worsening shortness of breath and dyspnea with increasing lower extremity edema. The patient was hypoxic in the setting of decompensated heart failure. She also has [id number] hypercarbic respiratory failure likely due to her decompensated heart failure and CHF. We will continue with IV Lasix. will give a dose of 60mg IV lasix and cont monitoring of her renal function and electrolytes. Would replete potassium in particular if needed. She will have a repeat BMP in the afternoon. We will place a Miranda for more accurate measurements of her ins and outs as she is somewhat incontinent. We will follow up echocardiogram results. Suspect she has a degree of pulmonary hypertension given her obesity and JACQUES/OHS with likely right heart failure. The patient is in rapid ventricular response with her atrial fibrillation. This is likely worsening her pulmonary edema as well as her decompensation particularly if she has a degree of pulmonary hypertension and right heart failure. We will give Cardizem 10 mg IV push and continue with Cardizem p.o. 60 mg q.6 hours with p.r.n. IV Cardizem as needed for rate control. Continue with BiPAP with settings of 18/10 and increase her respiratory rate to 15. We will follow up a repeat ABG and adjust her BiPAP settings accordingly. She can have breaks to nasal cannula oxygen as needed for medications. We will continue with her home inhalers. We will continue to monitor her leukocytosis. She does not appear to have any focal opacities on imaging but she does have erythema in her lower extremities and may have a potential cellulitis. If she has increasing leukocytosis, we will give coverage for possible cellulitis in her lower extremities. Code Status: FULL CODE. Total critical care time not including any procedures approximately one hour and 30 minutes. KELSEAD
[2020-04-22 14:21] LABS: ABG BASE EXCESS 5.9 (-2.0-2.0); ABG O2 SATURATION 95.2 % (95.0-99.0); ABG PARTIAL PRESSURE O2 73.9 mmHg (75.0-100.0); ABG STANDARD HCO3 29.8 MEQ/L (22.0-26.0); ABG pH (ARTERIAL) 7.334 UNITS (7.350-7.450)
[2020-04-22 14:23] LABS: ABG PARTIAL PRESSURE CO2 63.5 mmHg (35.0-45.0)
[2020-04-22 14:38] LABS: CALCIUM LEVEL 9.1 MG/DL (8.8-10.2); CREATININE FOR GFR 1.37 MG/DL (0.55-1.30); GLOMERULAR FILTRATION RATE 39.3 (>32); POTASSIUM SERUM 3.6 MEQ/L (3.5-5.1)
[2020-04-22] MEDS ORDERED: POTASSIUM CHLORIDE 10 MEQ SR TABLET PO ONE (19:00)
[2020-04-22] MEDS: SIMVASTATIN 10 MG TAB PO SCH (20:48)
[2020-04-22] MEDS: NYSTATIN 100,000 UNITS/GM TOPICAL PWD 15 GM TOP SCH (20:49)
[2020-04-23] VITALS (19 sets, daily range): BP systolic 120–172; BP diastolic 61–82; O2SAT 91
[2020-04-23 00:09] LABS: ABG BASE EXCESS 5.3 (-2.0-2.0); ABG HCO3 33.7 MEQ/L (22.0-26.0); ABG O2 SATURATION 99.1 % (95.0-99.0); ABG PARTIAL PRESSURE O2 132.1 mmHg (75.0-100.0); ABG STANDARD HCO3 29.3 MEQ/L (22.0-26.0); ABG pH (ARTERIAL) 7.274 UNITS (7.350-7.450)
[2020-04-23 00:10] LABS: ABG PARTIAL PRESSURE CO2 74.4 mmHg (35.0-45.0)
[2020-04-23 04:39] LABS: HEMATOCRIT 40.3 % (36.0-47.0); HEMOGLOBIN 8.9 g/dl (12.0-15.5); MEAN CORPUSCULAR HGB CONC 22.1 g/dl (32.0-36.5); MEAN CORPUSCULAR VOLUME 76.8 fl (80.0-96.0); PLATELET COUNT, AUTOMATED 257 10^3/uL (150-450); RED BLOOD COUNT 5.25 10^6/uL (4.00-5.40)
[2020-04-23 05:14] LABS: CALCIUM LEVEL 9.6 MG/DL (8.8-10.2); CREATININE FOR GFR 1.42 MG/DL (0.55-1.30); GLOMERULAR FILTRATION RATE 37.7 (>32); POTASSIUM SERUM 4.4 MEQ/L (3.5-5.1)
[2020-04-23] MEDS: LEVOTHYROXINE 112MCG TABLET (0.112MG) PO SCH (06:22)
[2020-04-23] MEDS: BUDESONIDE 0.5 MG/2 ML INHALATION SUSPENSION INH SCH ×2 (07:15→19:43)
[2020-04-23] MEDS: FORMOTEROL FUMARATE 20 MCG/2 ML INHALATION SOLUTION (PERFOROMIST) INH SCH ×2 (07:15→19:43)
[2020-04-23] MEDS: ACETAMINOPHEN 500 MG TAB PO PRN ×2 (07:23→17:49)
[2020-04-23] MEDS: FERROUS SULFATE 325MG TAB PO SCH ×3 (08:52→20:03)
[2020-04-23] MEDS: POTASSIUM CHL PWD 20 MEQ PACKET PO SCH ×2 (08:52→20:03)
[2020-04-23] MEDS: FUROSEMIDE 40MG/4ML VIAL (J1940) IV SCH ×2 (08:54→17:49)
[2020-04-23] MEDS: NYSTATIN 100,000 UNITS/GM TOPICAL PWD 15 GM TOP SCH ×2 (08:54→20:04)
--- NOTE | 2020-04-23 09:20 | IPN ---
PROGRESS NOTE DATE: 04/23/2020 SUBJECTIVE: Nisha is admitted with shortness of breath, decompensated congestive heart failure, presumed right sided heart failure and worsening of her COPD, being followed by Dr. Waite from Pulmonology, appreciate her input. She is less short of breath. She is still not back to her baseline. She is not short of breath at rest. She denies any palpitations. She denies any chest pain. PHYSICAL EXAMINATION: VITAL SIGNS: Blood pressure is 140/65, pulse of 100 to 120, respiratory rate is 26, 97% O2 saturation on 3 liters. GENERAL APPEARANCE: She looks mildly dyspneic with speech. NECK: No JVD. LUNGS: Decreased breath sounds. HEART: Regular rate and rhythm. ABDOMEN: Soft, nontender. EXTREMITIES: Trace peripheral edema. LABORATORY DATA: White count 14, hemoglobin is 8.9, platelets 257,000, sodium 124, potassium 4.4, BUN 29, creatinine 1.4, glucose 125. IMPRESSION: 1. Atrial fibrillation with rapid ventricular response. She is on oral Diltiazem with p.r.n. IV Diltiazem for tachycardia, avoid beta blockers due to COPD. Not currently anticoagulated. 2. Congestive heart failure. Echocardiogram is pending. On intravenous Lasix. Potassium and renal function is stable. 3. COPD with respiratory failure. She uses BiPAP and this is being adjusted by Pulmonology. 4. Hyperlipidemia, continue low dose simvastatin 10 mg daily. 5. Hypothyroidism, continue levothyroxine 112 mcg daily.
[2020-04-23] MEDS: CEPHALEXIN 500 MG CAP PO SCH ×3 (10:10→20:03)
[2020-04-23 12:22] LABS: ABG BASE EXCESS 7.1 (-2.0-2.0); ABG O2 SATURATION 97.8 % (95.0-99.0); ABG PARTIAL PRESSURE CO2 70.2 mmHg (35.0-45.0); ABG PARTIAL PRESSURE O2 99.2 mmHg (75.0-100.0); ABG TOTAL CO2 37.1 MEQ/L (23.0-31.0); ABG pH (ARTERIAL) 7.315 UNITS (7.350-7.450)
[2020-04-23] MEDS: SIMVASTATIN 10 MG TAB PO SCH (20:03)
[2020-04-24] VITALS (13 sets, daily range): BP systolic 126–157; BP diastolic 62–84
[2020-04-24] MEDS: ACETAMINOPHEN 500 MG TAB PO PRN ×2 (03:34→09:55)
[2020-04-24 05:08] LABS: HEMATOCRIT 38.7 % (36.0-47.0); HEMOGLOBIN 8.7 g/dl (12.0-15.5); MEAN CORPUSCULAR HEMOGLOBIN 17.2 pg (27.0-33.0); MEAN CORPUSCULAR HGB CONC 22.5 g/dl (32.0-36.5); MEAN CORPUSCULAR VOLUME 76.5 fl (80.0-96.0); PLATELET COUNT, AUTOMATED 233 10^3/uL (150-450); RED BLOOD COUNT 5.06 10^6/uL (4.00-5.40); WHITE BLOOD COUNT 12.8 10^3/uL (4.0-10.0)
[2020-04-24 05:16] LABS: CALCIUM LEVEL 9.3 MG/DL (8.8-10.2); CREATININE FOR GFR 1.21 MG/DL (0.55-1.30); GLOMERULAR FILTRATION RATE 45.4 (>32); POTASSIUM SERUM 3.7 MEQ/L (3.5-5.1)
[2020-04-24] MEDS: LEVOTHYROXINE 112MCG TABLET (0.112MG) PO SCH (05:28)
[2020-04-24] MEDS: FORMOTEROL FUMARATE 20 MCG/2 ML INHALATION SOLUTION (PERFOROMIST) INH SCH ×2 (07:12→19:54)
[2020-04-24] MEDS: BUDESONIDE 0.5 MG/2 ML INHALATION SUSPENSION INH SCH ×2 (07:12→19:54)
[2020-04-24] MEDS: NYSTATIN 100,000 UNITS/GM TOPICAL PWD 15 GM TOP SCH ×2 (07:51→20:22)
--- NOTE | 2020-04-24 08:31 | ECHO ---
DATE OF PROCEDURE: 04/21/2020 Age: 80 Gender: Female REFERRING PHYSICIAN: Сергей Rodriguez M.D. PATIENT LOCATION: Room 3230 REASON FOR STUDY: Congestive heart failure, unspecified. 2D MEASUREMENTS: IVS 1.7 cm LV 5.4 cm LVPW 1.5 cm LA 4.3 cm Aorta 4.1 cm IVC 2.6 cm DOPPLER MEASUREMENT Peak velocity across the aortic valve 1.4 m/s Peak velocity across the LVOT 1.3 m/s Maximum tricuspid valve velocity 3.0 m/s 2D COMMENTS: 1. Moderately increased left ventricular wall thickness with normal left ventricular size and normal global left ventricular systolic function. The estimated left ventricular systolic ejection fraction is 60% to 65%. 2. Mildly enlarged left atrium. Subjectively, the right atrium also appeared to be mildly enlarged. The right ventricle was not well visualized. 3. The atrial septum appeared to be normal without evidence of defect or shunt. 4. Mildly enlarged aortic root at 4.1 cm. 5. A small pericardial effusion was noted, no evidence of cardiac tamponade. 6. Mildly calcified aortic valve with normal leaflet excursion. Mildly calcified mitral annulus with normal anterior mitral valve leaflet motion. Normal tricuspid valve and pulmonic valve. The proximal pulmonary artery branches also appear to be normal. 7. The inferior vena cava was dilated, central venous pressure might be elevated. DOPPLER: It detects mild mitral regurgitation, and mild tricuspid regurgitation. The calculated pulmonary artery systolic pressure varies between 40 to 50 mmHg. Assessment of the left ventricular diastolic function was limited in view of the underlying arrhythmias. IMPRESSION: 1. Normal global left ventricular systolic function with moderate concentric left ventricular hypertrophy. Assessment of the left ventricular diastolic function was limited. 2. Aortic valve sclerosis without stenosis or aortic regurgitation. 3. Mildly dilated aortic root at 4.1 cm. 4. Mitral annular calcification with mild mitral regurgitation and a mildly enlarged left atrium. 5. Mild tricuspid regurgitation with moderate pulmonary hypertension. The right atrium subjectively appeared to be mildly enlarged. The right ventricle was not well visualized. 6. A small pericardial effusion was noted, no evidence of cardiac tamponade. MTDD
--- NOTE | 2020-04-24 09:06 | IPN ---
PROGRESS NOTE DATE: 04/24/2020 SUBJECTIVE: Nisha is still short of breath. Her heart rate has improved. Oxygenation is still borderline. Still has some problems with controlling her tachycardia, but overall she is trending in a better direction. Her echocardiogram is back that shows left ventricular ejection fraction of 60% to 65%, left atrial enlargement of 43 mm, and moderate pulmonary hypertension noted. OBJECTIVE: VITAL SIGNS: Blood pressure 145/65, pulse of 98, respiratory rate 24, O2 saturation 91%. GENERAL APPEARANCE: Alert, conversant, in no distress. NECK: No JVD. LUNGS: Decreased breath sounds. HEART: Irregular rate and rhythm. ABDOMEN: Soft and nontender. EXTREMITIES: Trace peripheral edema. LABORATORY DATA: White count 12.8, hemoglobin 87, platelets 233,000. Sodium 144, potassium 3.7, BUN 24, creatinine 1.2, glucose 132. IMPRESSION: 1. Atrial fibrillation with rapid ventricular response doing better with a more controlled heart rate. She is not anticoagulated currently. She is on diltiazem orally. Beta-jacque is avoided due to chronic obstructive pulmonary disease (COPD). 2. Congestive heart failure with preserved ejection fraction and primarily right-sided heart failure. Continue current regimen. 3. Chronic obstructive pulmonary disease (COPD). Uses BiPAP as suggested by pulmonary. 4. Hyperlipidemia/hypothyroidism. No change from yesterday's regimen. 5. ? Cellulitis lower extremities. She is on cephalexin. This looks like it was started yesterday by Dr. Waite. We will continue this.
[2020-04-24] MEDS ORDERED: FUROSEMIDE 20MG/2ML VIAL (J1940) IV ONE (09:15)
[2020-04-24] MEDS: FERROUS SULFATE 325MG TAB PO SCH ×3 (09:41→20:21)
[2020-04-24] MEDS: CEPHALEXIN 500 MG CAP PO SCH ×3 (09:41→20:21)
[2020-04-24] MEDS: predniSONE 20 MG TAB PO SCH (09:41)
[2020-04-24] MEDS: POTASSIUM CHL PWD 20 MEQ PACKET PO SCH ×2 (09:42→20:21)
[2020-04-24] MEDS: FUROSEMIDE 40MG/4ML VIAL (J1940) IV SCH ×2 (09:48→16:08)
[2020-04-24] MEDS: COMBIVENT RESPIMAT 100-20MCG INHALER 4GM INH SCH ×3 (10:02→19:54)
--- NOTE | 2020-04-24 12:57 | CCN ---
CRITICAL CARE NOTE DATE: 04/24/2020 SUBJECTIVE: The patient seen and examined this morning during bedside rounds. Yesterday the patient was having issues with confusion and agitation. Her son did arrive to visit and she was calmer at that time. There is questionable history of some mild dementia at baseline. Her home BiPAP machine was brought in yesterday but was not placed on her overnight. She therefore was on our hospital BiPAP overnight which she tolerated well. This morning she is on nasal cannula oxygen again. She states her breathing is unchanged. She does have some shortness of breath with exertion although PT was working with her and she was complaining more of difficulty with knee pain from her arthritis rather than difficulty breathing. She denies any chest pain currently. She has occasional cough but scant mucous production. She has not had any fevers or chills. OBJECTIVE: VITALS: Temperature 99.0, pulse 98, respirations 24, blood pressure 145/65, O2 sat 91% on 2 liters nasal cannula. Ins 1.0 liters, out 1.2 liters, net negative 280 mL. GENERAL: The patient is a morbidly obese female sitting in bed. She is awake and alert and answering questions appropriately. She does have some pursed lips with breathing which is likely chronic. HEENT: Normocephalic, atraumatic. Moist mucous membranes noted. Pupils are reactive to light bilaterally. NECK: Supple, trachea midline. Unable to evaluate JVD due to neck habitus. CARDIAC: Tachycardic, irregularly irregular, normal S1, S2. Difficult to auscultate murmurs with loud pulmonary sounds. PULMONARY: Diminished breath sounds bilaterally with some increased rhonchi and occasional expiratory wheeze noted today. ABDOMEN: Obese, soft, nontender, non-distended. EXTREMITIES: There is +2-3 pitting bilateral lower extremity edema with chronic venous stasis skin changes. There is improvement in the previously noted erythema, particularly on the left lower extremity. There are some scab ulcers and weeping wound on the left lower extremity from a previous blister. LABS: WBC 12.8, hemoglobin 8.7, platelets 232. Chemistries: Sodium 144, potassium 3.7, chloride 103, bicarb 34, BUN 29, creatinine 1.21, glucose 132. ASSESSMENT AND PLAN: Ms. Vidales is an 80-year-old female with past medical history of hypertension, hyperlipidemia, atrial fibrillation, hypothyroidism, COPD, JACQUES on BiPAP and CHF who presented with worsening shortness of breath and dyspnea with increased lower extremity edema and abdominal distention. The patient with [id number] hypoxemic and hypercarbic respiratory failure in the setting of decompensated heart failure likely right-sided with component of pulmonary hypertension. -The patient did initially diurese well with IV Lasix. In the past 24 hours, however, she has not been as negative. Will give an additional 20 mg IV Lasix this morning so that she will get 60 mg IV in the morning and 40 mg in the afternoon. -She is on potassium chloride oral supplement and will follow up with repeat BMP in the afternoon and continued to replete potassium as needed. -The patient's KALYAN appears to be improving. Was likely a component of cardiorenal with her decompensated heart failure. Will continue monitoring renal function and continue monitoring her ins and outs with Miranda catheter. -The patient has atrial fibrillation with issues with rapid ventricular response. Her PO Cardizem was increased yesterday and will continue with current dose with IV Cardizem as needed for rate control. She can be changed to her long-acting extended release Cardizem when closer to discharge. -The patient's echocardiogram was somewhat limited study due to her body habitus. She has a normal EF but unable to comment on diastolic function. There is mild mitral regurgitation and mildly enlarged left atrium. There is also right atrial enlargement and right ventricle was not well visualized. There was at least a moderate degree of pulmonary hypertension noted. There was a small pericardial effusion but no evidence of tamponade. The IVC was dilated indicating elevated central venous pressure. -The patient likely does have pulmonary hypertension and more right-sided heart failure likely in the setting of JACQUES/OHS as well as possible diastolic dysfunction. -It was unclear from her previous records if she was on CPAP or BiPAP at home as there was documentation previously of CPAP although after her last hospitalization she was on BiPAP. After reviewing her home machine it appears the patient is on BiPAP with settings of 16/10 with O2 bleed-in. Will start her on her home BiPAP overnight and repeat ABG in the morning. -The patient does have prior history of COPD. She does appear to have some increased wheeze and rhonchi noted on exam today. Will give her a course of Prednisone 40 mg daily for five days and continue with her home inhalers. Will change her Combivent PRN to standing for her bronchodilator. -The patient does have evidence of mild cellulitis. She was started on Keflex yesterday with improvement in her leukocytosis as well as the appearance of her lower extremity. Will continue for five day course. -The patient does have issues of confusion yesterday and agitation. Some of this may be delirium particularly with her hospitalization and being in the ICU. She does have history of atrial fibrillation chronically and is not on anticoagulation due to history of GI bleed. If there is concern for possible focal neurologic deficits would consider further brain imaging as per the primary team. -DVT prophylaxis was on TEDs/SCDs. will start lovenox of DVT ppx -Code status: Full code. There has been discussion with patient's son and other family members about her goals of care. They have previously discussed that her wishes were for quality over quantity and she had previously had a DNR/DNI in place. Will continue follow up discussion with her family about her ongoing goals of care. Total critical care time spent not including any procedures approximately 40 minutes. RAKESH
[2020-04-24 14:29] LABS: CALCIUM LEVEL 9.5 MG/DL (8.8-10.2); CREATININE FOR GFR 1.1 MG/DL (0.55-1.30); GLOMERULAR FILTRATION RATE 50.6 (>32); POTASSIUM SERUM 3.9 MEQ/L (3.5-5.1)
[2020-04-24] MEDS: SIMVASTATIN 10 MG TAB PO SCH (20:21)
[2020-04-24] MEDS: ENOXAPARIN 40MG/0.4ML SYRINGE (J1650 PER 10MG) SC SCH (20:22)
[2020-04-25] VITALS (9 sets, daily range): BP systolic 130–182; BP diastolic 67–81; O2SAT 100
[2020-04-25] MEDS: COMBIVENT RESPIMAT 100-20MCG INHALER 4GM INH SCH ×4 (01:27→20:54)
[2020-04-25] MEDS: ACETAMINOPHEN 500 MG TAB PO PRN (05:54)
[2020-04-25] MEDS: LEVOTHYROXINE 112MCG TABLET (0.112MG) PO SCH (05:55)
[2020-04-25 05:56] LABS: ABG BASE EXCESS 11.9 (-2.0-2.0); ABG HCO3 37.7 MEQ/L (22.0-26.0); ABG O2 SATURATION 92.3 % (95.0-99.0); ABG PARTIAL PRESSURE CO2 56.3 mmHg (35.0-45.0); ABG PARTIAL PRESSURE O2 62.2 mmHg (75.0-100.0); ABG STANDARD HCO3 35.5 MEQ/L (22.0-26.0); ABG TOTAL CO2 39.5 MEQ/L (23.0-31.0); ABG pH (ARTERIAL) 7.444 UNITS (7.350-7.450)
[2020-04-25 06:18] LABS: HEMATOCRIT 38.7 % (36.0-47.0); HEMOGLOBIN 9.1 g/dl (12.0-15.5); MEAN CORPUSCULAR HEMOGLOBIN 17.7 pg (27.0-33.0); MEAN CORPUSCULAR HGB CONC 23.5 g/dl (32.0-36.5); MEAN CORPUSCULAR VOLUME 75.3 fl (80.0-96.0); PLATELET COUNT, AUTOMATED 248 10^3/uL (150-450); RED BLOOD COUNT 5.14 10^6/uL (4.00-5.40); WHITE BLOOD COUNT 12.9 10^3/uL (4.0-10.0)
[2020-04-25 06:47] LABS: CALCIUM LEVEL 9.4 MG/DL (8.8-10.2); CREATININE FOR GFR 1.06 MG/DL (0.55-1.30); GLOMERULAR FILTRATION RATE 52.8 (>32); POTASSIUM SERUM 3.6 MEQ/L (3.5-5.1)
[2020-04-25] MEDS: POTASSIUM CHL PWD 20 MEQ PACKET PO SCH ×2 (08:31→20:24)
[2020-04-25] MEDS: NYSTATIN 100,000 UNITS/GM TOPICAL PWD 15 GM TOP SCH ×2 (08:31→20:24)
[2020-04-25] MEDS: predniSONE 20 MG TAB PO SCH (08:31)
[2020-04-25] MEDS: CEPHALEXIN 500 MG CAP PO SCH ×3 (08:31→20:23)
[2020-04-25] MEDS: FERROUS SULFATE 325MG TAB PO SCH ×3 (08:32→20:23)
[2020-04-25] MEDS: BUDESONIDE 0.5 MG/2 ML INHALATION SUSPENSION INH SCH ×2 (08:50→20:54)
[2020-04-25] MEDS: FORMOTEROL FUMARATE 20 MCG/2 ML INHALATION SOLUTION (PERFOROMIST) INH SCH ×2 (08:50→20:54)
[2020-04-25] MEDS: FUROSEMIDE 40MG/4ML VIAL (J1940) IV SCH ×2 (10:11→17:07)
--- NOTE | 2020-04-25 12:44 | IPNPDOC ---
General Date: Apr 25, 2020 Interventions Antibiotic #1, Steroid, Nebulizer, DVT prophylaxis, Ulcer prophylaxis, Physical Therapy Chief Complaint/HPI The patient is a 80-year-old female admitted with SOB and increased LE edema. This morning patient reports breathing is easier. Has occasional cough, no wheezing noted now. No fevers or chills. 24 hour Input/Output I&O- Last 24 Hours up to 6 AM 04/25/20 06:00 Intake Total 780 ml Output Total 2445 ml Balance -1665 ml Laboratory Data CBC/BMP Laboratory Tests 04/24/20 13:53 04/25/20 05:53 ABG, pH, PCO2 Microbiology Microbiology 04/20/20 Respiratory Virus Panel (PCR) ([facility]) - Final, Complete Physical Examination Vital Signs Temperature , pulse , respiratory rate , blood pressure , pulse oximetry % on room air. Vital Signs Date Time Temp Pulse Resp B/P (MAP) Pulse Ox O2 Delivery O2 Flow Rate FiO2 04/25/20 08:00 3.0 04/25/20 08:00 98.0 107 28 154/76 (102) 95 Nasal Cannula 04/24/20 03:00 30 Constitutional Appearance: No apparent distress ENT/Mouth Nasal Mucosa: pink/moist Oropharynx Oropharynx: pink/moist Airway classification: IV Neck Supple, Trachea midline Thyroid: normal Respiratory Inspection: symmetric Respiratory Effort: using accessory muscles, other Auscultation: diminished, rales Cardiovascular Auscultation: POS: regular rate, other; NEG: regular rhythm, murmur Peripheral pulses palpable: Yes Extremities: warm, edematous Gastrointestinal no palpable mass, non-tenderness Extremities Extremities (digits-nails): normal Skin Skin appearance: bruises Assessment/Plan Assessment/Plan ASSESSMENT AND PLAN: Ms. Vidales is an 80-year-old female with past medical history of hypertension, hyperlipidemia, atrial fibrillation, hypothyroidism, COPD, JACQUES on BiPAP and CHF who presented with worsening shortness of breath and dyspnea with increased lower extremity edema and abdominal distention. The patient with [id number] hypoxemic and hypercarbic respiratory failure in the setting of decompensated heart failure likely right-sided with component of pulmonary hypertension. -She has been diuresing well, still with some crackles and pitting LE edema. cont with lasix 40mg IV BID and monitor I/Os -She is on potassium chloride oral supplement, cont to replete as needed -The patient's KALYAN appears to be improving. Was likely a component of cardiorenal with her decompensated heart failure. Will continue monitoring renal function and continue monitoring her ins and outs with Miranda catheter. -The patient has atrial fibrillation with issues with rapid ventricular response. cont PO cardiazem and adjust as per primary team for improved rate control -The patient's echocardiogram was somewhat limited study due to her body habitus. She has a normal EF but unable to comment on diastolic function. There is mild mitral regurgitation and mildly enlarged left atrium. There is also right atrial enlargement and right ventricle was not well visualized. There was at least a moderate degree of pulmonary hypertension noted. There was a small pericardial effusion but no evidence of tamponade. The IVC was dilated indicating elevated central venous pressure. -The patient likely does have pulmonary hypertension and more right-sided heart failure likely in the setting of JACQUES/OHS as well as possible diastolic dysfunction. -Cont with home BIPAP at current settings 16/10 with O2 bleed. her ABG this morning on home BIPAP appears compensated -The patient does have prior history of COPD. cont with prednisone 40mg for 5 days for mild exacerbation. Has less wheezing on exam today -The patient does have evidence of mild cellulitis. She was started on Keflex with improvement, complete 5 day course -cont PT/OT for patient -DVT prophylaxis cont with lovenox -Code status: Full code. Total critical care time spent not including any procedures approximately 40 minutes. Please do not hesitate to call if any further questions or concerns. ERON FORMAN MD Apr 25, 2020 12:42
--- NOTE | 2020-04-25 18:26 | IPNPDOC ---
Date Seen The patient was seen on 04/25/20. Progress Note SUBJECTIVE: Improved ABG, shortness of breath this AM. Tolerated home bipap overnight. Diuresing well. Hr still uncontrolled, HR 130's at times. Cardiology consulted and will see in AM. Denies chest pain, palpitations. OBJECTIVE: PHYSICAL EXAMINATION: VITAL SIGNS:Please see below GENERAL APPEARANCE: Alert, conversant, in no distress. sitting up at bedside chair NECK: No JVD. LUNGS: Decreased breath sounds bilaterally, crackles in lower posterior lung griggs. No W/R/R HEART: Irregular rate and rhythm, HR uncontrolled. S1S2 +, no M/R/G ABDOMEN: Soft and nontender, obese, BS + in four quadrants EXTREMITIES: peripheral edema +1-2 pitting b/l lower ext NEURO: CN 2-12 in tact, no focal deficits LABORATORY DATA: Please see below IMAGING: Echocardiogram 04/21/20: EF 60-65% Normal global left ventricular systolic function with moderate concentric left ventricular hypertrophy. Assessment of the left ventricular diastolic function was limited. Aortic valve sclerosis without stenosis or aortic regurgitation. Mildly dilated aortic root at 4.1 cm. Mitral annular calcification with mild mitral regurgitation and a mildly enlarged left atrium. Mild tricuspid regurgitation with moderate pulmonary hypertension. The rightatrium subjectively appeared to be mildly enlarged. The right ventricle was not well visualized. A small pericardial effusion was noted, no evidence of cardiac tamponade A/P: Atrial fibrillation with rapid ventricular response -HR not well controlled with HR 102-130's at rest -Discussed with cardiology: C/w diltiazem 90 mg PO Q6Hs, AC -F/u cardiology recommendations in the AM when they are to see (Dr. Bates) HFpEF with exacerbation, pulmonary hypertension -Currently breathing well on 3 L O2 -Echocardiogram 04/21/20: see above -Diuresed 1.5 L over 24 HRs but continues to have lower ext edema -C/w lasix BID, cardizem -Cardiology to see in AM -Monitor I&O's, low salt diet, daily wt JACQUES on bipap -tolerated nightly home bipap well -improved ABG this AM -Continue nightly Mild lower ext cellulitis -C/w keflex for 4 additional days Chronic obstructive pulmonary disease (COPD) with mild exacerbation -Less wheezy on exam -C/w prednisone, nebs HLD -C/w home meds Hypothyroidism -C/w home meds Physical deconditioning -PT/OT DVT px: -Lovenox DISPOSITION: PT/OT. F/u cardiology consult recommendations in AM. Home with services possible VS, I&O, 24H, Fishbone Vital Signs/I&O Vital Signs Date Time Temp Pulse Resp B/P (MAP) Pulse Ox O2 Delivery O2 Flow Rate FiO2 04/25/20 16:00 98.0 99 24 140/67 (91) 93 Nasal Cannula 3.0 04/24/20 03:00 30 I&O- Last 24 Hours up to 6 AM 04/25/20 06:00 Intake Total 780 ml Output Total 2445 ml Balance -1665 ml Laboratory Data 24H LABS Laboratory Tests 2 04/25/20 05:46: Blood Gas Bicarbonate Standard 35.5H, Arterial Blood pH 7.444, Arterial Blood Partial Pressure CO2 56.3H, Arterial Blood Partial Pressure O2 62.2L, Arterial Blood Total CO2 39.5H, Arterial Blood HCO3 37.7H, Arterial Blood Base Excess 11.9H, Arterial Blood Oxygen Saturation 92.3L 04/25/20 05:53: Nucleated Red Blood Cells % (auto) 0.0, Anion Gap 1L, Glomerular Filtration Rate 52.8, Calcium Level 9.4 CBC/BMP Laboratory Tests 04/25/20 05:53 Microbiology Microbiology 04/20/20 Respiratory Virus Panel (PCR) ([facility]) - Final, Complete Current Medications Current Medications Medications (Trade) Dose Ordered Sig/Eric Route PRN Reason Start Time Stop Time Status Last Admin Dose Admin Acetaminophen (Tylenol Tab) 1,000 mg Q6H PRN PO PAIN / FEVER 04/20/20 11:00 04/25/20 05:54 Albuterol Sulfate (Proventil, Ventolin Hfa) 2 puff RQID PRN INH SHORTNESS OF BREATH 04/20/20 11:00 Albuterol/ Ipratropium (Combivent Respimat 100-20mcg) 2 puff Q6HP PRN INH SHORTNESS OF BREATH 04/20/20 09:15 04/24/20 09:13 DC 04/20/20 09:23 Albuterol/ Ipratropium (Combivent Respimat 100-20mcg) 2 puff RQ6H INH 04/24/20 08:00 04/25/20 13:07 Budesonide (Pulmicort) 0.5 mg RBID INH 04/20/20 08:00 04/25/20 08:50 Cephalexin Monohydrate (Keflex) 500 mg TID PO 04/23/20 09:00 04/28/20 08:59 04/25/20 15:31 Diltiazem HCl (Cardizem Cd) 360 mg DAILY PO 04/20/20 09:00 04/22/20 09:24 DC 04/21/20 08:56 Diltiazem HCl (Cardizem) 10 mg STAT STAT IV 04/22/20 09:16 04/22/20 09:26 DC 04/22/20 10:02 Diltiazem HCl (Cardizem) 10 mg STAT STAT IV 04/23/20 09:44 04/23/20 09:45 DC 04/23/20 10:09 Diltiazem HCl (Cardizem) 60 mg Q6H PO 04/22/20 12:00 04/23/20 08:38 DC 04/23/20 06:22 Diltiazem HCl (Cardizem) 90 mg Q6H PO 04/23/20 12:00 04/25/20 17:07 Enoxaparin Sodium (Lovenox) 40 mg QHS SC 04/24/20 21:00 04/24/20 20:22 Ferrous Sulfate (Ferrous Sulfate) 325 mg TID PO 04/20/20 09:00 04/25/20 15:31 Formoterol Fumarate (Perforomist) 20 mcg RBID INH 04/20/20 08:00 04/25/20 08:50 Furosemide (LASIX injection) 40 mg BID@,17 IV 04/20/20 17:00 04/20/20 17:29 DC Furosemide (LASIX injection) 40 mg BID@,17 IV 04/21/20 07:00 04/22/20 08:02 DC 04/21/20 16:44 Furosemide (LASIX injection) 40 mg BID@,17 IV 04/23/20 09:00 04/25/20 17:07 Furosemide (Lasix) 60 mg BID@09,17 PO 04/20/20 17:30 Cancel Guaifenesin (Robitussin) 15 ml Q8HP PRN PO COUGH 04/21/20 10:30 Home Med (Med Rec Complete!) ASDIRECTED XX 04/20/20 10:45 04/20/20 10:42 DC Levothyroxine Sodium (Synthroid) 112 mcg DAILY@0600 PO 04/20/20 06:00 04/25/20 05:55 Nystatin (Mycostatin Powder, Nystop) 1 dose BID TOP 04/22/20 21:00 04/25/20 08:31 Potassium Chloride (K-Wendy 20 Meq Powder Packet) 20 meq BID PO 04/20/20 09:00 04/25/20 08:31 Prednisone (Deltasone) 40 mg DAILY PO 04/24/20 09:00 04/29/20 08:59 04/25/20 08:31 Simvastatin (Zocor) 10 mg QHS PO 04/20/20 21:00 04/24/20 20:21 Allergies Coded Allergies: No Known Allergies (Verified Allergy, Unknown, 06/29/19) Kristy Dhillon MD Apr 25, 2020 18:26
[2020-04-25] MEDS: SIMVASTATIN 10 MG TAB PO SCH (20:23)
[2020-04-25] MEDS: ENOXAPARIN 40MG/0.4ML SYRINGE (J1650 PER 10MG) SC SCH (20:24)
[2020-04-26] VITALS: BP 155/77
[2020-04-26] MEDS: COMBIVENT RESPIMAT 100-20MCG INHALER 4GM INH SCH ×4 (01:17→20:09)
[2020-04-26] MEDS: ACETAMINOPHEN 500 MG TAB PO PRN (02:31)
[2020-04-26 04:00] VITALS: BP 139/62
[2020-04-26] MEDS: LEVOTHYROXINE 112MCG TABLET (0.112MG) PO SCH (06:06)
[2020-04-26 06:37] LABS: HEMATOCRIT 42.3 % (36.0-47.0); HEMOGLOBIN 9.5 g/dl (12.0-15.5); MEAN CORPUSCULAR HEMOGLOBIN 17.6 pg (27.0-33.0); MEAN CORPUSCULAR HGB CONC 22.5 g/dl (32.0-36.5); MEAN CORPUSCULAR VOLUME 78.3 fl (80.0-96.0); PLATELET COUNT, AUTOMATED 257 10^3/uL (150-450); WHITE BLOOD COUNT 11.7 10^3/uL (4.0-10.0)
[2020-04-26 06:56] LABS: CALCIUM LEVEL 9.5 MG/DL (8.8-10.2); CREATININE FOR GFR 1.3 MG/DL (0.55-1.30); GLOMERULAR FILTRATION RATE 41.7 (>32)
[2020-04-26] MEDS: FORMOTEROL FUMARATE 20 MCG/2 ML INHALATION SOLUTION (PERFOROMIST) INH SCH ×2 (07:49→20:00)
[2020-04-26] MEDS: BUDESONIDE 0.5 MG/2 ML INHALATION SUSPENSION INH SCH ×2 (07:49→20:09)
[2020-04-26 08:00] VITALS: BP 146/83
[2020-04-26] MEDS: FERROUS SULFATE 325MG TAB PO SCH ×3 (08:08→22:11)
[2020-04-26] MEDS: POTASSIUM CHL PWD 20 MEQ PACKET PO SCH ×2 (08:08→22:14)
[2020-04-26] MEDS: predniSONE 20 MG TAB PO SCH (08:08)
[2020-04-26] MEDS: FUROSEMIDE 40MG/4ML VIAL (J1940) IV SCH (08:08)
[2020-04-26] MEDS: CEPHALEXIN 500 MG CAP PO SCH ×3 (08:08→22:14)
[2020-04-26] MEDS: NYSTATIN 100,000 UNITS/GM TOPICAL PWD 15 GM TOP SCH ×2 (08:09→22:26)
[2020-04-26] MEDS: DIGOXIN 0.25 MG TAB PO SCH ×2 (09:04→17:29)
[2020-04-26 12:00] VITALS: BP 143/75
--- NOTE | 2020-04-26 14:08 | IPNPDOC ---
Date Seen The patient was seen on 04/26/20. Progress Note SUBJECTIVE: AAOx3, sitting up at bedside chair. Cardiology assessed today, will f/u on med changes. HR better controlled 90-118. Denies chest pain, palpitations. OBJECTIVE: PHYSICAL EXAMINATION: VITAL SIGNS:Please see below GENERAL APPEARANCE: Alert, conversant, in no distress. Ox3. sitting up at bedside chair NECK: No JVD. LUNGS: Decreased breath sounds bilaterally, crackles in lower posterior lung griggs. No W/R/R HEART: Irregular rate and rhythm, HR controlled. S1S2 +, no M/R/G ABDOMEN: Soft and nontender, obese, BS + in four quadrants EXTREMITIES: peripheral edema +1-2 pitting b/l lower ext INTEGUMENTARY: Some scabbed lesions NEURO: CN 2-12 in tact, no focal deficits LABORATORY DATA: Please see below IMAGING: Echocardiogram 04/21/20: EF 60-65% Normal global left ventricular systolic function with moderate concentric left ventricular hypertrophy. Assessment of the left ventricular diastolic function was limited. Aortic valve sclerosis without stenosis or aortic regurgitation. Mildly dilated aortic root at 4.1 cm. Mitral annular calcification with mild mitral regurgitation and a mildly enlarged left atrium. Mild tricuspid regurgitation with moderate pulmonary hypertension. The rightatrium subjectively appeared to be mildly enlarged. The right ventricle was not well visualized. A small pericardial effusion was noted, no evidence of cardiac tamponade A/P: Atrial fibrillation with rapid ventricular response, improved -HR 90-118, asymptomatic -Discussed with cardiology who saw patient today -C/w diltiazem 90 mg PO Q6Hs, incr lasix to 80 mg IV BID, digoxin incr to 0.25 PO Q8H. Not on AC due to GI bleed -F/u cardiology note HFpEF with exacerbation, pulmonary hypertension -Currently breathing well on 3 L O2. +2 pitting edema in lower ext, crackles on exam so s/s of fluid overload persist -Echocardiogram 04/21/20: see above -Pos fluid balance/24H -C/w diltiazem 90 mg PO Q6Hs, incr lasix to 80 mg IV BID -Cardiology consulted, f/u note -Monitor I&O's, low salt diet, daily wt JACQUES on bipap -Tolerated nightly home bipap well -Continue nightly Mild lower ext cellulitis -C/w keflex for 3 additional days Chronic obstructive pulmonary disease (COPD) with mild exacerbation -Less wheezy on exam -C/w prednisone- attempt to deescalate 04/27/20, dawna HLD -C/w home meds Hypothyroidism -C/w home meds Hypokalemia -C/w potassium BID -daily labs Physical deconditioning -PT: Pt. requiring less assist this session with only minAx1 with sit>stand and CGA with ambulation, limited due to arrival of breakfast and HR increase into 1 50 bpm with short distance. 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 will require continued rehab following acute carehospitalization however demonstrating improvement this session with ambulation distance and transfers. -SW reaching out to rehab facilities DVT px: -Lovenox DISPOSITION: Plan is likely discharge to rehab facility. VS, I&O, 24H, Fishbone Vital Signs/I&O Vital Signs Date Time Temp Pulse Resp B/P (MAP) Pulse Ox O2 Delivery O2 Flow Rate FiO2 04/26/20 12:00 98.8 104 28 143/75 (97) 90 NIPPV (BIPAP/CPAP) 5.0 04/25/20 20:57 40 I&O- Last 24 Hours up to 6 AM 04/26/20 06:00 Intake Total 1560 ml Output Total 945 ml Balance 615 ml Laboratory Data 24H LABS Laboratory Tests 2 04/26/20 06:11: Nucleated Red Blood Cells % (auto) 0.0, Anion Gap 2L, Glomerular Filtration Rate 41.7, Calcium Level 9.5 CBC/BMP Laboratory Tests 04/26/20 06:11 Microbiology Microbiology 04/20/20 Respiratory Virus Panel (PCR) ([facility]) - Final, Complete Current Medications Current Medications Medications (Trade) Dose Ordered Sig/Eric Route PRN Reason Start Time Stop Time Status Last Admin Dose Admin Acetaminophen (Tylenol Tab) 1,000 mg Q6H PRN PO PAIN / FEVER 04/20/20 11:00 04/26/20 02:31 Albuterol Sulfate (Proventil, Ventolin Hfa) 2 puff RQID PRN INH SHORTNESS OF BREATH 04/20/20 11:00 Albuterol/ Ipratropium (Combivent Respimat 100-20mcg) 2 puff Q6HP PRN INH SHORTNESS OF BREATH 04/20/20 09:15 04/24/20 09:13 DC 04/20/20 09:23 Albuterol/ Ipratropium (Combivent Respimat 100-20mcg) 2 puff RQ6H INH 04/24/20 08:00 04/26/20 14:07 Budesonide (Pulmicort) 0.5 mg RBID INH 04/20/20 08:00 04/26/20 07:49 Cephalexin Monohydrate (Keflex) 500 mg TID PO 04/23/20 09:00 04/28/20 08:59 04/26/20 08:08 Digoxin (Lanoxin) 0.25 mg Q8H PO 04/26/20 09:00 04/27/20 01:01 04/26/20 09:04 Diltiazem HCl (Cardizem Cd) 360 mg DAILY PO 04/20/20 09:00 04/22/20 09:24 DC 04/21/20 08:56 Diltiazem HCl (Cardizem) 10 mg STAT STAT IV 04/22/20 09:16 04/22/20 09:26 DC 04/22/20 10:02 Diltiazem HCl (Cardizem) 10 mg STAT STAT IV 04/23/20 09:44 04/23/20 09:45 DC 04/23/20 10:09 Diltiazem HCl (Cardizem) 60 mg Q6H PO 04/22/20 12:00 04/23/20 08:38 DC 04/23/20 06:22 Diltiazem HCl (Cardizem) 90 mg Q6H PO 04/23/20 12:00 04/26/20 11:44 Enoxaparin Sodium (Lovenox) 40 mg QHS SC 04/24/20 21:00 04/25/20 20:24 Ferrous Sulfate (Ferrous Sulfate) 325 mg TID PO 04/20/20 09:00 04/26/20 08:08 Formoterol Fumarate (Perforomist) 20 mcg RBID INH 04/20/20 08:00 04/26/20 07:49 Furosemide (LASIX injection) 40 mg BID@,17 IV 04/20/20 17:00 04/20/20 17:29 DC Furosemide (LASIX injection) 40 mg BID@,17 IV 04/21/20 07:00 04/22/20 08:02 DC 04/21/20 16:44 Furosemide (LASIX injection) 40 mg BID@,17 IV 04/23/20 09:00 04/26/20 08:47 DC 04/26/20 08:08 Furosemide (LASIX injection) 80 mg BID@09,17 IV 04/26/20 17:00 Furosemide (Lasix) 60 mg BID@09,17 PO 04/20/20 17:30 Cancel Guaifenesin (Robitussin) 15 ml Q8HP PRN PO COUGH 04/21/20 10:30 Home Med (Med Rec Complete!) ASDIRECTED XX 04/20/20 10:45 04/20/20 10:42 DC Levothyroxine Sodium (Synthroid) 112 mcg DAILY@0600 PO 04/20/20 06:00 04/26/20 06:06 Nystatin (Mycostatin Powder, Nystop) 1 dose BID TOP 04/22/20 21:00 04/26/20 08:09 Potassium Chloride (K-Wendy 20 Meq Powder Packet) 20 meq BID PO 04/20/20 09:00 04/26/20 08:08 Prednisone (Deltasone) 40 mg DAILY PO 04/24/20 09:00 04/29/20 08:59 04/26/20 08:08 Simvastatin (Zocor) 10 mg QHS PO 04/20/20 21:00 04/25/20 20:23 Allergies Coded Allergies: No Known Allergies (Verified Allergy, Unknown, 06/29/19) Kristy Dhillon MD Apr 26, 2020 14:08
[2020-04-26 15:07] LABS: ABG BASE EXCESS 4.2 (-2.0-2.0); ABG HCO3 31.1 MEQ/L (22.0-26.0); ABG O2 SATURATION 91.5 % (95.0-99.0); ABG PARTIAL PRESSURE CO2 58.1 mmHg (35.0-45.0); ABG PARTIAL PRESSURE O2 64.8 mmHg (75.0-100.0); ABG STANDARD HCO3 28.2 MEQ/L (22.0-26.0); ABG TOTAL CO2 32.9 MEQ/L (23.0-31.0); ABG pH (ARTERIAL) 7.346 UNITS (7.350-7.450)
[2020-04-26 15:53] VITALS: BP 151/88
[2020-04-26] MEDS: FUROSEMIDE 100MG/10ML VIAL (J1940) IV SCH (17:26)
--- NOTE | 2020-04-26 20:25 | CR ---
CONSULTATION DATE: 04/26/2020 REFERRING PHYSICIAN: Dr. Kristy Dhillon REASON FOR CONSULTATION: Congestive heart failure and atrial fibrillation. HISTORY OF PRESENT ILLNESS: I was asked by Dr. Dhillon to see Mrs. Vidales. She is a pleasant, but certainly ill, 80-year-old female who has a complicated medical history. The principal diagnoses are COPD, chronic diastolic congestive heart failure and atrial fibrillation. She also carries a history of DVT and IVC filter. She presented to [facility] with worsening dyspnea and peripheral edema. She was also found to be in atrial fibrillation with rapid ventricular response. Talking to her today, she cannot really quite recall how exactly was the sequence of events; but she believe, her dyspnea occurred quite rapidly, but then she admits that the peripheral edema was probably gradual. There was considerable confusion on an outpatient basis as to what medication the patient has been taking at home and at some point, we were actually deferring to Dr. Borjas to make the situation a little less complicated to the patient with only a single provider giving her orders. After she came to the hospital, she was treated essentially with administration of steroids, diuretics, and her slow release Cardizem was replaced by immediate release Cardizem. She diuresed quite successfully. She is less short of breath, but she continues to be swollen and short of breath with minimal activity. Her atrial fibrillation is also incompletely rate controlled and I was asked to see her. PAST MEDICAL HISTORY: 1. Chronic diastolic congestive heart failure. She had several echocardiograms recently, including during this hospitalization, that revealed preserved left ventricular systolic function. 2. Chronic respiratory failure with a remote history of intubation. Combination of sleep apnea, COPD, and congestive heart failure. 3. Atrial fibrillation, suboptimal rate control; not anticoagulated due to GI bleeding. 4. JACQUES on CPAP. 5. Hypertension. 6. Dyslipidemia. 7. Hypothyroidism. 8. Chronic renal insufficiency. 9. Iron deficiency anemia. PAST SURGICAL HISTORY: 1. Fractures of ulna, right femur. 2. Appendectomy. 3. Hysterectomy. HOME MEDICATIONS: According to my office records she was taking Albuterol, budesonide, chlorthalidone 12.5 mg daily, Cardizem CD 360 mg daily, iron sulfate, furosemide 80 mg twice a day, levothyroxine 112 mcg a day, potassium chloride 20 mEq twice a day, simvastatin 10 mg a day, vitamin D 5000 units every two weeks, and Eliquis 2.5 mg twice a day that was recently discontinued. ALLERGIES: She does not carry any history of allergies. SOCIAL HISTORY: The patient used to smoke heavily, but quit in 2018. She lives with her daughter. No significant alcohol use. PHYSICAL EXAMINATION: GENERAL APPEARANCE: Mrs. Vidales is an elderly female who appears to be approximately her age. When I saw her this morning, she appeared to be in mild respiratory distress even at rest; even though, she denied it. She is alert, oriented, and mostly appropriate. VITAL SIGNS: Blood pressure 146/83, heart rate atrial fibrillation with rate between 90 to 120 beats per minute on average north of 100. Saturation 87% to 92% on 3 liters of oxygen. Weight was recorded as 103.8 kg. Her fluid balance yesterday was approximately equal, but she made only about 90 mL of urine. NECK: Her JVP is somewhat difficult to nurse case management due to her body habitus, but does appear elevated. LUNGS: Reveal fair air movement with expiratory wheezes. I do not appreciate any rhonchi or crackles. HEART: Reveals very muffled heart sounds behind respiratory sounds, but it is irregularly irregular. I do not appreciate a distinct gallop, rub, or murmur. ABDOMEN: Obese, but soft. No obvious hepatosplenomegaly or shifting dullness. EXTREMITIES: She has about 2+ edema to both knees. PELVIC: Miranda catheter is in place. NEUROLOGIC: There is generalized weakness, but I do not appreciate any focal signs. She has intact speech and intact comprehension. LABORATORY DATA: Basic metabolic panel reveals sodium 143, potassium 4.0, BUN 36, creatinine 1.3, glucose 102. CBC: Hemoglobin 9.5, hematocrit 42.3, platelet count 257,000. Urinalysis was positive for 1+ protein. Her BNP on admission was 4300 and has actually risen to 9900 on 04/22, has not been checked since, and her troponin was negative. IMAGING STUDIES: Chest x-ray on admission was consistent with cardiomegaly. I do not appreciate any obvious effusion or distinct congestive heart failure. An echocardiogram that was performed on 04/20 and later interpreted by Dr. Boyd indicated normal LV systolic function with moderate left ventricular hypertrophy, aortic sclerosis without stenosis or insufficiency, mild mitral insufficiency, mild tricuspid insufficiency with moderate pulmonary hypertension, and small pericardial effusion. Electrocardiogram on admission revealed the presence of atrial fibrillation with ventricular rate 95 beats per minute, right bundle branch block, and nonspecific repolarization abnormality with single PVC. ASSESSMENT AND PLAN: Mrs. Nisha Vidales is an 80-year-old female who has chronic atrial fibrillation that at this point is not well rate controlled. I suspect that this is due to exacerbation of congestive heart failure and possibly a component of chronic obstructive pulmonary disease (COPD) exacerbation as well. Because she is already on a high dose of Cardizem and it is probably not advisable to administer beta-blockers because she is wheezing, I will add digoxin in an attempt to improve rate control. I am not quite happy about the choice of digoxin, but I do not believe with have an alternative good option. I will start loading rather slow. We will give her 0.75 mg in three divided doses over 16 hours. Then depending on the response tomorrow morning, we will decide whether additional doses will be administered or not. Unfortunately, she probably cannot be safely anticoagulated due to gastrointestinal (GI) bleeding. The second issue is that of congestive heart failure. She is still clearly volume overloaded. She did not have much of a diuretic response to current dose of furosemide and consequently, I am going to double the dose. I will follow the patient with you. Unfortunately, most of her problems are chronic and probably not correctable. MTDD
[2020-04-26 22:00] VITALS: BP 131/48
[2020-04-26] MEDS: ENOXAPARIN 40MG/0.4ML SYRINGE (J1650 PER 10MG) SC SCH (22:14)
[2020-04-26] MEDS: SIMVASTATIN 10 MG TAB PO SCH (22:14)
[2020-04-27] MEDS: DIGOXIN 0.25 MG TAB PO SCH (00:09)
[2020-04-27 01:52] VITALS: O2SAT 90
[2020-04-27] MEDS: COMBIVENT RESPIMAT 100-20MCG INHALER 4GM INH SCH ×4 (02:00→20:00)
[2020-04-27] MEDS: ACETAMINOPHEN 500 MG TAB PO PRN (03:59)
[2020-04-27 06:00] VITALS: BP 159/89
[2020-04-27] MEDS: LEVOTHYROXINE 112MCG TABLET (0.112MG) PO SCH (06:05)
[2020-04-27] MEDS: FORMOTEROL FUMARATE 20 MCG/2 ML INHALATION SOLUTION (PERFOROMIST) INH SCH ×3 (06:45→20:00)
--- NOTE | 2020-04-27 07:53 | IPN ---
PROGRESS NOTE DATE: 04/27/2020 SUBJECTIVE: Mrs. Vidales is not happy today. She is confused. She repeatedly asks me where she is and when is she going to return to "normal hospital" where she can have visitors. She also asks why she cannot go home. But she knows her name, she knows approximately the date and she can be reasoned with. She denies any dyspnea even though she appears visibly short of breath even at rest. She as pursed lip breathing most of the time when she is not talking. She denies any chest pain. She denies any sensation of palpitations. PHYSICAL EXAMINATION: VITAL SIGNS: Blood pressure is 146/69, heart rate has been around 100 blood beats per minute. There were no episodes of bradycardia or extreme tachycardia and she has been afebrile. Saturation was around 90-95% with 3 liters of oxygen on BIPAP. INTAKE AND OUTPUT: Her fluid balance yesterday was recorded as negative 640. Weight was note recorded this morning as yet. GENERAL APPEARANCE: She is oriented x2. Her JVP is difficult to assess with her body habitus but appears high. LUNGS: Expiratory wheezes again. I do not appreciate any rhonchi or crackles. HEART: Irregular rhythm with heart rate around 100. I do not appreciate any distinct gallop, murmur or rub, but with her body habitus, it might be easily missed. ABDOMEN: Obese but soft. EXTREMITIES: There is still prominent peripheral edema to roughly three quarters of her shins. LABORATORY STUDIES: Laboratory this morning, basic metabolic panel reveals sodium 143, potassium 4, BUN 36, creatinine 1.3 and glucose 102. CBC - white blood cell count 11.7, hemoglobin 9.4, hematocrit 42.3, platelet count 257. ASSESSMENT AND PLAN: Mrs. Vidales is an 80-year-old female who has chronic diastolic congestive heart failure, chronic atrial fibrillation, and chronic obstructive pulmonary disease. Currently she was admitted for respiratory failure, I think in part due to congestive heart failure exacerbation, but I cannot rule out that there was a component of chronic obstructive pulmonary disease exacerbation as well. As far as individual problems, I am concerned the atrial fibrillation remains imperfectly controlled. I started her on Digoxin yesterday on top of Cardizem. So far she got 0.75 mg and I am going to give her another 0.125 mg for the next 3 days, after which we will get a level. She has not been anticoagulated due to a history of GI bleeding. As far as congestive heart failure is concerned, she remains volume overloaded. I increased the dose of Furosemide yesterday. Her creatinine has increased, but I will continue the higher dose one more day. It will have to be adjusted and I will sign her off to the covering Cardiologists as I will be of for the next 3 days. Fortunately she does not have any anginal symptoms. I am also concerned about her mental status. She is certainly much worse today than she was yesterday. I suspect that this is principally due to the effect of Prednisone. I would suggest to taper the dose rather progressively because I am afraid that she will develop delirium which will create yet another problem. 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 RAKESH
[2020-04-27] MEDS ORDERED: cefTRIAXone SOD 1 GM in D5W MINI-BAG PLUS 50 ML IV SCH (08:15)
[2020-04-27 08:52] LABS: HEMATOCRIT 42.1 % (36.0-47.0); HEMOGLOBIN 9.7 g/dl (12.0-15.5); MEAN CORPUSCULAR VOLUME 78.3 fl (80.0-96.0); PLATELET COUNT, AUTOMATED 290 10^3/uL (150-450); RED BLOOD COUNT 5.38 10^6/uL (4.00-5.40); WHITE BLOOD COUNT 12.5 10^3/uL (4.0-10.0)
[2020-04-27 09:11] LABS: CALCIUM LEVEL 10.1 MG/DL (8.8-10.2); CREATININE FOR GFR 1.01 MG/DL (0.55-1.30); GLOMERULAR FILTRATION RATE 55.9 (>32); POTASSIUM SERUM 4.2 MEQ/L (3.5-5.1)
[2020-04-27] MEDS: POTASSIUM CHL PWD 20 MEQ PACKET PO SCH ×2 (09:53→20:41)
[2020-04-27] MEDS: FUROSEMIDE 100MG/10ML VIAL (J1940) IV SCH ×2 (09:53→17:00)
[2020-04-27] MEDS: CEPHALEXIN 500 MG CAP PO SCH ×3 (09:53→20:41)
[2020-04-27] MEDS: FERROUS SULFATE 325MG TAB PO SCH ×3 (09:53→20:41)
[2020-04-27] MEDS: DIGOXIN 0.125 MG TAB PO SCH (09:54)
[2020-04-27] MEDS: NYSTATIN 100,000 UNITS/GM TOPICAL PWD 15 GM TOP SCH ×2 (09:55→20:41)
[2020-04-27] MEDS: BUDESONIDE 0.5 MG/2 ML INHALATION SUSPENSION INH SCH ×2 (10:17→20:00)
[2020-04-27 13:02] VITALS: BP 166/66
[2020-04-27] MEDS ORDERED: QUEtiapine FUMARATE 25 MG TAB PO ONE (18:15)
--- NOTE | 2020-04-27 19:07 | IPNPDOC ---
Date Seen The patient was seen on 04/27/20. Progress Note SUBJECTIVE: AAOx2 this AM; however, later in the day was very confused, refusing medications. Did not recognize me. Her respiratory status did not appear worsened. Cardiology suspecting possibly steroid induced delerium/confusion so steroids stopped as lung function has been improved. HR better controlled 90- 112. Denies chest pain, palpitations. OBJECTIVE: PHYSICAL EXAMINATION (done on initial exam, in AM- patient refused to let me evaluate her later in the day) VITAL SIGNS:Please see below GENERAL APPEARANCE: Alert, conversant, Ox2. sitting up in bed NECK: No JVD. LUNGS: Decreased breath sounds bilaterally, crackles in lower posterior lung griggs. No W/R/R HEART: Irregular rate and rhythm, HR controlled. S1S2 +, no M/R/G ABDOMEN: Soft and nontender, obese, BS + in four quadrants EXTREMITIES: peripheral edema +1-2 pitting b/l lower ext INTEGUMENTARY: Some scabbed lesions NEURO: CN 2-12 in tact, no focal deficits LABORATORY DATA: Please see below IMAGING: Echocardiogram 04/21/20: EF 60-65% Normal global left ventricular systolic function with moderate concentric left ventricular hypertrophy. Assessment of the left ventricular diastolic function was limited. Aortic valve sclerosis without stenosis or aortic regurgitation. Mildly dilated aortic root at 4.1 cm. Mitral annular calcification with mild mitral regurgitation and a mildly enlarged left atrium. Mild tricuspid regurgitation with moderate pulmonary hypertension. The rightatrium subjectively appeared to be mildly enlarged. The right ventricle was not well visualized. A small pericardial effusion was noted, no evidence of cardiac tamponade A/P: Acute confusion/delerium poss 2/2 to prednisone vs. UTI vs. ? -ABG done 04/26/20 not much changed from prior, resp status not worsened. -Per nursing on 04/26, patient was saying she was "seeing bugs" in her room. When asked about this this AM she said "oh I know there aren't bugs here but that air vent looks like there are some". -Later today, refusing medications and not cooperating with nursing -Stopped prednisone, started seroquel 25 mg QHS -If patient does not calm down or gets more agitated can given haldol IM, as she has no IV access until PICC line placement on 04/28/20. -Sitter ordered Atrial fibrillation with rapid ventricular response, improved -HR 90-112, asymptomatic -Does not have IV access, PICC to be placed tomorrow (multiple failed attempts by day nursing, PICC nursing at bedside) -C/w diltiazem 90 mg PO Q6Hs, lasix to 80 mg IV BID, digoxin 0.125 PO daily. Not on AC due to GI bleed -Cardiology following HFpEF with exacerbation, pulmonary hypertension -Currently breathing well on 3 L O2. +2 pitting edema in lower ext, crackles on exam so s/s of fluid overload persist -Net neg/24 H -Echocardiogram 04/21/20: see above -C/w diltiazem 90 mg PO Q6Hs, lasix to 80 mg IV BID -Cardiology following -Monitor I&O's, low salt diet, daily wt UTI -+UA, WBC slightly incr but likely 2/2 to steroids -UCx pending -C/w PO keflex for now, no IV access JACQUES on bipap -Tolerated nightly home bipap well -Continue nightly Mild lower ext cellulitis -C/w keflex for 2 additional days Chronic obstructive pulmonary disease (COPD) with mild exacerbation -Less wheezy on exam -Prednisone stopped today due to increased delerium -Monitor HLD -C/w home meds Hypothyroidism -C/w home meds Hypokalemia -C/w potassium BID -daily labs Physical deconditioning -PT: Pt. requiring less assist this session with only minAx1 with sit>stand and CGA with ambulation, limited due to arrival of breakfast and HR increase into 150 bpm with short distance. Pt. living alone [employer] and anticipate pt. will require continued rehab following acute carehospitalization however demonstrating improvement this session with ambulation distance and transfers. -SW reaching out to rehab facilities DVT px: -Lovenox DISPOSITION: Plan is likely discharge to rehab facility when more medially improved. . VS, I&O, 24H, Fishbone Vital Signs/I&O Vital Signs Date Time Temp Pulse Resp B/P (MAP) Pulse Ox O2 Delivery O2 Flow Rate FiO2 04/27/20 13:02 98.2 92 18 166/66 (99) 92 Nasal Cannula 3.0 04/25/20 20:57 40 I&O- Last 24 Hours up to 6 AM0 1/28/21 05:59 Intake Total 1105 ml Output Total 1660 ml Balance -555 ml Laboratory Data 24H LABS Laboratory Tests 2 04/27/20 08:21: Nucleated Red Blood Cells % (auto) 0.0, Anion Gap 8, Glomerular Filtration Rate 55.9, Calcium Level 10.1 04/27/20 17:49: Bedside Glucose (Misc Panel) 115H CBC/BMP Laboratory Tests 04/27/20 08:21 Microbiology Microbiology 04/26/20 Urine Culture, Received Pending 04/20/20 Respiratory Virus Panel (PCR) ([facility]) - Final, Complete Current Medications Current Medications Medications (Trade) Dose Ordered Sig/Eric Route PRN Reason Start Time Stop Time Status Last Admin Dose Admin Acetaminophen (Tylenol Tab) 1,000 mg Q6H PRN PO PAIN / FEVER 04/20/20 11:00 04/27/20 03:59 Albuterol Sulfate (Proventil, Ventolin Hfa) 2 puff RQID PRN INH SHORTNESS OF BREATH 04/20/20 11:00 Albuterol/ Ipratropium (Combivent Respimat 100-20mcg) 2 puff Q6HP PRN INH SHORTNESS OF BREATH 04/20/20 09:15 04/24/20 09:13 DC 04/20/20 09:23 Albuterol/ Ipratropium (Combivent Respimat 100-20mcg) 2 puff RQ6H INH 04/24/20 08:00 04/27/20 13:42 Budesonide (Pulmicort) 0.5 mg RBID INH 04/20/20 08:00 04/27/20 10:17 Ceftriaxone Sodium 1 gm/ Dextrose 50 ml @ 100 mls/hr Q24H IV 04/27/20 08:15 04/27/20 08:27 DC Cephalexin Monohydrate (Keflex) 500 mg TID PO 04/23/20 09:00 04/28/20 08:59 04/27/20 09:53 Digoxin (Lanoxin) 0.125 mg DAILY PO 04/27/20 09:00 04/30/20 08:59 04/27/20 09:54 Digoxin (Lanoxin) 0.25 mg Q8H PO 04/26/20 09:00 04/27/20 01:01 DC 04/27/20 00:09 Diltiazem HCl (Cardizem Cd) 360 mg DAILY PO 04/20/20 09:00 04/22/20 09:24 DC 04/21/20 08:56 Diltiazem HCl (Cardizem) 10 mg STAT STAT IV 04/22/20 09:16 04/22/20 09:26 DC 04/22/20 10:02 Diltiazem HCl (Cardizem) 10 mg STAT STAT IV 04/23/20 09:44 04/23/20 09:45 DC 04/23/20 10:09 Diltiazem HCl (Cardizem) 60 mg Q6H PO 04/22/20 12:00 04/23/20 08:38 DC 04/23/20 06:22 Diltiazem HCl (Cardizem) 90 mg Q6H PO 04/23/20 12:00 04/27/20 12:51 Enoxaparin Sodium (Lovenox) 40 mg QHS SC 04/24/20 21:00 04/26/20 22:14 Ferrous Sulfate (Ferrous Sulfate) 325 mg TID PO 04/20/20 09:00 04/27/20 09:53 Formoterol Fumarate (Perforomist) 20 mcg RBID INH 04/20/20 08:00 04/27/20 10:17 Furosemide (LASIX injection) 40 mg BID@, IV 04/20/20 17:00 04/20/20 17:29 DC Furosemide (LASIX injection) 40 mg BID@,17 IV 04/21/20 07:00 04/22/20 08:02 DC 04/21/20 16:44 Furosemide (LASIX injection) 40 mg BID@,17 IV 04/23/20 09:00 04/26/20 08:47 DC 04/26/20 08:08 Furosemide (LASIX injection) 80 mg BID@,17 IV 04/26/20 17:00 04/27/20 09:53 Furosemide (Lasix) 60 mg BID@,17 PO 04/20/20 17:30 Cancel Guaifenesin (Robitussin) 15 ml Q8HP PRN PO COUGH 04/21/20 10:30 Home Med (Med Rec Complete!) ASDIRECTED XX 04/20/20 10:45 04/20/20 10:42 DC Levothyroxine Sodium (Synthroid) 112 mcg DAILY@0600 PO 04/20/20 06:00 04/27/20 06:05 Nystatin (Mycostatin Powder, Nystop) 1 dose BID TOP 04/22/20 21:00 04/27/20 09:55 Potassium Chloride (K-Wendy 20 Meq Powder Packet) 20 meq BID PO 04/20/20 09:00 04/27/20 09:53 Prednisone (Deltasone) 40 mg DAILY PO 04/24/20 09:00 04/27/20 10:00 DC 04/26/20 08:08 Simvastatin (Zocor) 10 mg QHS PO 04/20/20 21:00 04/26/20 22:14 Allergies Coded Allergies: No Known Allergies (Verified Allergy, Unknown, 06/29/19) Kristy Dhillon MD Apr 27, 2020 19:07
[2020-04-27] MEDS: SIMVASTATIN 10 MG TAB PO SCH (20:41)
[2020-04-27] MEDS: ENOXAPARIN 40MG/0.4ML SYRINGE (J1650 PER 10MG) SC SCH (20:42)
[2020-04-27 21:30] VITALS: BP 148/82
[2020-04-28] VITALS (16 sets, daily range): BP systolic 131–154; BP diastolic 62–81; O2SAT 81–94
[2020-04-28] MEDS ORDERED: FUROSEMIDE 100MG/10ML VIAL (J1940) IV ONE
--- NOTE | 2020-04-28 00:22 | REPVR ---
PROCEDURE INFORMATION: Exam: XR Chest, 1 View Exam date and time: 04/27/2020 12:07 AM Age: 80 years old Clinical indication: Tachypnea TECHNIQUE: Imaging protocol: XR of the chest Views: 1 view. COMPARISON: [facility] PORTABLE CHEST X-RAY 04/20/2020 8:36 AM FINDINGS: Lungs: There is new airspace consolidation in much of the left lung. Right lung is clear. Pleural spaces: Left pleural effusion. No pneumothorax. Heart/Mediastinum: Stable cardiomegaly. Bones/joints: Unremarkable. IMPRESSION: 1. Pneumonia on the left with small left pleural effusion. 2. Stable cardiomegaly. Electronically signed by: Yuriy Spicer On 04/28/2020 00:22:38 AM
[2020-04-28] MEDS: COMBIVENT RESPIMAT 100-20MCG INHALER 4GM INH SCH ×4 (02:00→20:00)
[2020-04-28] MEDS: ACETAMINOPHEN 500 MG TAB PO PRN ×2 (02:03→20:56)
[2020-04-28] MEDS ORDERED: PIPERACILLIN/TAZOBACTAM SOD 3.375 GM in D5W MINI-BAG PLUS 50 ML IV ONE (03:45)
[2020-04-28] MEDS ORDERED: IPRATROPIUM 0.5MG/ALBUTEROL 2.5MG INH SOL UD 3ML (DUONEB) NEB PRN (03:45)
--- NOTE | 2020-04-28 05:02 | IPNPDOC ---
Date Seen The patient was seen on 04/28/20. Progress Note Night resident called to bedside at 1230 hrs with reports of patient having desaturations and tachypnea. On evaluation the patient was tachypneic. She was hypoxic with O2 saturations of 86% on 15L nasal cannula. Patient was mentating well and answering all questions appropriately General: Awake,alert, oriented x3. Appears in mild distress. Pulmonary: Rhonchorous breath sounds bilaterally. Mild crackles in the bases. Tachypneic with shallow breaths. No accessory muscle use Cardio: Normal S1, S2. Irregularly irregular rhythm. Regular rate Abdominal: Obese. Soft, nondistended. Nontender Extremities: Pitting edema in bilateral lower extremities Assessment/Plan: 1. Acute on chronic hypoxemic respiratory failure -Patient with worsening hypoxia. Review of her chart shows that she did not get her evening dose of lasix. Additionally, she has not been wearing her Bilevel for naps or at night due to the head strap being broken. This has likely contributed to her acute decompensation -Have contacted respiratory therapy. They will bring a new face mask or if needed bring an inhouse table top Bilevel. -Patients mentation is normal. According to patients records it appears her mentation has improved since earlier. Will hold off on ABG -Will give Lasix 80mg IV once -Portable Chest X-ray obtained showing a left pleural effusion and possible LLL infiltrate. She does appear fluid overloaded. LLL infiltrate is questionable. No other signs of pneumonia. Will give one dose of Zosyn. Procalcitonin, CRP, and Lactic acid ordered Disposition: On reevaluation, patient has improved. Currently on Bilevel with 6L bleed through down from 15. Will continue to monitor. Hypoxia likely secondary to fluid as she appears to be improving with IV lasix. VS, I&O, 24H, Fishbone Vital Signs/I&O Vital Signs Date Time Temp Pulse Resp B/P (MAP) Pulse Ox O2 Delivery O2 Flow Rate FiO2 04/28/20 04:15 91 BIPAP/CPAP 6.0 04/28/20 00:04 103 161/85 04/27/20 21:30 97.2 31 04/25/20 20:57 40 I&O- Last 24 Hours up to 6 AM 04/28/20 06:00 Intake Total 830 ml Output Total 875 ml Balance -45 ml Laboratory Data 24H LABS Laboratory Tests 2 04/27/20 08:21: Nucleated Red Blood Cells % (auto) 0.0, Anion Gap 8, Glomerular Filtration Rate 55.9, Calcium Level 10.1 04/27/20 17:49: Bedside Glucose (Misc Panel) 115H 04/28/20 01:21: CBC/BMP Laboratory Tests 04/27/20 08:21 Microbiology Microbiology 04/26/20 Urine Culture, Received Pending 04/20/20 Respiratory Virus Panel (PCR) ([facility]) - Final, Complete [facility] PRO DO Apr 28, 2020 05:02
[2020-04-28 06:08] LABS: HEMATOCRIT 45.8 % (36.0-47.0); HEMOGLOBIN 10.3 g/dl (12.0-15.5); MEAN CORPUSCULAR HEMOGLOBIN 18.2 pg (27.0-33.0); MEAN CORPUSCULAR HGB CONC 22.5 g/dl (32.0-36.5); MEAN CORPUSCULAR VOLUME 80.9 fl (80.0-96.0); PLATELET COUNT, AUTOMATED 319 10^3/uL (150-450); RED BLOOD COUNT 5.66 10^6/uL (4.00-5.40); WHITE BLOOD COUNT 12.7 10^3/uL (4.0-10.0)
[2020-04-28] MEDS: LEVOTHYROXINE 112MCG TABLET (0.112MG) PO SCH (06:22)
[2020-04-28 06:50] LABS: C REACTIVE PROTEIN QUANTITATIV 1.89 MG/DL (0.00-0.30); CALCIUM LEVEL 9.7 MG/DL (8.8-10.2); CREATININE FOR GFR 1.04 MG/DL (0.55-1.30); DIGOXIN LEVEL 1.4 NG/ML (0.5-2.0); POTASSIUM SERUM 4.5 MEQ/L (3.5-5.1)
[2020-04-28] MEDS: FORMOTEROL FUMARATE 20 MCG/2 ML INHALATION SOLUTION (PERFOROMIST) INH SCH ×2 (07:40→20:01)
[2020-04-28] MEDS: BUDESONIDE 0.5 MG/2 ML INHALATION SUSPENSION INH SCH ×2 (07:40→20:01)
[2020-04-28 07:42] LABS: BASO % 0.2 % (0.0-1.0); LYMPH % 4.2 % (24.0-44.0); MONO % 5.7 % (0.0-5.0); NEUTROPHILS % 88.2 % (36.0-66.0)
[2020-04-28 07:43] LABS: LYMPH # 0.5 10^3/uL (1.5-5.0); NEUTROPHILS # 11.1 10^3/uL (1.5-8.5)
[2020-04-28 07:44] LABS: EOS # 0.1 10^3/uL (0.0-0.5); MONO # 0.7 10^3/uL (0.0-0.8)
[2020-04-28] MEDS ORDERED: VANCOMYCIN HCL 1,000 MG, VIAL MATE ADAPTER 1 EACH in D5W 250 ML IV SCH (08:30)
[2020-04-28 08:49] LABS: ABG BASE EXCESS 14.3 (-2.0-2.0); ABG O2 SATURATION 87.7 % (95.0-99.0); ABG PARTIAL PRESSURE O2 54.3 mmHg (75.0-100.0); ABG STANDARD HCO3 37.9 MEQ/L (22.0-26.0); ABG TOTAL CO2 45.4 MEQ/L (23.0-31.0); ABG pH (ARTERIAL) 7.353 UNITS (7.350-7.450)
[2020-04-28 08:53] LABS: ABG PARTIAL PRESSURE CO2 79.1 mmHg (35.0-45.0)
[2020-04-28] MEDS ORDERED: CEFEPIME HCL 1 GM in D5W MINI-BAG PLUS 50 ML IV SCH (09:00)
[2020-04-28] MEDS: NYSTATIN 100,000 UNITS/GM TOPICAL PWD 15 GM TOP SCH ×2 (09:00→20:58)
[2020-04-28] MEDS: POTASSIUM CHL PWD 20 MEQ PACKET PO SCH ×2 (09:31→20:56)
[2020-04-28] MEDS: DIGOXIN 0.125 MG TAB PO SCH (09:31)
[2020-04-28] MEDS: FUROSEMIDE 100MG/10ML VIAL (J1940) IV SCH ×2 (09:31→17:06)
[2020-04-28] MEDS: FERROUS SULFATE 325MG TAB PO SCH ×3 (09:31→20:56)
[2020-04-28] MEDS ORDERED: VANCOMYCIN HCL 1,000 MG, VIAL MATE ADAPTER 1 EACH in D5W 250 ML IV ONE ×2 (11:00→13:00)
--- NOTE | 2020-04-28 13:10 | CCN ---
CRITICAL CARE NOTE DATE: 04/28/2020 The patient is seen, having been just transferred to the progressive care unit. This is hospital day #10. She has advanced obstructive airways disease complicated by congestive heart failure, atrial fibrillation, and obstructive sleep apnea syndrome. At bedside she is ill appearing. Temperature is 97, pulse rate 74, respirations 20-30, blood pressure 134/64. Intake and output for the past 24 hours is 980 in, 1200 mL out, since midnight 450 in, 550 out. She is ill appearing, awake and appropriate, though slightly confused. Oral mucosa is pink. Neck is [place]. I am unable to appreciate jugular venous distention. Heart sounds are irregularly irregular, consistent with atrial fibrillation. Breath sounds are diminished bilaterally with wet rales, right greater than left half way up. Chest is symmetric. There is some accessory muscle use with conversation. Abdomen is soft and obese. Extremities are grossly edematous. There are 4-5 mm of pitting edema bilaterally. Diagnostic studies were reviewed. Her sodium if 145, potassium 4.5, chloride 98, CO2 of 44, BUN 30, creatinine 1.04, glucose 102. White cell count is 12.7, hemoglobin 10.3, hematocrit 45.8, platelet count 319,000. Differential white cell count shows 88% neutrophils. Brain natriuretic peptide is 10,734. CRP 1.89. COVID test is negative. Arterial blood gases show a pH of 7.35, pCO2 of 79, pO2 of 54. Her chest x-ray shows interstitial infiltrates consistent with pulmonary edema in my view. Formal report is pending. On medications review, she is receiving cefepime and vancomycin, DuoNebs, and nebulized budesonide. Lasix has been ordered, 80 mg twice a day. The primary problem requiring critical attention acute on chronic hypoxic hypercarbic respiratory failure. I suspect her condition is multifactorial; however, clinically she appears wet. Her brain natriuretic peptide (BNP) is elevated. There is significant edema on the dependent regions, and she has rales on x-ray. Lasix has been given. I would closely monitor her urine output. I suspect she should respond but may require higher doses. Chronic obstructive pulmonary disease. The patient does have moderately severe air flow obstruction based on a long history of smoking; however, her airways disease appears to be reasonably well palliated with DuoNebs and nebulized budesonide. I would not add back steroids given her fluid volume status. Obstructive sleep apnea syndrome. We have arranged for her to have a new mask system in order that she might interface with the device. This will certainly assist her to rest. Her condition is critical. Prognosis is guarded. Sixty-seven minutes was spent in the provision of bedside critical care and coordination, exclusive of any procedure time.
--- NOTE | 2020-04-28 15:29 | IPNPDOC ---
Date Seen The patient was seen on 04/28/20. Progress Note SUBJECTIVE: More cooperative this AM; however, in respiratory distress with RR 25, labored breathing. Increased crackles, ABG showed pH wnl; however, pCO2 incr to 70's. Pulmonary called, suspecting worsening CHF and to c/w aggressive diuresis, treatment. Moved to PCU. CXR showed possible PNA;however, procalcitonin <0.10 and abx stopped, BNP markedly incr. PICC unable to be placed in radiology, attempted but failed. Denies chest pain, palpitations. OBJECTIVE: PHYSICAL EXAMINATION: VITAL SIGNS:Please see below GENERAL APPEARANCE: Cooperative, resp distress, but AAOx2. sitting up in bed NECK: No JVD. LUNGS: Decreased breath sounds bilaterally, crackles in b/l lung griggs with rhonchi HEART: Irregular rate and rhythm, HR controlled. S1S2 +, no M/R/G ABDOMEN: Soft and nontender, obese, BS + in four quadrants EXTREMITIES: peripheral edema +2 pitting b/l lower ext INTEGUMENTARY: Some scabbed lesions NEURO: CN 2-12 in tact, no focal deficits LABORATORY DATA: Please see below MICRO: UCx, BCx pending IMAGING: CXR: 1. Pneumonia on the left with small left pleural effusion. 2. Stable cardiomegaly. Echocardiogram 04/21/20: EF 60-65% Normal global left ventricular systolic function with moderate concentric left ventricular hypertrophy. Assessment of the left ventricular diastolic function was limited. Aortic valve sclerosis without stenosis or aortic regurgitation. Mildly dilated aortic root at 4.1 cm. Mitral annular calcification with mild mitral regurgitation and a mildly enlarged left atrium. Mild tricuspid regurgitation with moderate pulmonary hypertension. The rightatrium subjectively appeared to be mildly enlarged. The right ventricle was not well visualized. A small pericardial effusion was noted, no evidence of cardiac tamponade A/P: Acute on chronic hypercapnic respiratory failure likely multifactorial to HFpEF with exacerbation, pulmonary HTN, JACQUES, known COPD no longer in exacerbation -Currently 93% on 6 L NC, improved from earlier today -ABG: pH 7.353, pCO2 79, pO2 54, Do not bipap per pulmonary -Repeating ABG at 16:00, if worsened will Bipap -Please f/u on individual issues below HFpEF with exacerbation, pulmonary hypertension -Increased SOB, crackles, rhonchi b/l lung griggs. +2 pitting edema in lower ext -Net neg on 200 cc/24h, missed last dose of IV lasix 04/27/20 in evening due to IV not working -Echocardiogram 04/21/20: see above -CXR above -C/w diltiazem 90 mg PO Q6Hs, lasix to 80 mg IV BID, duonebs ATC, albuterol PRN, IS Q2H while awake -Miranda catheter placed today -Cardiology has assessed previously, pulmonary saw today as well -Monitor I&O's, low salt diet, daily wt Abnormal CXR, unlikely PNA -Procalcitonin <0.10 -Stopped abx -C/w treatment above JACQUES on bipap -According to night team, patient was not using bipap correctly due to mask strap being defective -This issue has been resolved -C/w Bipap as scheduled (naps, nightly and PRN) -Continue nightly Acute confusion/delerium poss 2/2 to prednisone vs. UTI vs. ? -ABG worsened today -Very confused 04/27/20, attempted seroquel lbut would not take meds -Stopped prednisone -If patient does not calm down or gets more agitated can add seroquel HS or haldol -Sitter ordered Atrial fibrillation, RVR resolved. -HR 70's -C/w diltiazem 90 mg PO Q6Hs, digoxin 0.125 PO daily. Not on AC due to GI bleed -Cardiology following UTI -+UA, WBC slightly incr but likely 2/2 to steroids -UCx pending -C/w PO keflex Mild lower ext cellulitis -C/w keflex for 1 additional days Chronic obstructive pulmonary disease (COPD) with mild exacerbation -no wheezing on exam -Prednisone stopped today due to increased delerium -Monitor HLD -C/w home meds Hypothyroidism -C/w home meds Hypokalemia -C/w potassium BID -daily labs Physical deconditioning -PT: Pt. requiring less assist this session with only minAx1 with sit>stand and CGA with ambulation, limited due to arrival of breakfast and HR increase into 150 bpm with short distance. Pt. living alone [employer] and anticipate pt. will require continued rehab following acute carehospitalization however demonstrating improvement this session with ambulation distance and transfers. -SW reaching out to rehab facilities DVT px: -Lovenox DISPOSITION: Moved back to PCU today due to decompensating lung issues. Plan is likely discharge to rehab facility when more medially improved. . VS, I&O, 24H, Fishbone Vital Signs/I&O Vital Signs Date Time Temp Pulse Resp B/P (MAP) Pulse Ox O2 Delivery O2 Flow Rate FiO2 04/28/20 14:10 98.7 79 20 93 Nasal Cannula 6 04/28/20 11:37 134/62 04/25/20 20:57 40 I&O- Last 24 Hours up to 6 AM 04/28/20 06:00 Intake Total 980 ml Output Total 1425 ml Balance -445 ml Laboratory Data 24H LABS Laboratory Tests 2 04/27/20 17:49: Bedside Glucose (Misc Panel) 115H 04/28/20 01:21: Procalcitonin 0.10 04/28/20 05:50: Immature Granulocyte % (Auto) 0.7, Neutrophils (%) (Auto) 88.2H, Lymphocytes (%) (Auto) 4.2L, Monocytes (%) (Auto) 5.7H, Eosinophils (%) (Auto) 1.0, Basophils (%) (Auto) 0.2, Neutrophils # (Auto) 11.1H, Lymphocytes # (Auto) 0.5L, Monocytes # (Auto) 0.7, Eosinophils # (Auto) 0.1, Basophils # (Auto) 0.0, Immature Granulocyte # (Auto) 0.1H, Nucleated Red Blood Cells % (auto) 0.0, Platelet Estimate , Anion Gap 3L, Glomerular Filtration Rate 54.0, Lactic Acid Level 0.8, Calcium Level 9.7, C-Reactive Protein, Quantitative 1.89H, UM-Bsb-P-Type Natriuretic Peptide 36829C, Digoxin Level 1.4 04/28/20 08:43: Blood Gas Bicarbonate Standard 37.9H, Arterial Blood pH 7.353, Arterial Blood Partial Pressure CO2 79.1*H, Arterial Blood Partial Pressure O2 54.3L, Arterial Blood Total CO2 45.4H, Arterial Blood HCO3 43.0H, Arterial Blood Base Excess 14.3H, Arterial Blood Oxygen Saturation 87.7L 04/28/20 09:38: Coronavirus (COVID-19)(PCR) NEGATIVE 04/28/20 10:42: Methicillin-Resist S.aureus DNA PCR NOT DETECTED CBC/BMP Laboratory Tests 04/28/20 05:50 Microbiology Microbiology 04/28/20 Blood Culture, Received Pending 04/28/20 Blood Culture, Received Pending 04/26/20 Urine Culture, Received Pending 04/20/20 Respiratory Virus Panel (PCR) ([facility]) - Final, Complete Current Medications Current Medications Medications (Trade) Dose Ordered Sig/Eric Route PRN Reason Start Time Stop Time Status Last Admin Dose Admin Acetaminophen (Tylenol Tab) 1,000 mg Q6H PRN PO PAIN / FEVER 04/20/20 11:00 04/28/20 02:03 Albuterol Sulfate (Proventil, Ventolin Hfa) 2 puff RQID PRN INH SHORTNESS OF BREATH 04/20/20 11:00 Albuterol/ Ipratropium (Combivent Respimat 100-20mcg) 2 puff Q6HP PRN INH SHORTNESS OF BREATH 04/20/20 09:15 04/24/20 09:13 DC 04/20/20 09:23 Albuterol/ Ipratropium (Combivent Respimat 100-20mcg) 2 puff RQ6H INH 04/24/20 08:00 04/27/20 20:00 Albuterol/ Ipratropium (Duoneb (Ipr 0.5mg/Alb 2.5mg)) 3 ml Q4HP PRN NEB SOB/WHEEZING 04/28/20 03:45 Budesonide (Pulmicort) 0.5 mg RBID INH 04/20/20 08:00 04/28/20 07:40 Cefepime HCl 1 gm/ Dextrose 50 ml @ 100 mls/hr Q12H IV 04/28/20 09:00 04/28/20 09:30 Ceftriaxone Sodium 1 gm/ Dextrose 50 ml @ 100 mls/hr Q24H IV 04/27/20 08:15 04/27/20 08:27 DC Cephalexin Monohydrate (Keflex) 500 mg TID PO 04/23/20 09:00 04/28/20 08:59 DC 04/27/20 20:41 Digoxin (Lanoxin) 0.125 mg DAILY PO 04/27/20 09:00 04/30/20 08:59 04/28/20 09:31 Digoxin (Lanoxin) 0.25 mg Q8H PO 04/26/20 09:00 04/27/20 01:01 DC 04/27/20 00:09 Diltiazem HCl (Cardizem Cd) 360 mg DAILY PO 04/20/20 09:00 04/22/20 09:24 DC 04/21/20 08:56 Diltiazem HCl (Cardizem) 10 mg STAT STAT IV 04/22/20 09:16 04/22/20 09:26 DC 04/22/20 10:02 Diltiazem HCl (Cardizem) 10 mg STAT STAT IV 04/23/20 09:44 04/23/20 09:45 DC 04/23/20 10:09 Diltiazem HCl (Cardizem) 60 mg Q6H PO 04/22/20 12:00 04/23/20 08:38 DC 04/23/20 06:22 Diltiazem HCl (Cardizem) 90 mg Q6H PO 04/23/20 12:00 04/28/20 11:37 Enoxaparin Sodium (Lovenox) 40 mg QHS SC 04/24/20 21:00 04/27/20 20:42 Ferrous Sulfate (Ferrous Sulfate) 325 mg TID PO 04/20/20 09:00 04/28/20 09:31 Formoterol Fumarate (Perforomist) 20 mcg RBID INH 04/20/20 08:00 04/28/20 07:40 Furosemide (LASIX injection) 40 mg BID@,17 IV 04/20/20 17:00 04/20/20 17:29 DC Furosemide (LASIX injection) 40 mg BID@, IV 04/21/20 07:00 04/22/20 08:02 DC 04/21/20 16:44 Furosemide (LASIX injection) 40 mg BID@,17 IV 04/23/20 09:00 04/26/20 08:47 DC 04/26/20 08:08 Furosemide (LASIX injection) 80 mg BID@,17 IV 04/26/20 17:00 04/28/20 09:31 Furosemide (Lasix) 60 mg BID@,17 PO 04/20/20 17:30 Cancel Guaifenesin (Robitussin) 15 ml Q8HP PRN PO COUGH 04/21/20 10:30 Home Med (Med Rec Complete!) ASDIRECTED XX 04/20/20 10:45 04/20/20 10:42 DC Levothyroxine Sodium (Synthroid) 112 mcg DAILY@0600 PO 04/20/20 06:00 04/28/20 06:22 Nystatin (Mycostatin Powder, Nystop) 1 dose BID TOP 04/22/20 21:00 04/28/20 09:00 Potassium Chloride (K-Wendy 20 Meq Powder Packet) 20 meq BID PO 04/20/20 09:00 04/28/20 09:31 Prednisone (Deltasone) 40 mg DAILY PO 04/24/20 09:00 04/27/20 10:00 DC 04/26/20 08:08 Simvastatin (Zocor) 10 mg QHS PO 04/20/20 21:00 04/27/20 20:41 Vancomycin HCl 750 mg/IV Miscellaneous Supplies 1 each/ Dextrose 275 ml @ 275 mls/hr Q24H IV 04/29/20 11:00 Vancomycin HCl 750 mg/IV Miscellaneous Supplies 1 each/ Dextrose 275 ml @ 275 mls/hr Q24H IV 04/29/20 12:00 Vancomycin HCl 1000 mg/IV Miscellaneous Supplies 1 each/ Dextrose 270 ml @ 270 mls/hr Q12H IV 04/28/20 08:30 UNV Allergies Coded Allergies: No Known Allergies (Verified Allergy, Unknown, 06/29/19) Kristy Dhillon MD Apr 28, 2020 15:29
[2020-04-28] MEDS ORDERED: ALBUTEROL SULFATE 2.5 MG/0.5 ML INH NEB SOLN NEB PRN (15:45)
[2020-04-28 16:21] LABS: ABG BASE EXCESS 17.1 (-2.0-2.0); ABG HCO3 46.7 MEQ/L (22.0-26.0); ABG O2 SATURATION 96.1 % (95.0-99.0); ABG PARTIAL PRESSURE O2 83.4 mmHg (75.0-100.0); ABG STANDARD HCO3 41.1 MEQ/L (22.0-26.0); ABG TOTAL CO2 49.4 MEQ/L (23.0-31.0); ABG pH (ARTERIAL) 7.344 UNITS (7.350-7.450)
[2020-04-28 16:22] LABS: ABG PARTIAL PRESSURE CO2 87.8 mmHg (35.0-45.0)
--- NOTE | 2020-04-28 17:22 | REP ---
PROCEDURE NAME: PICC LINE INSERTION W/SITERITE CLINICAL INFORMATION: Poor access. COMPARISON: None. PROCEDURE DESCRIPTION: The procedure was performed by HEAVEN Lopez, under the direct supervision of Dr. Rowell. The risks and benefits of the procedure were explained to the patient and an informed consent was obtained both verbally and written. Directly prior to the start of the procedure a formal time-out was completed in the procedure room. The left basilic and brachial veins were localized under ultrasound guidance. The skin was prepped and draped in sterile fashion. Approximately 3 mL in total of 1% lidocaine 10 mg/mL was used as a local anesthetic. Using ultrasound guidance the left brachial and basilic veins were cannulated, every time the 0.018 guidewire was inserted it was unable to be advanced, most likely due to infiltration. Multiple attempts were made none were successful. Before the right arm could be attempted the patient complained that their back hurt and that they are having difficulty breathing and would like to stop the procedure. CONCLUSION: Attempted PICC line insertion into the left brachial and basilic veins. No fluoroscopy was utilized for the procedure. <Electronically signed by Leila Wallace > 04/28/20 1610 <Electronically signed by Yoan Rowell > 04/28/20 [id number]
[2020-04-28] MEDS: ENOXAPARIN 40MG/0.4ML SYRINGE (J1650 PER 10MG) SC SCH (20:55)
[2020-04-28] MEDS: SIMVASTATIN 10 MG TAB PO SCH (20:56)
[2020-04-29] VITALS (48 sets, daily range): BP systolic 68–165; BP diastolic 44–90; O2SAT 97
[2020-04-29 00:45] LABS: ABG BASE EXCESS 16.9 (-2.0-2.0); ABG HCO3 47.9 MEQ/L (22.0-26.0); ABG O2 SATURATION 98.5 % (95.0-99.0); ABG PARTIAL PRESSURE O2 111.6 mmHg (75.0-100.0); ABG pH (ARTERIAL) 7.289 UNITS (7.350-7.450)
[2020-04-29 00:47] LABS: ABG PARTIAL PRESSURE CO2 102.1 mmHg (35.0-45.0)
[2020-04-29] MEDS ORDERED: MIDAZOLAM INJ 2MG/2ML VIAL (J2250 PER 1MG) As Ordered ONE ×2 (01:10→01:25)
[2020-04-29] MEDS ORDERED: MIDAZOLAM INJ 2MG/2ML VIAL (J2250 PER 1MG) IV STA ×3 (01:22→01:27)
[2020-04-29] MEDS: COMBIVENT RESPIMAT 100-20MCG INHALER 4GM INH SCH (01:35)
[2020-04-29] MEDS ORDERED: MORPHINE 2 MG/ML 1ML VIAL (J2270) IV PRN (01:45)
--- NOTE | 2020-04-29 02:05 | REPVR ---
PROCEDURE INFORMATION: Exam: XR Chest, 1 View Exam date and time: 04/29/2020 1:41 AM Age: 80 years old Clinical indication: Device placement; Other: Et placement; Additional info: Et tube placement TECHNIQUE: Imaging protocol: XR of the chest Views: 1 view. COMPARISON: 1. CR PORTABLE CHEST X-RAY 2020-04-28 00:05 2. FL PORTABLE CHEST X-RAY 2020-04-20 08:36 3. CR Chest, 1 view 2019-11-12 11:[address] Chest with contrast 2018-04-16 12:58 FINDINGS: Limitations: Limited by patient's body habitus. Tubes, catheters and devices: Endotracheal tube tip in mid trachea. Oral gastric tube tip and sidehole are within the stomach. Lungs: Unchanged left lung base atelectasis or consolidation. Pleural spaces: Unchanged left greater than right pleural effusions. Heart/Mediastinum: Unchanged cardiac enlargement. Bones/joints: Unremarkable. IMPRESSION: 1. Unchanged cardiac enlargement. Unchanged left greater than right pleural effusions. 2. Endotracheal tube tip in mid trachea. 3. Unchanged left lung base atelectasis or consolidation. Electronically signed by: Yasir Feng On 04/29/2020 02:04:16 AM
[2020-04-29 02:19] LABS: ABG BASE EXCESS 17.4 (-2.0-2.0); ABG HCO3 45.2 MEQ/L (22.0-26.0); ABG O2 SATURATION 94.9 % (95.0-99.0); ABG PARTIAL PRESSURE O2 67.9 mmHg (75.0-100.0); ABG STANDARD HCO3 41.3 MEQ/L (22.0-26.0); ABG TOTAL CO2 47.4 MEQ/L (23.0-31.0); ABG pH (ARTERIAL) 7.412 UNITS (7.350-7.450)
[2020-04-29 02:26] LABS: ABG PARTIAL PRESSURE CO2 72.6 mmHg (35.0-45.0)
[2020-04-29] MEDS ORDERED: FERROUS SULFATE 300MG/5ML UDC LIQUID PO SCH (03:09)
[2020-04-29] MEDS: MIDAZOLAM INJ 2MG/2ML VIAL (J2250 PER 1MG) IV PRN ×9 (04:27→23:32)
--- NOTE | 2020-04-29 05:57 | IPNPDOC ---
Date Seen The patient was seen on 04/29/20. Progress Note Night resident called to bedside at approximately 0020 hrs. . Patient was reported to be lethargic and not waking up or answering questions. On evaluation at bedside, the patient was arousable to pain. She did not answer questions appropriately and appeared confused. Arterial blood gas was obtained which demonstrated pH 7.28, PCO2 of 102.1. Patient's PCO2 had increased significantly with a decrease in her pH compared to her previous ABG. At this point, the patient was not alert and therefore not a candidate for bilevel. Pulmonary critical care medicine was contacted and case was discussed. Decision was made to intubate the patient and place her on mechanical ventilation. Patient was intubated. She was sedated with Versed. Her follow-up ABG demonstrated pH 7.4, PCO2 32.6. Patient's son Luis Vidales [phone] who is the patient's healthcare proxy was contacted and updated on his mother's condition. Patients son stated that he had thought she was doing better. Patient's condition was explained to him and all questions were answered. Patients son stated that he would like further updates in the morning. OBJECTIVE PHYSICAL EXAMINATION: VITAL SIGNS: Please see below. GENERAL: Patient is arousable though she is lethargic. She is ill-appearing HEENT:, Atraumatic normocephalic. Eyes are nonicteric. Trachea is midline. Mucous membranes are dry. She has bilevel mask in place CARDIOVASCULAR: Normal S1, S2, regular rate, irregularly irregular rhythm. No clicks rubs or murmurs RESPIRATORY:. Patient has scattered rhonchi bilaterally. Decreased breath sounds in the left lower lung zone, although improved from yesterday. Tachypneic ABDOMINAL: Morbidly obese, soft nondistended EXTREMITIES: Bilateral pitting edema NEUROLOGICAL:. Patient appears lethargic. No focal neurological deficits LABORATORY DATA, IMAGING STUDIES, MICROBIOLOGY: Please see below. PROBLEMS: 1. Acute on chronic hypercarbic respiratory failure -Blood gas obtained demonstrating a pH 7.28, PCO2 of 102.1. Patient was lethargic, not tolerating bilevel. Pulmonary critical care medicine was contacted and patient was evaluated at bedside. Decision was made to intubate the patient, place her on mechanical ventilation. Follow-up ABG demonstrated a pH 7.4, PCO2 of 72.6. -Etiology. The patient see conversation is likely multifactorial in the setting of decompensated congestive heart failure, obstructive sleep apnea and chronic pulmonary disease. DISPOSITION: Overall patient has a guarded prognosis, given her multiple comorbidities VS, I&O, [facility] V[facility] Signs/I&O Vital Signs Date Time Temp Pulse Resp B/P (MAP) Pulse Ox O2 Delivery O2 Flow Rate FiO2 04/29/20 04:45 94 143/73 (96) 96 04/29/20 04:00 96.7 18 Ventilator 40 04/29/20 01:22 15.0 I&O- Last 24 Hours up to 6 AM 04/29/20 06:00 Intake Total 1070 ml Output Total 650 ml Balance 420 ml Laboratory Data 24H LABS Laboratory Tests 2 04/28/20 05:50: Immature Granulocyte % (Auto) 0.7, Neutrophils (%) (Auto) 88.2H, Lymphocytes (%) (Auto) 4.2L, Monocytes (%) (Auto) 5.7H, Eosinophils (%) (Auto) 1.0, Basophils (%) (Auto) 0.2, Neutrophils # (Auto) 11.1H, Lymphocytes # (Auto) 0.5L, Monocytes # (Auto) 0.7, Eosinophils # (Auto) 0.1, Basophils # (Auto) 0.0, Immature G ranulocyte # (Auto) 0.1H, Nucleated Red Blood Cells % (auto) 0.0, Platelet Estimate , Anion Gap 3L, Glomerular Filtration Rate 54.0, Lactic Acid Level 0.8, Calcium Level 9.7, C-Reactive Protein, Quantitative 1.89H, GF-Jsx-C-Type Natriuretic Peptide 18501P, Digoxin Level 1.4 04/28/20 08:43: Blood Gas Bicarbonate Standard 37.9H, Arterial Blood pH 7.353, Arterial Blood Partial Pressure CO2 79.1*H, Arterial Blood Partial Pressure O2 54.3L, Arterial Blood Total CO2 45.4H, Arterial Blood HCO3 43.0H, Arterial Blood Base Excess 14.3H, Arterial Blood Oxygen Saturation 87.7L 04/28/20 09:38: Coronavirus (COVID-19)(PCR) NEGATIVE 04/28/20 10:42: Methicillin-Resist S.aureus DNA PCR NOT DETECTED 04/28/20 16:02: Blood Gas Bicarbonate Standard 41.1H, Arterial Blood pH 7.344L, Arterial Blood Partial Pressure CO2 87.8*H, Arterial Blood Partial Pressure O2 83.4, Arterial Blood Total CO2 49.4H, Arterial Blood HCO3 46.7H, Arterial Blood Base Excess 17.1H, Arterial Blood Oxygen Saturation 96.1 04/29/20 00:35: Blood Gas Bicarbonate Standard 41.0H, Arterial Blood pH 7.289L, Arterial Blood Partial Pressure CO2 102.1*H, Arterial Blood Partial Pressure O2 111.6H, Arterial Blood Total CO2 51.0H, Arterial Blood HCO3 47.9H, Arterial Blood Base Excess 16.9H, Arterial Blood Oxygen Saturation 98.5 04/29/20 02:10: Blood Gas Bicarbonate Standard 41.3H, Arterial Blood pH 7.412, Arterial Blood Partial Pressure CO2 72.6*H, Arterial Blood Partial Pressure O2 67.9L, Arterial Blood Total CO2 47.4H, Arterial Blood HCO3 45.2H, Arterial Blood Base Excess 17.4H, Arterial Blood Oxygen Saturation 94.9L CBC/BMP Laboratory Tests 04/28/20 05:50 Microbiology Microbiology 04/29/20 Gram Stain, Received Pending 04/29/20 Sputum Culture, Received Pending 04/28/20 Blood Culture, Received Pending 04/28/20 Blood Culture, Received Pending 04/26/20 Urine Culture, Received Pending 04/20/20 Respiratory Virus Panel (PCR) ([facility]) - Final, Complete NYLA PRO DO Apr 29, 2020 05:57
[2020-04-29] MEDS: LEVOTHYROXINE 112MCG TABLET (0.112MG) PO SCH (06:11)
[2020-04-29 06:12] LABS: BASO % 0.2 % (0.0-1.0); EOS # 0.1 10^3/uL (0.0-0.5); EOS % 0.7 % (0.0-3.0); HEMATOCRIT 43.2 % (36.0-47.0); LYMPH # 0.6 10^3/uL (1.5-5.0); LYMPH % 4.9 % (24.0-44.0); MEAN CORPUSCULAR HEMOGLOBIN 18.3 pg (27.0-33.0); MEAN CORPUSCULAR HGB CONC 23.1 g/dl (32.0-36.5); MONO # 0.8 10^3/uL (0.0-0.8); MONO % 6.3 % (0.0-5.0); NEUTROPHILS # 10.6 10^3/uL (1.5-8.5); NEUTROPHILS % 86.9 % (36.0-66.0); PLATELET COUNT, AUTOMATED 289 10^3/uL (150-450); RED BLOOD COUNT 5.47 10^6/uL (4.00-5.40); WHITE BLOOD COUNT 12.1 10^3/uL (4.0-10.0)
[2020-04-29 06:43] LABS: ALBUMIN 2.9 GM/DL (3.2-5.2); CALCIUM LEVEL 9.5 MG/DL (8.8-10.2); CREATININE FOR GFR 1.15 MG/DL (0.55-1.30); GLOMERULAR FILTRATION RATE 48.1 (>32); PHOSPHORUS LEVEL 1.3 MG/DL (2.5-4.9); POTASSIUM SERUM 4.4 MEQ/L (3.5-5.1); TOTAL PROTEIN 6.4 GM/DL (6.4-8.2)
[2020-04-29] MEDS: BUDESONIDE 0.5 MG/2 ML INHALATION SUSPENSION INH SCH ×2 (07:45→19:58)
[2020-04-29] MEDS: FORMOTEROL FUMARATE 20 MCG/2 ML INHALATION SOLUTION (PERFOROMIST) INH SCH ×2 (07:46→19:58)
[2020-04-29] MEDS: IPRATROPIUM 0.5MG/ALBUTEROL 2.5MG INH SOL UD 3ML (DUONEB) NEB SCH ×2 (08:00→11:27)
[2020-04-29] MEDS: NYSTATIN 100,000 UNITS/GM TOPICAL PWD 15 GM TOP SCH ×2 (09:00→21:01)
[2020-04-29] MEDS ORDERED: metOLazone 2.5 MG TAB PO SCH (09:00)
[2020-04-29] MEDS: FERROUS SULFATE 300MG/5ML UDC LIQUID PO SCH ×3 (09:10→21:02)
[2020-04-29] MEDS: POTASSIUM CHL PWD 20 MEQ PACKET PO SCH ×2 (09:10→21:02)
[2020-04-29] MEDS: DIGOXIN 0.125 MG TAB PO SCH (09:10)
[2020-04-29] MEDS: CHLORHEXIDINE GLUCONATE 0.12 % 15ML UDC (PERIDEX ORAL RINSE) MT SCH ×2 (09:11→21:01)
[2020-04-29] MEDS: FUROSEMIDE 100MG/10ML VIAL (J1940) IV SCH (09:11)
[2020-04-29] MEDS ORDERED: POTASSIUM PHOSPHATE INJ 15 MMOL in D5W 250 ML IV ONE ×2 (10:00→14:30)
[2020-04-29] MEDS ORDERED: GLUCAGON INJ 1MG VIAL SC PRN (10:15)
[2020-04-29] MEDS ORDERED: DEXTROSE 50% 50 ML SYRINGE IV PRN (10:15)
[2020-04-29] MEDS ORDERED: GLUCOSE 4GM CHEW TABLET PO PRN (10:15)
[2020-04-29] MEDS ORDERED: VANCOMYCIN HCL 750 MG, VIAL MATE ADAPTER 1 EACH in D5W 250 ML IV SCH ×2 (11:00→12:00)
[2020-04-29] MEDS: PANTOPRAZOLE 40MG VIAL (C9113 PER 1) IV SCH (11:57)
[2020-04-29] MEDS: HumaLOG INSULIN (NovoLOG) PER UNIT SC SCH ×3 (12:00→23:30)
--- NOTE | 2020-04-29 12:56 | RO ---
OPERATIVE NOTE DATE OF OPERATION: 04/29/2020 PREOPERATIVE DIAGNOSIS: Hypercarbia, respiratory acidosis. POSTOPERATIVE DIAGNOSIS: Hypercarbia, respiratory acidosis. PROCEDURE: Endotracheal tube intubation. SURGEON: Yasir Forbes DO, [facility] [employer] JUDGE: ANESTHESIA: DESCRIPTION OF PROCEDURE: The patient was seen in the intensive care unit hypercarbic, somnolent, critically ill. Emergent endotracheal tube intubation was felt necessary. A GlideScope was prepared. The upper airway was visualized and the vocal cords were appreciated. A #8.5 endotracheal tube was prepared and placed through the vocal cords to distance of 24 cm. The balloon was inflated. Good bilateral breath sounds were appreciated. CO2 was noted on the monitor. The tube was secured in place and postprocedure chest x-ray confirmed adequate placement. There were no complications.
--- NOTE | 2020-04-29 14:51 | IPNPDOC ---
Date Seen The patient was seen on 04/29/20. Progress Note SUBJECTIVE: Worsening ABG (pH 7.289/ pCO2 102.1/ pO2 111/ pHCO3 47) overnight, incr resp distress. CXR showed b/l pleural effusion, vascular congestion. Intubated and sedated with PRN versed. Last ABG this AM improving (pH 7.412/ pCO2 72.6/ pO2 67.9/ pHCO3 45) , still not diuresing well so adding metolazone. Following commands for nurses on vent setting below. OBJECTIVE: PHYSICAL EXAMINATION: VITAL SIGNS:97.6 F, HR 111-130, RR 22, 93% on FiO2 30%. PS, PEEP 5 GENERAL APPEARANCE: Sleeping, not responding to verbal stimuli on exam HEENT: PERRLA, intubation tube in place NECK: No JVD, symmetrical LUNGS: Decreased breath sounds bilaterally, crackles/rhonchi in b/l lung griggs HEART: Irregular rate and rhythm, tachycardic. S1S2 +, no M/R/G ABDOMEN: Soft , obese, BS + in four quadrants, winces in pain of RLQ of abdomen EXTREMITIES: peripheral edema +2 pitting b/l lower ext INTEGUMENTARY: Some scabbed lesions NEURO: no focal deficits LABORATORY DATA: Please see below MICRO: UCx, BCx pending IMAGING: CXR: 1. Pneumonia on the left with small left pleural effusion. 2. Stable cardiomegaly. Echocardiogram 04/21/20: EF 60-65% Normal global left ventricular systolic function with moderate concentric left ventricular hypertrophy. Assessment of the left ventricular diastolic function was limited. Aortic valve sclerosis without stenosis or aortic regurgitation. Mildly dilated aortic root at 4.1 cm. Mitral annular calcification with mild mitral regurgitation and a mildly enlarged left atrium. Mild tricuspid regurgitation with moderate pulmonary hypertension. The rightatrium subjectively appeared to be mildly enlarged. The right ventricle was not well visualized. A small pericardial effusion was noted, no evidence of cardiac tamponade A/P: Acute on chronic hypercapnic respiratory failure likely multifactorial to HFpEF with exacerbation, pulmonary HTN, pleural effusions b/l, JACQUES, known COPD no longer in exacerbation -Currently intubated, requiring minimal sedation, following commands at times -Last ABG this AM pH 7.412/ pCO2 72.6/ pO2 67.9/ pHCO3 45 -Please f/u on individual issues below HFpEF with exacerbation, pulmonary hypertension , bilateral pleural effusion s -Increased SOB, crackles, rhonchi b/l lung griggs. +2 pitting edema in lower ext -Net neg; however, not diuresing aggressively enough -BNP >10K -Echocardiogram 04/21/20: see above -CXR: b/l pleural effusions -C/w diltiazem 90 mg PO Q6Hs, lasix to 80 mg IV BID but adding metolazone, formoterol BID, levalbuterol ATC. Versed PRN while intubated -Cardiology has assessed previously, pulmonary consulted and following closely -Monitor I&O's, low salt diet, daily wt Hypophosphatemia -Phos 1.3, replaced -Follow daily Atrial fibrillation, RVR -HR increased 100-120 -C/w diltiazem 90 mg PO Q6Hs, digoxin 0.125 PO daily. 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 PNA -Procalcitonin intially <0.10 -Will repeat procalcitonin, sputum culture taken today, WBC minimally elevated -Stopped abx -C/w treatment above JACQUES on bipap -According to night team, pt's bipap mask straps and tubes were leaking- not made known to attendings -Currently on hospital ventilator -When off ventilator, Bipap as scheduled (naps, nightly and PRN) Acute confusion/delerium poss 2/2 to prednisone vs. UTI vs. ? -Intubated/light sedation -Monitor when more awake UTI -completed keflex course Mild lower ext cellulitis -Completed keflex course Chronic obstructive pulmonary disease (COPD), not believed to be in exacerbation -no wheezing on exam -Prednisone stopped , on lung treatments above -Monitor HLD -C/w home meds Hypothyroidism -C/w home meds Hypokalemia -C/w potassium BID -daily labs Physical deconditioning -PT:/OT when extubated DVT px: -Lovenox DISPOSITION: Currently in ICU, intubated, very lightly sedated PRN. Plan is when improved, PT/OT and home. TOTAL AMOUNT OF ICU TIME SPENT CARING FOR PATIENT( nonprocedural) : 50 mins VS, I&O, 24H, Fishbone Vital Signs/I&O Vital Signs Date Time Temp Pulse Resp B/P (MAP) Pulse Ox O2 Delivery O2 Flow Rate FiO2 04/29/20 13:00 111 135/61 (85) 90 04/29/20 12:00 30 04/29/20 12:00 97.6 22 Ventilator 04/29/20 06:00 45.0 I&O- Last 24 Hours up to 6 AM 04/29/20 06:00 Intake Total 1680 ml Output Total 875 ml Balance 805 ml Laboratory Data 24H LABS Laboratory Tests 2 04/28/20 16:02: Blood Gas Bicarbonate Standard 41.1H, Arterial Blood pH 7.344L, Arterial Blood Partial Pressure CO2 87.8*H, Arterial Blood Partial Pressure O2 83.4, Arterial Blood Total CO2 49.4H, Arterial Blood HCO3 46.7H, Arterial Blood Base Excess 17. 1H, Arterial Blood Oxygen Saturation 96.1 04/29/20 00:35: Blood Gas Bicarbonate Standard 41.0H, Arterial Blood pH 7.289L, Arterial Blood Partial Pressure CO2 102.1*H, Arterial Blood Partial Pressure O2 111.6H, Arterial Blood Total CO2 51.0H, Arterial Blood HCO3 47.9H, Arterial Blood Base Excess 16.9H, Arterial Blood Oxygen Saturation 98.5 04/29/20 02:10: Blood Gas Bicarbonate Standard 41.3H, Arterial Blood pH 7.412, Arterial Blood Partial Pressure CO2 72.6*H, Arterial Blood Partial Pressure O2 67.9L, Arterial Blood Total CO2 47.4H, Arterial Blood HCO3 45.2H, Arterial Blood Base Excess 17.4H, Arterial Blood Oxygen Saturation 94.9L 04/29/20 05:46: Immature Granulocyte % (Auto) 1.0, Neutrophils (%) (Auto) 86.9H, Lymphocytes (%) (Auto) 4.9L, Monocytes (%) (Auto) 6.3H, Eosinophils (%) (Auto) 0.7, Basophils (%) (Auto) 0.2, Neutrophils # (Auto) 10.6H, Lymphocytes # (Auto) 0.6L, Monocytes # (Auto) 0.8, Eosinophils # (Auto) 0.1, Basophils # (Auto) 0.0, Nucleated Red Blood Cells % (auto) 0.0 04/29/20 05:47: Anion Gap 8, Glomerular Filtration Rate 48.1, Calcium Level 9.5, Phosphorus Level 1.3L, Total Bilirubin 1.0, Aspartate Amino Transf (AST/SGOT) 15, Alanine Aminotransferase (ALT/SGPT) 10L, Alkaline Phosphatase 83, Lactate Dehydrogenase 420H, Total Creatine Kinase 55, Total Protein 6.4, Albumin 2.9L, Alb umin/Globulin Ratio 0.8L, Triglycerides Level 140, Cholesterol Level 130 04/29/20 11:51: Bedside Glucose (Misc Panel) 97 04/29/20 12:17: Phosphorus Level 1.7#L 04/29/20 14:10: CBC/BMP Laboratory Tests 04/29/20 05:46 04/29/20 05:47 Microbiology Microbiology 04/29/20 Stool Occult Blood ([facility]) - Final, Complete 04/29/20 Gram Stain - Final, Resulted 04/29/20 Sputum Culture, Resulted Pending 04/28/20 Blood Culture - Preliminary, Resulted No growth after 24 hours . All specim... 04/28/20 Blood Culture - Preliminary, Resulted No growth after 24 hours . All specim... 04/26/20 Urine Culture, Received Pending 04/20/20 Respiratory Virus Panel (PCR) ([facility]) - Final, Complete Current Medications Current Medications Medications (Trade) Dose Ordered Sig/Eric Route PRN Reason Start Time Stop Time Status Last Admin Dose Admin Acetaminophen (Tylenol Tab) 1,000 mg Q6H PRN PO PAIN / FEVER 04/20/20 11:00 04/29/20 01:48 DC 04/28/20 20:56 Albuterol Sulfate (Proventil Neb) 2.5 mg Q2HP PRN NEB SOB/WHEEZING 04/28/20 15:45 04/29/20 01:48 DC Albuterol Sulfate (Proventil, Ventolin Hfa) 2 puff RQID PRN INH SHORTNESS OF BREATH 04/20/20 11:00 04/28/20 15:39 DC Albuterol/ Ipratropium (Combivent Respimat 100-20mcg) 2 puff Q6HP PRN INH SHORTNESS OF BREATH 04/20/20 09:15 04/24/20 09:13 DC 04/20/20 09:23 Albuterol/ Ipratropium (Combivent Respimat 100-20mcg) 2 puff RQ6H INH 04/24/20 08:00 04/29/20 01:48 DC 04/27/20 20:00 Albuterol/ Ipratropium (Duoneb (Ipr 0.5mg/Alb 2.5mg)) 3 ml Q4HP PRN NEB SOB/WHEEZING 04/28/20 03:45 04/29/20 01:48 DC 04/29/20 01:46 Albuterol/ Ipratropium (Duoneb (Ipr 0.5mg/Alb 2.5mg)) 3 ml RQID NEB 04/29/20 08:00 04/29/20 11:27 Budesonide (Pulmicort) 0.5 mg RBID INH 04/20/20 08:00 04/29/20 07:45 Cefepime HCl 1 gm/ Dextrose 50 ml @ 100 mls/hr Q12H IV 04/28/20 09:00 04/28/20 15:33 DC 04/28/20 09:30 Ceftriaxone Sodium 1 gm/ Dextrose 50 ml @ 100 mls/hr Q24H IV 04/27/20 08:15 04/27/20 08:27 DC Cephalexin Monohydrate (Keflex) 500 mg TID PO 04/23/20 09:00 04/28/20 08:59 DC 04/27/20 20:41 Chlorhexidine Gluconate (Peridex Oral Rinse) SWAB/BRUSH ORAL CAVITY BID MT 04/29/20 09:00 04/29/20 09:11 Dextrose (Dextrose 50%) 25 ml ASDIRECTED PRN IV SEE LABEL COMMENTS 04/29/20 10:15 Digoxin (Lanoxin) 0.125 mg DAILY PO 04/27/20 09:00 04/30/20 08:59 04/29/20 09:10 Digoxin (Lanoxin) 0.25 mg Q8H PO 04/26/20 09:00 04/27/20 01:01 DC 04/27/20 00:09 Diltiazem HCl (Cardizem Cd) 360 mg DAILY PO 04/20/20 09:00 04/22/20 09:24 DC 04/21/20 08:56 Diltiazem HCl (Cardizem) 10 mg STAT STAT IV 04/22/20 09:16 04/22/20 09:26 DC 04/22/20 10:02 Diltiazem HCl (Cardizem) 10 mg STAT STAT IV 04/23/20 09:44 04/23/20 09:45 DC 04/23/20 10:09 Diltiazem HCl (Cardizem) 60 mg Q6H PO 04/22/20 12:00 04/23/20 08:38 DC 04/23/20 06:22 Diltiazem HCl (Cardizem) 90 mg Q6H PO 04/23/20 12:00 04/29/20 11:57 Enoxaparin Sodium (Lovenox) 40 mg QHS SC 04/24/20 21:00 04/28/20 20:55 Ferrous Sulfate (Ferrous Sulfate) 300 mg TID PO 04/29/20 03:09 04/29/20 03:10 DC Ferrous Sulfate (Ferrous Sulfate) 300 mg TID PO 04/29/20 09:00 04/29/20 09:10 Ferrous Sulfate (Ferrous Sulfate) 325 mg TID PO 04/20/20 09:00 04/29/20 03:09 DC 04/28/20 20:56 Formoterol Fumarate (Perforomist) 20 mcg RBID INH 04/20/20 08:00 04/29/20 07:46 Furosemide (LASIX injection) 40 mg BID@,17 IV 04/20/20 17:00 04/20/20 17:29 DC Furosemide (LASIX injection) 40 mg BID@,17 IV 04/21/20 07:00 04/22/20 08:02 DC 04/21/20 16:44 Furosemide (LASIX injection) 40 mg BID@,17 IV 04/23/20 09:00 04/26/20 08:47 DC 04/26/20 08:08 Furosemide (LASIX injection) 80 mg BID@,17 IV 04/26/20 17:00 04/29/20 09:11 Furosemide (Lasix) 60 mg BID@,17 PO 04/20/20 17:30 Cancel Glucagon (Glucagon) 1 mg ASDIRECTED PRN SC SEE LABEL COMMENTS 04/29/20 10:15 Glucose (Glucose) 16 GM ASDIRECTED PRN PO SEE LABEL COMMENTS 04/29/20 10:15 Guaifenesin (Robitussin) 15 ml Q8HP PRN PO COUGH 04/21/20 10:30 Home Med (Med Rec Complete!) ASDIRECTED XX 04/20/20 10:45 04/20/20 10:42 DC Insulin Human Lispro (HumaLOG INSULIN) SEE PROTOCOL TABLE Q6H SC 04/29/20 12:00 Levothyroxine Sodium (Synthroid) 112 mcg DAILY@0600 PO 04/20/20 06:00 04/29/20 06:11 Midazolam HCl (Versed) 2 mg Q15MP PRN IV AGITATION 04/29/20 01:45 04/29/20 12:12 Midazolam HCl (Versed) 2 mg STAT STAT IV 04/29/20 01:22 04/29/20 04:44 DC 04/29/20 01:22 Midazolam HCl (Versed) 2 mg STAT STAT IV 04/29/20 01:23 04/29/20 04:46 DC 04/29/20 01:23 Midazolam HCl (Versed) 2 mg STAT STAT IV 04/29/20 01:27 04/29/20 04:46 DC 04/29/20 01:27 Morphine Sulfate (Morphine Sulfate Inj) 2 mg Q2H PRN IV PAIN 04/29/20 01:45 Nystatin (Mycostatin Powder, Nystop) 1 dose BID TOP 04/22/20 21:00 04/28/20 20:58 Pantoprazole Sodium (Protonix) 40 mg Q24H IV 04/29/20 09:00 04/29/20 11:57 Potassium Chloride (K-Wendy 20 Meq Powder Packet) 20 meq BID PO 04/20/20 09:00 04/29/20 09:10 Prednisone (Deltasone) 40 mg DAILY PO 04/24/20 09:00 04/27/20 10:00 DC 04/26/20 08:08 Simvastatin (Zocor) 10 mg QHS PO 04/20/20 21:00 04/28/20 20:56 Vancomycin HCl 750 mg/IV Miscellaneous Supplies 1 each/ Dextrose 275 ml @ 275 mls/hr Q24H IV 04/29/20 11:00 04/28/20 15:33 DC Vancomycin HCl 750 mg/IV Miscellaneous Supplies 1 each/ Dextrose 275 ml @ 275 mls/hr Q24H IV 04/29/20 12:00 04/28/20 15:33 DC Vancomycin HCl 1000 mg/IV Miscellaneous Supplies 1 each/ Dextrose 270 ml @ 270 mls/hr Q12H IV 04/28/20 08:30 UNV Allergies Coded Allergies: No Known Allergies (Verified Allergy, Unknown, 06/29/19) Kristy Dhillon MD Apr 29, 2020 14:51
--- NOTE | 2020-04-29 15:42 | CCN ---
CRITICAL CARE NOTE DATE: 04/29/2020 The patient is seen in the intensive care unit intubated now, mechanically ventilated, somnolent, but arousable. She was intubated in the night, and mechanical ventilation has been initiated. Her temperature is 96, maximum temperature for the past 24 hours 99, pulse rate 118, respirations 20, blood pressure 156/72. Intake and output for the past 24 hours: 1220 in, 1050 out, since midnight 610 in, 375 out. At bedside she is ill appearing. Her pupils are now midpoint and respond to light. Endotracheal tube is at 24 cm. The oral mucosa is pink. Neck is supple. There is no air leak. Jugular veins are unable to be appreciated, as her neck is quite [place]. Heart sounds are irregularly irregular, monitor displaying atrial fibrillation. Breath sounds are diminished bilaterally. There are some large airway rales and dullness in the bases. Chest is symmetric. There are some spontaneous efforts over the mechanically ventilated breaths. Abdomen is soft but somewhat tender. There are bowel sounds in the right lower quadrant. Extremities are cool and edematous. DIAGNOSTIC STUDIES: Her white cell count is 12.1, hemoglobin 10, hematocrit 43, platelet count 289,000. Differential white cell count shows 86% neutrophils. The electrolytes are sodium 145, potassium 4.4, chloride 98, CO2 of 39. BUN is 29, creatinine 1.15, glucose 88. Calcium is 9.5. Her phosphorus is down at 1.3. AST 15, ALT 10. LDH is 420. Arterial blood gases show a pH of 7.41, pCO2 of 72, pO2 of 67. This on a pressure control mode of ventilation rate of 18, peak of 20 over PEEP of 5, FiO2 of 0.3. I have reviewed the imaging on her chest x-ray this morning. Endotracheal tube is in good position. There is suggestion of interstitial fluid and effusions, left greater than right. Microbiology studies were reviewed. A sputum sample was sent. It is showing some gram-positives. Cultures is pending. On medications review, she is receiving Lasix 80 mg twice a day. Potassium phosphate has been written for Versed and morphine on an as-needed basis for sedation and DuoNebs. Lovenox is 40 mg daily. The primary problem requiring critical attention acute respiratory failure. Arterial blood gases are better on the current mechanical ventilator settings. We will decrease her pressures commensurate with lung compliance and continue to monitor gas exchange. Pulmonary edema. I have discussed with the hospitalist service. They will add additional diuretics in an effort to achieve a negative fluid balance. Chronic obstructive pulmonary disease. The patient is on optimal bronchodilator therapy. We will continue with this. From an infectious disease standpoint, she has no temperature. White cell count is not elevated; however, Gram stain is showing some gram-positives. Culture is pending. We will await the culture to direct antibiotic therapy, if any. Nutritional support. If the patient is unable to wean in the next 24 hours or so, we will begin tube feedings. Glycemic control seems acceptable. We will increase monitoring with fingerstick blood sugars and coverage. Deep venous thrombosis (DVT) prophylaxis is being addressed with Lovenox. Ulcer prophylaxis will be added, as her risk for gastrointestinal (GI) bleed is significant being intubated and mechanically ventilated. The patient's condition is critical. Prognosis is guarded. I have reviewed the goals of care for the day with the intensive care unit (ICU) team and the hospitalist service. Sixty-seven minutes was spent in the provision of bedside critical care and coordination, exclusive of any procedure time.
--- NOTE | 2020-04-29 15:42 | CCN ---
CRITICAL CARE NOTE DATE: 04/29/2020 I was called back emergently to the hospital to re-evaluate the patient for altered level of consciousness. She had been responding to noninvasive ventilation but over the course of the last 1-2 hours has become increasingly somnolent. On my arrival, she is poorly responsive. No verbal response. Does withdraw from pain. Her temperature is 95, pulse rate 98, respirations 20, blood pressure 150/90. HEENT: Her pupils are small, minimally reactive. Oral mucosa is pink. Neck is supple. There is no meningismus. Heart sounds are irregularly irregular. Breath sounds are markedly diminished with minimal air exchange. Abdomen is soft and obese. Extremities show edema. Her Miranda catheter is draining yellow urine. Intake and output for the past 24 hours are 980 in, 1200 out. Over the course of the day April 28, 1219 in, 10,500 out. DIAGNOSTIC STUDIES: We ordered a stat arterial blood gas, which has just now returned, showing a pH of 7.28, pCO2 of 102, pO2 of 111. This is down from earlier when the pH was 7.34, pCO2 of 87, pO2 of 83. The primary problem requiring critical attention is acute on chronic hypercarbic hypoxemic respiratory failure. The patient has failed noninvasive ventilation and will require emergent endotracheal tube intubation and mechanical ventilatory support. Her condition is critical. Prognosis is guarded. Forty-seven minutes was spent in the provision of bedside critical care and coordination, exclusive of any procedure time.
[2020-04-29] MEDS: LEVALBUTEROL 1.25 MG/0.5 ML CONCENTRATE NEB NEB SCH ×2 (16:11→19:58)
[2020-04-29] MEDS ORDERED: CHLOROTHIAZIDE 500 MG VIAL (J1205 PER 1) IV ONE (20:00)
[2020-04-29] MEDS ORDERED: BUMETANIDE 1 MG/4 ML INJ (S0171) IV ONE (20:00)
[2020-04-29] MEDS: SIMVASTATIN 10 MG TAB PO SCH (21:02)
[2020-04-29] MEDS: ENOXAPARIN 40MG/0.4ML SYRINGE (J1650 PER 10MG) SC SCH (21:02)
[2020-04-29] MEDS: VERAPAMIL 40 MG TAB PO SCH (21:07)
[2020-04-29] MEDS ORDERED: ACETAMINOPHEN 325 MG/10.15 ML UDC GT PRN (22:45)
[2020-04-30] VITALS (12 sets, daily range): BP systolic 127–168; BP diastolic 60–77
[2020-04-30 05:47] LABS: ABG HCO3 43.3 MEQ/L (22.0-26.0); ABG O2 SATURATION 94.3 % (95.0-99.0); ABG PARTIAL PRESSURE CO2 47.9 mmHg (35.0-45.0); ABG STANDARD HCO3 43.1 MEQ/L (22.0-26.0); ABG TOTAL CO2 44.8 MEQ/L (23.0-31.0); ABG pH (ARTERIAL) 7.574 UNITS (7.350-7.450)
[2020-04-30] MEDS: HumaLOG INSULIN (NovoLOG) PER UNIT SC SCH ×2 (06:00→12:00)
[2020-04-30] MEDS: VERAPAMIL 40 MG TAB PO SCH ×3 (06:14→21:40)
[2020-04-30] MEDS: LEVOTHYROXINE 112MCG TABLET (0.112MG) PO SCH (06:14)
[2020-04-30 06:35] LABS: BASO % 0.2 % (0.0-1.0); EOS % 0.2 % (0.0-3.0); HEMATOCRIT 43.3 % (36.0-47.0); HEMOGLOBIN 10.7 g/dl (12.0-15.5); LYMPH # 0.6 10^3/uL (1.5-5.0); LYMPH % 4.7 % (24.0-44.0); MEAN CORPUSCULAR HEMOGLOBIN 18.7 pg (27.0-33.0); MEAN CORPUSCULAR HGB CONC 24.7 g/dl (32.0-36.5); MEAN CORPUSCULAR VOLUME 75.8 fl (80.0-96.0); MONO % 7.6 % (0.0-5.0); NEUTROPHILS # 11.5 10^3/uL (1.5-8.5); NEUTROPHILS % 86.4 % (36.0-66.0); PLATELET COUNT, AUTOMATED 325 10^3/uL (150-450); RED BLOOD COUNT 5.71 10^6/uL (4.00-5.40); WHITE BLOOD COUNT 13.3 10^3/uL (4.0-10.0)
[2020-04-30 06:56] LABS: ALBUMIN 3.2 GM/DL (3.2-5.2); CALCIUM LEVEL 9.9 MG/DL (8.8-10.2); CREATININE FOR GFR 1.22 MG/DL (0.55-1.30); GLOMERULAR FILTRATION RATE 44.9 (>32); POTASSIUM SERUM 3.5 MEQ/L (3.5-5.1); TOTAL PROTEIN 6.1 GM/DL (6.4-8.2)
[2020-04-30] MEDS: LEVALBUTEROL 1.25 MG/0.5 ML CONCENTRATE NEB NEB SCH ×4 (08:00→19:30)
--- NOTE | 2020-04-30 08:12 | REP ---
INDICATION: ett. COMPARISON: Comparison chest x-ray 29 April 2020. TECHNIQUE: Portable upright AP chest radiograph. FINDINGS: Endotracheal tube is seen in good position at the level of the transverse aorta. NG tube enters the left upper quadrant of the abdomen. Monitoring electrodes are seen along with oxygen delivery tubing. Moderate cardiomegaly is observed. There is improved aeration in the left lung base with less pleural opacity visible today than was seen on 29 April 2020. No new infiltrate is seen. Pulmonary vasculature is not increased.. IMPRESSION: Cardiomegaly. Improved aeration left base.. <Electronically signed by Yoan Rowell > 04/30/20 [id number]
[2020-04-30] MEDS: GASTROGRAFIN SOLUTION 30ML PO SCH ×2 (08:15→08:45)
[2020-04-30] MEDS: FORMOTEROL FUMARATE 20 MCG/2 ML INHALATION SOLUTION (PERFOROMIST) INH SCH ×2 (08:21→19:30)
[2020-04-30] MEDS: BUDESONIDE 0.5 MG/2 ML INHALATION SUSPENSION INH SCH ×2 (08:21→19:30)
[2020-04-30] MEDS ORDERED: VANCOMYCIN HCL 1,000 MG, VIAL MATE ADAPTER 1 EACH in D5W 250 ML IV SCH (09:00)
[2020-04-30] MEDS: NYSTATIN 100,000 UNITS/GM TOPICAL PWD 15 GM TOP SCH ×2 (09:00→20:04)
[2020-04-30 10:09] LABS: ABG BASE EXCESS 19.5 (-2.0-2.0); ABG HCO3 46.3 MEQ/L (22.0-26.0); ABG O2 SATURATION 94.7 % (95.0-99.0); ABG PARTIAL PRESSURE O2 71.2 mmHg (75.0-100.0); ABG STANDARD HCO3 43.7 MEQ/L (22.0-26.0); ABG TOTAL CO2 48.2 MEQ/L (23.0-31.0); ABG pH (ARTERIAL) 7.481 UNITS (7.350-7.450)
[2020-04-30 10:12] LABS: ABG PARTIAL PRESSURE CO2 63.4 mmHg (35.0-45.0)
[2020-04-30] MEDS: DIGOXIN 0.125 MG TAB PO SCH (10:25)
[2020-04-30] MEDS: FERROUS SULFATE 300MG/5ML UDC LIQUID PO SCH (10:25)
[2020-04-30] MEDS: CEFEPIME HCL 1 GM in D5W MINI-BAG PLUS 50 ML IV SCH ×2 (10:26→21:39)
[2020-04-30] MEDS: POTASSIUM CHL PWD 20 MEQ PACKET PO SCH ×2 (10:26→20:00)
[2020-04-30] MEDS: PANTOPRAZOLE 40MG VIAL (C9113 PER 1) IV SCH (10:26)
--- NOTE | 2020-04-30 13:53 | IPNPDOC ---
Date Seen The patient was seen on 04/30/20. Progress Note SUBJECTIVE: Self extubated this AM, ABG post ext: pH 7.481 / pCO2 63.4 / pO2 71.2 / saturation 94.7 %. Awake and alert, following commands. Spiked fever overnight, started on abx this AM, sputum cx pending. Nephrology switched to bumex 2 gm PO BID, diuresing better this AM. OBJECTIVE: PHYSICAL EXAMINATION: VITAL SIGNS: Please see below GENERAL APPEARANCE: Sitting up in bed, shortness of breath with talking; however, AAOx3 HEENT: PERRLA, EOMI NECK: No JVD, symmetrical LUNGS: Decreased breath sounds bilaterally, crackles/rhonchi in b/l lung griggs HEART: Irregular rate and rhythm S1S2 +, no M/R/G ABDOMEN: Soft , obese, BS + in four quadrants, nontender EXTREMITIES: peripheral edema +2 pitting b/l lower ext INTEGUMENTARY: Some scabbed lesions NEURO: no focal deficits, no sensory or motor deficits LABORATORY DATA: Please see below MICRO: UCx: Serratia with sensitivities in chart BCx: NG to date Sputum GS: FEW GRAM POSITIVE COCCI Sputum Cx: pending IMAGING: CXR 04/30/20: Cardiomegaly. Improved aeration left base. CXR: 1. Pneumonia on the left with small left pleural effusion. 2. Stable cardiomegaly. Echocardiogram 04/21/20: EF 60-65% Normal global left ventricular systolic function with moderate concentric left ventricular hypertrophy. Assessment of the left ventricular diastolic function was limited. Aortic valve sclerosis without stenosis or aortic regurgitation. Mildly dilated aortic root at 4.1 cm. Mitral annular calcification with mild mitral regurgitation and a mildly enlarged left atrium. Mild tricuspid regurgitation with moderate pulmonary hypertension. The rightatrium subjectively appeared to be mildly enlarged. The right ventricle was not well visualized. A small pericardial effusion was noted, no evidence of cardiac tamponade ASSESSMENT: 80 y/o F with PMH of chronic hypercapnic respiratory failure, JACQUES, HFpEF, pulmonary HTN, COPD admitted for acute on chronic hypercapnic respiratory failure multifactorial, HFpEF with exacerbation, COPD exacerbation. PLAN: Acute on chronic hypercapnic respiratory failure likely multifactorial to HFpEF with exacerbation, pulmonary HTN, pleural effusions b/l, JACQUES, known COPD no longer in exacerbation -Self extubated this AM, following commands, AAOx 3 -Last ABG: pH 7.481 / pCO2 63.4 / pO2 71.2 / saturation 94.7 % on 3 L NC -Please f/u on individual issues below HFpEF with exacerbation, pulmonary hypertension , bilateral pleural effusion s -continued SOB, crackles, rhonchi b/l lung griggs. +2 pitting edema in lower ext -Net neg 845/24H, poor o/p overnight -Echocardiogram 04/21/20: see above -CXR: slight improvement -D/juani lasix and metolazone--> bumex 2 mg IV BID. C/w verapamil, formoterol BID, levalbuterol ATC. 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 Not on AC due to GI bleed -Dr. Bates is her mainframe programmer, has seen in [facility] UTI -Only was on keflex, -Currently on cefepime, spiked fevers overnight -Technically fevers could have been due to this UTI not being adequately covered by abx - F/u other cultures pending, daily labs Abnormal CXR, ? PNA -Repeat procalcitonin intially <0.25 -F/u sputum culture taken , WBC 13.3, febrile overnight -Stopped Vancomycin, c/w only cefepime JACQUES on bipap -According to night team, pt's bipap mask straps and tubes were leaking over first several days she was here -With home bipap and tubing being fixed, c/w bipap as scheduled (naps, nightly and PRN) Acute confusion/delerium poss 2/2 to prednisone vs. UTI vs. ? - improved -AAOx3, cooperative -Monitor now that more awake, has been off prednisone for several days now Chronic obstructive pulmonary disease (COPD), not believed to be in exacerbation -no wheezing on exam -Prednisone stopped , on lung treatments above -Monitor HLD -C/w home meds Hypothyroidism -C/w home meds Hypokalemia -C/w potassium BID -daily labs Physical deconditioning -PT:/OT when extubated GI px -PPI DVT px: -Lovenox Resolved issues: Hypophosphatemia Mild lower ext cellulitis DISPOSITION: Currently in ICU, extubated and doing well on 3 L NC. Plan is when improved, PT/OT and rehab vs. home. TOTAL AMOUNT OF ICU TIME SPENT CARING FOR PATIENT( nonprocedural) : 50 mins VS, I&O, 24H, Fishbone Vital Signs/I&O Vital Signs Date Time Temp Pulse Resp B/P (MAP) Pulse Ox O2 Delivery O2 Flow Rate FiO2 04/30/20 11:00 90 92 NIPPV (BIPAP/CPAP) 3.0 04/30/20 10:00 167/73 (104) 04/30/20 08:45 26 04/30/20 08:00 101.0 30 I&O- Last 24 Hours up to 6 AM 04/30/20 05:59 Intake Total 1125 ml Output Total 3000 ml Balance -1875 ml Laboratory Data 24H LABS Laboratory Tests 2 04/29/20 14:10: Magnesium Level 1.8 04/29/20 15:01: Procalcitonin 0.25 04/29/20 17:32: Bedside Glucose (Misc Panel) 108 04/29/20 23:14: Bedside Glucose (Misc Panel) 115H 04/30/20 05:35: Blood Gas Bicarbonate Standard 43.1H, Arterial Blood pH 7.574H, Arterial Blood Partial Pressure CO2 47.9H, Arterial Blood Partial Pressure O2 62.0L, Arterial Blood Total CO2 44.8H, Arterial Blood HCO3 43.3H, Arterial Blood Base Excess 19.0H, Arterial Blood Oxygen Saturation 94.3L 04/30/20 06:04: Immature Granulocyte % (Auto) 0.9, Neutrophils (%) (Auto) 86.4H, Lymphocytes (%) (Auto) 4.7L, Monocytes (%) (Auto) 7.6H, Eosinophils (%) (Auto) 0.2, Basophils (%) (Auto) 0.2, Neutrophils # (Auto) 11.5H, Lymphocytes # (Auto) 0.6L, Monocytes # (Auto) 1.0H, Eosinophils # (Auto) 0.0, Basophils # (Auto) 0.0, Nucleated Red Blood Cells % (auto) 0.0, Anion Gap 9, Glomerular Filtration Rate 44.9, Calcium Level 9.9, Phosphorus Level 3.0#, Magnesium Level 2.0, Total Bilirubin 1.0, Aspartate Amino Transf (AST/SGOT) 10, Alanine Aminotransferase (ALT/SGPT) 10L, Alkaline Phosphatase 87, Lactate Dehydrogenase 247H, Total Creatine Kinase 27, Total Protein 6.1L, Albumin 3.2, Albumin/Globulin Ratio 1.1L, Triglycerides Level 123, Cholesterol Level 131 04/30/20 06:16: Bedside Glucose (Misc Panel) 93 04/30/20 09:58: Blood Gas Bicarbonate Standard 43.7H, Arterial Blood pH 7.481H, Arterial Blood Partial Pressure CO2 63.4*H, Arterial Blood Partial Pressure O2 71.2L, Arterial Blood Total CO2 48.2H, Arterial Blood HCO3 46.3H, Arterial Blood Base Excess 19.5H, Arterial Blood Oxygen Saturation 94.7L 04/30/20 12:50: Bedside Glucose (Misc Panel) 99 CBC/BMP Laboratory Tests 04/30/20 06:04 Microbiology Microbiology 04/29/20 Stool Occult Blood (ADIA) - Final, Complete 04/29/20 Gram Stain - Final, Resulted 04/29/20 Sputum Culture, Resulted Pending 04/28/20 Blood Culture - Preliminary, Resulted No Growth after 48 hours. All Specime... 04/28/20 Blood Culture - Preliminary, Resulted No Growth after 48 hours. All Specime... 04/26/20 Urine Culture - Final, Complete Serratia Marcescens 04/20/20 Respiratory Virus Panel (PCR) (ADIA) - Final, Complete Current Medications Current Medications Medications (Trade) Dose Ordered Sig/Eric Route PRN Reason Start Time Stop Time Status Last Admin Dose Admin Acetaminophen (Tylenol Suspension) 650 mg Q6HP PRN GT MILD PAIN OR FEVER 04/29/20 22:45 04/29/20 23:31 Acetaminophen (Tylenol Tab) 1,000 mg Q6H PRN PO PAIN / FEVER 04/20/20 11:00 04/29/20 01:48 DC 04/28/20 20:56 Albuterol Sulfate (Proventil Neb) 2.5 mg Q2HP PRN NEB SOB/WHEEZING 04/28/20 15:45 04/29/20 01:48 DC Albuterol Sulfate (Proventil, Ventolin Hfa) 2 puff RQID PRN INH SHORTNESS OF BREATH 04/20/20 11:00 04/28/20 15:39 DC Albuterol/ Ipratropium (Combivent Respimat 100-20mcg) 2 puff Q6HP PRN INH SHORTNESS OF BREATH 04/20/20 09:15 04/24/20 09:13 DC 04/20/20 09:23 Albuterol/ Ipratropium (Combivent Respimat 100-20mcg) 2 puff RQ6H INH 04/24/20 08:00 04/29/20 01:48 DC 04/27/20 20:00 Albuterol/ Ipratropium (Duoneb (Ipr 0.5mg/Alb 2.5mg)) 3 ml Q4HP PRN NEB SOB/WHEEZING 04/28/20 03:45 04/29/20 01:48 DC 04/29/20 01:46 Albuterol/ Ipratropium (Duoneb (Ipr 0.5mg/Alb 2.5mg)) 3 ml RQID NEB 04/29/20 08:00 04/29/20 14:48 DC 04/29/20 11:27 Budesonide (Pulmicort) 0.5 mg RBID INH 04/20/20 08:00 04/30/20 08:21 Cefepime HCl 1 gm/ Dextrose 50 ml @ 100 mls/hr Q12H IV 04/28/20 09:00 04/28/20 15:33 DC 04/28/20 09:30 Cefepime HCl 1 gm/ Dextrose 50 ml @ 100 mls/hr Q12H IV 04/30/20 10:00 04/30/20 10:26 Ceftriaxone Sodium 1 gm/ Dextrose 50 ml @ 100 mls/hr Q24H IV 04/27/20 08:15 04/27/20 08:27 DC Cephalexin Monohydrate (Keflex) 500 mg TID PO 04/23/20 09:00 04/28/20 08:59 DC 04/27/20 20:41 Chlorhexidine Gluconate (Peridex Oral Rinse) SWAB/BRUSH ORAL CAVITY BID MT 04/29/20 09:00 04/30/20 10:10 DC 04/29/20 21:01 Dextrose (Dextrose 50%) 25 ml ASDIRECTED PRN IV SEE LABEL COMMENTS 04/29/20 10:15 Diatrizoate Meglum/ Diatrizoate Sod (Gastrografin) 10 ml Q30M PO 04/30/20 08:15 04/30/20 08:46 DC Digoxin (Lanoxin) 0.125 mg DAILY PO 04/27/20 09:00 04/30/20 08:59 DC 04/29/20 09:10 Digoxin (Lanoxin) 0.125 mg DAILY PO 04/30/20 09:00 04/30/20 10:25 Digoxin (Lanoxin) 0.25 mg Q8H PO 04/26/20 09:00 04/27/20 01:01 DC 04/27/20 00:09 Diltiazem HCl (Cardizem Cd) 360 mg DAILY PO 04/20/20 09:00 04/22/20 09:24 DC 04/21/20 08:56 Diltiazem HCl (Cardizem) 10 mg STAT STAT IV 04/22/20 09:16 04/22/20 09:26 DC 04/22/20 10:02 Diltiazem HCl (Cardizem) 10 mg STAT STAT IV 04/23/20 09:44 04/23/20 09:45 DC 04/23/20 10:09 Diltiazem HCl (Cardizem) 60 mg Q6H PO 04/22/20 12:00 04/23/20 08:38 DC 04/23/20 06:22 Diltiazem HCl (Cardizem) 90 mg Q6H PO 04/23/20 12:00 04/29/20 18:14 DC 04/29/20 17:45 Enoxaparin Sodium (Lovenox) 40 mg QHS SC 04/24/20 21:00 04/29/20 21:02 Ferrous Sulfate (Ferrous Sulfate) 300 mg TID PO 04/29/20 03:09 04/29/20 03:10 DC Ferrous Sulfate (Ferrous Sulfate) 300 mg TID PO 04/29/20 09:00 04/30/20 10:25 Ferrous Sulfate (Ferrous Sulfate) 325 mg TID PO 04/20/20 09:00 04/29/20 03:09 DC 04/28/20 20:56 Formoterol Fumarate (Perforomist) 20 mcg RBID INH 04/20/20 08:00 04/30/20 08:21 Furosemide (LASIX injection) 40 mg BID@09,17 IV 04/20/20 17:00 04/20/20 17:29 DC Furosemide (LASIX injection) 40 mg BID@,17 IV 04/21/20 07:00 04/22/20 08:02 DC 04/21/20 16:44 Furosemide (LASIX injection) 40 mg BID@,17 IV 04/23/20 09:00 04/26/20 08:47 DC 04/26/20 08:08 Furosemide (LASIX injection) 80 mg BID@,17 IV 04/26/20 17:00 04/29/20 14:48 DC 04/29/20 09:11 Furosemide (Lasix) 60 mg BID@,17 PO 04/20/20 17:30 Cancel Glucagon (Glucagon) 1 mg ASDIRECTED PRN SC SEE LABEL COMMENTS 04/29/20 10:15 Glucose (Glucose) 16 GM ASDIRECTED PRN PO SEE LABEL COMMENTS 04/29/20 10:15 Guaifenesin (Robitussin) 15 ml Q8HP PRN PO COUGH 04/21/20 10:30 Home Med (Med Rec Complete!) ASDIRECTED XX 04/20/20 10:45 04/20/20 10:42 DC Insulin Human Lispro (HumaLOG INSULIN) SEE PROTOCOL TABLE Q6H SC 04/29/20 12:00 04/29/20 23:30 Levalbuterol HCl (Xopenex Neb) 1.25 mg RQID NEB 04/29/20 16:00 04/30/20 11:34 Levothyroxine Sodium (Synthroid) 112 mcg DAILY@0600 PO 04/20/20 06:00 04/30/20 06:14 Metolazone (Zaroxolyn) 2.5 mg DAILY PO 04/29/20 09:00 04/29/20 18:04 DC 04/29/20 15:51 Midazolam HCl (Versed) 2 mg Q15MP PRN IV AGITATION 04/29/20 01:45 04/30/20 08:48 DC 04/29/20 23:32 Midazolam HCl (Versed) 2 mg STAT STAT IV 04/29/20 01:22 04/29/20 04:44 DC 04/29/20 01:22 Midazolam HCl (Versed) 2 mg STAT STAT IV 04/29/20 01:23 04/29/20 04:46 DC 04/29/20 01:23 Midazolam HCl (Versed) 2 mg STAT STAT IV 04/29/20 01:27 04/29/20 04:46 DC 04/29/20 01:27 Morphine Sulfate (Morphine Sulfate Inj) 2 mg Q2H PRN IV MODERATE/SEVERE PAIN (PS 5-10) 04/29/20 01:45 04/30/20 08:48 DC Nystatin (Mycostatin Powder, Nystop) 1 dose BID TOP 04/22/20 21:00 04/30/20 09:00 Pantoprazole Sodium (Protonix) 40 mg Q24H IV 04/29/20 09:00 04/30/20 10:26 Potassium Chloride (K-Wendy 20 Meq Powder Packet) 20 meq BID PO 04/20/20 09:00 04/30/20 10:26 Prednisone (Deltasone) 40 mg DAILY PO 04/24/20 09:00 04/27/20 10:00 DC 04/26/20 08:08 Simvastatin (Zocor) 10 mg QHS PO 04/20/20 21:00 04/29/20 21:02 Vancomycin HCl 750 mg/IV Miscellaneous Supplies 1 each/ Dextrose 275 ml @ 275 mls/hr Q24H IV 04/29/20 11:00 04/28/20 15:33 DC Vancomycin HCl 750 mg/IV Miscellaneous Supplies 1 each/ Dextrose 275 ml @ 275 mls/hr Q24H IV 04/29/20 12:00 04/28/20 15:33 DC Vancomycin HCl 1000 mg/IV Miscellaneous Supplies 1 each/ Dextrose 270 ml @ 270 mls/hr Q12H IV 04/28/20 08:30 UNV Vancomycin HCl 1000 mg/IV Miscellaneous Supplies 1 each/ Dextrose 270 ml @ 270 mls/hr Q12H IV 04/30/20 09:00 04/30/20 09:15 DC Verapamil HCl (Calan) 120 mg Q8H PO 04/29/20 22:00 04/30/20 06:14 Allergies Coded Allergies: No Known Allergies (Verified Allergy, Unknown, 06/29/19) Kristy Dhillon MD Apr 30, 2020 13:53
--- NOTE | 2020-04-30 15:10 | CCN ---
CRITICAL CARE NOTE DATE: 04/30/2020 SUBJECTIVE: I was called stat to the intensive care unit to evaluate this patient who had just removed her own endotracheal tube. She is spontaneously breathing and saturations are above 90%. OBJECTIVE: VITAL SIGNS: Temperature is 101.7, pulse rate 93, respirations 20, blood pressure 116/77. INTAKE AND OUTPUT: For the past 24 hours 1675 in and 2520 out; since midnight 150 in and 1080 out. GENERAL APPEARANCE: At bedside, she is ill-appearing, but responds to voice. HEENT: Oral mucosa is pink. NECK: Supple. There is no stridor. No adenopathy in the neck. HEART: Irregularly irregular. RESPIRATORY: Breath sounds are diminished with some scattered arterial wave sounds. Respiratory efforts are consistent at this point. ABDOMEN: Soft. EXTREMITIES: Continue to show edema in both the legs and dependent regions. DIAGNOSTIC STUDIES: Her sodium is 143, potassium 3.5, chloride 91, CO2 of 43, BUN 29, creatinine 1.22, glucose 92. White cell count 13.3, hemoglobin 10.7, hematocrit 43.3, platelet count 325,000. Differential white cell count shows 86% neutrophils. An arterial blood gas this morning showed a pH of 7.57, pCO2 of 47, pO2 of 62. AST is 10, ALT 10, albumin 3.2, LDH down at 247, magnesium 2, phosphorus 3. MICROBIOLOGY REVIEW: Sputum is showing a few gram-positives. Urine has grown positive for Serratia marcescens. ASSESSMENT AND PLAN: The primary problem requiring critical attention is acute respiratory failure. The patient has self-extubated, but respiratory efforts are acceptable at this point. We will apply supplemental oxygen targeting a saturation between 88 and 90 given her advanced underlying lung disease and recheck an arterial blood gas. Pulmonary edema. The patient has responded well to Bumex and Diuril. We will have to cautiously diurese her in an effort to improve lung compliance by reducing interstitial edema and attempting to avoid excessive bicarb retention. End-stage chronic obstructive pulmonary disease (COPD). The patient is on beta agonist and inhaled corticosteroids. There is no significant wheeze at this point. From an infectious disease standpoint, I suspect urine is the cause of her fever and white count. Her culture is showing Serratia and Cefepime has been started. Nutritional support will be addressed with clear liquids as tolerated. Deep vein thrombosis (DVT) and ulcer prophylaxis are in place. I have discussed the case with the attending hospitalist and the intensive care unit (ICU) team. Plans of care for the day have been reviewed. CRITICAL CARE TIME: 87 minutes spent in the provision of bedside critical care and coordination; exclusive of any procedure time.
[2020-04-30] MEDS: LACTOBACILLUS ACIDOPHILUS CAP (BACID) PO SCH (17:09)
--- NOTE | 2020-04-30 17:10 | IPN ---
PROGRESS NOTE DATE: 04/28/2020 SUBJECTIVE: Ms. Nisha Vidales was initially admitted on 04/20/2020 with worsening shortness of breath and pedal edema. She has a history of iron deficiency anemia for which she has been receiving IV infusion, atrial fibrillation that has been chronic and persistent, hypertension, hyperlipidemia and deep venous thrombosis (DVT) in 2018, chronic kidney disease, diastolic heart failure, chronic obstructive pulmonary disease (COPD), and obesity with sleep apnea. She had an echocardiogram done on 04/20/2020 and it revealed an normal global left ventricular systolic function, mild valvular heart disease and moderate pulmonary hypertension. The left heart chamber appears to be enlarged. A small pericardial infusion was noted. She was initially seen by her production sound mixer, Dr. Bates, on 04/26/2020 because of worsening heart failure and uncontrolled atrial fibrillation. She was loaded with digoxin and she is on calcium channel jacque. She has been receiving diuretics to keep her on a negative fluid balance. When I saw Ms. Nisha Vidales yesterday in the evening, she was sitting up in bed and having a late dinner. She was transferred back to PCU because of deterioration in her respiratory status. Prior to coming to the PCU, she received 80 mg of IV Lasix and it seems that she was diuresing well when I saw her. She denies any chest pain, palpitations, orthopnea, syncope or near syncope. She had shortness of breath at rest and she was desaturating when she was eating. She continues to have significant pedal edema. There is no report of bleeding. She was alert and awake at that time and she was expecting some family members to come to town from [place]. PHYSICAL EXAMINATION: Vital signs when I saw her reveal a blood pressure of 147/73 with a pulse of 106, respirations reported to be 36 with an oxygen saturation of 90% on nasal cannula at high flow of 7 liters per minute. She was afebrile with a temperature of 98.7 degrees Fahrenheit. She had a negative fluid balance of 220 ml for 04/27/2020. Examination of the head: Atraumatic. Neck is supple with increased jugular venous distention (JVD). The lungs reveal bilateral rhonchi. Minimal respiratory wheezing noted. The heart examination revealed irregular heart sound with S4 gallops. The PMI is not displaced. There is no rub. Abdomen is unremarkable. Extremities reveal +2 bilateral lower leg edema. Neurological examination was negative for focal deficit. LABORATORY DATA: Basic metabolic panel (BMP) revealed a sodium of 145, potassium 4.5, chloride 98, Co2 44, BUN 30, creatinine 1.04 and glomerular filtration rate (GFR) 54.0, fasting glucose 102, calcium 9.7. Pro-BNP was 10,734. Complete blood count (CBC) revealed a WBC of 12.7, hemoglobin 10.3, hematocrit 45.8 and platelets 319,000. Digoxin was 1.4. COVID 19 was negative on 04/28/2020. Arterial blood gas done earlier this afternoon revealed a pH of 7.34, pCO2 87.8 and pO2 83.4 with an oxygen saturation of 96%. Earlier in the morning, the arterial blood gas revealed a pH of 7.35 with pCO2 of 79 and a pO2 of 54. IMPRESSION: Hypercapnic respiratory failure secondary to a combination of factors, particularly underlying chronic obstructive pulmonary disease (COPD)/emphysema and diastolic heart failure. The patient was transferred to PCU for further management and start her on BIPAP after eating dinner. She had received 80 mg of Lasix and she is passing good urine. I recommend to continue the same and try to keep her in a negative fluid balance. She appears to be still fluid overloaded. This probably is the main reason why her respiratory failure is decompensated. Her blood pressure seems to be under control and her atrial fibrillation also seems to be under fair control. She is on digoxin and calcium jacque for her atrial fibrillation and I will continue the same. She has not been on anticoagulation therapy because of history of iron deficiency anemia. Her respiratory status is monitored by pulmonary. It was a pleasure to participate in the care of Ms. Nisha Vidales. She appears to be deteriorating and she needs to be closely monitored. Dr. Mohr is covering this weekend, please do not hesitate to call him if any questions MTDD
[2020-04-30] MEDS: ACETAMINOPHEN TAB 650MG DOSE (2X325MG) PO PRN (17:20)
[2020-04-30] MEDS ORDERED: HumaLOG INSULIN (NovoLOG) PER UNIT SC SCH ×2 (17:30→21:00)
[2020-04-30 18:15] LABS: ABG BASE EXCESS 11.5 (-2.0-2.0); ABG HCO3 37.3 MEQ/L (22.0-26.0); ABG O2 SATURATION 90.7 % (95.0-99.0); ABG PARTIAL PRESSURE CO2 54.6 mmHg (35.0-45.0); ABG PARTIAL PRESSURE O2 62.3 mmHg (75.0-100.0); ABG STANDARD HCO3 35.1 MEQ/L (22.0-26.0); ABG TOTAL CO2 38.9 MEQ/L (23.0-31.0); ABG pH (ARTERIAL) 7.452 UNITS (7.350-7.450)
--- NOTE | 2020-04-30 18:30 | CR ---
CONSULTATION DATE: 04/30/2020 REQUESTING PHYSICIAN: Kristy Dhillon MD CONSULTING PHYSICIAN: Melanie Burch MD REASON FOR CONSULTATION: Management of fluid overload and optimization of the diuretic regimen. CHIEF COMPLAINT: Patient was transferred to intensive care unit (ICU) yesterday with hypoxic and hypercapnic respiratory failure. HISTORY OF PRESENT ILLNESS: Nisha Vidales is an 80-year-old female with a past medical history of hypertension, chronic obstructive pulmonary disease (COPD), atrial fibrillation, history of congestive heart failure (CHF), chronic kidney disease stage 3 at baseline with a creatinine of 1 to 1.1 at baseline. She was on the progressive care unit (PCU) but she was not tolerating the noninvasive ventilation, she was getting more and more somnolent, she was poorly responsive, she was in hypoxic and hypercapnic respiratory failure, she was emergency intubated and brought to ICU and for management of fluid overload and CHF and nephrology service was called. I gave her a dose of IV Bumex 2 mg and Diuril 500 mg IV overnight. Patient diuresed well overnight with that. Patient self-extubated in the morning and by the time I saw her in the ICU today she was on bilevel positive airway pressure (BIPAP). PAST MEDICAL HISTORY: Past medical history of chronic kidney disease stage III, baseline creatinine of around 1 to 1.1, history of COPD, chronic hypercapnic respiratory failure, history of intubations in the past as well, deep venous thrombosis (DVT) status post inferior vena cava (IVC) filter, atrial fibrillation, not on anticoagulation because of gastrointestinal (GI) bleeding, obstructive sleep apnea, hypertension, congestive heart failure, echocardiogram done about a week ago showed normal left ventricular systolic function, mitral annular calcification with mild mitral regurgitation, mild tricuspid regurgitation, moderate pulmonary hypertension, right ventricle was not well visualized, hypothyroidism. PAST SURGICAL HISTORY: Status post appendectomy in the past, status post hysterectomy with bilateral salpingo-oophorectomy in the past. ALLERGIES: She has no known drug allergies. FAMILY HISTORY: No significant family history of end-stage renal disease requiring hemodialysis. SOCIAL HISTORY: Patient is an ex-smoker, she quit in 2018. No history of illicit drug abuse or alcohol abuse. REVIEW OF SYSTEMS: Constitutional: Patient reports feeling tired and lethargic. Eyes: She denies any blurry vision or double vision. Ears, nose, and throat (ENT): She denies any dysphagia or odynophagia. Cardiovascular: She does report lower extremity edema and shortness of breath. Respiratory: She reports shortness of breath and some cough. GI: She denies any nausea or vomiting. Genitourinary: She has an indwelling Miranda. Musculoskeletal: She denies any muscle aches and pains. Skin: She denies any rashes or ulcers. Hematological/Oncological: She denies any easy bleeding or bruising. Central nervous system (POLYETHYLENE COMBINER): She denies any strokes or seizures. All other review of systems is negative. PHYSICAL EXAMINATION: General: Patient is awake, alert, oriented times two, laying in bed, wearing BIPAP. Vital signs: Temperature was 101.7 degrees Fahrenheit rectal, blood pressure 166/77, pulse is 99, respiratory rate of 19, saturating 89% on the BIPAP at 3 liters. Intake and output: Urine output recorded is 2.4 liters yesterday, 1.3 liters so far today since overnight. Weight in the bed scale is 102.6 kg, which is around 1 kg below her weight yesterday. Head and neck exam: Extraocular muscles intact. Pupils equally round and reactive to light. Mucous membranes are slightly dry because of BIPAP. Neck is supple. Moderately elevated jugular venous distension (JVD) was noted. Cardiovascular: S1, S2, tachycardia, irregularly irregular rate. 2+ edema of the bilateral lower extremities. Respiratory: Moderately decreased breath sounds bilaterally from the bases up to the mid-lung zones. Abdomen: Obese, positive bowel sounds, nontender, no organomegaly. Genitourinary: She has an indwelling Miranda catheter. Musculoskeletal: 2+ edema of the bilateral lower extremities up to mid-shins. POLYETHYLENE COMBINER: No focal deficit. Power is 5/5 in all extremities. LABORATORY REVIEW: CBC showed WBC 13.3, hemoglobin 10.7, platelets are 325. ABG done today morning showed pH of 7.57, pCO2 of 47, pO2 of 62, bicarbonate is 43, oxygen saturation is 94.3%. BMP done today morning showed sodium 143, potassium 3.5, chloride 91, bicarbonate 43, BUN 29, creatinine is 1.22. Microbiology: Sputum gram stain is pending. Blood cultures are negative. Urine culture from the Miranda pulled on 04/26/2020 was growing Serratia, only 1000 colonies. IMAGING: A chest x-ray done today morning showed cardiomegaly and improved aeration of the left base. CURRENT INPATIENT MEDICATIONS: Patient's medications were all reviewed by myself. She is currently on Cefepime 1 gram IV every 12 hours. She was also on IV vancomycin. She was given a dose of Bumex 2 mg IV along with Diuril 500 mg IV last night. She is on budesonide 0.5 mg inhalation twice a day. I have ordered a dose of acetazolamide 500 mg IV times one dose. She is on digoxin 0.125 mg by mouth daily, she was on diltiazem by mouth which has been stopped now, iron tablets 300 mg by mouth three times a day, Lovenox 40 mg subcutaneous daily. She is on Perforomist 20 mcg twice a day, she was getting metolazone 2.5 mg by mouth daily which was stopped yesterday, IV Lasix was stopped yesterday. She is getting Xopenex nebulizations, levothyroxine 112 mcg by mouth daily, nystatin power, Protonix 20 mg by mouth daily, potassium chloride 20 mEq by mouth twice a day, simvastatin 10 mg nightly, and verapamil 120 mg by mouth every 8 hours. ASSESSMENT AND PLAN: 1. Decompensated cor pulmonale. Patient has heart failure with preserved ejection fraction, pulmonary hypertension, chronic hypercapnic respiratory failure. She has hypoxic hypercapnic respiratory failure secondary to combination of chronic obstructive pulmonary disease (COPD) and congestive heart failure (CHF). She was given a dose of Bumex and Diuril last night. She has diuresed well with that however she is alkalotic now and to further diurese her now I have given her a dose of acetazolamide 500 mg IV. 2. Chronic respiratory acidosis and now she has metabolic alkalosis. Patient was aggressively diuresed. I cannot diurese her further because of alkalosis. As mentioned above, acetazolamide 500 mg IV times one dose has been ordered today. Further diuretic regimen will be adjusted tomorrow. 3. Acute on chronic COPD exacerbation. Continue DuoNebs. Bilevel positive airway pressure (BIPAP) is as per pulmonary team. 4. Atrial fibrillation with rapid ventricular rate. Heart rate is better controlled. She is on digoxin and verapamil now. Cardizem has been stopped. 5. Iron deficiency anemia. I have decreased the iron dose to once a day only. Higher dose causes constipation. 6. Acute on chronic hypoxic and hypercapnic respiratory failure. Patient was intubated overnight. She self-extubated in the morning. She is stable on the BIPAP at this time. Volume status is improving. Diuretic management is as mentioned above. Thank you for involving me in the care of this patient. I shall be happy to follow the patient along with you tomorrow morning.
[2020-04-30] MEDS: ENOXAPARIN 40MG/0.4ML SYRINGE (J1650 PER 10MG) SC SCH (20:00)
[2020-04-30] MEDS: SIMVASTATIN 10 MG TAB PO SCH (20:01)
[2020-05-01] VITALS (11 sets, daily range): BP systolic 104–136; BP diastolic 58–64
[2020-05-01] MEDS: ACETAMINOPHEN TAB 650MG DOSE (2X325MG) PO PRN ×3 (01:52→19:40)
[2020-05-01] MEDS: LEVOTHYROXINE 112MCG TABLET (0.112MG) PO SCH (05:26)
[2020-05-01] MEDS: VERAPAMIL 40 MG TAB PO SCH ×3 (05:27→21:24)
[2020-05-01 05:41] LABS: ABG O2 SATURATION 96.9 % (95.0-99.0); ABG PARTIAL PRESSURE O2 90.4 mmHg (75.0-100.0); ABG STANDARD HCO3 39.8 MEQ/L (22.0-26.0); ABG TOTAL CO2 46.2 MEQ/L (23.0-31.0); ABG pH (ARTERIAL) 7.394 UNITS (7.350-7.450)
[2020-05-01 05:42] LABS: BASO % 0.3 % (0.0-1.0); EOS # 0.2 10^3/uL (0.0-0.5); EOS % 1.1 % (0.0-3.0); HEMATOCRIT 42.1 % (36.0-47.0); HEMOGLOBIN 10.4 g/dl (12.0-15.5); LYMPH # 0.6 10^3/uL (1.5-5.0); LYMPH % 4.4 % (24.0-44.0); MEAN CORPUSCULAR HEMOGLOBIN 19.4 pg (27.0-33.0); MEAN CORPUSCULAR HGB CONC 24.7 g/dl (32.0-36.5); MEAN CORPUSCULAR VOLUME 78.7 fl (80.0-96.0); MONO # 1.1 10^3/uL (0.0-0.8); MONO % 8.1 % (0.0-5.0); NEUTROPHILS # 11.6 10^3/uL (1.5-8.5); NEUTROPHILS % 85.4 % (36.0-66.0); PLATELET COUNT, AUTOMATED 324 10^3/uL (150-450); RED BLOOD COUNT 5.35 10^6/uL (4.00-5.40); WHITE BLOOD COUNT 13.6 10^3/uL (4.0-10.0)
[2020-05-01 05:47] LABS: ABG PARTIAL PRESSURE CO2 73.6 mmHg (35.0-45.0)
[2020-05-01 06:15] LABS: ALBUMIN 2.8 GM/DL (3.2-5.2); BILIRUBIN,TOTAL 0.6 MG/DL (0.2-1.0); CALCIUM LEVEL 8.9 MG/DL (8.8-10.2); CREATININE FOR GFR 1.05 MG/DL (0.55-1.30); GLOMERULAR FILTRATION RATE 53.4 (>32); MAGNESIUM LEVEL 2.2 MG/DL (1.8-2.4); PHOSPHORUS LEVEL 3.7 MG/DL (2.5-4.9); POTASSIUM SERUM 3.3 MEQ/L (3.5-5.1)
[2020-05-01] MEDS ORDERED: POTASSIUM CHLORIDE 10 MEQ SR TABLET PO ONE (07:45)
[2020-05-01] MEDS: PANTOPRAZOLE 20 MG TAB PO SCH (07:52)
[2020-05-01] MEDS: LACTOBACILLUS ACIDOPHILUS CAP (BACID) PO SCH ×2 (07:53→17:57)
[2020-05-01] MEDS: FERROUS SULFATE 300MG/5ML UDC LIQUID PO SCH (07:53)
[2020-05-01] MEDS: POTASSIUM CHL PWD 20 MEQ PACKET PO SCH (07:54)
[2020-05-01] MEDS: DIGOXIN 0.125 MG TAB PO SCH (07:55)
[2020-05-01] MEDS: NYSTATIN 100,000 UNITS/GM TOPICAL PWD 15 GM TOP SCH ×2 (07:56→21:24)
[2020-05-01] MEDS: LEVALBUTEROL 1.25 MG/0.5 ML CONCENTRATE NEB NEB SCH ×4 (08:00→19:53)
[2020-05-01] MEDS: FORMOTEROL FUMARATE 20 MCG/2 ML INHALATION SOLUTION (PERFOROMIST) INH SCH ×2 (08:13→19:53)
[2020-05-01] MEDS: BUDESONIDE 0.5 MG/2 ML INHALATION SUSPENSION INH SCH ×2 (08:13→19:53)
[2020-05-01] MEDS: CEFEPIME HCL 1 GM in D5W MINI-BAG PLUS 50 ML IV SCH (10:39)
[2020-05-01] MEDS ORDERED: BUMETANIDE 1 MG/4 ML INJ (S0171) IV ONE (12:00)
--- NOTE | 2020-05-01 12:48 | IPN ---
PROGRESS NOTE DATE: 05/01/2020 SUBJECTIVE: The patient was seen and examined at the bedside today morning. She was actually sitting up on the sofa in the ICU. She reports her breathing is significantly better. She made a good amount of urine with the Acetazolamide yesterday. Her renal function is stable. She still reports mild persistent lower extremity edema. OBJECTIVE: VITAL SIGNS: Temperature is 97 degrees Fahrenheit, blood pressure 128/62, pulse is 74, respiratory rate is 24, saturating 91% on nasal cannula at 3 liters. INTAKE AND OUTPUT: Urine output record as 2 liters yesterday, 377 ml so far today. Weight on the bed scale is 100.1 kg. PHYSICAL EXAMINATION: GENERAL: The patient is awake, alert and oriented x3, obese, sitting up on the sofa, mild respiratory distress. HEAD AND NECK: Extraocular muscles intact. Pupils equally round and reactive to light. Mucous membranes are moist. NECK: Supple. Mildly elevated JVD. CARDIOVASCULAR: S1 and S2, irregular rate. There is 2+ edema of the bilateral lower extremities up to the mid shins. RESPIRATORY: Mildly decreased breath sounds at the bases, otherwise no active rales or rhonchi. ABDOMEN: Soft, obese, positive bowel sounds, nontender. GENITOURINARY: She has an indwelling Miranda catheter. MUSCULOSKELETAL: No clubbing or cyanosis. Pulses are 2+. VP PUBLISHER DEVELOPMENT: No focal deficit. Power is 5/5 in all extremities. LABORATORY DATA: CBC showed a WBC of 13.6, hemoglobin 10.4, platelets are 324,000. BNP showed a sodium of 141, potassium 3.3, chloride 94, bicarbonate 43, BUN 29, creatinine 1.05. CURRENT INPATIENT MEDICATIONS: The patient's medications are all reviewed by myself. She was given a dose of Acetazolamide yesterday. She was given an extra dose of potassium today. Iron tablet was changed to once a day only. She continues to be on IV Cefepime. No other significant change in the medications today as compared with yesterday. ASSESSMENT AND PLAN: 1. Decompensated cor pulmonale. Patient was given Acetazolamide yesterday because of metabolic alkalosis. Today, she will be given Bumex 2 mg IV x1 dose, volume status is getting better. 2. Chronic respiratory acidosis, it is secondary to COPD. She requires BiPAP whenever she is taking a nap or sleeping at nighttime. The rest of the management is as per the Pulmonary Team. 3. Acute COPD exacerbation. She continues to be on nebulizations and antibiotics. She uses BiPAP when she is sleeping. 4. Atrial fibrillation, heart rate is better controlled at this time. She is on Digoxin and Verapamil.
[2020-05-01] MEDS ORDERED: LevoFLOXacin 500 MG TABLET PO ONE (13:30)
[2020-05-01] MEDS ORDERED: BUMETANIDE 1 MG TAB PO ONE (14:45)
--- NOTE | 2020-05-01 15:15 | REP ---
INDICATION: r/o fx. COMPARISON: None. TECHNIQUE: AP and lateral views of the right foot obtained portably. FINDINGS: AP and lateral views of the right foot demonstrate diffuse soft tissue swelling. There is osteoarthritis at the 1st MTP joint. Diffuse osteoporosis is noted. No acute bony erosive changes seen. No definite soft tissue gas is appreciated.. No fracture or subluxation is seen. No opaque foreign body noted. IMPRESSION: Diffuse soft tissue swelling. Diffuse osteopenia. Osteoarthritis at the 1st MTP joint. No bony erosive changes seen. No fracture is noted.. <Electronically signed by Yoan Rowell > 05/01/20 [id number]
--- NOTE | 2020-05-01 16:07 | IPNPDOC ---
Date Seen The patient was seen on 05/01/20. Progress Note SUBJECTIVE: Stable on 3 L NC, ABG this AM showed incr CO2 without MS changes. Per pulmonary, switched to PO levofloxacin from IV cefepime. Diuresing better today. Right foot 4th and 5th digit, area closest to the plantar area of foot showed it had seperated, bleeding today. XR of foot neg for fx, surgery suggested foam dressings only. She denies chest pain, incr SOB, fevers, chills. Afebrile since 04/30 in afternoon. OBJECTIVE: PHYSICAL EXAMINATION: VITAL SIGNS: Please see below GENERAL APPEARANCE: Sitting up in bed, shortness of breath with talking but improved; AAOx3 HEENT: PERRLA, EOMI NECK: No JVD, symmetrical LUNGS: Decreased breath sounds bilaterally, improved crackles/rhonchi in b/l lung griggs HEART: Irregular rate and rhythm S1S2 +, no M/R/G ABDOMEN: Soft , obese, BS + in four quadrants, nontender EXTREMITIES: peripheral edema +2 pitting b/l lower ext. lacerations at base of right foot 4th, 5th digits near plantar area, bleeding, clean. INTEGUMENTARY: Some scabbed lesions NEURO: no focal deficits, no sensory or motor deficits LABORATORY DATA: Please see below MICRO: UCx: Serratia with sensitivities in chart BCx: NG to date Sputum GS: FEW GRAM POSITIVE COCCI Sputum Cx: Serratia IMAGING: XR of right foot 05/01/20: Diffuse soft tissue swelling. Diffuse osteopenia. Osteoarthritis at the 1st MTP joint. No bony erosive changes seen. No fracture is noted.. CXR 04/30/20: Cardiomegaly. Improved aeration left base. CXR: 1. Pneumonia on the left with small left pleural effusion. 2. Stable cardiomegaly. Echocardiogram 04/21/20: EF 60-65% Normal global left ventricular systolic function with moderate concentric left ventricular hypertrophy. Assessment of the left ventricular diastolic function was limited. Aortic valve sclerosis without stenosis or aortic regurgitation. Mildly dilated aortic root at 4.1 cm. Mitral annular calcification with mild mitral regurgitation and a mildly enlarged left atrium. Mild tricuspid regurgitation with moderate pulmonary hypertension. The rightatrium subjectively appeared to be mildly enlarged. The right ventricle was not well visualized. A small pericardial effusion was noted, no evidence of cardiac tamponade ASSESSMENT: 80 y/o F with PMH of chronic hypercapnic respiratory failure, JACQUES, HFpEF, pulmonary HTN, COPD admitted for acute on chronic hypercapnic respiratory failure multifactorial, HFpEF with exacerbation, COPD exacerbation. PLAN: Acute on chronic hypercapnic respiratory failure likely multifactorial to HFpEF with exacerbation, pulmonary HTN, pleural effusions b/l, JACQUES, known COPD no longer in exacerbation, ? PNA -Saturating well on 3 L NC -Last ABG: pH 7.39 / pCO2 73.6 / pO2 90.4 -Please f/u on individual issues below HFpEF with exacerbation, pulmonary hypertension , bilateral pleural effusions -improved SOB, crackles, rhonchi b/l lung griggs. +2 pitting edema in lower ext remains but appears to be less -Net neg 1535 mL/24H, improved o/p with diuretics changed -Echocardiogram 04/21/20: see above -C/w bumex 2 mg IV BID. C/w verapamil, formoterol BID, levalbuterol ATC. -Pulmonary and cardiology following closely -Monitor I&O's, low salt diet, daily wt Atrial fibrillation, resolved RVR -HR controlled -C/w verapamil, digoxin 0.125 PO daily. Not on AC due to GI bleed -Dr. Bates is her sales planning manager, has been following in hospital Serranthony PNA -Repeat procalcitonin 0.25 borderline -Sputum cx: Serratia -WBC 13.6, afebrile since 04/30/20 in afternoon -Stopped Vancomycin and IV cefepime due to poor access, on PO levofloxacin currently -Monitor closely Serratia UTI -D/juani cefepime today, on PO levofloxacin Hypokalemia likely 2/2 to aggressive diuresis -C/w potassium BID with given additional supplement today -daily labs Right foot 4th and 5th digit laceration -Unknown cause, possible skin tears from existing damaged/dry skin? -Foot XR neg -Per surgery: Foam dressings changed Q2 days, monitor for worsening. JACQUES on bipap -ABG this AM above -C/w home bipap as scheduled (naps, nightly and PRN) Chronic obstructive pulmonary disease (COPD), not believed to be in exacerbation -no wheezing on exam -Prednisone stopped , on lung treatments above -Monitor HLD -C/w home meds Hypothyroidism -C/w home meds Physical deconditioning -PT:/OT when extubated GI px -PPI DVT px: -Lovenox Resolved issues: Hypophosphatemia Mild lower ext cellulitis Acute confusion/delerium poss / to prednisone vs. UTI vs. DISPOSITION: Seen in ICU, downgraded to PCU today. PT/OT, Plan is when improved rehab vs. home. TOTAL AMOUNT OF ICU TIME SPENT CARING FOR PATIENT( nonprocedural) : 50 mins VS, I&O, 24H, Fishbone Vital Signs/I&O Vital Signs Date Time Temp Pulse Resp B/P (MAP) Pulse Ox O2 Delivery O2 Flow Rate FiO2 05/01/20 15:26 99 135/64 05/01/20 13:23 97.6 26 92 Nasal Cannula 3.0 04/30/20 08:00 30 I&O- Last 24 Hours up to 6 AM 05/01/20 05:59 Intake Total 530 ml Output Total 1610 ml Balance -1080 ml Laboratory Data 24H LABS Laboratory Tests 2 04/30/20 16:48: Bedside Glucose (Misc Panel) 106 04/30/20 18:04: Blood Gas Bicarbonate Standard 35.1H, Arterial Blood pH 7.452H, Arterial Blood Partial Pressure CO2 54.6H, Arterial Blood Partial Pressure O2 62.3L, Arterial Blood Total CO2 38.9H, Arterial Blood HCO3 37.3H, Arterial Blood Base Excess 11.5H, Arterial Blood Oxygen Saturation 90.7L 04/30/20 19:31: Bedside Glucose (Misc Panel) 117H 05/01/20 05:20: Immature Granulocyte % (Auto) 0.7, Neutrophils (%) (Auto) 85.4H, Lymphocytes (%) (Auto) 4.4L, Monocytes (%) (Auto) 8.1H, Eosinophils (%) (Auto) 1.1, Basophils (%) (Auto) 0.3, Neutrophils # (Auto) 11.6H, Lymphocytes # (Auto) 0.6L, Monocytes # (Auto) 1.1H, Eosinophils # (Auto) 0.2, Basophils # (Auto) 0.0, Nucleated Red B lood Cells % (auto) 0.0, Anion Gap 4L, Glomerular Filtration Rate 53.4, Calcium Level 8.9, Phosphorus Level 3.7#, Magnesium Level 2.2, Total Bilirubin 0.6, Aspartate Amino Transf (AST/SGOT) 7, Alanine Aminotransferase (ALT/SGPT) 9L, Alkaline Phosphatase 76, Lactate Dehydrogenase 215, Total Creatine Kinase 21L, Total Protein 6.0L, Albumin 2.8L, Albumin/Globulin Ratio 0.9L, Triglycerides Level 114, Cholesterol Level 114 05/01/20 05:31: Blood Gas Bicarbonate Standard 39.8H, Arterial Blood pH 7.394, Arterial Blood Partial Pressure CO2 73.6*H, Arterial Blood Partial Pressure O2 90.4, Arterial Blood Total CO2 46.2H, Arterial Blood HCO3 44.0H, Arterial Blood Base Excess 16.0H, Arterial Blood Oxygen Saturation 96.9 CBC/BMP Laboratory Tests 05/01/20 05:20 Microbiology Microbiology 04/29/20 Stool Occult Blood (ADIA) - Final, Complete 04/29/20 Gram Stain - Final, Complete 04/29/20 Sputum Culture - Final, Complete Serratia Marcescens Organism Part Of Normal Narcisa 04/28/20 Blood Culture - Preliminary, Resulted No Growth after 72 hours. All specime... 04/28/20 Blood Culture - Preliminary, Resulted No Growth after 72 hours. All specime... 04/26/20 Urine Culture - Final, Complete Serratia Marcescens Current Medications Current Medications Medications (Trade) Dose Ordered Sig/Eric Route PRN Reason Start Time Stop Time Status Last Admin Dose Admin Acetaminophen (Tylenol Suspension) 650 mg Q6HP PRN GT MILD PAIN OR FEVER 04/29/20 22:45 04/30/20 16:35 DC 04/29/20 23:31 Acetaminophen (Tylenol Tab) 650 mg Q6HP PRN PO PAIN / FEVER 04/30/20 16:45 05/01/20 10:40 Acetaminophen (Tylenol Tab) 1,000 mg Q6H PRN PO PAIN / FEVER 04/20/20 11:00 04/29/20 01:48 DC 04/28/20 20:56 Albuterol Sulfate (Proventil Neb) 2.5 mg Q2HP PRN NEB SOB/WHEEZING 04/28/20 15:45 04/29/20 01:48 DC Albuterol Sulfate (Proventil, Ventolin Hfa) 2 puff RQID PRN INH SHORTNESS OF BREATH 04/20/20 11:00 04/28/20 15:39 DC Albuterol/ Ipratropium (Combivent Respimat 100-20mcg) 2 puff Q6HP PRN INH SHORTNESS OF BREATH 04/20/20 09:15 04/24/20 09:13 DC 04/20/20 09:23 Albuterol/ Ipratropium (Combivent Respimat 100-20mcg) 2 puff RQ6H INH 04/24/20 08:00 04/29/20 01:48 DC 04/27/20 20:00 Albuterol/ Ipratropium (Duoneb (Ipr 0.5mg/Alb 2.5mg)) 3 ml Q4HP PRN NEB SOB/WHEEZING 04/28/20 03:45 04/29/20 01:48 DC 04/29/20 01:46 Albuterol/ Ipratropium (Duoneb (Ipr 0.5mg/Alb 2.5mg)) 3 ml RQID NEB 04/29/20 08:00 04/29/20 14:48 DC 04/29/20 11:27 Budesonide (Pulmicort) 0.5 mg RBID INH 04/20/20 08:00 05/01/20 08:13 Cefepime HCl 1 gm/ Dextrose 50 ml @ 100 mls/hr Q12H IV 04/28/20 09:00 04/28/20 15:33 DC 04/28/20 09:30 Cefepime HCl 1 gm/ Dextrose 50 ml @ 100 mls/hr Q12H IV 04/30/20 10:00 05/01/20 13:28 DC 05/01/20 10:39 Ceftriaxone Sodium 1 gm/ Dextrose 50 ml @ 100 mls/hr Q24H IV 04/27/20 08:15 04/27/20 08:27 DC Cephalexin Monohydrate (Keflex) 500 mg TID PO 04/23/20 09:00 04/28/20 08:59 DC 04/27/20 20:41 Chlorhexidine Gluconate (Peridex Oral Rinse) SWAB/BRUSH ORAL CAVITY BID MT 04/29/20 09:00 04/30/20 10:10 DC 04/29/20 21:01 Dextrose (Dextrose 50%) 25 ml ASDIRECTED PRN IV SEE LABEL COMMENTS 04/29/20 10:15 Diatrizoate Meglum/ Diatrizoate Sod (Gastrografin) 10 ml Q30M PO 04/30/20 08:15 04/30/20 08:46 DC Digoxin (Lanoxin) 0.125 mg DAILY PO 04/27/20 09:00 04/30/20 08:59 DC 04/29/20 09:10 Digoxin (Lanoxin) 0.125 mg DAILY PO 04/30/20 09:00 05/01/20 07:55 Digoxin (Lanoxin) 0.25 mg Q8H PO 04/26/20 09:00 04/27/20 01:01 DC 04/27/20 00:09 Diltiazem HCl (Cardizem Cd) 360 mg DAILY PO 04/20/20 09:00 04/22/20 09:24 DC 04/21/20 08:56 Diltiazem HCl (Cardizem) 10 mg STAT STAT IV 04/22/20 09:16 04/22/20 09:26 DC 04/22/20 10:02 Diltiazem HCl (Cardizem) 10 mg STAT STAT IV 04/23/20 09:44 04/23/20 09:45 DC 04/23/20 10:09 Diltiazem HCl (Cardizem) 60 mg Q6H PO 04/22/20 12:00 04/23/20 08:38 DC 04/23/20 06:22 Diltiazem HCl (Cardizem) 90 mg Q6H PO 04/23/20 12:00 04/29/20 18:14 DC 04/29/20 17:45 Enoxaparin Sodium (Lovenox) 40 mg QHS SC 04/24/20 21:00 04/30/20 20:00 Ferrous Sulfate (Ferrous Sulfate) 300 mg DAILY PO 05/01/20 09:00 05/01/20 07:53 Ferrous Sulfate (Ferrous Sulfate) 300 mg TID PO 04/29/20 03:09 04/29/20 03:10 DC Ferrous Sulfate (Ferrous Sulfate) 300 mg TID PO 04/29/20 09:00 04/30/20 14:06 DC 04/30/20 10:25 Ferrous Sulfate (Ferrous Sulfate) 325 mg TID PO 04/20/20 09:00 04/29/20 03:09 DC 04/28/20 20:56 Formoterol Fumarate (Perforomist) 20 mcg RBID INH 04/20/20 08:00 05/01/20 08:13 Furosemide (LASIX injection) 40 mg BID@,17 IV 04/20/20 17:00 04/20/20 17:29 DC Furosemide (LASIX injection) 40 mg BID@,17 IV 04/21/20 07:00 04/22/20 08:02 DC 04/21/20 16:44 Furosemide (LASIX injection) 40 mg BID@,17 IV 04/23/20 09:00 04/26/20 08:47 DC 04/26/20 08:08 Furosemide (LASIX injection) 80 mg BID@,17 IV 04/26/20 17:00 04/29/20 14:48 DC 04/29/20 09:11 Furosemide (Lasix) 60 mg BID@,17 PO 04/20/20 17:30 Cancel Glucagon (Glucagon) 1 mg ASDIRECTED PRN SC SEE LABEL COMMENTS 04/29/20 10:15 Glucose (Glucose) 16 GM ASDIRECTED PRN PO SEE LABEL COMMENTS 04/29/20 10:15 Guaifenesin (Robitussin) 15 ml Q8HP PRN PO COUGH 04/21/20 10:30 Home Med (Med Rec Complete!) ASDIRECTED XX 04/20/20 10:45 04/20/20 10:42 DC Insulin Human Lispro (HumaLOG INSULIN) SEE PROTOCOL TABLE Q6H SC 04/29/20 12:00 04/30/20 14:40 DC 04/29/20 23:30 Insulin Human Lispro (HumaLOG INSULIN) See Protocol Table AC SC 04/30/20 17:30 05/01/20 02:14 DC Insulin Human Lispro (HumaLOG INSULIN) See Protocol Table QHS SC 04/30/20 21:00 05/01/20 02:14 DC Lactobacillus Acidophilus (Bacid) 1 ea BIDWM PO 04/30/20 18:00 05/01/20 07:53 Levalbuterol HCl (Xopenex Neb) 1.25 mg RQID NEB 04/29/20 16:00 05/01/20 15:04 Levofloxacin (Levaquin) 250 mg DAILY@06 PO 05/02/20 06:00 Levothyroxine Sodium (Synthroid) 112 mcg DAILY@0600 PO 04/20/20 06:00 05/01/20 05:26 Metolazone (Zaroxolyn) 2.5 mg DAILY PO 04/29/20 09:00 04/29/20 18:04 DC 04/29/20 15:51 Midazolam HCl (Versed) 2 mg Q15MP PRN IV AGITATION 04/29/20 01:45 04/30/20 08:48 DC 04/29/20 23:32 Midazolam HCl (Versed) 2 mg STAT STAT IV 04/29/20 01:22 04/29/20 04:44 DC 04/29/20 01:22 Midazolam HCl (Versed) 2 mg STAT STAT IV 04/29/20 01:23 04/29/20 04:46 DC 04/29/20 01:23 Midazolam HCl (Versed) 2 mg STAT STAT IV 04/29/20 01:27 04/29/20 04:46 DC 04/29/20 01:27 Morphine Sulfate (Morphine Sulfate Inj) 2 mg Q2H PRN IV MODERATE/SEVERE PAIN (PS 5-10) 04/29/20 01:45 04/30/20 08:48 DC Nystatin (Mycostatin Powder, Nystop) 1 dose BID TOP 04/22/20 21:00 05/01/20 07:56 Pantoprazole Sodium (Protonix) 20 mg DAILY PO 05/01/20 09:00 05/01/20 07:52 Pantoprazole Sodium (Protonix) 40 mg Q24H IV 04/29/20 09:00 04/30/20 13:53 DC 04/30/20 10:26 Potassium Chloride (K-Wendy 20 Meq Powder Packet) 20 meq BID PO 04/20/20 09:00 05/01/20 07:32 DC 04/30/20 20:00 Potassium Chloride (K-Wendy 20 Meq Powder Packet) 40 meq DAILY PO 05/01/20 09:00 05/01/20 07:54 Prednisone (Deltasone) 40 mg DAILY PO 04/24/20 09:00 04/27/20 10:00 DC 04/26/20 08:08 Simvastatin (Zocor) 10 mg QHS PO 04/20/20 21:00 04/30/20 20:01 Vancomycin HCl 750 mg/IV Miscellaneous Supplies 1 each/ Dextrose 275 ml @ 275 mls/hr Q24H IV 04/29/20 11:00 04/28/20 15:33 DC Vancomycin HCl 750 mg/IV Miscellaneous Supplies 1 each/ Dextrose 275 ml @ 275 mls/hr Q24H IV 04/29/20 12:00 04/28/20 15:33 DC Vancomycin HCl 1000 mg/IV Miscellaneous Supplies 1 each/ Dextrose 270 ml @ 270 mls/hr Q12H IV 04/28/20 08:30 UNV Vancomycin HCl 1000 mg/IV Miscellaneous Supplies 1 each/ Dextrose 270 ml @ 270 mls/hr Q12H IV 04/30/20 09:00 04/30/20 09:15 DC Verapamil HCl (Calan) 120 mg Q8H PO 04/29/20 22:00 05/01/20 15:26 Allergies Coded Allergies: No Known Allergies (Verified Allergy, Unknown, 06/29/19) Kristy Dhillon MD May 01, 2020 16:07
[2020-05-01] MEDS: SIMVASTATIN 10 MG TAB PO SCH (21:24)
[2020-05-01] MEDS: ENOXAPARIN 40MG/0.4ML SYRINGE (J1650 PER 10MG) SC SCH (21:25)
[2020-05-02] VITALS: BP 133/63
[2020-05-02] MEDS: ACETAMINOPHEN TAB 650MG DOSE (2X325MG) PO PRN (02:24)
[2020-05-02 04:00] VITALS: BP 141/70
[2020-05-02 05:32] LABS: BASO % 0.1 % (0.0-1.0); EOS # 0.1 10^3/uL (0.0-0.5); EOS % 0.9 % (0.0-3.0); HEMATOCRIT 41.9 % (36.0-47.0); HEMOGLOBIN 10.1 g/dl (12.0-15.5); LYMPH # 0.4 10^3/uL (1.5-5.0); LYMPH % 2.7 % (24.0-44.0); MEAN CORPUSCULAR HEMOGLOBIN 19.3 pg (27.0-33.0); MEAN CORPUSCULAR HGB CONC 24.1 g/dl (32.0-36.5); MEAN CORPUSCULAR VOLUME 80.1 fl (80.0-96.0); MONO # 1.2 10^3/uL (0.0-0.8); MONO % 8.3 % (0.0-5.0); NEUTROPHILS # 12.3 10^3/uL (1.5-8.5); NEUTROPHILS % 87.4 % (36.0-66.0); PLATELET COUNT, AUTOMATED 323 10^3/uL (150-450); RED BLOOD COUNT 5.23 10^6/uL (4.00-5.40)
[2020-05-02] MEDS ORDERED: LevoFLOXacin 250 MG TABLET PO SCH (06:00)
[2020-05-02 06:04] LABS: ALBUMIN 2.9 GM/DL (3.2-5.2); BILIRUBIN,TOTAL 0.7 MG/DL (0.2-1.0); CALCIUM LEVEL 9.4 MG/DL (8.8-10.2); CREATININE FOR GFR 1.21 MG/DL (0.55-1.30); GLOMERULAR FILTRATION RATE 45.4 (>32); MAGNESIUM LEVEL 2.3 MG/DL (1.8-2.4); PHOSPHORUS LEVEL 3.2 MG/DL (2.5-4.9); POTASSIUM SERUM 3.6 MEQ/L (3.5-5.1); TOTAL PROTEIN 5.9 GM/DL (6.4-8.2)
[2020-05-02 06:06] VITALS: BP 141/70
[2020-05-02] MEDS: VERAPAMIL 40 MG TAB PO SCH (06:06)
[2020-05-02] MEDS: LEVOTHYROXINE 112MCG TABLET (0.112MG) PO SCH (06:06)
[2020-05-02] MEDS: BUDESONIDE 0.5 MG/2 ML INHALATION SUSPENSION INH SCH ×2 (07:15→19:54)
[2020-05-02] MEDS: FORMOTEROL FUMARATE 20 MCG/2 ML INHALATION SOLUTION (PERFOROMIST) INH SCH ×2 (07:15→19:54)
[2020-05-02] MEDS: LEVALBUTEROL 1.25 MG/0.5 ML CONCENTRATE NEB NEB SCH ×4 (07:15→19:54)
[2020-05-02 07:47] VITALS: BP 140/61
[2020-05-02] MEDS ORDERED: TORSEMIDE (DEMADEX) 50 MG PER 1/2 TAB PO SCH (09:00)
[2020-05-02] MEDS: NYSTATIN 100,000 UNITS/GM TOPICAL PWD 15 GM TOP SCH ×2 (09:18→22:46)
[2020-05-02] MEDS: LACTOBACILLUS ACIDOPHILUS CAP (BACID) PO SCH (09:19)
[2020-05-02] MEDS: FERROUS SULFATE 300MG/5ML UDC LIQUID PO SCH (09:19)
[2020-05-02] MEDS: DIGOXIN 0.125 MG TAB PO SCH (09:19)
[2020-05-02] MEDS: PANTOPRAZOLE 20 MG TAB PO SCH (09:19)
[2020-05-02] MEDS: POTASSIUM CHL PWD 20 MEQ PACKET PO SCH (09:20)
--- NOTE | 2020-05-02 09:23 | IPNPDOC ---
Text Note Date of Service The patient was seen on 05/02/20. NOTE SUBJECTIVE: Patient seen and examined at bedside. No new medical complaints this morning. OBJECTIVE: VITAL SIGNS: Please see below GENERAL APPEARANCE: sitting at edge of bed, hirsute HEENT: NC/AT, EOMI, poor dentition LUNGS: diminished breath sounds b/l HEART: Irregular rate and rhythm, +S1S2, no M/R/G ABDOMEN: Soft , obese, BS + in four quadrants, nontender EXTREMITIES: peripheral edema +2 pitting b/l lower ext. lacerations at base of right foot 4th, 5th digits near plantar area, bleeding, clean. A/P: 80F with PMHx of chronic hypercapnic respiratory failure, JACQUES, HFpEF, pulmonary HTN, COPD admitted for acute on chronic hypercapnic respiratory failure multifactorial, HFpEF with exacerbation, COPD exacerbation. #Acute on chronic hypercapnic respiratory failure - likely multifactorial to HFpEF with exacerbation, pulmonary HTN, pleural effusions b/l, JACQUES, known COPD no longer in exacerbation, ? PNA -Saturating well on 3 L NC -Last ABG: pH 7.39 / pCO2 73.6 / pO2 90.4 -Please f/u on individual issues below #HFpEF with exacerbation, pulmonary hypertension , bilateral pleural effusions -improved SOB, crackles, rhonchi b/l lung griggs. +2 pitting edema in lower ext remains but appears to be less - C/w verapamil, formoterol BID, levalbuterol ATC. -Pulmonary and cardiology following closely -Monitor I&O's, low salt diet, daily wt #Atrial fibrillation, resolved RVR -HR controlled -C/w verapamil, digoxin 0.125 PO daily. Not on AC due to GI bleed -Dr. Bates is her bag sewer, has been following in hospital #Danette PNA -Stopped Vancomycin and IV cefepime due to poor access, on PO levofloxacin currently -Monitor closely - WBC slightly increased from yesterday #Danette UTI -on PO levofloxacin #Hypokalemia likely 2/2 to aggressive diuresis -C/w potassium BID with given additional supplement today -daily labs #Right foot 4th and 5th digit laceration -Foot XR neg -Per surgery: Foam dressings changed Q2 days, monitor for worsening. #JACQUES on bipap -C/w home bipap as scheduled (naps, nightly and PRN) #Chronic obstructive pulmonary disease (COPD), not believed to be in exacerbation -no wheezing on exam -Prednisone stopped , on lung treatments above -Monitor #HLD -C/w home meds #Hypothyroidism -C/w home meds #Physical deconditioning -PT:/OT #GI px -PPI #DVT px: -Lovenox Resolved issues: Hypophosphatemia Mild lower ext cellulitis Acute confusion/delirium poss 2/ to prednisone vs. UTI vs. sundowning respiratory failure DISPOSITION: pending clinical improvement ADDENDUM: Later in the morning she became increasingly confused. Her poor prognosis and goals of care were discussed at length with her son/health care proxy Luis Vidales. He stated he believes SOLDER MAKING LABORER with home hospice would be consistent with her wishes. Also discussed with her daughter Neelam, who also agreed. 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 A new MOLST form has been completed. Hospice consultation is pending. VS,Fishbone, I+O VS, Fishbone, I+O Laboratory Tests 05/02/20 05:20 Vital Signs Date Time Temp Pulse Resp B/P (MAP) Pulse Ox O2 Delivery O2 Flow Rate FiO2 05/02/20 06:06 75 141/70 05/02/20 04:00 3.0 05/02/20 04:00 98.7 20 95 Nasal Cannula 04/30/20 08:00 30 I&O- Last 24 Hours up to 6 AM 05/02/20 06:00 Intake Total 1265 ml Output Total 462 ml Balance 803 ml CHERIE LANGE MD May 02, 2020 09:23
--- NOTE | 2020-05-02 12:39 | CCN ---
CRITICAL CARE NOTE DATE: 05/01/2020 SUBJECTIVE: The patient is seen in the intensive care unit. This is hospital day #11. She is off mechanical ventilation, but did use BiLevel pressure therapy through the night. She has a cough with thick secretions. OBJECTIVE: VITAL SIGNS: Temperature 98, T-max for the past 24 hours 101.7, pulse rate 82, respirations 24, blood pressure 104/58. INTAKE AND OUTPUT: For the past 24 hours 540 in and 2075 out; since midnight 350 in and 272 out. GENERAL APPEARANCE: At bedside, she is ill-appearing. HEENT: Her mucosa is pink. There is no stridor. There are some large airway sounds referred to the upper airways. NECK: Supple. HEART: Sounds are irregularly irregular. Monitor showing atrial fibrillation. LUNGS: Breath sounds are diminished globally. Expiratory phase is prolonged. There are some large airway rhonchi and some crepitance in the bases, which improve with respiratory effort. CHEST: Symmetric. There are some accessory muscles engaged during conversation. ABDOMEN: Soft and obese. EXTREMITIES: Show gross edema. DIAGNOSTIC STUDIES: White cell count is 13.6 with 85% neutrophils, hemoglobin 10.4, hematocrit 42.1, platelet count 324,000. Sodium is 141, potassium 3.3, chloride 94, CO2 of 43, BUN 27, creatinine 1.05, glucose 99, AST 7, ALT 9, albumin 2.8, magnesium 2.2, phosphorus 3.7. Arterial blood gases were drawn with a pH of 7.39, pCO2 of 73, pO2 of 90. MEDICATION REVIEW: She is on day #2 of Cefepime, receiving Xopenex nebulized therapy q.i.d., and budesonide Perforomist twice daily, Lovenox 40 mg a day, ulcer prophylaxis with Protonix, and oral potassium has been written. ASSESSMENT AND PLAN: The primary problem requiring critical attention is acute on chronic respiratory failure. Her arterial blood gases are compensated at this point for a respiratory acidosis. Oxygenation is acceptable with supplemental oxygen. Pulmonary edema. I appreciate the assistance from nephrology to maintain diuresis, and I share the concern over induction of the metabolic acidosis and the use cautiously of acetazolamide. The patient's fluid volume status remains very positive and I expect, she will require a prolonged period of time for diuresis. Chronic obstructive pulmonary disease with now clearance of secretions. Betagonists are in place, as are inhaled anti-inflammatory therapy. I do not feel there is a role for additional steroids at this point. Nutritional support. The patient is receiving an advanced diet and tolerating it reasonably well. Deep vein thrombosis (DVT) and ulcer prophylaxis are in place. Inferior vena cava (IVC) access is marginal. Perhaps additional attempts at placement of a peripherally inserted central catheter (PICC) line would be appropriate. I have updated the intensive care unit (ICU) team and will review the case with the attending hospitalist service. Plans of care for the day have been communicated. CRITICAL CARE TIME: 67 minutes spent in the provision of bedside critical care and coordination; excluding any time for the performance of procedures.
[2020-05-02 12:44] VITALS: BP 153/69
--- NOTE | 2020-05-02 12:59 | CR ---
PULMONARY CRITICAL CARE SERVICE NOTE DATE: 05/02/2020 HISTORY OF PRESENT ILLNESS: The patient is seen in the Intensive Care Unit this morning. She is confused, this is hospital day #13. She self-extubated yesterday. PHYSICAL EXAMINATION: At bedside, her temperature is 96, pulse rate 72, respirations 26, oxygen saturation 96% on 3 liters. Blood pressure 140/61. I and O's for the past 24 hours 1540 in, 627 out, since midnight 195 in, 175 out, her weight is up 1.2 kilos from yesterday. She is ill-appearing, not oriented. Her mucosa is moist. Neck is supple. Heart sounds are irregularly irregular. Breath sounds diminished. Expiratory phase is quite prolonged. There are some rales in the bases bilaterally. Abdomen is soft and obese. Extremities are grossly edematous. DIAGNOSTIC STUDIES: Her sodium is 140, potassium 3.6, chloride 94, CO2 43, BUN 34, creatinine 1.21, glucose 86. White cell count is 14, hemoglobin 10, hematocrit 41, platelet count 323,000. Differential: White cell count shows 87% neutrophils, AST is 9, ALT is 9, albumin 2.9, LDH 217. MEDICATIONS: Reviewed, this is day #2 of Levaquin. She is receiving Lovenox 40 mg a day and Xopenex nebulized therapy. She also receives Budesonide and Perforomist nebulized therapy twice a day. She has been dosed with Demadex and Metolazone. Microbiology studies were reviewed. She has sputum and urine showing serratia marcescens. IMPRESSIONS: 1. Acute on chronic respiratory failure in a patient who has endstage lung disease with chronic CO2 retention and a very tenuous respiratory status at this point despite maximal therapy. 2. Pulmonary edema. The patient's fluid volume remains quite positive, I appreciate Nephrology attempts to proceed with diuresis. 3. Atrial fibrillation, she is currently rate controlled. 4. Serratia marcescens in sputum and urine is sensitive to quinolones and she is on day #2 of Levaquin. 5. Confusion. I suspect that this is multifactorial and will discuss this with the attending Hospitalist. Patient's condition remains critical and tenuous.
[2020-05-02] MEDS ORDERED: metOLazone 5 MG TAB PO ONE (13:00)
[2020-05-02] MEDS ORDERED: FLEET ENEMA PR PRN (13:30)
[2020-05-02] MEDS ORDERED: SCOPOLAMINE 1MG TRANSDERMAL PATCH TOP PRN (13:30)
[2020-05-02] MEDS ORDERED: ONDANSETRON 4 MG ORAL DISINTEGRATING TAB PO PRN (13:30)
[2020-05-02] MEDS ORDERED: LORazepam 1 MG TAB PO PRN (13:30)
[2020-05-02] MEDS ORDERED: MORPHINE 10MG/0.5ML ORAL CONCENTRATE SOLUTION U/D SL PRN (13:30)
--- NOTE | 2020-05-02 19:04 | IPNPDOC ---
Subjective Date Seen The patient was seen on 05/02/20. Subjective Chief Complaint/HPI Pt states that she is doing better today. She was sitting upright in bedside chair. Pt and nursing staff deny any overnight events. Objective Physical Examination General Exam: Positive: Alert, Cooperative, Mild Distress (breathing with pursued lips) Eye Exam: Positive: Conjunctiva & lids normal ENT Exam: Positive: Mucous membr. moist/pink Chest Exam: Positive: Other (bibasilar crackles) Heart Exam: Positive: Rate Normal, Irregular Rhythm, Normal S1, Normal S2 Extremity Exam: Positive: Edema (venous stasis ulcers present bilateral LE, edema present 2+ up to knees) Assessment /Plan Assessment # Decompensated cor pulmonale: Fluid status continues to improve. Metolazone and Torsemide have been ordered. Pt is considering DOG RAISER. If pt is made DOG RAISER, nep hrology team will sign off and these medications will not need to be administered. # Chronic respiratory acidosis secondary to COPD with acute exacerbation: Continue BiPAP at nighttime or during naps. Pulmonary team is managing this. Continue antibiotics and nebulizations for acute exacerbation. # Atrial fibrillation: Controlled on Digoxin and Verapamil. Continue Lovenox. Plan/VTE VTE Prophylaxis Ordered?: Yes (Pt is on Lovenox.) GME ATTESTATION My faculty preceptor for this patient encounter was physically present during the encounter and was fully available. All aspects of the patient interview, examination, medical decision making process, and medical care plan development were reviewed and approved by the faculty preceptor. The faculty preceptor is aware and concurs with the plan as stated in the body of this note and will att est to such by his/her cosignature. VS, I&O, 24H, Fishbone Vital Signs/I&O Vital Signs Date Time Temp Pulse Resp B/P (MAP) Pulse Ox O2 Delivery O2 Flow Rate FiO2 05/02/20 12:44 97.8 72 22 153/69 (97) 98 Nasal Cannula 2.0 04/30/20 08:00 30 I&O- Last 24 Hours up to 6 AM 05/02/20 06:00 Intake Total 1265 ml Output Total 462 ml Balance 803 ml Laboratory Data 24H LABS Laboratory Tests 2 05/02/20 05:20: Immature Granulocyte % (Auto) 0.6, Neutrophils (%) (Auto) 87.4H, Lymphocytes (%) (Auto) 2.7L, Monocytes (%) (Auto) 8.3H, Eosinophils (%) (Auto) 0.9, Basophils (%) (Auto) 0.1, Neutrophils # (Auto) 12.3H, Lymphocytes # (Auto) 0.4L, Monocytes # (Auto) 1.2H, Eosinophils # (Auto) 0.1, Basophils # (Auto) 0.0, Nucleated Red Blood Cells % (auto) 0.0, Anion Gap 3L, Glomerular Filtration Rate 45.4, Calcium Level 9.4, Phosphorus Level 3.2, Magnesium Level 2.3, Total Bilirubin 0.7, Aspartate Amino Transf (AST/SGOT) 9, Alanine Aminotransferase (ALT/SGPT) 9L, Alkaline Phosphatase 80, Lactate Dehydrogenase 277H, Total Creatine Kinase 28, Total Protein 5.9L, Albumin 2.9L, Albumin/Globulin Ratio 1.0L, Triglycerides Level 104, Cholesterol Level 117 CBC/BMP Laboratory Tests 05/02/20 05:20 Microbiology Microbiology 04/29/20 Stool Occult Blood (ADIA) - Final, Complete 04/29/20 Gram Stain - Final, Complete 04/29/20 Sputum Culture - Final, Complete Serratia Marcescens Organism Part Of Normal Narcisa 04/28/20 Blood Culture - Preliminary, Resulted No Growth after 72 hours. All specime... 04/28/20 Blood Culture - Preliminary, Resulted No Growth after 72 hours. All specime... 04/26/20 Urine Culture - Final, Complete Serratia Marcescens Attending Note Attending Note Decompensated Cor Pulmonale COPD Exacerbation KALYAN on CKD3 Chronic hypercapnic Resp Failure No IV line available. Bumex and Metolazone started. Edema is improving. Manish Burch DO May 02, 2020 19:04 FAVIAN BURCH MD May 05, 2020 22:33
[2020-05-03] MEDS: LEVALBUTEROL 1.25 MG/0.5 ML CONCENTRATE NEB NEB SCH ×4 (08:00→20:00)
[2020-05-03] MEDS: FORMOTEROL FUMARATE 20 MCG/2 ML INHALATION SOLUTION (PERFOROMIST) INH SCH ×2 (08:06→20:08)
[2020-05-03] MEDS: BUDESONIDE 0.5 MG/2 ML INHALATION SUSPENSION INH SCH ×2 (08:07→20:07)
[2020-05-03] MEDS: PANTOPRAZOLE 20 MG TAB PO SCH (09:00)
[2020-05-03] MEDS: NYSTATIN 100,000 UNITS/GM TOPICAL PWD 15 GM TOP SCH (09:00)
--- NOTE | 2020-05-03 10:20 | IPNPDOC ---
Text Note Date of Service The patient was seen on 05/03/20. NOTE SUBJECTIVE: Patient seen and examined at bedside. No new medical complaints this morning. . No acute overnight events reported. Patient is comfort measures only. She is anxious to return home. OBJECTIVE: VITAL SIGNS: Please see below GENERAL APPEARANCE: sitting at edge of bed, hirsute, lying comfortably in bed, pleasantly confused A/P: 80F with endstage respiratory failure, with PMHx including chronic hypercapnic respiratory failure, JACQUES, HFpEF, pulmonary HTN, COPD. 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 VS,Fishbone, I+O VS, Fishbone, I+O Vital Signs Date Time Temp Pulse Resp B/P (MAP) Pulse Ox O2 Delivery O2 Flow Rate FiO2 05/02/20 20:00 3.0 05/02/20 12:44 97.8 72 22 153/69 (97) 98 Nasal Cannula 04/30/20 08:00 30 I&O- Last 24 Hours up to 6 AM 05/03/20 06:00 Intake Total 120 ml Output Total 200 ml Balance -80 ml CHREIE LANGE MD May 03, 2020 10:20
[2020-05-03] MEDS ORDERED: MORP20SO3 PO (12:22)
[2020-05-03] MEDS ORDERED: ATIV1TAB10 PO (12:22)
--- NOTE | 2020-05-03 14:54 | DS.PDOC ---
Discharge Summary General Date of Admission Apr 20, 2020 at 13:00 Date of Discharge 05/03/20 Discharge Summary PROCEDURES PERFORMED DURING STAY: [None]. DISCHARGE DIAGNOSES: #respiratory distress/failure - required intubation - self-extubated #hypothyroidism #chronic afib - not on a/c due to gi bleed #DLP #HTN #COPD #RLE DVT/IVC filter 2017 #HFpEF #CKD #JACQUES/CPAP COMPLICATIONS/CHIEF COMPLAINT: Chf HISTORY OF PRESENT ILLNESS: 80 year old female presents for several day history of worsening shortness of breath with dyspnea on exertion. She states she was recently diagnosed with iron deficiency anemia, and has been receiving outpatient IV iron infusions. She noted worsening lower extremity edema, and feels that her urine output has been declining despite diuretic therapy. She denies chest pain, orthopnea, abdominal pain, headaches, N/V/D. She denies any black stools or BRBPR. HOSPITAL COURSE: Patient admitted for respiratory failure, worsened through hospital stay, requiring intubations. Patient self extubated. Her pulmonary disease and heart failure deemed to be quite extensive. She became increasingly confused. Her poor prognosis and goals of care were discussed at length with her son/health care proxy Luis Vidales. He stated he believes PETROLOGY TEACHER with home hospice would be consistent with her wishes. Also discussed with her daughter Neelam, who also agreed. 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 A new MOLST form has been completed. Patient discharged home, Dr. Borjas will assume hospice care until hospice house assumes care on Friday05/08/20. #Acute on chronic hypercapnic respiratory failure - likely multifactorial to HFpEF with exacerbation, pulmonary HTN, pleural effusions b/l, JACQUES, known COPD, ? PNA -Saturating well on 3 L NC #HFpEF with exacerbation, pulmonary hypertension , bilateral pleural effusions #Atrial fibrillation, resolved RVR -HR controlled -Dr. Bates is her proofreader, has been following in hospital #Danette PNA -Stopped Vancomycin and IV cefepime due to poor access, was on PO levofloxacin #Serratia UTI -was on PO levofloxacin #Hypokalemia likely 2/2 to aggressive diuresis #Right foot 4th and 5th digit laceration -Foot XR neg -Per surgery: Foam dressings changed Q2 days, monitor for worsening. #JACQUES on bipap -C/w home bipap as scheduled (naps, nightly and PRN) #Chronic obstructive pulmonary disease (COPD) #HLD #Hypothyroidism #Physical deconditioning DISCHARGE MEDICATIONS: Please see below. ALLERGIES: Please see below. PHYSICAL EXAMINATION ON DISCHARGE: VITAL SIGNS: See below General: NAD, lying comfortably in bed, hirsute HEENT: NC/AT, EOMI Lungs: scattered wheezes, diminished breath sounds Heart: +S1S2, irregular Abd: soft, NT, +BS, obese Ext: peripheral edema, chronic venous stasis changes LABORATORY DATA: Please see below. ACTIVITY: [As tolerated]. DISPOSITION: Discharge home - hospice pending DISCHARGE INSTRUCTIONS: 1. Follow up with PCP as scheduled. 2. Follow up with hospice as scheduled. TIME SPENT ON DISCHARGE: 35 minutes. Vital Signs/I&Os Vital Signs Date Time Temp Pulse Resp B/P (MAP) Pulse Ox O2 Delivery O2 Flow Rate FiO2 05/02/20 20:00 3.0 05/02/20 12:44 97.8 72 22 153/69 (97) 98 Nasal Cannula 04/30/20 08:00 30 I&O- Last 24 Hours up to 6 AM 05/03/20 06:00 Intake Total 120 ml Output Total 200 ml Balance -80 ml Microbiology Microbiology 04/29/20 Stool Occult Blood (ADIA) - Final, Complete 04/29/20 Gram Stain - Final, Complete 04/29/20 Sputum Culture - Final, Complete Serratia Marcescens Organism Part Of Normal Narcisa 04/28/20 Blood Culture - Final, Complete NO GROWTH AFTER 5 DAYS 04/28/20 Blood Culture - Final, Complete NO GROWTH AFTER 5 DAYS 04/26/20 Urine Culture - Final, Complete Serratia Marcescens Discharge Medications Scheduled Budesonide (Budesonide) 0.5 Mg/2 Ml Ampul.neb, 0.5 MG INH BID, (Reported) Formoterol Fumarate (Perforomist) 20 Mcg/2 Ml Vial.neb, 20 MCG INH BID, (Reported) Torsemide (Torsemide) 20 Mg Tablet, 40 MG PO BID, (Reported) TAKES AM/AFTERNOON Scheduled PRN Acetaminophen (Tylenol Extra Strength) 500 Mg Tablet, 1,000 MG PO Q6H PRN for PAIN / FEVER, (Reported) Albuterol Sulfate (Proair Hfa) 8.5 Gm Hfa.aer.ad, 2 PUFF INH QID PRN for SHORTNESS OF BREATH, (Reported) Lorazepam (Ativan) 0.5 Mg Tablet, 0.5 MG PO Q4HP PRN for ANXIETY/AGITATION Use sublingually if unable to swallow Morphine Sulfate (Morphine Sulfate) 100 Mg/5 Ml Solution, 0.25-1 ML PO Q2H PRN for PAIN OR DYSPNEA Use sublingually if unable to swallow Allergies Coded Allergies: No Known Allergies (Verified Allergy, Unknown, 06/29/19) CHERIE LANGE MD May 03, 2020 14:54
[2020-05-03] MEDS: ACETAMINOPHEN TAB 650MG DOSE (2X325MG) PO PRN (16:11)
--- NOTE | 2020-05-05 11:07 | CCN ---
CRITICAL CARE NOTE DATE: 04/23/2020 SUBJECTIVE: The patient was seen and examined this morning during bedside rounds. Yesterday afternoon the patient's ABG has shown improvement in her respiratory acidosis. She was awake, alert and oriented. She was taken off of the BIPAP in the evening and allowed off for meals and placed back at night and if evidence of respiratory distress. The patient was on her BIPAP overnight. Around midnight however when it was taken off to administer her medication, she had episode of confusion and had initially refused to place the BIPAP back on. She was ultimately convinced to place her BIPAP back on and was on it throughout most of the evening. She did have an ABG drawn at that time when she was confused which did show some acute worsening in her chronic hypercarbia. This morning she is off of BIPAP to nasal cannula oxygen. She appears to be awake and alert and is oriented and is conversant appropriately. She does feel her breathing has improved since admission. She denies any chest pain, has not had any significant coughing that has noticed or wheezing. Her lower extremity edema has also been improving. OBJECTIVE: PHYSICAL EXAMINATION: VITAL SIGNS: Temperature 98.7, pulse 125, respirations 25, blood pressure 152/81, 02 sat 91% on 3 liters nasal cannula. INTAKE AND OUTPUT: In 195, out 1.4, net negative 1.2 liters. GENERAL APPEARANCE: The patient is sitting in the chair and appears more awake and alert. She is able to speak in complete sentences but she is using pursed lip breathing. HEENT: Normocephalic and atraumatic. Moist mucous membranes. Pupils are reactive to light bilaterally. NECK: Supple. Trachea is midline. Unable to evaluate jugular venous distention due to neck habitus. CARDIAC: Tachycardic, irregularly irregular, normal S1, S2, difficult to auscultate murmurs. RESPIRATORY: Diminished breath sounds bilaterally with crackles at the bases, more on the left. There is no significant wheezing. There is scant rhonchi noted. ABDOMEN: Obese, soft, nontender, nondistended. EXTREMITIES: There is improvement in the previous lower extremity edema. She has +1-2 pitting lower extremity edema now. There are some chronic venous stasis changes. There is a scabbed wound on the right lower extremity. There is a weeping wound on her left with some mild surrounding erythema. LABORATORY STUDIES: WBC 14.0, hemoglobin 8.9, platelets are 257. Chemistries - sodium is 144, potassium is 4.4, chloride is 109, bicarbonate is 33, BUN 29, creatinine is 1.42, glucose is 125. Calcium is 9.6. ABG at midnight - pH 7.274, pco2 of 74.4, pO2 of 132.1. ASSESSMENT AND PLAN: Mrs. Vidales is an 80-year-old female with a past medical history of hypertension, hyperlipidemia, atrial fibrillation, hypothyroidism, chronic obstructive pulmonary disease, obstructive sleep apnea on CPAP and congestive heart failure who presenting with worsening shortness of breath and dyspnea with increasing lower extremity edema. Onuhc-ev-pzyppas hypercarbic and hypoxemic respiratory failure in the setting of decompensated congestive heart failure, likely with a component of right sided heart failure. The patient has been diuresing well with the IV Lasix given yesterday. She was placed then on 40 mg IV twice daily with goal net negative of 1.2 liters. We will continue to monitor her renal function and electrolytes. She was given additional potassium supplementation yesterday evening. We will continue Miranda catheter for accurate measurements of her in's and out's. We will follow up results of her echocardiogram. The patient continues to be tachycardic with her atrial fibrillation. We will increase her p.o. Cardizem and give an additional IV push 10 mg today. She does need adequate rate control, particularly if there is a degree of pulmonary hypertension and right sided heart failure. We will continue her on BIPAP. She states she is on CPAP at home with O2 bleed although previously her orders had stated home BIPAP. Her son will be bringing in her machine and we will review those settings. We will be able to transition her to her home machine with monitoring of her ABG in the morning after she has been on it overnight. She will continue with using her non-invasive ventilator q. h.s. and with naps. We will continue with home inhalers. She does continue to have increasing leukocytosis. There is a possibility of mild cellulitis in her lower extremities, particularly on the left. We will start her with a 5-day course of Keflex. CODE STATUS: Full code. Total critical care time spent not including any procedures approximately 45 minutes.
== END 2020-05-03 21:05 | disposition home health service (06) | DRG 291 ==
LOC: M ED 08:22 → EDBD 08:22 → M ED INP 13:00 → M PCU 18:23 → M MSPAV 04-26 16:10 → M PCU 04-28 10:58
PROVIDERS: ADMIT Internal Medicine; ATTEND Internal Medicine
PROC: 0BH17EZ Insertion of Endotracheal Airway into Trachea, Via Natural or Artificial Opening (ICD-10-PCS; principal; 2020-04-29)
PROC: 5A1945Z Respiratory Ventilation, 24-96 Consecutive Hours (ICD-10-PCS; 2020-04-29)
DX: I13.0 Hypertensive heart and chronic kidney disease with heart failure and stage 1 through stage 4 chronic kidney disease, or unspecified chronic kidney disease (principal); I50.33 Acute on chronic diastolic (congestive) heart failure; J96.22 Acute and chronic respiratory failure with hypercapnia; J96.21 Acute and chronic respiratory failure with hypoxia; J15.8 Pneumonia due to other specified bacteria; I48.20 Chronic atrial fibrillation, unspecified; N17.9 Acute kidney failure, unspecified; L03.115 Cellulitis of right lower limb; L03.116 Cellulitis of left lower limb; J44.0 Chronic obstructive pulmonary disease with (acute) lower respiratory infection; N39.0 Urinary tract infection, site not specified; J81.1 Chronic pulmonary edema; E87.4 Mixed disorder of acid-base balance; E66.01 Morbid (severe) obesity due to excess calories; Z51.5 Encounter for palliative care; Z66 Do not resuscitate; I87.2 Venous insufficiency (chronic) (peripheral); I50.810 Right heart failure, unspecified; D50.9 Iron deficiency anemia, unspecified; Z53.20 Procedure and treatment not carried out because of patient's decision for unspecified reasons; E83.39 Other disorders of phosphorus metabolism; I27.20 Pulmonary hypertension, unspecified; G47.33 Obstructive sleep apnea (adult) (pediatric); I27.81 Cor pulmonale (chronic); E87.6 Hypokalemia; R41.0 Disorientation, unspecified; R53.1 Weakness; E03.9 Hypothyroidism, unspecified; E78.5 Hyperlipidemia, unspecified; N18.30 Chronic kidney disease, stage 3 unspecified; Z86.718 Personal history of other venous thrombosis and embolism; Z95.828 Presence of other vascular implants and grafts; Z79.899 Other long term (current) drug therapy; Z87.891 Personal history of nicotine dependence; Z90.49 Acquired absence of other specified parts of digestive tract; Z68.39 Body mass index [BMI] 39.0-39.9, adult

== ENCOUNTER 2021-02-23 02:57 | Emergency (ER) | payer OTHER, MEDICAID, MEDICARE ==
[~2021-02-23 02:57] MED LIST changes: +ATIV1TAB10 PO; +ERGO500029 PO; +FERR1TAB8 PO; -KLOR10TA76 PO; -LISI40TA PO; +LISI40TA4 PO; +MORP1SOL5 PO; +POTA-136 PO; +POTA-151; -POTA20TA6
[2021-02-23 04:05] LABS: BASO # 0.1 10^3/uL (0.0-0.2); BASO % 0.6 % (0.0-1.0); EOS # 0.2 10^3/uL (0.0-0.5); EOS % 2.3 % (0.0-3.0); HEMOGLOBIN 12.3 g/dl (12.0-15.5); LYMPH # 0.8 10^3/uL (1.5-5.0); LYMPH % 8.3 % (24.0-44.0); MEAN CORPUSCULAR HEMOGLOBIN 29.1 pg (27.0-33.0); MEAN CORPUSCULAR HGB CONC 29.3 g/dl (32.0-36.5); MEAN CORPUSCULAR VOLUME 99.5 fl (80.0-96.0); MONO # 0.6 10^3/uL (0.0-0.8); MONO % 6.7 % (2.0-8.0); NEUTROPHILS # 7.4 10^3/uL (1.5-8.5); NEUTROPHILS % 81.8 % (36.0-66.0); PLATELET COUNT, AUTOMATED 244 10^3/uL (150-450); RED BLOOD COUNT 4.22 10^6/uL (4.00-5.40)
[2021-02-23 04:33] LABS: ALBUMIN 3.5 GM/DL (3.2-5.2); BILIRUBIN,DIRECT 0.1 MG/DL (0.0-0.2); BILIRUBIN,TOTAL 0.4 MG/DL (0.2-1.0); CALCIUM LEVEL 9.2 MG/DL (8.8-10.2); CREATININE FOR GFR 1.2 MG/DL (0.55-1.30); GLOMERULAR FILTRATION RATE 45.8 (>32); POTASSIUM SERUM 3.7 MEQ/L (3.5-5.1)
[2021-02-23] MEDS ORDERED: ACETAMINOPHEN TAB 650MG DOSE (2X325MG) PO ONE (04:35)
[2021-02-23 04:48] LABS: CARBOXYHEMOGLOBIN 2.6 % (0.0-1.5); VENOUS PH 7.323 UNITS (7.330-7.430)
[2021-02-23 04:49] LABS: VENOUS BASE EXCESS 4.1 (-2.0-2.0); VENOUS O2 SATURATION 94.8 % (60.0-80.0); VENOUS PARTIAL PRESSURE O2 74.3 mmHg (30.0-50.0); VENOUS STANDARD HCO3 28.1 MEQ/L; VENOUS TOTAL CO2 33.9 MEQ/L (24.0-28.0)
[2021-02-23 06:30] VITALS: BP 188/84
== END 2021-02-23 07:12 | disposition home or self-care (01) ==
LOC: M ED 02:57
DX: R41.0 Disorientation, unspecified (principal); I50.9 Heart failure, unspecified; I10 Essential (primary) hypertension; N18.9 Chronic kidney disease, unspecified; J44.9 Chronic obstructive pulmonary disease, unspecified; E78.5 Hyperlipidemia, unspecified; Z87.891 Personal history of nicotine dependence; Z79.899 Other long term (current) drug therapy

== ENCOUNTER 2021-02-27 07:08 | Inpatient (IN) | payer OTHER, MEDICAID ==
[~2021-02-27] VITALS: Ht 165.1 cm; Wt 93.0 kg
[2021-02-27] MEDS ORDERED: ERGO500029 PO (07:31)
[2021-02-27] MEDS ORDERED: SIMV10TA21 PO (07:31)
[2021-02-27] MEDS ORDERED: LEVO112T2 PO (07:31)
[2021-02-27] MEDS ORDERED: DILT1CAP46 PO (07:31)
[2021-02-27] MEDS ORDERED: POTA-151 PO (07:31)
[2021-02-27] MEDS: BUDESONIDE 0.5 MG/2 ML INHALATION SUSPENSION INH SCH ×2 (08:00→19:47)
[2021-02-27 08:23] LABS: BASO % 0.4 % (0.0-1.0); EOS # 0.1 10^3/uL (0.0-0.5); EOS % 1.1 % (0.0-3.0); HEMATOCRIT 47.8 % (36.0-47.0); HEMOGLOBIN 13.9 g/dl (12.0-15.5); LYMPH # 0.6 10^3/uL (1.5-5.0); LYMPH % 5.8 % (24.0-44.0); MEAN CORPUSCULAR HEMOGLOBIN 29.2 pg (27.0-33.0); MEAN CORPUSCULAR HGB CONC 29.1 g/dl (32.0-36.5); MEAN CORPUSCULAR VOLUME 100.4 fl (80.0-96.0); MONO # 0.6 10^3/uL (0.0-0.8); MONO % 5.9 % (2.0-8.0); NEUTROPHILS # 8.6 10^3/uL (1.5-8.5); NEUTROPHILS % 86.3 % (36.0-66.0); PLATELET COUNT, AUTOMATED 261 10^3/uL (150-450); RED BLOOD COUNT 4.76 10^6/uL (4.00-5.40); WHITE BLOOD COUNT 9.9 10^3/uL (4.0-10.0)
[2021-02-27 09:23] LABS: CALCIUM LEVEL 9.2 MG/DL (8.8-10.2); CREATININE FOR GFR 1.24 MG/DL (0.55-1.30); GLOMERULAR FILTRATION RATE 44.1 (>32); POTASSIUM SERUM 4.2 MEQ/L (3.5-5.1); THYROID STIMULATING HORMONE 3.45 uIU/ML (0.358-3.740)
[2021-02-27 09:34] LABS: RSV AMPLIFICATION NEGATIVE (NEGATIVE)
[2021-02-27] MEDS ORDERED: FUROSEMIDE 40MG/4ML VIAL (J1940) IV ONE (09:35)
[2021-02-27] MEDS ORDERED: POTASSIUM CHLORIDE 10MEQ SR TABLET PO ONE (09:50)
[2021-02-27] MEDS ORDERED: TORSEMIDE 20 MG TAB PO ONE (09:50)
[2021-02-27] MEDS ORDERED: diltiaZEM **CD** 180 MG CAP PO ONE (09:50)
[2021-02-27] MEDS ORDERED: LEVOTHYROXINE 112MCG TABLET (0.112MG) PO ONE (09:50)
[2021-02-27] MEDS ORDERED: ATIV1TAB10 PO (10:17)
[2021-02-27] MEDS ORDERED: HOME MED LIST COMPLETE! XX SCH (10:20)
[2021-02-27] MEDS ORDERED: ACETAMINOPHEN 500 MG TAB PO PRN (10:25)
[2021-02-27] MEDS ORDERED: ALBUTEROL 90 MCG/ACT 8GM HFA INHALER INH PRN (10:25)
[2021-02-27 12:00] VITALS: BP 149/96
[2021-02-27] MEDS: HEPARIN SOD (PORCINE) 5000UNITS/ML 1ML VIAL/SYRINGE SC SCH ×2 (12:47→22:12)
[2021-02-27 14:00] VITALS: BP 168/92
[2021-02-27 22:00] VITALS: BP 165/84
[2021-02-27] MEDS ORDERED: ONDANSETRON 4 MG TAB PO PRN (22:05)
[2021-02-27] MEDS: SIMVASTATIN 10 MG TAB PO SCH (22:11)
[2021-02-27] MEDS: TORSEMIDE 20 MG TAB PO SCH (22:11)
[2021-02-27] MEDS: LORazepam 0.5 MG TAB PO PRN (22:11)
[2021-02-28 06:00] VITALS: BP 165/84
[2021-02-28] MEDS: LEVOTHYROXINE 112MCG TABLET (0.112MG) PO SCH (06:01)
[2021-02-28] MEDS: BUDESONIDE 0.5 MG/2 ML INHALATION SUSPENSION INH SCH ×2 (07:24→20:14)
[2021-02-28] MEDS: POTASSIUM CHLORIDE 10MEQ SR TABLET PO SCH (08:06)
[2021-02-28] MEDS: TORSEMIDE 20 MG TAB PO SCH ×2 (08:07→20:27)
[2021-02-28] MEDS: HEPARIN SOD (PORCINE) 5000UNITS/ML 1ML VIAL/SYRINGE SC SCH ×2 (08:07→20:28)
[2021-02-28] MEDS: ACETAMINOPHEN TAB 650MG DOSE (2X325MG) PO PRN ×2 (08:07→22:24)
[2021-02-28] MEDS: diltiaZEM **CD** 180 MG CAP PO SCH (08:09)
[2021-02-28 08:26] LABS: HEMATOCRIT 47.1 % (36.0-47.0); HEMOGLOBIN 13.7 g/dl (12.0-15.5); MEAN CORPUSCULAR HGB CONC 29.1 g/dl (32.0-36.5); MEAN CORPUSCULAR VOLUME 99.8 fl (80.0-96.0); PLATELET COUNT, AUTOMATED 264 10^3/uL (150-450); RED BLOOD COUNT 4.72 10^6/uL (4.00-5.40); WHITE BLOOD COUNT 9.8 10^3/uL (4.0-10.0)
[2021-02-28 08:47] LABS: ALBUMIN 3.5 GM/DL (3.2-5.2); BILIRUBIN,TOTAL 0.6 MG/DL (0.2-1.0); CALCIUM LEVEL 9.7 MG/DL (8.8-10.2); CREATININE FOR GFR 1.15 MG/DL (0.55-1.30); MAGNESIUM LEVEL 2.2 MG/DL (1.8-2.4); POTASSIUM SERUM 3.6 MEQ/L (3.5-5.1); TOTAL PROTEIN 7.4 GM/DL (6.4-8.2)
[2021-02-28 14:00] VITALS: BP 143/75
[2021-02-28] MEDS: SIMVASTATIN 10 MG TAB PO SCH (20:28)
[2021-02-28 22:00] VITALS: BP 136/79
[2021-02-28] MEDS: LORazepam 0.5 MG TAB PO PRN (22:23)
[2021-03-01 06:00] VITALS: BP 146/68
[2021-03-01] MEDS: LEVOTHYROXINE 112MCG TABLET (0.112MG) PO SCH (06:08)
[2021-03-01] MEDS: BUDESONIDE 0.5 MG/2 ML INHALATION SUSPENSION INH SCH ×2 (07:51→19:20)
[2021-03-01] MEDS: TORSEMIDE 20 MG TAB PO SCH ×2 (08:01→21:37)
[2021-03-01] MEDS: POTASSIUM CHLORIDE 10MEQ SR TABLET PO SCH (08:02)
[2021-03-01] MEDS: diltiaZEM **CD** 180 MG CAP PO SCH (08:02)
[2021-03-01] MEDS: HEPARIN SOD (PORCINE) 5000UNITS/ML 1ML VIAL/SYRINGE SC SCH ×2 (08:02→21:37)
[2021-03-01] MEDS: ACETAMINOPHEN TAB 650MG DOSE (2X325MG) PO PRN ×2 (08:13→15:32)
[2021-03-01] MEDS ORDERED: VITAMIN D 50,000 UNITS CAPSULE (ERGOCALCIFEROL 1.25MG) PO SCH (09:00)
[2021-03-01] MEDS ORDERED: VITAMIN D 50,000 UNITS CAPSULE (ERGOCALCIFEROL 1.25MG) PO ONE ×2 (09:00)
[2021-03-01] MEDS: LORazepam 0.5 MG TAB PO PRN (15:03)
[2021-03-01] MEDS: SIMVASTATIN 10 MG TAB PO SCH (21:37)
[2021-03-01] MEDS: RAMELTEON 8 MG TAB (ROZEREM) PO PRN (21:37)
[2021-03-02 05:30] VITALS: BP 129/77
[2021-03-02] MEDS: LEVOTHYROXINE 112MCG TABLET (0.112MG) PO SCH (06:21)
[2021-03-02] MEDS: BUDESONIDE 0.5 MG/2 ML INHALATION SUSPENSION INH SCH ×2 (07:10→20:50)
[2021-03-02] MEDS: POTASSIUM CHLORIDE 10MEQ SR TABLET PO SCH (08:39)
[2021-03-02] MEDS: diltiaZEM **CD** 180 MG CAP PO SCH (08:40)
[2021-03-02] MEDS: HEPARIN SOD (PORCINE) 5000UNITS/ML 1ML VIAL/SYRINGE SC SCH ×2 (08:41→20:06)
[2021-03-02] MEDS: TORSEMIDE 20 MG TAB PO SCH ×2 (08:42→17:50)
[2021-03-02] MEDS: RAMELTEON 8 MG TAB (ROZEREM) PO PRN (20:06)
[2021-03-02] MEDS: SIMVASTATIN 10 MG TAB PO SCH (20:06)
[2021-03-02] MEDS ORDERED: QUEtiapine FUMARATE 12.5 MG HALF-TAB PO SCH (21:00)
[2021-03-03] VITALS (14 sets, daily range): BP systolic 119–164; BP diastolic 63–96
[2021-03-03] MEDS: BUDESONIDE 0.5 MG/2 ML INHALATION SUSPENSION INH SCH ×2 (06:22→19:32)
[2021-03-03] MEDS: LEVOTHYROXINE 112MCG TABLET (0.112MG) PO SCH (06:27)
[2021-03-03] MEDS: TORSEMIDE 20 MG TAB PO SCH (09:00)
[2021-03-03] MEDS: diltiaZEM **CD** 180 MG CAP PO SCH (09:00)
[2021-03-03] MEDS: POTASSIUM CHLORIDE 10MEQ SR TABLET PO SCH (09:00)
[2021-03-03 10:22] LABS: ABG BASE EXCESS 12.6 (-2.0-2.0); ABG O2 SATURATION 90.7 % (95.0-99.0); ABG PARTIAL PRESSURE O2 65.6 mmHg (75.0-100.0); ABG STANDARD HCO3 36.2 MEQ/L (22.0-26.0); ABG pH (ARTERIAL) 7.265 UNITS (7.350-7.450)
[2021-03-03 10:26] LABS: ABG PARTIAL PRESSURE CO2 99.1 mmHg (35.0-45.0)
[2021-03-03] MEDS ORDERED: METOPROLOL 5 MG/5 ML VIAL IV STA (11:17)
[2021-03-03] MEDS: HEPARIN SOD (PORCINE) 5000UNITS/ML 1ML VIAL/SYRINGE SC SCH ×2 (12:07→20:00)
[2021-03-03 13:01] LABS: BASO % 0.3 % (0.0-1.0); EOS % 0.3 % (0.0-3.0); HEMATOCRIT 44.1 % (36.0-47.0); HEMOGLOBIN 12.5 g/dl (12.0-15.5); LYMPH # 0.3 10^3/uL (1.5-5.0); LYMPH % 3.7 % (24.0-44.0); MEAN CORPUSCULAR HGB CONC 28.3 g/dl (32.0-36.5); MEAN CORPUSCULAR VOLUME 102.3 fl (80.0-96.0); MONO # 0.5 10^3/uL (0.0-0.8); MONO % 5.5 % (2.0-8.0); NEUTROPHILS # 8.3 10^3/uL (1.5-8.5); NEUTROPHILS % 89.8 % (36.0-66.0); PLATELET COUNT, AUTOMATED 241 10^3/uL (150-450); RED BLOOD COUNT 4.31 10^6/uL (4.00-5.40); WHITE BLOOD COUNT 9.3 10^3/uL (4.0-10.0)
[2021-03-03] MEDS: PIPERACILLIN/TAZOBACTAM SOD 4.5 GM in D5W MINI-BAG PLUS 50 ML IV SCH ×2 (13:41→18:22)
[2021-03-03] MEDS: FUROSEMIDE 100MG/10ML VIAL (J1940) IV SCH ×2 (13:42→20:00)
[2021-03-03] MEDS ORDERED: VANCOMYCIN HCL 1,000 MG, VIAL MATE ADAPTER 1 EACH in NS 250 ML IV ONE ×2 (14:00→15:00)
[2021-03-03 14:03] LABS: ABG BASE EXCESS 10.1 (-2.0-2.0); ABG HCO3 39.6 MEQ/L (22.0-26.0); ABG O2 SATURATION 93.6 % (95.0-99.0); ABG PARTIAL PRESSURE O2 68.7 mmHg (75.0-100.0); ABG STANDARD HCO3 33.8 MEQ/L (22.0-26.0); ABG TOTAL CO2 42.1 MEQ/L (23.0-31.0); ABG pH (ARTERIAL) 7.313 UNITS (7.350-7.450)
[2021-03-03] MEDS: METOPROLOL 5 MG/5 ML VIAL IV SCH ×2 (16:58→22:27)
[2021-03-03] MEDS: ACETAMINOPHEN TAB 650MG DOSE (2X325MG) PO PRN (17:35)
[2021-03-03] MEDS: SIMVASTATIN 10 MG TAB PO SCH (20:00)
[2021-03-03 21:50] LABS: ABG BASE EXCESS 12.5 (-2.0-2.0); ABG HCO3 42.8 MEQ/L (22.0-26.0); ABG O2 SATURATION 98.5 % (95.0-99.0); ABG PARTIAL PRESSURE O2 118.5 mmHg (75.0-100.0); ABG STANDARD HCO3 36.4 MEQ/L (22.0-26.0); ABG TOTAL CO2 45.5 MEQ/L (23.0-31.0); ABG pH (ARTERIAL) 7.306 UNITS (7.350-7.450)
[2021-03-03 21:53] LABS: ABG PARTIAL PRESSURE CO2 87.8 mmHg (35.0-45.0)
[2021-03-03] MEDS ORDERED: FUROSEMIDE injection 250 MG in D5W 225 ML IV SCH (22:00)
[2021-03-04] VITALS (14 sets, daily range): BP systolic 131–198; BP diastolic 69–116; O2SAT 93
[2021-03-04] MEDS: PIPERACILLIN/TAZOBACTAM SOD 4.5 GM in D5W MINI-BAG PLUS 50 ML IV SCH ×2 (01:01→06:01)
[2021-03-04] MEDS: METOPROLOL 5 MG/5 ML VIAL IV SCH (04:02)
[2021-03-04] MEDS: LEVOTHYROXINE 112MCG TABLET (0.112MG) PO SCH (05:49)
[2021-03-04 06:28] LABS: HEMATOCRIT 46.2 % (36.0-47.0); HEMOGLOBIN 13.4 g/dl (12.0-15.5); MEAN CORPUSCULAR HEMOGLOBIN 28.9 pg (27.0-33.0); MEAN CORPUSCULAR VOLUME 99.6 fl (80.0-96.0); PLATELET COUNT, AUTOMATED 241 10^3/uL (150-450); RED BLOOD COUNT 4.64 10^6/uL (4.00-5.40)
[2021-03-04 06:55] LABS: CALCIUM LEVEL 9.6 MG/DL (8.8-10.2); CREATININE FOR GFR 1.27 MG/DL (0.55-1.30); GLOMERULAR FILTRATION RATE 42.8 (>32); POTASSIUM SERUM 3.7 MEQ/L (3.5-5.1)
[2021-03-04] MEDS: BUDESONIDE 0.5 MG/2 ML INHALATION SUSPENSION INH SCH ×2 (07:24→20:22)
[2021-03-04] MEDS ORDERED: VANCOMYCIN HCL 1,000 MG, VIAL MATE ADAPTER 1 EACH in NS 250 ML IV SCH (08:00)
[2021-03-04] MEDS: diltiaZEM **CD** 180 MG CAP PO SCH (08:06)
[2021-03-04] MEDS: POTASSIUM CHLORIDE 10MEQ SR TABLET PO SCH (08:07)
[2021-03-04] MEDS ORDERED: LABETALOL 100MG/20ML VIAL IV PRN (08:10)
[2021-03-04] MEDS: lisinopriL 40 MG TAB PO SCH (08:11)
[2021-03-04] MEDS: HEPARIN SOD (PORCINE) 5000UNITS/ML 1ML VIAL/SYRINGE SC SCH ×2 (08:11→20:26)
[2021-03-04 09:10] LABS: ABG BASE EXCESS 15.8 (-2.0-2.0); ABG HCO3 45.2 MEQ/L (22.0-26.0); ABG O2 SATURATION 95.7 % (95.0-99.0); ABG PARTIAL PRESSURE O2 81.3 mmHg (75.0-100.0); ABG STANDARD HCO3 39.8 MEQ/L (22.0-26.0); ABG TOTAL CO2 47.7 MEQ/L (23.0-31.0); ABG pH (ARTERIAL) 7.378 UNITS (7.350-7.450)
[2021-03-04 09:11] LABS: ABG PARTIAL PRESSURE CO2 78.6 mmHg (35.0-45.0)
[2021-03-04] MEDS ORDERED: amLODIPine 5 MG TAB PO ONE (10:45)
[2021-03-04] MEDS: IPRATROPIUM 0.5MG/ALBUTEROL 2.5MG INH SOL UD 3ML (DUONEB) NEB SCH ×2 (13:47→20:22)
[2021-03-04] MEDS: TORSEMIDE 20 MG TAB PO SCH (17:42)
[2021-03-04] MEDS: DOXYCYCLINE HYCLATE 100MG TABLET PO SCH (20:26)
[2021-03-04] MEDS: SIMVASTATIN 10 MG TAB PO SCH (20:26)
[2021-03-04 22:30] LABS: ABG BASE EXCESS 16.8 (-2.0-2.0); ABG HCO3 44.7 MEQ/L (22.0-26.0); ABG O2 SATURATION 95.9 % (95.0-99.0); ABG PARTIAL PRESSURE O2 78.6 mmHg (75.0-100.0); ABG STANDARD HCO3 40.9 MEQ/L (22.0-26.0); ABG TOTAL CO2 46.8 MEQ/L (23.0-31.0); ABG pH (ARTERIAL) 7.434 UNITS (7.350-7.450)
[2021-03-04 22:31] LABS: ABG PARTIAL PRESSURE CO2 68.3 mmHg (35.0-45.0)
[2021-03-05] VITALS (25 sets, daily range): BP systolic 130–167; BP diastolic 74–90; O2SAT 80–100
[2021-03-05] MEDS: IPRATROPIUM 0.5MG/ALBUTEROL 2.5MG INH SOL UD 3ML (DUONEB) NEB SCH ×4 (01:17→20:48)
[2021-03-05] MEDS: LEVOTHYROXINE 112MCG TABLET (0.112MG) PO SCH (05:33)
[2021-03-05 05:44] LABS: HEMATOCRIT 45.1 % (36.0-47.0); HEMOGLOBIN 13.1 g/dl (12.0-15.5); MEAN CORPUSCULAR HEMOGLOBIN 29.4 pg (27.0-33.0); MEAN CORPUSCULAR VOLUME 101.3 fl (80.0-96.0); PLATELET COUNT, AUTOMATED 227 10^3/uL (150-450); RED BLOOD COUNT 4.45 10^6/uL (4.00-5.40); WHITE BLOOD COUNT 10.3 10^3/uL (4.0-10.0)
[2021-03-05] MEDS: ACETAMINOPHEN TAB 650MG DOSE (2X325MG) PO PRN (06:02)
[2021-03-05 07:10] LABS: BLOOD UREA NITROGEN 30 MG/DL (7-18); CARBON DIOXIDE LEVEL 45 MEQ/L (21-32); CHLORIDE LEVEL 96 MEQ/L (98-107); GLOMERULAR FILTRATION RATE > 60.0 (>32); GLUCOSE, FASTING 88 MG/DL (70-100); POTASSIUM SERUM 3.5 MEQ/L (3.5-5.1); SODIUM LEVEL 146 MEQ/L (136-145)
[2021-03-05] MEDS: BUDESONIDE 0.5 MG/2 ML INHALATION SUSPENSION INH SCH ×2 (08:00→20:48)
[2021-03-05] MEDS: TORSEMIDE 20 MG TAB PO SCH ×2 (08:25→17:24)
[2021-03-05] MEDS: POTASSIUM CHLORIDE 10MEQ SR TABLET PO SCH (08:25)
[2021-03-05] MEDS: diltiaZEM **CD** 180 MG CAP PO SCH (08:25)
[2021-03-05] MEDS: lisinopriL 40 MG TAB PO SCH (08:26)
[2021-03-05] MEDS: DOXYCYCLINE HYCLATE 100MG TABLET PO SCH ×2 (08:26→20:20)
[2021-03-05] MEDS: amLODIPine 5 MG TAB PO SCH (08:26)
[2021-03-05] MEDS: HEPARIN SOD (PORCINE) 5000UNITS/ML 1ML VIAL/SYRINGE SC SCH ×2 (08:26→20:20)
[2021-03-05] MEDS: SIMVASTATIN 10 MG TAB PO SCH (20:20)
[2021-03-06] VITALS (15 sets, daily range): BP systolic 130–170; BP diastolic 67–88; O2SAT 85–97
[2021-03-06] MEDS: IPRATROPIUM 0.5MG/ALBUTEROL 2.5MG INH SOL UD 3ML (DUONEB) NEB SCH ×4 (01:07→19:55)
[2021-03-06 06:17] LABS: HEMATOCRIT 46.2 % (36.0-47.0); HEMOGLOBIN 13.9 g/dl (12.0-15.5); MEAN CORPUSCULAR HEMOGLOBIN 29.3 pg (27.0-33.0); MEAN CORPUSCULAR HGB CONC 30.1 g/dl (32.0-36.5); MEAN CORPUSCULAR VOLUME 97.5 fl (80.0-96.0); PLATELET COUNT, AUTOMATED 222 10^3/uL (150-450); RED BLOOD COUNT 4.74 10^6/uL (4.00-5.40); WHITE BLOOD COUNT 10.7 10^3/uL (4.0-10.0)
[2021-03-06 06:48] LABS: CREATININE FOR GFR 0.97 MG/DL (0.55-1.30); GLOMERULAR FILTRATION RATE 58.4 (>32); POTASSIUM SERUM 3.5 MEQ/L (3.5-5.1)
[2021-03-06] MEDS: LEVOTHYROXINE 112MCG TABLET (0.112MG) PO SCH (06:59)
[2021-03-06] MEDS: diltiaZEM **CD** 180 MG CAP PO SCH (08:06)
[2021-03-06] MEDS: lisinopriL 40 MG TAB PO SCH (08:07)
[2021-03-06] MEDS: DOXYCYCLINE HYCLATE 100MG TABLET PO SCH ×2 (08:07→20:18)
[2021-03-06] MEDS: amLODIPine 5 MG TAB PO SCH (08:07)
[2021-03-06] MEDS: POTASSIUM CHLORIDE 10MEQ SR TABLET PO SCH (08:07)
[2021-03-06] MEDS: TORSEMIDE 20 MG TAB PO SCH ×2 (08:07→17:06)
[2021-03-06] MEDS: HEPARIN SOD (PORCINE) 5000UNITS/ML 1ML VIAL/SYRINGE SC SCH ×2 (08:07→20:18)
[2021-03-06] MEDS: BUDESONIDE 0.5 MG/2 ML INHALATION SUSPENSION INH SCH ×2 (08:17→19:54)
[2021-03-06] MEDS: ACETAMINOPHEN TAB 650MG DOSE (2X325MG) PO PRN (09:33)
[2021-03-06] MEDS: SIMVASTATIN 10 MG TAB PO SCH (20:18)
[2021-03-07] MEDS: IPRATROPIUM 0.5MG/ALBUTEROL 2.5MG INH SOL UD 3ML (DUONEB) NEB SCH ×4 (01:07→19:45)
[2021-03-07] MEDS: ACETAMINOPHEN TAB 650MG DOSE (2X325MG) PO PRN (04:59)
[2021-03-07] MEDS: LEVOTHYROXINE 112MCG TABLET (0.112MG) PO SCH (05:56)
[2021-03-07 06:00] VITALS: BP 126/66
[2021-03-07 06:49] LABS: HEMATOCRIT 46.1 % (36.0-47.0); HEMOGLOBIN 13.6 g/dl (12.0-15.5); MEAN CORPUSCULAR HEMOGLOBIN 28.9 pg (27.0-33.0); MEAN CORPUSCULAR HGB CONC 29.5 g/dl (32.0-36.5); MEAN CORPUSCULAR VOLUME 97.9 fl (80.0-96.0); PLATELET COUNT, AUTOMATED 232 10^3/uL (150-450); RED BLOOD COUNT 4.71 10^6/uL (4.00-5.40); WHITE BLOOD COUNT 9.1 10^3/uL (4.0-10.0)
[2021-03-07] MEDS: BUDESONIDE 0.5 MG/2 ML INHALATION SUSPENSION INH SCH ×2 (07:18→19:45)
[2021-03-07 07:32] LABS: CALCIUM LEVEL 9.7 MG/DL (8.8-10.2); CREATININE FOR GFR 1.03 MG/DL (0.55-1.30); GLOMERULAR FILTRATION RATE 54.5 (>32); POTASSIUM SERUM 3.8 MEQ/L (3.5-5.1)
[2021-03-07 09:30] VITALS: BP 160/74
[2021-03-07] MEDS: POTASSIUM CHLORIDE 10MEQ SR TABLET PO SCH (09:40)
[2021-03-07] MEDS: TORSEMIDE 20 MG TAB PO SCH ×2 (09:41→17:25)
[2021-03-07] MEDS: DOXYCYCLINE HYCLATE 100MG TABLET PO SCH ×2 (09:41→20:55)
[2021-03-07] MEDS: lisinopriL 40 MG TAB PO SCH (09:42)
[2021-03-07] MEDS: amLODIPine 5 MG TAB PO SCH (09:42)
[2021-03-07] MEDS: HEPARIN SOD (PORCINE) 5000UNITS/ML 1ML VIAL/SYRINGE SC SCH ×2 (09:43→20:55)
[2021-03-07] MEDS: diltiaZEM **CD** 180 MG CAP PO SCH (09:50)
[2021-03-07 12:42] LABS: ABG BASE EXCESS 16.6 (-2.0-2.0); ABG HCO3 43.6 MEQ/L (22.0-26.0); ABG O2 SATURATION 92.1 % (95.0-99.0); ABG PARTIAL PRESSURE O2 62.3 mmHg (75.0-100.0); ABG STANDARD HCO3 40.6 MEQ/L (22.0-26.0); ABG TOTAL CO2 45.5 MEQ/L (23.0-31.0); ABG pH (ARTERIAL) 7.476 UNITS (7.350-7.450)
[2021-03-07 12:45] LABS: ABG PARTIAL PRESSURE CO2 60.5 mmHg (35.0-45.0)
[2021-03-07 14:00] VITALS: BP 140/79
[2021-03-07] MEDS ORDERED: metOLazone 5 MG TAB PO ONE (14:00)
[2021-03-07] MEDS ORDERED: predniSONE 20 MG TAB PO ONE (15:10)
[2021-03-07] MEDS: SIMVASTATIN 10 MG TAB PO SCH (20:55)
[2021-03-07 22:00] VITALS: BP_SYST 105; BP_SYST 71; BP_DIAS 71; BP_DIAS 79
[2021-03-07] MEDS: traZODone 25MG PER 1/2 TABLET PO PRN (23:50)
[2021-03-08] MEDS: IPRATROPIUM 0.5MG/ALBUTEROL 2.5MG INH SOL UD 3ML (DUONEB) NEB SCH ×4 (01:12→19:19)
[2021-03-08] MEDS: LEVOTHYROXINE 112MCG TABLET (0.112MG) PO SCH (05:23)
[2021-03-08 06:00] VITALS: BP 120/62
[2021-03-08 06:00] LABS: HEMATOCRIT 45.7 % (36.0-47.0); HEMOGLOBIN 13.7 g/dl (12.0-15.5); MEAN CORPUSCULAR HEMOGLOBIN 28.7 pg (27.0-33.0); MEAN CORPUSCULAR VOLUME 95.8 fl (80.0-96.0); PLATELET COUNT, AUTOMATED 220 10^3/uL (150-450); RED BLOOD COUNT 4.77 10^6/uL (4.00-5.40)
[2021-03-08 06:20] LABS: CALCIUM LEVEL 9.9 MG/DL (8.8-10.2); CREATININE FOR GFR 1.08 MG/DL (0.55-1.30); GLOMERULAR FILTRATION RATE 51.6 (>32); POTASSIUM SERUM 3.8 MEQ/L (3.5-5.1)
[2021-03-08 07:30] VITALS: O2SAT 93
[2021-03-08] MEDS: BUDESONIDE 0.5 MG/2 ML INHALATION SUSPENSION INH SCH ×2 (07:31→19:19)
[2021-03-08] MEDS: POTASSIUM CHLORIDE 10MEQ SR TABLET PO SCH (08:08)
[2021-03-08] MEDS: TORSEMIDE 20 MG TAB PO SCH ×2 (08:09→16:36)
[2021-03-08] MEDS: predniSONE 20 MG TAB PO SCH (08:09)
[2021-03-08] MEDS: metOLazone 5 MG TAB PO SCH (08:10)
[2021-03-08] MEDS: DOXYCYCLINE HYCLATE 100MG TABLET PO SCH ×2 (08:10→20:29)
[2021-03-08] MEDS: lisinopriL 40 MG TAB PO SCH (08:10)
[2021-03-08] MEDS: diltiaZEM **CD** 180 MG CAP PO SCH (08:11)
[2021-03-08] MEDS: amLODIPine 5 MG TAB PO SCH (08:11)
[2021-03-08] MEDS: HEPARIN SOD (PORCINE) 5000UNITS/ML 1ML VIAL/SYRINGE SC SCH ×2 (08:12→20:29)
[2021-03-08 14:00] VITALS: BP 110/54
[2021-03-08] MEDS: SIMVASTATIN 10 MG TAB PO SCH (20:28)
[2021-03-08 22:00] VITALS: BP 121/66
[2021-03-09] MEDS: IPRATROPIUM 0.5MG/ALBUTEROL 2.5MG INH SOL UD 3ML (DUONEB) NEB SCH ×4 (01:20→19:13)
[2021-03-09 05:21] VITALS: BP 110/69
[2021-03-09] MEDS: BUDESONIDE 0.5 MG/2 ML INHALATION SUSPENSION INH SCH ×2 (06:05→19:13)
[2021-03-09] MEDS: LEVOTHYROXINE 112MCG TABLET (0.112MG) PO SCH (06:19)
[2021-03-09] MEDS: ACETAMINOPHEN TAB 650MG DOSE (2X325MG) PO PRN ×2 (06:44→11:04)
[2021-03-09 06:52] LABS: HEMATOCRIT 46.7 % (36.0-47.0); HEMOGLOBIN 14.1 g/dl (12.0-15.5); MEAN CORPUSCULAR HGB CONC 30.2 g/dl (32.0-36.5); MEAN CORPUSCULAR VOLUME 95.9 fl (80.0-96.0); PLATELET COUNT, AUTOMATED 228 10^3/uL (150-450); RED BLOOD COUNT 4.87 10^6/uL (4.00-5.40); WHITE BLOOD COUNT 10.6 10^3/uL (4.0-10.0)
[2021-03-09 07:17] LABS: CALCIUM LEVEL 10.3 MG/DL (8.8-10.2); CREATININE FOR GFR 1.69 MG/DL (0.55-1.30); GLOMERULAR FILTRATION RATE 30.8 (>32)
[2021-03-09] MEDS: metOLazone 5 MG TAB PO SCH ×2 (09:00→09:18)
[2021-03-09] MEDS: lisinopriL 40 MG TAB PO SCH (09:00)
[2021-03-09] MEDS: TORSEMIDE 20 MG TAB PO SCH ×3 (09:00→19:10)
[2021-03-09] MEDS: amLODIPine 5 MG TAB PO SCH (09:00)
[2021-03-09] MEDS: predniSONE 20 MG TAB PO SCH ×2 (09:18→09:40)
[2021-03-09] MEDS: HEPARIN SOD (PORCINE) 5000UNITS/ML 1ML VIAL/SYRINGE SC SCH ×2 (09:18→20:38)
[2021-03-09] MEDS: DOXYCYCLINE HYCLATE 100MG TABLET PO SCH ×2 (09:18→20:37)
[2021-03-09] MEDS: POTASSIUM CHLORIDE 10MEQ SR TABLET PO SCH (09:19)
[2021-03-09] MEDS: diltiaZEM **CD** 180 MG CAP PO SCH (09:40)
[2021-03-09 14:00] VITALS: BP 112/69
[2021-03-09] MEDS: SIMVASTATIN 10 MG TAB PO SCH (20:37)
[2021-03-09] MEDS: traZODone 25MG PER 1/2 TABLET PO PRN (20:37)
[2021-03-09 22:00] VITALS: BP 102/56
[2021-03-10] MEDS: IPRATROPIUM 0.5MG/ALBUTEROL 2.5MG INH SOL UD 3ML (DUONEB) NEB SCH ×4 (01:11→19:08)
[2021-03-10 06:00] VITALS: BP 120/62
[2021-03-10] MEDS: LEVOTHYROXINE 112MCG TABLET (0.112MG) PO SCH (06:06)
[2021-03-10 06:40] LABS: HEMATOCRIT 45.8 % (36.0-47.0); HEMOGLOBIN 14.1 g/dl (12.0-15.5); MEAN CORPUSCULAR HEMOGLOBIN 28.8 pg (27.0-33.0); MEAN CORPUSCULAR HGB CONC 30.8 g/dl (32.0-36.5); MEAN CORPUSCULAR VOLUME 93.7 fl (80.0-96.0); PLATELET COUNT, AUTOMATED 248 10^3/uL (150-450); RED BLOOD COUNT 4.89 10^6/uL (4.00-5.40); WHITE BLOOD COUNT 12.4 10^3/uL (4.0-10.0)
[2021-03-10 06:48] LABS: CALCIUM LEVEL 10.4 MG/DL (8.8-10.2); CREATININE FOR GFR 1.88 MG/DL (0.55-1.30); GLOMERULAR FILTRATION RATE 27.2 (>32); POTASSIUM SERUM 3.8 MEQ/L (3.5-5.1)
[2021-03-10] MEDS: BUDESONIDE 0.5 MG/2 ML INHALATION SUSPENSION INH SCH ×2 (08:00→19:06)
[2021-03-10] MEDS: DOXYCYCLINE HYCLATE 100MG TABLET PO SCH ×2 (09:57→22:31)
[2021-03-10] MEDS: predniSONE 20 MG TAB PO SCH (09:57)
[2021-03-10] MEDS: amLODIPine 5 MG TAB PO SCH (09:58)
[2021-03-10] MEDS: POTASSIUM CHLORIDE 10MEQ SR TABLET PO SCH (09:58)
[2021-03-10] MEDS: lisinopriL 40 MG TAB PO SCH (09:58)
[2021-03-10] MEDS: HEPARIN SOD (PORCINE) 5000UNITS/ML 1ML VIAL/SYRINGE SC SCH ×2 (09:58→22:31)
[2021-03-10] MEDS: TORSEMIDE 20 MG TAB PO SCH ×2 (09:59→17:00)
[2021-03-10] MEDS: diltiaZEM **CD** 180 MG CAP PO SCH (09:59)
[2021-03-10] MEDS: metOLazone 5 MG TAB PO SCH (09:59)
[2021-03-10] MEDS: ACETAMINOPHEN TAB 650MG DOSE (2X325MG) PO PRN ×2 (10:03→15:15)
[2021-03-10 14:00] VITALS: BP 119/61
[2021-03-10] MEDS ORDERED: METOCLOPRAMIDE 5 MG TAB PO PRN (14:45)
[2021-03-10] MEDS: LORazepam 0.5 MG TAB PO PRN (15:14)
[2021-03-10 18:00] VITALS: BP 90/60
[2021-03-10 19:07] VITALS: BP 92/52
[2021-03-10 22:00] VITALS: BP 97/54
[2021-03-10] MEDS: SIMVASTATIN 10 MG TAB PO SCH (22:31)
[2021-03-11] MEDS: IPRATROPIUM 0.5MG/ALBUTEROL 2.5MG INH SOL UD 3ML (DUONEB) NEB SCH ×4 (01:15→18:01)
[2021-03-11] MEDS: LEVOTHYROXINE 112MCG TABLET (0.112MG) PO SCH (04:59)
[2021-03-11 06:00] VITALS: BP 101/58
[2021-03-11] MEDS: HEPARIN SOD (PORCINE) 5000UNITS/ML 1ML VIAL/SYRINGE SC SCH ×2 (07:25→19:40)
[2021-03-11] MEDS: DOXYCYCLINE HYCLATE 100MG TABLET PO SCH ×2 (07:25→19:40)
[2021-03-11] MEDS: POTASSIUM CHLORIDE 10MEQ SR TABLET PO SCH (07:25)
[2021-03-11] MEDS: predniSONE 20 MG TAB PO SCH (07:25)
[2021-03-11 07:26] VITALS: BP 96/59
[2021-03-11] MEDS: diltiaZEM **CD** 180 MG CAP PO SCH (07:30)
[2021-03-11] MEDS: TORSEMIDE 20 MG TAB PO SCH (07:31)
[2021-03-11] MEDS: metOLazone 5 MG TAB PO SCH (07:31)
[2021-03-11] MEDS: lisinopriL 40 MG TAB PO SCH (07:31)
[2021-03-11] MEDS: amLODIPine 5 MG TAB PO SCH (07:31)
[2021-03-11] MEDS: BUDESONIDE 0.5 MG/2 ML INHALATION SUSPENSION INH SCH ×3 (07:48→18:01)
[2021-03-11 09:27] LABS: BASO % 0.1 % (0.0-1.0); EOS % 0.2 % (0.0-3.0); HEMATOCRIT 46.9 % (36.0-47.0); HEMOGLOBIN 13.9 g/dl (12.0-15.5); LYMPH # 0.9 10^3/uL (1.5-5.0); LYMPH % 7.2 % (24.0-44.0); MEAN CORPUSCULAR HEMOGLOBIN 28.8 pg (27.0-33.0); MEAN CORPUSCULAR HGB CONC 29.6 g/dl (32.0-36.5); MEAN CORPUSCULAR VOLUME 97.3 fl (80.0-96.0); MONO # 0.6 10^3/uL (0.0-0.8); MONO % 4.8 % (2.0-8.0); NEUTROPHILS # 10.8 10^3/uL (1.5-8.5); NEUTROPHILS % 87.1 % (36.0-66.0); PLATELET COUNT, AUTOMATED 269 10^3/uL (150-450); RED BLOOD COUNT 4.82 10^6/uL (4.00-5.40); WHITE BLOOD COUNT 12.4 10^3/uL (4.0-10.0)
[2021-03-11] MEDS: ACETAMINOPHEN TAB 650MG DOSE (2X325MG) PO PRN ×2 (09:37→18:54)
[2021-03-11 09:50] LABS: ALBUMIN 3.2 GM/DL (3.2-5.2); BILIRUBIN,TOTAL 0.5 MG/DL (0.2-1.0); CALCIUM LEVEL 9.3 MG/DL (8.8-10.2); CREATININE FOR GFR 2.61 MG/DL (0.55-1.30); GLOMERULAR FILTRATION RATE 18.6 (>32); MAGNESIUM LEVEL 2.4 MG/DL (1.8-2.4); POTASSIUM SERUM 4.1 MEQ/L (3.5-5.1); TOTAL PROTEIN 6.6 GM/DL (6.4-8.2)
[2021-03-11 14:08] VITALS: BP 95/53
[2021-03-11] MEDS ORDERED: diltiaZEM **CD** 180 MG CAP PO ONE (15:00)
[2021-03-11] MEDS ORDERED: NS 500 ML IV ONE (15:00)
[2021-03-11 15:59] VITALS: BP 119/70
[2021-03-11] MEDS: LORazepam 0.5 MG TAB PO PRN (18:53)
[2021-03-11] MEDS: SIMVASTATIN 10 MG TAB PO SCH (19:40)
[2021-03-11 21:00] VITALS: BP 94/56
[2021-03-11] MEDS: traZODone 25MG PER 1/2 TABLET PO PRN (23:23)
[2021-03-12] MEDS: IPRATROPIUM 0.5MG/ALBUTEROL 2.5MG INH SOL UD 3ML (DUONEB) NEB SCH ×2 (02:00→08:22)
[2021-03-12 06:00] VITALS: BP 113/57
[2021-03-12] MEDS: LEVOTHYROXINE 112MCG TABLET (0.112MG) PO SCH (06:07)
[2021-03-12] MEDS ORDERED: NYSTATIN 100,000 UNITS/GM TOPICAL PWD 15 GM TOP SCH (09:00)
[2021-03-12] MEDS: lisinopriL 40 MG TAB PO SCH (09:00)
[2021-03-12] MEDS ORDERED: LACTIC ACID 12% LOTION 225 GM BTL TOP SCH (09:00)
[2021-03-12 09:47] VITALS: BP 117/54
[2021-03-12] MEDS: diltiaZEM **CD** 180 MG CAP PO SCH (09:47)
[2021-03-12] MEDS: DOXYCYCLINE HYCLATE 100MG TABLET PO SCH (09:47)
[2021-03-12] MEDS: POTASSIUM CHLORIDE 10MEQ SR TABLET PO SCH (09:48)
[2021-03-12] MEDS: HEPARIN SOD (PORCINE) 5000UNITS/ML 1ML VIAL/SYRINGE SC SCH (09:48)
[2021-03-12] MEDS: predniSONE 20 MG TAB PO SCH (09:48)
[2021-03-12] MEDS: ACETAMINOPHEN TAB 650MG DOSE (2X325MG) PO PRN (11:21)
[2021-03-12] MEDS ORDERED: LISI40TA4 PO (12:12)
[2021-03-12] MEDS ORDERED: SYNT112T2 PO (12:12)
[2021-03-12] MEDS ORDERED: ATROPINE SULFATE 1% OP SOLN 2 ML BTL SL PRN (12:15)
[2021-03-12] MEDS ORDERED: FLEET ENEMA PR PRN (12:15)
[2021-03-12] MEDS ORDERED: MORPHINE 10MG/0.5ML ORAL CONCENTRATE SOLUTION U/D SL PRN (12:15)
[2021-03-12] MEDS ORDERED: HYOSCYAMINE SULFATE 0.125 MG SUBL TABLET PO PRN (12:15)
[2021-03-12] MEDS ORDERED: BISACODYL 10 MG SUPP PR PRN (12:15)
[2021-03-12] MEDS ORDERED: SCOPOLAMINE 1MG TRANSDERMAL PATCH TOP PRN (12:15)
[2021-03-12] MEDS ORDERED: MORPHINE 2 MG/ML 1ML VIAL (J2270) IV PRN (12:15)
[2021-03-12] MEDS ORDERED: MORP1SOL SL (12:18)
[2021-03-12] MEDS ORDERED: HYOS125TA PO (12:18)
[2021-03-15] MEDS ORDERED: VITAMIN D 50,000 UNITS CAPSULE (ERGOCALCIFEROL 1.25MG) PO SCH (09:00)
== END 2021-03-12 12:40 | disposition hospice, inpatient (51) | DRG 884 ==
LOC: M ED 07:08 → M ED INP 10:27 → ENRESERV 11:04 → M MSPAV 11:47 → M PCU 03-03 11:00 → M MSPAV 03-06 15:10
PROVIDERS: ADMIT Internal Medicine; ATTEND Internal Medicine
PROC: 5A0945Z Assistance with Respiratory Ventilation, 24-96 Consecutive Hours (ICD-10-PCS; principal; 2021-03-03)
DX: R54 Age-related physical debility (principal); G93.41 Metabolic encephalopathy; J96.01 Acute respiratory failure with hypoxia; J96.22 Acute and chronic respiratory failure with hypercapnia; I13.0 Hypertensive heart and chronic kidney disease with heart failure and stage 1 through stage 4 chronic kidney disease, or unspecified chronic kidney disease; I50.32 Chronic diastolic (congestive) heart failure; I48.20 Chronic atrial fibrillation, unspecified; L03.115 Cellulitis of right lower limb; L03.116 Cellulitis of left lower limb; N18.30 Chronic kidney disease, stage 3 unspecified; J44.9 Chronic obstructive pulmonary disease, unspecified; Z86.718 Personal history of other venous thrombosis and embolism; G47.33 Obstructive sleep apnea (adult) (pediatric); Z72.3 Lack of physical exercise; Z99.81 Dependence on supplemental oxygen; Z79.899 Other long term (current) drug therapy; Z20.822 Contact with and (suspected) exposure to COVID-19; I27.20 Pulmonary hypertension, unspecified; E03.9 Hypothyroidism, unspecified; Z87.891 Personal history of nicotine dependence; Z66 Do not resuscitate; Z90.49 Acquired absence of other specified parts of digestive tract; Z90.79 Acquired absence of other genital organ(s); E66.01 Morbid (severe) obesity due to excess calories; I95.9 Hypotension, unspecified; I16.0 Hypertensive urgency; R50.9 Fever, unspecified